=== PATIENT | female | born 1945 | race Caucasian/White ===

== ENCOUNTER 2018-05-13 01:32 | Observation (INO) ==
[2018-05-13 02:04] LABS: Appearance,Urine CLEAR (Clear); Bilirubin,Urine Negative (Negative); Blood, Urine Negative (Negative); Color,Urine YELLOW (Yellow); Glucose,Urine (UA) Negative (Negative); Ketones,Urine Negative (Negative); Leukocyte Esterase,Urine Negative (Negative); Microscopic, Urine URINE MICROSCOPIC (MICROSCOPIC); PH,Urine 5.5 (5.0-8.5); Protein,Urine Negative (Negative); Urobilinogen,Urine 0.2 EU/dl (0.2)
[2018-05-13 02:06] LABS: Basophils % 0.2 % (0.1-2.0); Eosinophils % 0.1 % (0.1-12.0); Hemoglobin 13.2 g/dL (12.2-16.2); Lymphocytes # 1.1 K/mm3 (0.7-4.5); Lymphocytes % 8.9 % (10-50); Mean Corpuscular HGB Conc 33.1 g/dL (31.8-35.4); Mean Corpuscular Volume 96.6 fl (81-99); Mean Platelet Volume 7.6 fl (7.4-10.4); Monocytes # 0.4 K/mm3 (0.1-1.0); Neutrophils # 10.7 K/mm3 (1.8-7.8); Neutrophils % 87.8 % (37.0-80.0); Platelet Count 241 K/mm3 (142-424); Red Blood Count 4.14 M/mm3 (4.20-5.40); Red Cell Distribution Width 13.9 % (11.5-17.5); White Blood Count 12.2 K/mm3 (4.8-10.8)
[2018-05-13 02:24] LABS: Alanine Aminotransferase 34 U/L (12-78); Albumin Level 3.5 gm/dL (3.4-5.0); Albumin/Globulin Ratio 0.8 (1.1-1.8); Alkaline Phosphatase 65 U/L (46-116); Amylase 69 U/L (25-115); Anion Gap 14.3 mEq/L (5-15); Aspartate Amino Transferase 16 U/L (15-37); Bilirubin,Total 0.6 mg/dL (0.2-1.0); Blood Urea Nitrogen 16 mg/dL (7-18); C-Reactive Protein 5.6 mg/L (0.0-0.9); Calcium 9.2 mg/dL (8.5-10.1); Carbon Dioxide 26 mmol/L (21.0-32.0); Chloride 99 mmol/L (98-107); Globulin 4.3 gm/dl (1.3-3.2); Glucose 178 mg/dL (74-106); Lipase 278 u/L (73-393); Potassium 3.3 mmoL/L (3.5-5.1); Sodium 136 mmol/L (136-145); Total Protein,Serum 7.8 gm/dL (6.4-8.2)
[2018-05-13 02:27] LABS: Bacteria,Urine 1+ /lpf; WBC,Urine Occasional #/hpf (0-3)
[2018-05-13 02:56] LABS: Erythrocyte Sedimentation Rate 64 mm/hr (0-30)
[2018-05-13 02:59] LABS: Anisocytosis 1+; Lymphocytes % 12 % (10-50); Monocytes % 1 % (2-9); Neutrophils % 87 % (42-76); Total Cells Counted 100
--- NOTE | 2018-05-13 04:01 | Emergency Department Note ---
ED Disposition Clinical Impression: Colitis, Vasovagal episode, Obesity (BMI 30.0-34.9) AAA (abdominal aortic aneurysm) Qualifiers: Presence of rupture: without rupture Qualified Code(s): I71.4 - Abdominal aortic aneurysm, without rupture Disposition: Admitted As Inpatient Condition on Discharge: Serious - Critical Care Critical Care Time: No Attestation: On 05/13/18, the high probability of a clinically significant, sudden or life threatening deterioration of the following system(s) required my full and direct attention, intervention and personal management. The time I documented below is in addition to time spent performing reported procedures but includes the following listed in this critical care notation. Medical Decision Making - Medical Records Medical records reviewed: Yes: I reviewed the patient's medical records. - Yaniv Inquiry Pt receiving controlled substance: No Vital Signs: 05/13/18 01:33 05/13/18 04:08 Temperature 97.5 F L Temperature Source Oral Pulse Rate [Right Radial] 79 76 Respiratory Rate 18 18 Blood Pressure [Right Arm] 156/61 H 142/93 H Blood Pressure Mean [Right Arm] 92 109 Blood Pressure Source [Right Arm] Automatic Cuff Blood Pressure Position [Right Arm] Sitting 02 Sat by Pulse Oximetry 94 L 96 Oxygen Delivery Method Room Air - Lab Data Lab results reviewed: Yes: I reviewed the patient's lab results. Lab Results 05/13/18 01:55: WBC 12.2 H, RBC 4.14 L, Hgb 13.2, Hct 40.0, MCV 96.6, MCH 32.0 H , MCHC 33.1, RDW 13.9, Plt Count 241, MPV 7.6, Neut % (Auto) 87.8 H, Lymph % (Auto) 8.9 L, [place] % (Auto) 3.0, Eos % (Auto) 0.1, Baso % (Auto) 0.2, Neut # (Auto) 10.7 H, Lymph # (Auto) 1.1, [place] # (Auto) 0.4, Eos # (Auto) 0.0, Baso # (Auto) 0.0, Total Counted 100, Neutrophils % (Manual) 87 H, Lymphocytes % (Manual) 12, Monocytes % (Manual) 1 L, Platelet Estimate Normal, RBC Morphology Not Reportable, Anisocytosis 1+, ESR 64 H 05/13/18 01:55: Sodium 136, Potassium 3.3 L, Chloride 99, Carbon Dioxide 26, Anion Gap 14.3, BUN 16, Creatinine 0.76, Estimated Creat Clear 66, Estimated GFR 75, Est GFR ( Amer) 90, Glucose 178 H, Calcium 9.2, Total Bilirubin 0.6, AST 16, ALT 34, Alkaline Phosphatase 65, Troponin I < 0.02, C-Reactive Protein 5.6 H, Total Protein 7.8, Albumin 3.5, Globulin 4.3 H, Albumin/Globulin Ratio 0.8 L, Amylase 69, Lipase 278 05/13/18 01:55: Influenza Type A Ag Negative, Influenza Type B Ag Negative 05/13/18 01:55: Lactate 1.2 05/13/18 01:59: Urine Color Yellow, Urine Appearance Clear, Urine pH 5.5, Ur Specific [place] 1.020, Urine Protein Negative, Urine Glucose (UA) Negative, Urine Ketones Negative, Urine Blood Negative, Urine Nitrate Negative, Urine Bilirubin Negative, Urine Urobilinogen 0.2, Ur Leukocyte Esterase Negative, Urine WBC Occasional, Ur Squamous Epith Cells 3-5, Urine Bacteria 1+ Result diagrams: 05/13/18 01:55 05/13/18 01:55 Orders (Tests/Meds): ED MEDICATIONS Generic Name Dose Route Start Last Admin Trade Name Freq PRN Reason Stop Dose Admin Sodium Chloride 1,000 mls @ 999 mls/hr 05/13/18 01:45 05/13/18 03:15 Sod Chlor 0.9% 1000ml Bag IV 05/13/18 02:45 999 mls/hr .Q1H1M DAVID Administration Levofloxacin/Dextrose 750 mg in 150 mls @ 100 mls/hr 05/13/18 04:15 Levofloxacin 750mg/150ml Premix IV 05/27/18 04:14 Q24H DAVID Protocol Metronidazole 500 mg in 100 mls @ 100 mls/hr 05/13/18 04:15 05/13/18 04:09 Flagyl 500mg/100ml Ivpb IV 05/27/18 04:14 100 mls/hr Q8H DAVID Administration Protocol Discontinued Medications Generic Name Dose Route Start Last Admin Trade Name Freq PRN Reason Stop Dose Admin Iopamidol 75 ml 05/13/18 03:19 05/13/18 03:21 [id number]; 75ml Vial IV 05/13/18 03:20 75 ml ONCE ONE Administration Protocol Sodium Chloride 10 ml 05/13/18 03:19 05/13/18 03:20 Rad-Saline Flush 10ml Syringe IV 05/13/18 03:20 10 ml ONCE ONE Administration ORDERS Category Date Time Status CT abdomen pelvis w con Stat Cat Scan 05/13/18 01:42 Taken XR chest AP Stat Exams 05/13/18 01:42 Taken Urinalysis and Microscopic Stat Lab 05/13/18 01:59 Ordered Blood Culture Stat Micro 05/13/18 01:55 Ordered - Radiology Data #1 Image(s): Chest Image Reviewed: Yes I reviewed the patient's radiology image Preliminary Findings: Normal/NAD - CT Data CT Scan: Abdomen, Pelvis Time Received: 04:[address] Reviewed: Yes: I have viewed the radiologist's interpretation Preliminary Findings: Abnormal (colitis and aaa) - ECG Data Tracing #1 Normal Sinus Rhythm: Yes Ischemic changes: non-specific ST-T wave changes - Physician Consults Physician Consulted: vikas Reason -: Admission Syncope HPI - General Chief Complaint: Nausea/Vomiting/Diarrhea Stated Complaint: fall Time Seen by Provider: 05/13/18 01:45 Mode of Arrival: EMS Source of Information: Patient, Spouse, Relative, EMS, Medical Record Limitations: No Limitations Description of Symptoms (Recalled from ER Triage Doc. by RN): pt states she has been sick with the chills for 4-5 days. pt states that she started vomiting today. pt states she was trying to get up to go to the bathroom and she "collapsed," became weak and her eased her down to the ground. pt denies diarrhea or abdominal pain. - History of Present Illness HPI narrative: pt reports not feeling well over the last few days and had nausea earlier today - pt denied abd pain and no diarrhea and when she got up earlier had vasovagal episode MD complaint: almost passed out Onset (ago): hour(s) Prodromal symptoms: none Witnessed: yes - by bystander Context: getting out of bed Injuries sustained associated with event: none Treatments prior to arrival: none - Related Data Home Medications Medication Instructions Recorded Confirmed Unobtainable 05/13/18 05/13/18 Allergies Allergy/AdvReac Type Severity Reaction Status Date / Time No Known Allergies Allergy Verified 05/13/18 01:40 [facility] History - Hepatitis A Screen Drug use history?: No High risk sexual behaviors?: No History of sexually transmitted infection?: No Currently employed?: No Childcare worker?: No Do you have indoor plumbing?: Yes Do you have electricity?: Yes Attestation statement:: This patient has been screened for Hepatitis A risk factors. I have reviewed the patient's past medical history: Yes Medical History: Reports:: Diabetes Mellitus Type 2 Denies:: Cancer, Diabetes Mellitus Type 1, MRSA Amputation: No Fractures: No - Social History Smoking Status: Former smoker Alcohol Intake: never Occupational Status: retired - Psychiatric History Expresses thoughts of harming self/others: None Suicide Plan Description: No Plan ROS Obtained: Yes All systems reviewed & no additional complaints - Constitutional Constitutional: Reports chills, Denies fever(s) - Eyes Eyes: Denies change in vision - ENT Ears, Nose, Mouth, and Throat: Denies sore throat - Cardiovascular Cardiovascular: Denies chest pain, Denies dyspnea - Respiratory Respiratory: No cough - Gastrointestinal Gastrointestingal: Reports: nausea, vomiting. Denies: abdominal pain, diarrhea - Genitourinary Female Genitourinary: Denies hematuria - Musculoskeletal Musculoskeletal: Denies joint swelling - Integumentary/Breasts Skin/Breast: Denies rash - Neurologic Neurologic: Denies confusion, Denies seizure-like activity, Reports syncope Physical Exam - General General appearance: alert, in no apparent distress, obese - Head Head exam: normocephalic - Eye Eye exam: Present: PERRL, EOMI. Absent: scleral icterus - ENT ENT exam: Present: mucous membranes dry - Neck Neck exam: Present: trachea midline - Respiratory Respiratory exam: Present: normal lung sounds bilaterally. Absent: respiratory distress - Cardiovascular Cardiovascular exam: Present: regular rate, systolic murmur, +S4 - Abdominal Exam Abdominal exam: Present: soft. Absent: tenderness, bruit Abdominal tenderness: Present: moderate - Extremities Exam Extremities exam: Absent: calf tenderness - Neurological Exam Neurological exam: Present: alert, oriented X3, CN II-XII intact - Psychiatric Psychiatric exam: Present: normal affect - Skin Skin exam: Absent: rash
--- NOTE | 2018-05-13 07:39 | Pharmacy Consult Notes ---
[facility] Pharmacy VTE Monitoring - Patient Demographics Admission date: 05/13/18 Report Date: 05/13/18 Time: 07:38 Allergies/Adverse Reactions: Patient Allergies No Known Allergies Allergy (Verified 05/13/18 01:40) Height: 1.57 m Weight: 83.263 kg Patient Problems: Current Active Problems Colitis (Acute) Vasovagal episode (Acute) AAA (abdominal aortic aneurysm) (Acute) Obesity (BMI 30.0-34.9) (Acute) - VTE Risk Labs: VTE Related Lab Results Hgb 13.2 g/dL (12.2-16.2) 05/13/18 01:55 Hct 40.0 % (37.0-47.0) 05/13/18 01:55 Plt Count 241 K/mm3 (142-424) 05/13/18 01:55 BUN 16 mg/dL (7-18) 05/13/18 01:55 Creatinine 0.76 mg/dL (0.55-1.02) 05/13/18 01:55 Estimated Creat Clear 66 mL/min (50-200) 05/13/18 01:55 Was VTE Risk Assessment Performed: Yes VTE Score: 5 VTE Risk Level: Low Risk - Prophylaxis VTE Prophylaxis Ordered?: Yes Types of VTE Prophylaxis: TEDS Knee High Location of Applied Device: Bilateral Lower Extremeties - VTE Diagnosis Confirmed Treatment or plan recommended: Continue Current Treatment
--- NOTE | 2018-05-13 08:44 | History & Physical Report ---
*Admission Date: 05/13/18 <Roxi Curtis Adry 05/13/18 09:05> *Chief complaint: Nausea and vomiting and weakness <EverRoxi 05/13/18 09:05> *History of present illness: Ms. Valdez is a 72-year-old female with a history of diabetes mellitus, hypothyroidism, breast cancer and hyperlipidemia who was brought to the [facility] emergency room via EMS after collapsing to the floor in her home and vomiting. Patient describes not feeling well for 4 days and has mostly stayed in the bed. She was nauseated but did not vomit until last p.m. she has had a decrease in her p.o. intake. She describes chilling and weakness but denies fever, cough, diarrhea, chest pain and abdominal pain. Bowels have been moving regularly. Until last p.m. she has been able to ambulate but has been weak. Patient was evaluated in the emergency room. CT of the abdomen and pelvis showed a colitis and edematous gallbladder. Chest x-ray showed a nodule in the right lobe. She was given anti-metic, admitted and placed on Levaquin and Flagyl. She arrived to the room about 5 AM and is feeling better. She denies vomiting. She agrees to try clear liquids. will bring her medicines in. She takes thyroid medicine, metformin twice daily, cholesterol medicine, and 40 units of insulin at night. Patient and are unsure of dosages. <EverRoxi 05/13/18 09:05> [facility] History Medical History: Reports:: Cancer (2011; right breast cancer), Diabetes Mellitus Type 2, Gastroesophageal Reflux Disease(GERD), Hyperlipidemia, MRSA (left groin in 2013) Denies:: Diabetes Mellitus Type 1 <Roxi Curtis 05/13/18 09:05> Have you ever received a pneumonia vaccine?: Yes <Roxi Curtis 05/13/18 09:05> Have you received a flu vaccine this season?: Yes <Roxi Curtis 05/13/18 09:05> Other Medical History: Reports: Chemotherapy, Thyroid Disease <Roxi Curtis 05/13/18 09:05> Laterality Cases: Right: Cataract, Lumpectomy (For breast cancer followed by radiation treatment) <Roxi Curtis 05/13/18 09:05> Other Surgeries: Yes: Colonoscopy, Hysterectomy-Total <Roxi Curtis 05/13/18 09:05> Amputation: No <EverRoxi 05/13/18 09:05> Fractures: No <EverRoxi 05/13/18 09:05> Comment: Removal of saliva gland on the right; she has also had back surgery <Roxi Curtis 05/13/18 09:05> - *Social History Educational Level: Completed GED/General Educational Development <Nicole Curtis 05/13/18 09:05> Smoking Status: Former smoker <EverRoxi Rider 05/13/18 09:05> Alcohol Intake: never <CurtisRoxi 05/13/18 09:05> Occupational Status: retired <EverRoxi 05/13/18 09:05> Household Members: spouse, family <CurtisRoxi 05/13/18 09:05> Travel in the last 8 weeks: None <CurtisRoxi 05/13/18 09:05> - Psychiatric History Expresses thoughts of harming self/others: None <EverRoxi 05/13/18 09:05> Suicide Plan Description: No Plan <Roxi Curtis 05/13/18 09:05> *Family Hx:: Asthma, Coronary Artery Disease, Hyperlipidemia <EverRoxi 05/13/18 09:05> Review of Systems - Constitutional Reports chills, Reports headache(s), Reports lack of energy, Reports weakness, Denies body ache(s), Denies fever(s) <Curtis,Roxi 05/13/18 09:05> - Eyes Reports floaters <CurtisRoxi 05/13/18 09:05> - ENT Reports dry mouth, Denies ear pain, Denies sore throat <Curtis,Roxi 05/13/18 09:05> - *Cardiovascular Denies chest pain, Denies shortness of breath, Denies leg swelling, Denies rapid , pounding, or irregular heartbeat <EverRoxi 05/13/18 09:05> - *Respiratory Denies chest congestion, Denies cough, Denies shortness of breath <EverRoxi 05/13/18 09:05> - *Gastrointestinal Reports heartburn, Reports incontinent of stools (1 time upon arrival to the emergency room), Reports nausea, Reports vomiting, Denies abdominal pain, Denies change in stools, Denies coffee ground vomit, Denies constipation, Denies cramping, Denies difficulty swallowing, Denies vomiting blood, Denies bright, red blood in stools, Denies black, tarry stools <Roxi Curtis 05/13/18 09:05> - *Genitourinary Denies blood in urine, Denies pelvic pain, Denies urinary incontinence, Denies urinary urgency <Roxi Curtis 05/13/18 09:05> Comments: Urinary frequency <Roxi Curtis 05/13/18 09:05> - *Musculoskeletal Reports muscle weakness, Denies joint pain, Denies body aches <Roxi Curtis 05/13/18 09:05> - *Neurologic Reports dizziness, Reports headache(s), Reports fainting, Denies behavioral changes, Denies confusion, Denies localized weakness, Denies frequent falls, Denies seizure-like activity <Roxi Curtis 05/13/18 09:05> Meds Home Medications Medication Instructions Recorded Confirmed Type Unobtainable 05/13/18 05/13/18 History <Fausto Donnelly - 05/13/18 09:47> Allergies Allergy/AdvReac Type Severity Reaction Status Date / Time No Known Allergies Allergy Verified 05/13/18 01:40 <Fausto Donnelly - 05/13/18 09:47> Exam Vital signs and Labs for Last 24 Hours: Temp Pulse Resp BP Pulse Ox 97.8 F 79 17 109/54 L 93 L 05/13/18 07:56 05/13/18 07:56 05/13/18 07:56 05/13/18 07:56 05/13/18 07:56 Laboratory Results - last 24 hr 05/13/18 01:55: WBC 12.2 H, RBC 4.14 L, Hgb 13.2, Hct 40.0, MCV 96.6, MCH 32.0 H , MCHC 33.1, RDW 13.9, Plt Count 241, MPV 7.6, Neut % (Auto) 87.8 H, Lymph % (Auto) 8.9 L, [place] % (Auto) 3.0, Eos % (Auto) 0.1, Baso % (Auto) 0.2, Neut # (Auto) 10.7 H, Lymph # (Auto) 1.1, [place] # (Auto) 0.4, Eos # (Auto) 0.0, Baso # (Auto) 0.0, Total Counted 100, Neutrophils % (Manual) 87 H, Lymphocytes % (Manual) 12, Monocytes % (Manual) 1 L, Platelet Estimate Normal, RBC Morphology Not Reportable, Anisocytosis 1+, ESR 64 H 05/13/18 01:55: Sodium 136, Potassium 3.3 L, Chloride 99, Carbon Dioxide 26, Anion Gap 14.3, BUN 16, Creatinine 0.76, Estimated Creat Clear 66, Estimated GFR 75, Est GFR ( Amer) 90, Glucose 178 H, Calcium 9.2, Total Bilirubin 0.6, AST 16, ALT 34, Alkaline Phosphatase 65, Troponin I < 0.02, C-Reactive Protein 5.6 H, Total Protein 7.8, Albumin 3.5, Globulin 4.3 H, Albumin/Globulin Ratio 0.8 L, Amylase 69, Lipase 278 05/13/18 01:55: Influenza Type A Ag Negative, Influenza Type B Ag Negative 05/13/18 01:55: Lactate 1.2 05/13/18 01:59: Urine Color Yellow, Urine Appearance Clear, Urine pH 5.5, Ur Specific [place] 1.020, Urine Protein Negative, Urine Glucose (UA) Negative, Urine Ketones Negative, Urine Blood Negative, Urine Nitrate Negative, Urine Bilirubin Negative, Urine Urobilinogen 0.2, Ur Leukocyte Esterase Negative, Urine WBC Occasional, Ur Squamous Epith Cells 3-5, Urine Bacteria 1+ 05/13/18 06:28: POC Glucose 183 H 05/13/18 07:50: Troponin I < 0.02 <Fausto Donnelly - 05/13/18 09:47> Temp Pulse Resp BP Pulse Ox 97.8 F 79 17 109/54 L 93 L 05/13/18 07:56 05/13/18 07:56 05/13/18 07:56 05/13/18 07:56 05/13/18 07:56 Laboratory Results - last 24 hr 05/13/18 01:55: WBC 12.2 H, RBC 4.14 L, Hgb 13.2, Hct 40.0, MCV 96.6, MCH 32.0 H , MCHC 33.1, RDW 13.9, Plt Count 241, MPV 7.6, Neut % (Auto) 87.8 H, Lymph % (Auto) 8.9 L, [place] % (Auto) 3.0, Eos % (Auto) 0.1, Baso % (Auto) 0.2, Neut # (Auto) 10.7 H, Lymph # (Auto) 1.1, [place] # (Auto) 0.4, Eos # (Auto) 0.0, Baso # (Auto) 0.0, Total Counted 100, Neutrophils % (Manual) 87 H, Lymphocytes % (Manual) 12, Monocytes % (Manual) 1 L, Platelet Estimate Normal, RBC Morphology Not Reportable, Anisocytosis 1+, ESR 64 H 05/13/18 01:55: Sodium 136, Potassium 3.3 L, Chloride 99, Carbon Dioxide 26, Anion Gap 14.3, BUN 16, Creatinine 0.76, Estimated Creat Clear 66, Estimated GFR 75, Est GFR ( Amer) 90, Glucose 178 H, Calcium 9.2, Total Bilirubin 0.6, AST 16, ALT 34, Alkaline Phosphatase 65, Troponin I < 0.02, C-Reactive Protein 5.6 H, Total Protein 7.8, Albumin 3.5, Globulin 4.3 H, Albumin/Globulin Ratio 0.8 L, Amylase 69, Lipase 278 05/13/18 01:55: Influenza Type A Ag Negative, Influenza Type B Ag Negative 05/13/18 01:55: Lactate 1.2 05/13/18 01:59: Urine Color Yellow, Urine Appearance Clear, Urine pH 5.5, Ur Specific [place] 1.020, Urine Protein Negative, Urine Glucose (UA) Negative, Urine Ketones Negative, Urine Blood Negative, Urine Nitrate Negative, Urine Bilirubin Negative, Urine Urobilinogen 0.2, Ur Leukocyte Esterase Negative, Urine WBC Occasional, Ur Squamous Epith Cells 3-5, Urine Bacteria 1+ 05/13/18 06:28: POC Glucose 183 H <Roxi Curtis - 05/13/18 09:05> I & O for Last 24 hours: Intake & Output 05/10/18 05/11/18 05/12/1819 11:59 11:59 11:59 11:59 Intake Total 0 / 0 Balance 0 / 0 Weight 183 lb 9 oz <Fausto Donnelly - 05/13/18 09:47> Intake & Output 05/10/18 05/11/18 05/12/18 05/13/18 11:59 11:59 11:59 11:59 Intake Total 0 / 0 Balance 0 / 0 Weight 183 lb 9 oz <Roxi Curtis 05/13/18 09:05> Radiology Reports for the Last 24 Hours: Chest x-ray 05/13/2018 IMPRESSION: Chronic changes/COPD with nodularity in the right upper lobe. Consider chest CT for further evaluation.. CT of abdomen and pelvis 05/13/2018 IMPRESSION: 1. Colitis of the ascending colon and cecum with terminal ileitis. 2. Distended gallbladder. 3. 4.6 cm saccular abdominal aortic aneurysm 4. Colonic diverticulosis <EverRoxi 05/13/18 09:05> - Constitutional no acute distress <CurtisRoxi 05/13/18 09:05> Comments: She is lying comfortably in the bed <CurtisRoxi 05/13/18 09:05> - *Routine HEENT Exam Head: Present: normocephalic, atraumatic <CurtisRoxi 05/13/18 09:05> Eye: Present: EOMI, PERRL. Absent: conjunctival icterus, scleral injection <CurtisRoxi 05/13/18 09:05> ENT: Present: mucous membranes moist, oropharynx clear <EverRoxi 05/13/18 09:05> - *Routine Neck Exam Present: supple, full ROM. Absent: carotid bruit, lymphadenopathy, thyromegaly <EverRoxi 05/13/18 09:05> - *Routine Respiratory Exam Present: CTA bilaterally (Anteriorly and posteriorly) <Roxi Curtis 05/13/18 09:05> - *Routine Cardiovascular Exam Present: RRR. Absent: murmur <EverRoxi 05/13/18 09:05> - *Routine Abdominal Exam Present: soft, normoactive bowel sounds. Absent: tenderness, distended, organomegaly, mass <Roxi Curtis 05/13/18 09:05> - *Routine Extremities Exam Present: full ROM. Absent: edema, calf tenderness <Roxi Curtis 05/13/18 09:05> - *Routine Neurological Exam Present: alert, oriented X3, CN II-XII intact. Absent: altered mental status <Roxi Curtis - 05/13/18 09:05> Assessment and Plan (1) Colitis Current visit: Yes Status: Acute Category: Medical Code(s): K52.9 - Noninfective gastroenteritis and colitis, unspecified (2) Vasovagal episode Current visit: Yes Status: Acute Category: Medical Code(s): R55 - Syncope and collapse (3) Hypothyroidism Current visit: Yes Status: Chronic Category: Medical Code(s): E03.9 - Hypothyroidism, unspecified (4) Hyperlipidemia Current visit: Yes Status: Chronic Category: Medical Code(s): E78.5 - Hyperlipidemia, unspecified (5) Diabetes mellitus Current visit: Yes Status: Chronic Category: Medical Code(s): E11.9 - Type 2 diabetes mellitus without complications (6) History of breast cancer Current visit: Yes Status: Chronic Category: Medical Code(s): Z85.3 - Personal history of malignant neoplasm of breast (7) AAA (abdominal aortic aneurysm) Current visit: Yes Status: Acute Qualifiers: Presence of rupture: without rupture Qualified Code(s): I71.4 - Abdominal aortic aneurysm, without rupture Category: Medical Code(s): I71.4 - Abdominal aortic aneurysm, without rupture (8) Obesity (BMI 30.0-34.9) Current visit: Yes Status: Chronic Category: Medical Code(s): E66.9 - Obesity, unspecified (9) Lung nodule Current visit: Yes Status: Acute Category: Medical Code(s): R91.1 - Solitary pulmonary nodule <Fausto Donnelly - 05/13/18 09:47> (1) Hypothyroidism Current visit: Yes Status: Chronic Category: Medical Code(s): E03.9 - Hypothyroidism, unspecified (2) Hyperlipidemia Current visit: Yes Status: Chronic Category: Medical Code(s): E78.5 - Hyperlipidemia, unspecified (3) Diabetes mellitus Current visit: Yes Status: Chronic Category: Medical Code(s): E11.9 - Type 2 diabetes mellitus without complications (4) History of breast cancer Current visit: Yes Status: Chronic Category: Medical Code(s): Z85.3 - Personal history of malignant neoplasm of breast (5) AAA (abdominal aortic aneurysm) Current visit: Yes Status: Acute Qualifiers: Presence of rupture: without rupture Qualified Code(s): I71.4 - Abdominal aortic aneurysm, without rupture Category: Medical Code(s): I71.4 - Abdominal aortic aneurysm, without rupture (6) Colitis Current visit: Yes Status: Acute Category: Medical Code(s): K52.9 - Noninfective gastroenteritis and colitis, unspecified (7) Obesity (BMI 30.0-34.9) Current visit: Yes Status: Chronic Category: Medical Code(s): E66.9 - Obesity, unspecified (8) Vasovagal episode Current visit: Yes Status: Acute Category: Medical Code(s): R55 - Syncope and collapse (9) Lung nodule Current visit: Yes Status: Acute Category: Medical Code(s): R91.1 - Solitary pulmonary nodule <Roxi Curtis - 05/13/18 08:40> - Assessment and plan all Dx Assessment and Plan for all problems:: Patient seen and examined. Concur with above. Subjectively feels better. SHe has started having diarrheal stools. Will obtain PCR diarrhea panel. Continue current antibiotic regimen. <Fausto Donnelly - 05/13/18 09:47> Patient has been started on Levaquin and Flagyl. She is also receiving IV fluids. We will try clear liquids. Continue with anti-emetics as needed. to bring medicines from home and list will be completed. She is on sliding scale insulin. <Roxi Curtis - 05/13/18 09:05>
--- NOTE | 2018-05-13 13:30 | Progress Note ---
Internal Medicine - PN: Pita *Date: 05/13/18 *Time: 13:29 Interval history: Diarrhea panel returned showing Campylobacter. Exam Vital signs and Labs for Last 24 Hours: Temp Pulse Resp BP Pulse Ox 97.8 F 79 17 109/54 L 93 L 05/13/18 07:56 05/13/18 07:56 05/13/18 07:56 05/13/18 07:56 05/13/18 07:56 Laboratory Results - last 24 hr 05/13/18 01:55: WBC 12.2 H, RBC 4.14 L, Hgb 13.2, Hct 40.0, MCV 96.6, MCH 32.0 H , MCHC 33.1, RDW 13.9, Plt Count 241, MPV 7.6, Neut % (Auto) 87.8 H, Lymph % (Auto) 8.9 L, [place] % (Auto) 3.0, Eos % (Auto) 0.1, Baso % (Auto) 0.2, Neut # (Auto) 10.7 H, Lymph # (Auto) 1.1, [place] # (Auto) 0.4, Eos # (Auto) 0.0, Baso # (Auto) 0.0, Total Counted 100, Neutrophils % (Manual) 87 H, Lymphocytes % (Manual) 12, Monocytes % (Manual) 1 L, Platelet Estimate Normal, RBC Morphology Not Reportable, Anisocytosis 1+, ESR 64 H 05/13/18 01:55: Sodium 136, Potassium 3.3 L, Chloride 99, Carbon Dioxide 26, Anion Gap 14.3, BUN 16, Creatinine 0.76, Estimated Creat Clear 66, Estimated GFR 75, Est GFR ( Amer) 90, Glucose 178 H, Calcium 9.2, Total Bilirubin 0.6, AST 16, ALT 34, Alkaline Phosphatase 65, Troponin I < 0.02, C-Reactive Protein 5.6 H, Total Protein 7.8, Albumin 3.5, Globulin 4.3 H, Albumin/Globulin Ratio 0.8 L, Amylase 69, Lipase 278 05/13/18 01:55: Influenza Type A Ag Negative, Influenza Type B Ag Negative 05/13/18 01:55: Lactate 1.2 05/13/18 01:59: Urine Color Yellow, Urine Appearance Clear, Urine pH 5.5, Ur Specific [place] 1.020, Urine Protein Negative, Urine Glucose (UA) Negative, Urine Ketones Negative, Urine Blood Negative, Urine Nitrate Negative, Urine Bilirubin Negative, Urine Urobilinogen 0.2, Ur Leukocyte Esterase Negative, Urine WBC Occasional, Ur Squamous Epith Cells 3-5, Urine Bacteria 1+ 05/13/18 06:28: POC Glucose 183 H 05/13/18 07:50: Troponin I < 0.02 05/13/18 09:30: Stl Aeromonas (PCR) Not detected, Stl C. cayetanensis PCR Not detected, Stool Rotavirus (PCR) Not detected, Stl Adenov F 40/41 PCR Not detected, Stool Astrovirus (PCR) Not detected, Stool Campylobacter PCR Detected A, Stl C.difficile Tox PCR Not detected, Stool Cryptosporidium PCR Not detected, Stl E.coli Shiga Tox PCR Not detected, Stool E coli O157 PCR Not detected, Stl Enterotoxigenic E PCR Not detected, Stool EPEC (PCR) Not detected, Stool EAEC (PCR) Not detected, Stl E. histolytica PCR Not detected, Stool Giardia Lamblia PCR Not detected, Stool Salmonella PCR Not detected, Stool Sapovirus (PCR) Not detected, Stl P. shigelloides PCR Not detected, Stl Shigella/EIEC PCR Not detected, St Y.enterocolitica PCR Not detected, Stool Vibrio (PCR) Not detected, Stl Vibrio cholerae PCR Not detected, Stl Norovirus GI/GII PCR Not detected 05/13/18 10:55: Troponin I < 0.02 05/13/18 12:12: POC Glucose 120 H I & O for Last 24 hours: Intake & Output 05/11/18 05/12/18 05/13/18 05/14/18 11:59 11:59 11:59 11:59 Intake Total 0 / 0 600 / 600 Balance 0 / 0 600 / 600 Weight 183 lb 9 oz Assessment and Plan (1) Campylobacter enteritis Current visit: Yes Status: Acute Category: Medical Code(s): A04.5 - Campylobacter enteritis (2) Vasovagal episode Current visit: Yes Status: Acute Category: Medical Code(s): R55 - Syncope and collapse (3) Hypothyroidism Current visit: Yes Status: Chronic Category: Medical Code(s): E03.9 - Hypothyroidism, unspecified (4) Hyperlipidemia Current visit: Yes Status: Chronic Category: Medical Code(s): E78.5 - Hyperlipidemia, unspecified (5) Diabetes mellitus Current visit: Yes Status: Chronic Category: Medical Code(s): E11.9 - Type 2 diabetes mellitus without complications (6) History of breast cancer Current visit: Yes Status: Chronic Category: Medical Code(s): Z85.3 - Personal history of malignant neoplasm of breast (7) AAA (abdominal aortic aneurysm) Current visit: Yes Status: Acute Qualifiers: Presence of rupture: without rupture Qualified Code(s): I71.4 - Abdominal aortic aneurysm, without rupture Category: Medical Code(s): I71.4 - Abdominal aortic aneurysm, without rupture (8) Obesity (BMI 30.0-34.9) Current visit: Yes Status: Chronic Category: Medical Code(s): E66.9 - Obesity, unspecified (9) Lung nodule Current visit: Yes Status: Acute Category: Medical Code(s): R91.1 - Solitary pulmonary nodule - Assessment and plan all Dx Assessment and Plan for all problems:: Will add Azithromycin. Stop Flagyl
[2018-05-14 06:54] LABS: Basophils % 0.2 % (0.1-2.0); Eosinophils # 0.1 K/mm3 (0.0-0.4); Eosinophils % 2.1 % (0.1-12.0); Hematocrit 34.2 % (37.0-47.0); Hemoglobin 11.1 g/dL (12.2-16.2); Lymphocytes # 1.6 K/mm3 (0.7-4.5); Lymphocytes % 24.7 % (10-50); Mean Corpuscular HGB Conc 32.3 g/dL (31.8-35.4); Mean Corpuscular Volume 99.1 fl (81-99); Mean Platelet Volume 7.9 fl (7.4-10.4); Monocytes # 0.3 K/mm3 (0.1-1.0); Monocytes % 5.2 % (1.7-9.3); Neutrophils # 4.5 K/mm3 (1.8-7.8); Neutrophils % 67.8 % (37.0-80.0); Platelet Count 194 K/mm3 (142-424); Red Blood Count 3.46 M/mm3 (4.20-5.40); Red Cell Distribution Width 13.8 % (11.5-17.5); White Blood Count 6.6 K/mm3 (4.8-10.8)
[2018-05-14 07:02] LABS: Anion Gap 12.1 mEq/L (5-15); Potassium 3.1 mmoL/L (3.5-5.1)
[2018-05-14 08:15] LABS: Calcium 8.1 mg/dL (8.5-10.1)
--- NOTE | 2018-05-14 08:28 | Progress Note ---
<Rosalia Nicholson - Last Filed: 05/14/18 08:26> Internal Medicine - PN: Subj *Date: 05/14/18 *Time: 08:26 Interval history: Patient states she feels "great" today. She states her bowels are still loose. She denies any abdominal pain. She is tolerating her clear liquid diet and would like an advance in her diet today. She is anxious to go home. Exam Vital signs and Labs for Last 24 Hours: Temp Pulse Resp BP Pulse Ox 97.5 F L 74 17 142/66 H 98 05/14/18 04:00 05/14/18 04:00 05/14/18 04:00 05/14/18 04:00 05/14/18 04:00 Laboratory Results - last 24 hr 05/13/18 07:50: Troponin I < 0.02 05/13/18 09:30: Stl Aeromonas (PCR) Not detected, Stl C. cayetanensis PCR Not detected, Stool Rotavirus (PCR) Not detected, Stl Adenov F 40/41 PCR Not detected, Stool Astrovirus (PCR) Not detected, Stool Campylobacter PCR Detected A, Stl C.difficile Tox PCR Not detected, Stool Cryptosporidium PCR Not detected, Stl E.coli Shiga Tox PCR Not detected, Stool E coli O157 PCR Not detected, Stl Enterotoxigenic E PCR Not detected, Stool EPEC (PCR) Not detected, Stool EAEC (PCR) Not detected, Stl E. histolytica PCR Not detected, Stool Giardia Lamblia PCR Not detected, Stool Salmonella PCR Not detected, Stool Sapovirus (PCR) Not detected, Stl P. shigelloides PCR Not detected, Stl Shigella/EIEC PCR Not detected, St Y.enterocolitica PCR Not detected, Stool Vibrio (PCR) Not detected, Stl Vibrio cholerae PCR Not detected, Stl Norovirus GI/GII PCR Not detected 05/13/18 10:55: Troponin I < 0.02 05/13/18 12:12: POC Glucose 120 H 05/13/18 16:42: POC Glucose 117 H 05/14/18 06:26: POC Glucose 122 H 05/14/18 06:30: WBC 6.6 D, RBC 3.46 L, Hgb 11.1 L, Hct 34.2 L, MCV 99.1 H, MCH 32.0 H, MCHC 32.3, RDW 13.8, Plt Count 194, MPV 7.9, Neut % (Auto) 67.8, Lymph % (Auto) 24.7, [place] % (Auto) 5.2, Eos % (Auto) 2.1, Baso % (Auto) 0.2, Neut # (Auto) 4.5, Lymph # (Auto) 1.6, [place] # (Auto) 0.3, Eos # (Auto) 0.1, Baso # (Auto) 0.0 05/14/18 06:30: Sodium 140, Potassium 3.1 L, Chloride 106, Carbon Dioxide 25, Anion Gap 12.1, BUN 9 D, Creatinine 0.65, Estimated Creat Clear 66, Estimated GFR 89, Est GFR ( Amer) 108, Glucose 131 H, Calcium 8.1 L D I & O for Last 24 hours: Intake & Output 05/11/18 05/12/18 05/13/18 05/14/18 11:59 11:59 11:59 11:59 Intake Total 0 / 0 2137 Balance 0 / 0 2137 Weight 183 lb 9 oz 184 lb 9 oz - Constitutional no acute distress - *Routine Respiratory Exam Present: rales (LLL). Absent: wheezes - *Routine Cardiovascular Exam Present: RRR - *Routine Abdominal Exam Present: soft, normoactive bowel sounds. Absent: tenderness - *Routine Extremities Exam Absent: cyanosis, clubbing, edema Assessment and Plan (1) Campylobacter enteritis Current visit: Yes Status: Acute Category: Medical Code(s): A04.5 - Campylobacter enteritis (2) Vasovagal episode Current visit: Yes Status: Acute Category: Medical Code(s): R55 - Syncope and collapse (3) Hypothyroidism Current visit: Yes Status: Chronic Category: Medical Code(s): E03.9 - Hypothyroidism, unspecified (4) Hyperlipidemia Current visit: Yes Status: Chronic Category: Medical Code(s): E78.5 - Hyperlipidemia, unspecified (5) Diabetes mellitus Current visit: Yes Status: Chronic Category: Medical Code(s): E11.9 - Type 2 diabetes mellitus without complications (6) History of breast cancer Current visit: Yes Status: Chronic Category: Medical Code(s): Z85.3 - Personal history of malignant neoplasm of breast (7) AAA (abdominal aortic aneurysm) Current visit: Yes Status: Acute Qualifiers: Presence of rupture: without rupture Qualified Code(s): I71.4 - Abdominal aortic aneurysm, without rupture Category: Medical Code(s): I71.4 - Abdominal aortic aneurysm, without rupture (8) Obesity (BMI 30.0-34.9) Current visit: Yes Status: Chronic Category: Medical Code(s): E66.9 - Obesity, unspecified (9) Lung nodule Current visit: Yes Status: Acute Category: Medical Code(s): R91.1 - Solitary pulmonary nodule (10) Hypokalemia Current visit: Yes Status: Acute Category: Medical Code(s): E87.6 - Hypokalemia - Assessment and plan all Dx Assessment and Plan for all problems:: Will start on potassium supplementation for hypokalemia. Will continue antibiotics for Campylobacter enteritis. Will advance diet today. <Fausto Donnelly - Last Filed: 05/14/18 17:46> Exam Vital signs and Labs for Last 24 Hours: Temp Pulse Resp BP Pulse Ox 98.0 F 77 16 155/73 H 96 05/14/18 16:00 05/14/18 16:00 05/14/18 16:00 05/14/18 16:00 05/14/18 16:00 Laboratory Results - last 24 hr 05/14/18 06:26: POC Glucose 122 H 05/14/18 06:30: WBC 6.6 D, RBC 3.46 L, Hgb 11.1 L, Hct 34.2 L, MCV 99.1 H, MCH 32.0 H, MCHC 32.3, RDW 13.8, Plt Count 194, MPV 7.9, Neut % (Auto) 67.8, Lymph % (Auto) 24.7, [place] % (Auto) 5.2, Eos % (Auto) 2.1, Baso % (Auto) 0.2, Neut # (Auto) 4.5, Lymph # (Auto) 1.6, [place] # (Auto) 0.3, Eos # (Auto) 0.1, Baso # (Auto) 0.0 05/14/18 06:30: Sodium 140, Potassium 3.1 L, Chloride 106, Carbon Dioxide 25, Anion Gap 12.1, BUN 9 D, Creatinine 0.65, Estimated Creat Clear 66, Estimated GFR 89, Est GFR ( Amer) 108, Glucose 131 H, Calcium 8.1 L D 05/14/18 11:15: POC Glucose 116 H 05/14/18 16:15: POC Glucose 189 H I & O for Last 24 hours: Intake & Output 05/12/18 05/13/18 05/14/18 05/15/18 11:59 11:59 11:59 11:59 Intake Total 0 / 0 261 261 360 / 360 Balance 0 / 0 2617 261 360 / 360 Weight 183 lb 9 oz 184 lb 9 oz Assessment and Plan (1) Campylobacter enteritis Current visit: Yes Status: Acute Category: Medical Code(s): A04.5 - Campylobacter enteritis (2) Vasovagal episode Current visit: Yes Status: Acute Category: Medical Code(s): R55 - Syncope and collapse (3) Hypothyroidism Current visit: Yes Status: Chronic Category: Medical Code(s): E03.9 - Hypothyroidism, unspecified (4) Hyperlipidemia Current visit: Yes Status: Chronic Category: Medical Code(s): E78.5 - Hyperlipidemia, unspecified (5) Diabetes mellitus Current visit: Yes Status: Chronic Category: Medical Code(s): E11.9 - Type 2 diabetes mellitus without complications (6) History of breast cancer Current visit: Yes Status: Chronic Category: Medical Code(s): Z85.3 - Personal history of malignant neoplasm of breast (7) AAA (abdominal aortic aneurysm) Current visit: Yes Status: Acute Qualifiers: Presence of rupture: without rupture Qualified Code(s): I71.4 - Abdominal aortic aneurysm, without rupture Category: Medical Code(s): I71.4 - Abdominal aortic aneurysm, without rupture (8) Obesity (BMI 30.0-34.9) Current visit: Yes Status: Chronic Category: Medical Code(s): E66.9 - Obesity, unspecified (9) Lung nodule Current visit: Yes Status: Acute Category: Medical Code(s): R91.1 - Solitary pulmonary nodule (10) Hypokalemia Current visit: Yes Status: Acute Category: Medical Code(s): E87.6 - Hypokalemia - Assessment and plan all Dx Assessment and Plan for all problems:: Patient seen and examined this AM. SHe is feeling better and feels hungry . Stool frequency has decreased. Will advance diet and encourage activity. Collin khan discharge home later today.
--- NOTE | 2018-05-14 21:34 | Discharge Summary ---
General - General Admission date:: 05/13/18 <Fausto Donnelly - 05/21/18 18:11> 05/13/18 <Rosalia Nicholson - 05/14/18 21:35> Discharge date: 05/14/18 <BharatRosalia - 05/14/18 21:35> HPI HPI: Ms. Valdez is a 72-year-old female with a history of diabetes mellitus, hypothyroidism, breast cancer and hyperlipidemia who was brought to the [facility] emergency room via EMS after collapsing to the floor in her home and vomiting. Patient describes not feeling well for 4 days and has mostly stayed in the bed. She was nauseated but did not vomit until last p.m. She has had a decrease in her p.o. intake. She describes chilling and weakness but denies fever, cough, diarrhea, chest pain and abdominal pain. Bowels have been moving regularly. Until last p.m. she has been able to ambulate but has been weak. Patient was evaluated in the emergency room. CT of the abdomen and pelvis showed a colitis and edematous gallbladder as well as a AAA. Chest x-ray showed a nodule in the right lobe. She was given antiemetics and admitted and placed on Levaquin and Flagyl. She arrived to the room about 5 AM and is feeling better. She denies vomiting. She agrees to try clear liquids. will bring her medicines in. She takes thyroid medicine, metformin twice daily, cholesterol medicine, and 40 units of insulin at night. Patient and are unsure of dosages. <Rosalia Nicholson - 05/14/18 21:35> Hospital Course Hospital Course: A diarrhea panel was ordered as she started having diarrheal stools. She was continued on Levaquin and Flagyl as well as IV fluids and was started on a clear liquid diet. Her antiemetics were continued as well and she was started on sliding scale insulin. Her diarrhea panel returned showing Campylobacter. The Flagyl was stopped and she was started on Zithromax along with the Levaquin. By the next day, she was feeling much better. Her stools we re still loose but she was having less frequent stools. She was tolerating her diet and wanted an advance in the diet. She denied any abdominal pain and was anxious to go home. She was started on some potassium supplementation due to hypokalemia and her diet was advanced. She tolerated her diet and her stools started to form. She was stable to be discharged home. Dr. Donnelly did discuss the abnormal finding on her chest x-ray and the finding of a AAA on her CT scan. He advised her to follow-up with her PCP Dr. Bocanegra for further workup and surveillance. She was provided a copy of these reports to take home with her. She will be discharged home on azithromycin. <Rosalia Nicholson - 05/14/18 21:35> Objective Vital signs: Temp Pulse Resp BP Pulse Ox 98.0 F 77 16 155/73 H 96 05/14/18 16:00 05/14/18 16:00 05/14/18 16:00 05/14/18 16:00 05/14/18 16:00 <Fausto Donnelly - 05/21/18 18:11> Temp Pulse Resp BP Pulse Ox 98.0 F 77 16 155/73 H 96 05/14/18 16:00 05/14/18 16:00 05/14/18 16:00 05/14/18 16:00 05/14/18 16:00 <Rosalia Nicholson - 05/14/18 21:35> Narrative: - Constitutional no acute distress Comments: She is lying comfortably in the bed - *Routine HEENT Exam Head: Present: normocephalic, atraumatic Eye: Present: EOMI, PERRL. Absent: conjunctival icterus, scleral injection ENT: Present: mucous membranes moist, oropharynx clear - *Routine Neck Exam Present: supple, full ROM. Absent: carotid bruit, lymphadenopathy, thyromegaly - *Routine Respiratory Exam Present: CTA bilaterally (Anteriorly and posteriorly) - *Routine Cardiovascular Exam Present: RRR. Absent: murmur - *Routine Abdominal Exam Present: soft, normoactive bowel sounds. Absent: tenderness, distended, organomegaly, mass - *Routine Extremities Exam Present: full ROM. Absent: edema, calf tenderness - *Routine Neurological Exam Present: alert, oriented X3, CN II-XII intact. Absent: altered mental status <Rosalia Nicholson - 05/14/18 21:35> Results Labs on day of discharge: Labs from last 24 hours 05/14/18 05/14/18 05/14/18 16:15 11:15 06:30 WBC RBC Hgb Hct MCV MCH MCHC RDW Plt Count MPV Neut % (Auto) Lymph % (Auto) [place] % (Auto) Eos % (Auto) Baso % (Auto) Neut # (Auto) Lymph # (Auto) [place] # (Auto) Eos # (Auto) Baso # (Auto) Sodium 140 Potassium 3.1 L Chloride 106 Carbon Dioxide 25 Anion Gap 12.1 BUN 9 D Creatinine 0.65 Estimated Creat Clear 66 Estimated GFR 89 Est GFR ( Amer) 108 Glucose 131 H POC Glucose 189 H 116 H Calcium 8.1 L D 05/14/18 05/14/18 06:30 06:26 WBC 6.6 D RBC 3.46 L Hgb 11.1 L Hct 34.2 L MCV 99.1 H MCH 32.0 H MCHC 32.3 RDW 13.8 Plt Count 194 MPV 7.9 Neut % (Auto) 67.8 Lymph % (Auto) 24.7 [place] % (Auto) 5.2 Eos % (Auto) 2.1 Baso % (Auto) 0.2 Neut # (Auto) 4.5 Lymph # (Auto) 1.6 [place] # (Auto) 0.3 Eos # (Auto) 0.1 Baso # (Auto) 0.0 Sodium Potassium Chloride Carbon Dioxide Anion Gap BUN Creatinine Estimated Creat Clear Estimated GFR Est GFR ( Amer) Glucose POC Glucose 122 H Calcium <Rosalia Nicholson 05/14/18 21:35> DS: Diagnosis - Discharge Diagnosis (1) Campylobacter enteritis Status: Acute (2) Vasovagal episode Status: Acute (3) Hypothyroidism Status: Chronic (4) Hyperlipidemia Status: Chronic (5) Diabetes mellitus Status: Chronic (6) History of breast cancer Status: Chronic (7) AAA (abdominal aortic aneurysm) Status: Acute (8) Obesity (BMI 30.0-34.9) Status: Chronic (9) Lung nodule Status: Acute (10) Hypokalemia Status: Acute <Rosalia Nicholson - 05/14/18 21:27> (1) Campylobacter enteritis Status: Acute (2) Vasovagal episode Status: Acute (3) Hypothyroidism Status: Chronic (4) Hyperlipidemia Status: Chronic (5) Diabetes mellitus Status: Chronic (6) History of breast cancer Status: Chronic (7) AAA (abdominal aortic aneurysm) Status: Acute (8) Obesity (BMI 30.0-34.9) Status: Chronic (9) Lung nodule Status: Acute (10) Hypokalemia Status: Acute <Fausto Donnelly - 05/21/18 18:11> Discharge Plan - Patient Discharge Instructions ACTIVITY: Continue current activity <Rosalia Nicholson - 05/14/18 21:35> DIET: continue same diet <Mohit Nicholsona - 05/14/18 21:35> Patient Instructions: DI for Syncope in Adults (Fainting), DI for Colitis <Fausto Donnelly - 05/21/18 18:11> Forms: <Fausto Donnelly - 05/21/18 18:11> - Follow up Plan Follow up with: Jagjit Bocanegra [Referring] - 1 week <Fausto Donnelly - 0 05/21/18 18:11> Disposition: Home, Self-Care <Fausto Donnelly - 05/21/18 18:11> Home Medications: Home Medications Medication Instructions Recorded Confirmed Type RX: Aspirin [Aspirin 81mg chewable 81 mg PO DAILY 05/13/18 05/13/18 History tab] RX: Calcium Carbonate/Vitamin D3 1 each PO BID 05/13/18 05/13/18 History [Calcium 500 + Vit D Caplet] RX: Denosumab [Denosumab 60mg/mL 60 mg SQ DIRECTED 05/13/18 05/13/18 History syringe] RX: Fenofibrate 160 mg PO DAILY 05/13/18 05/13/18 History RX: Insulin Detemir [Levemir 40 unit SQ HS 05/13/18 05/13/18 History 100units/mL 3mL flexpen] RX: Levothyroxine Sodium 150 mcg PO DAILY 05/13/18 05/13/18 History [Levothyroxine 150mcg (0.15mg) Tab] RX: Lovastatin 40 mg PO HS 05/13/18 05/13/18 History RX: Metformin HCl 1,000 mg PO BIDWM 05/13/18 05/13/18 History RX: Multivit-Min/Iron/Folic Acid/K 1 each PO DAILY 05/13/18 05/13/18 History [Adults Multivitamin Caplet] RX: Triamcinolone Acetonide 1 applicatio TP BID 05/13/18 05/13/18 History Azithromycin [Zithromax 500mg Tab] 500 mg PO DAILY #1 tab 05/14/18 Rx <Fausto Donnelly - 05/21/18 18:11> Prescriptions/Medication Reconciliation: New Azithromycin [Zithromax 500mg Tab] 500 mg PO DAILY #1 tab Continue RX: Aspirin [Aspirin 81mg chewable tab] 81 mg PO DAILY RX: Multivit-Min/Iron/Folic Acid/K [Adults Multivitamin Caplet] 1 each PO DAILY RX: Denosumab [Denosumab 60mg/mL syringe] 60 mg SQ DIRECTED RX: Triamcinolone Acetonide 1 applicatio TP BID RX: Metformin HCl 1,000 mg PO BIDWM RX: Lovastatin 40 mg PO HS RX: Fenofibrate 160 mg PO DAILY RX: Insulin Detemir [Levemir 100units/mL 3mL flexpen] 40 unit SQ HS RX: Calcium Carbonate/Vitamin D3 [Calcium 500 + Vit D Caplet] 1 each PO BID RX: Levothyroxine Sodium [Levothyroxine 150mcg (0.15mg) Tab] 150 mcg PO DAILY <Fausto Donnelly - 05/21/18 18:11> - Additional Information Additional Information: Concur with plan for discharge. <Fausto Donnelly - 05/21/18 18:11>
== END 2018-05-14 18:34 | disposition home or self-care (01) ==
LOC: ER 01:32 → 2ND 04:08 → INTOOBSV 05:07 → 2ND 05:08
PROVIDERS: ADMIT Family Medicine; ATTEND Family Medicine
CPT/HCPCS: 36415; 71010; 71045; 74177; 80048; 80053; 81001; 82150; 82962; 83605; 83690; 84484; 85007; 85025; 85651; 86140; 87040; 87275; 87276; 87507; 93005; 96365; 96367; 99285; G0378; J1956; Q9967

== ENCOUNTER 2019-12-02 21:25 | Emergency (ER) | payer MEDICARE, SELFPAY ==
[2019-12-02 21:40] VITALS: BP 142/68; PULSE 92; RESP 16; TEMP 36.5; O2SAT 97; BMI 33.8
--- NOTE | 2019-12-02 21:49 | CT_ITS ---
PROCEDURE: CT ABDOMEN PELVIS W CON CLINICAL INDICATION: LLQ pain Left lower quadrant pain COMPARISON: CT ABDPELW CT abdomen pelvis w con from 05/13/2018 TECHNIQUE: IV Contrast: 75ML OPTIRAY 350 Oral Contrast None Axial images obtained with sagittal and coronal reformats. All CT scans at the facility use one or more dose reduction, viz: automated exposure control, ma/kV adjustment per patient size (including targeted exams where dose is matched to indication, i.e. head), or iterative reconstruction technique. FINDINGS: LOWER THORAX: Atelectatic change or fibrosis in the lung bases. Coronary artery calcifications are noted. ABDOMEN & PELVIS: The liver, spleen, adrenal glands, gallbladder, and pancreas have an unremarkable appearance. There are bilateral renal cyst with a left parapelvic renal cyst at 3.4 cm and small right renal cortical cyst. No hydronephrosis. No ureteral calculi. Aortoiliac stent is noted. There is bulging of the contour the distal left lateral aspect of the [place] abdominal aortic aneurysm. The aorta here measures 3.4 cm transverse with mural thrombus lateral to the stent graft on the left. The AP dimension is 3 cm. Previously there was a saccular aneurysm at this area which was larger with the aorta measuring 4.4 cm transverse and 4.3 cm AP. There is a small focus of increased density just posterior to the left common iliac limb of the graft best seen on image 74 series 3. This could represent some residual patent lumen of the aorta outside the graft or could be seen with a endo graft leak. This however was much larger on the previous exam which was pre stent placement. There are no post stent studies for comparison. There is degenerative disc disease in the lumbar spine. No free pelvic fluid. No evidence of abscess. No intestinal obstruction or free air. There is diverticulosis of the colon but no evidence of diverticulitis. There are post hysterectomy changes. There is some minimal infiltration of the peritoneal fat anterior lateral to the left iliac vessels and there is some minimal stranding of the fat adjacent to the left lateral aspect of the aneurysm sac of the aorta. The appendix is upper limits of normal but not significantly changed compared to the previous study with no evidence of stranding of the periappendiceal fat. No intestinal obstruction or free air. There is diverticula of the descending duodenum. 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 The aortic aneurysm is smaller compared to the pre graft images. There is some mural thrombus along the left lateral aspect of the stent graft with a tiny focus of enhancement posterior to the left iliac limb and minimal stranding of the fat adjacent to the aneurysm sac and along the left iliac region. These findings suggest and endograft leak. Recommend correlation with any other post graft exams. There is no evidence of hemoperitoneum. Other nonacute findings as described above. Dictated b Jean Yee MD 12/03/2019 06:24 Jean Yee MD in [facility] 12/03/2019 06:24
[2019-12-02 21:55] LABS: Microscopic, Urine URINE MICROSCOPIC (MICROSCOPIC)
[2019-12-02 21:57] LABS: Appearance,Urine CLEAR (Clear); Bilirubin,Urine Negative (Negative); Blood, Urine Negative (Negative); Color,Urine YELLOW (Yellow); Glucose,Urine (UA) Negative (Negative); Ketones,Urine Negative (Negative); Leukocyte Esterase,Urine Negative (Negative); Nitrate,Urine Negative (Negative); Protein,Urine Negative (Negative); Urobilinogen,Urine 0.2 EU/dl (0.2)
--- NOTE | 2019-12-02 21:57 | HMH.EDNVD ---
ED Disposition Clinical Impression: Shingles Qualifiers: Herpes zoster complications: without complications Qualified Code(s): B02.9 - Zoster without complications AAA (abdominal aortic aneurysm) Qualifiers: Presence of rupture: without rupture Qualified Code(s): I71.4 - Abdominal aortic aneurysm, without rupture Endoleak post (EVAR) endovascular aneurysm repair Qualifiers: Encounter type: initial encounter Qualified Code(s): T82.330A - Leakage of aortic (bifurcation) graft (replacement), initial encounter Disposition: Home, Self-Care Condition on Discharge: Good Instructions: DI for Shingles Additional Instructions: call pcp and vascular surg this am for close follow up Prescriptions: Acyclovir [Acyclovir 800mg tab] 800 mg PO QID #28 tab Transmission Status: Pending to Primary [facility] Referrals: Knaa Valero [Primary Care Provider] - - Critical Care Critical Care Time: No Attestation: On 12/02/19, the high probability of a clinically significant, sudden or life threatening deterioration of the following system(s) required my full and direct attention, intervention and personal management. The time I documented below is in addition to time spent performing reported procedures but includes the following listed in this critical care notation. Medical Decision Making - Medical Records Medical records reviewed: Yes: I reviewed the patient's medical records. - Yaniv Inquiry Pt receiving controlled substance: No Vital Signs: 12/02/19 21:40 12/02/19 22:10 12/02/19 22:40 Temperature 97.7 F Temperature Source Oral Pulse Rate [Right] 92 H 83 78 Respiratory Rate 16 16 15 Blood Pressure [Left Arm] 142/68 H 162/46 H 178/67 H Blood Pressure Mean [Left Arm] 92 84 104 Blood Pressure Source [Left Arm] Automatic Cuff Automatic Cuff Automatic Cuff Blood Pressure Position [Left Arm] Supine Sitting Sitting 02 Sat by Pulse Oximetry 97 95 93 L Oxygen Delivery Method Room Air Room Air Room Air 12/02/19 23:10 12/03/19 00:40 Temperature Temperature Source Pulse Rate [Right] 81 83 Respiratory Rate 17 16 Blood Pressure [Left Arm] 155/76 H 166/82 H Blood Pressure Mean [Left Arm] 102 110 Blood Pressure Source [Left Arm] Automatic Cuff Automatic Cuff Blood Pressure Position [Left Arm] Sitting Sitting 02 Sat by Pulse Oximetry 96 98 Oxygen Delivery Method Room Air Room Air - Lab Data Lab results reviewed: Yes: I reviewed the patient's lab results. Lab Results 12/02/19 21:49: Urine Color Yellow, Urine Appearance Clear, Urine pH 6.0, Ur Specific [place] 1.020, Urine Protein Negative, Urine Glucose (UA) Negative, Urine Ketones Negative, Urine Blood Negative, Urine Nitrate Negative, Urine Bilirubin Negative, Urine Urobilinogen 0.2, Ur Leukocyte Esterase Negative, Urine WBC Occasional, Ur Squamous Epith Cells 3-5, Urine Bacteria Trace 12/02/19 21:49: WBC 7.1, RBC 4.14 L, Hgb 13.6, Hct 40.7, MCV 98.2, MCH 32.8 H, MCHC 33.4, RDW 14.4, Plt Count 220, MPV 7.4, Neut % (Auto) 65.2, Lymph % (Auto) 25.7, Metcalfe % (Auto) 6.5, Eos % (Auto) 2.2, Baso % (Auto) 0.5, Neut # (Auto) 4.6, Lymph # (Auto) 1.8, Metcalfe # (Auto) 0.5, Eos # (Auto) 0.2, Baso # (Auto) 0.0, ESR 85 H 12/02/19 21:49: Sodium 133 L, Potassium 4.0, Chloride 95 L, Carbon Dioxide 27, Anion Gap 15.0, BUN 13, Creatinine 0.60, Estimated Creat Clear 64, Estimated GFR 97, Est GFR ( Amer) 118, Glucose 137 H, Calcium 9.8, Total Bilirubin 0.5, AST 36, ALT 36, Alkaline Phosphatase 64, C-Reactive Protein 2.9, Total Protein 7.7, Albumin 4.4, Globulin 3.3 H, Albumin/Globulin Ratio 1.3, Amylase 81, Lipase 148 Result diagrams: 12/02/19 21:49 12/02/19 21:49 Orders (Tests/Meds): ED MEDICATIONS Generic Name Dose Route Start Last Admin Trade Name Freq PRN Reason Stop Dose Admin Sodium Chloride 1,000 mls @ 999 mls/hr 12/02/19 22:00 12/02/19 22:19 Sod Chlor 0.9% 1000ml Bag IV 12/02/19 23:00 999 mls/hr .Q1H1M DAVID Administration Discontinued Medications
[2019-12-02 22:01] LABS: Chloride 95 mmol/L (98-107); Sodium 133 mmol/L (136-145)
[2019-12-02 22:02] LABS: Basophils % 0.5 % (0.1-2.0); Eosinophils # 0.2 K/mm3 (0.0-0.4); Eosinophils % 2.2 % (0.1-12.0); Hematocrit 40.7 % (37.0-47.0); Hemoglobin 13.6 g/dL (12.2-16.2); Lymphocytes # 1.8 K/mm3 (0.7-4.5); Lymphocytes % 25.7 % (10-50); Mean Corpuscular HGB Conc 33.4 g/dL (31.8-35.4); Mean Corpuscular Hemoglobin 32.8 pg (27.0-31.2); Mean Corpuscular Volume 98.2 fl (81-99); Mean Platelet Volume 7.4 fl (7.4-10.4); Monocytes # 0.5 K/mm3 (0.1-1.0); Monocytes % 6.5 % (1.7-9.3); Neutrophils # 4.6 K/mm3 (1.8-7.8); Neutrophils % 65.2 % (37.0-80.0); Platelet Count 220 K/mm3 (142-424); Red Blood Count 4.14 M/mm3 (4.20-5.40); Red Cell Distribution Width 14.4 % (11.5-17.5); White Blood Count 7.1 K/mm3 (4.8-10.8)
[2019-12-02 22:03] LABS: Amylase 81 U/L (30-110)
[2019-12-02 22:04] LABS: Alanine Aminotransferase 36 U/L (12-78); Albumin Level 4.4 g/dl (3.5-5.0); Albumin/Globulin Ratio 1.3 (1.1-1.8); Alkaline Phosphatase 64 U/L (38-126); Aspartate Amino Transferase 36 U/L (14-36); Bilirubin,Total 0.5 mg/dl (0.2-1.3); Blood Urea Nitrogen 13 mg/dl (7-17); Calcium 9.8 mg/dl (8.4-10.2); Carbon Dioxide 27 mmol/L (22.0-30.0); Creatinine Clearance Estimated 64 mL/min (50-200); Estimated Glomerular Filt Rate 97 ml/min (>60); GFR (African American) 118 ML/MIN (>60); Globulin 3.3 g/dL (1.3-3.2); Glucose 137 mg/dl (74-100); Lipase 148 U/L (23-300); Total Protein,Serum 7.7 g/dl (6.3-8.2)
[2019-12-02 22:10] VITALS: BP 162/46; PULSE 83; RESP 16; O2SAT 95
[2019-12-02 22:10] LABS: C-Reactive Protein 2.9 mg/L (0-4)
[2019-12-02 22:40] VITALS: BP 178/67; PULSE 78; RESP 15; O2SAT 93
[2019-12-02 22:51] LABS: Erythrocyte Sedimentation Rate 85 mm/hr (0-30)
[2019-12-02 23:02] LABS: Bacteria,Urine Trace /lpf; WBC,Urine Occasional #/hpf (0-3)
[2019-12-02 23:10] VITALS: BP 155/76; PULSE 81; RESP 17; O2SAT 96
[2019-12-03 00:40] VITALS: BP 166/82; PULSE 83; RESP 16; O2SAT 98
--- NOTE | 2019-12-03 00:51 | PC.NURSE ---
spoke with Dr. Palacio at [facility]. they stated to send a disk with pt and that they will call the pt tomorrow to follow up and schedule an appointment
[2019-12-03 01:00] VITALS: BP 165/81; PULSE 81; RESP 18; O2SAT 99
[2019-12-03 01:12] VITALS: BP 165/81; PULSE 84; RESP 16; TEMP 36.5; O2SAT 98
== END 2019-12-03 01:16 | disposition home or self-care (01) ==
PROVIDERS: Emergency Provider Emergency Medicine; PCP Family Medicine
DX: B02.9 Zoster without complications (principal); I71.4 Abdominal aortic aneurysm, without rupture; T82.330A Leakage of aortic (bifurcation) graft (replacement), initial encounter; K59.00 Constipation, unspecified; E11.9 Type 2 diabetes mellitus without complications; K21.9 Gastro-esophageal reflux disease without esophagitis; E78.5 Hyperlipidemia, unspecified; Z90.710 Acquired absence of both cervix and uterus; Z87.891 Personal history of nicotine dependence; Z79.4 Long term (current) use of insulin; Z79.84 Long term (current) use of oral hypoglycemic drugs
CPT/HCPCS: 74177; 80053; 81001; 82150; 83690; 85025; 85651; 86140; 96365; 96375; 99284; J2405; Q9967

== ENCOUNTER → 2020-06-08 13:30 | Outpatient (CLI) | payer MEDICARE, SELFPAY ==
[2020-06-08 14:16] LABS: Basophils % 0.6 % (0.1-2.0); Eosinophils # 0.1 K/mm3 (0.0-0.4); Eosinophils % 2.1 % (0.1-12.0); Hematocrit 38.1 % (37.0-47.0); Hemoglobin 12.6 g/dL (12.2-16.2); Mean Corpuscular HGB Conc 33.2 g/dL (31.8-35.4); Mean Corpuscular Hemoglobin 32.7 pg (27.0-31.2); Mean Corpuscular Volume 98.4 fl (81-99); Mean Platelet Volume 8.2 fl (7.4-10.4); Monocytes # 0.4 K/mm3 (0.1-1.0); Monocytes % 6.4 % (1.7-9.3); Neutrophils # 3.7 K/mm3 (1.8-7.8); Neutrophils % 58.8 % (37.0-80.0); Platelet Count 201 K/mm3 (142-424); Red Blood Count 3.87 M/mm3 (4.20-5.40); Red Cell Distribution Width 14.1 % (11.5-17.5); White Blood Count 6.2 K/mm3 (4.8-10.8)
[2020-06-08 15:15] LABS: Hemoglobin A1C 6.1 % (4.0-6.0)
[2020-06-08 15:54] LABS: Chloride 104 mmol/L (98-107)
[2020-06-08 15:55] LABS: Potassium 4.1 mmoL/L (3.5-5.1); Sodium 141 mmol/L (136-145)
[2020-06-08 15:57] LABS: Alanine Aminotransferase 41 U/L (12-78); Albumin Level 4.3 g/dl (3.5-5.0); Albumin/Globulin Ratio 1.4 (1.1-1.8); Alkaline Phosphatase 74 U/L (38-126); Anion Gap 11.1 mEq/L (5-15); Aspartate Amino Transferase 42 U/L (14-36); Bilirubin,Total 0.4 mg/dl (0.2-1.3); Blood Urea Nitrogen 18 mg/dl (7-17); Carbon Dioxide 30 mmol/L (22.0-30.0); Cholesterol 191 mg/dl (140-200); Estimated Glomerular Filt Rate 97 ml/min (>60); GFR (African American) 118 ML/MIN (>60); Globulin 3.1 g/dL (1.3-3.2); Total Protein,Serum 7.4 g/dl (6.3-8.2); Triglycerides 165 mg/dl (30-150); VLDL Cholesterol 33 mg/dL (0-40)
[2020-06-08 15:58] LABS: Calcium 9.8 mg/dl (8.4-10.2); Glucose 114 mg/dl (74-100); HDL Cholesterol 50 mg/dl (40-60)
[2020-06-08 16:10] LABS: Direct LDL Cholesterol 110.95 mg/dL (100-129)
[2020-06-08 16:15] LABS: T4 (Thyroxine) 19.6 ug/dl (5.53-11.0)
[2020-06-08 16:28] LABS: Thyroid Stimulating Hormone 0.03 uIU/mL (0.465-4.68)
[2020-06-08 20:49] LABS: Chol/HDL Ratio 3.8 (1-3.5)
== END ==
PROVIDERS: Visit Provider Family Medicine
DX: E11.9 Type 2 diabetes mellitus without complications (principal); K52.9 Noninfective gastroenteritis and colitis, unspecified; E03.9 Hypothyroidism, unspecified; I71.4 Abdominal aortic aneurysm, without rupture; Z79.4 Long term (current) use of insulin
CPT/HCPCS: 80053; 80061; 83036; 84436; 84443; 85025

== ENCOUNTER → 2020-10-30 10:00 | Outpatient (CLI) | payer MEDICARE, SELFPAY | PROVIDERS: Visit Provider Ophthalmology | DX: Z20.822 Contact with and (suspected) exposure to COVID-19 (principal) | CPT/HCPCS: U0003 ==

== ENCOUNTER 2020-10-31 08:48 | Day surgery (SDC) | payer MEDICARE, SELFPAY ==
[2020-10-24 17:11] VITALS: BMI 33.8
[2020-10-31 09:12] VITALS: BP 152/108; PULSE 78; RESP 18; TEMP 36.4; O2SAT 95
[2020-10-31 10:22] VITALS: BP 166/76; PULSE 75; RESP 18; TEMP 36.1; O2SAT 95
[2020-10-31 10:30] VITALS: BP 166/76; PULSE 75; RESP 18; TEMP 36.1; O2SAT 95
--- NOTE | 2020-10-31 10:45 | SUR.OPER ---
REP IN ROOM IS JAYY IVORY, SERIAL # [id number]
[2020-11-01 08:50] LABS: POC Glucose,Bedside 158 (70-110)
== END 2020-10-31 10:30 | disposition home or self-care (01) ==
LOC: OUTP 08:49
PROVIDERS: PCP Family Medicine; Visit Provider Ophthalmology
PROC: (CPT 66821; principal; 2020-10-31 09:00)
DX: H26.492 Other secondary cataract, left eye (principal); E11.9 Type 2 diabetes mellitus without complications; Z79.4 Long term (current) use of insulin; Z79.899 Other long term (current) drug therapy
CPT/HCPCS: 66821; 82962

== ENCOUNTER → 2021-06-15 16:00 | Outpatient (CLI) | payer MEDICARE, SELFPAY | PROVIDERS: Visit Provider Nurse Practitioner Family | DX: R10.2 Pelvic and perineal pain (principal) | CPT/HCPCS: 87086 ==

== ENCOUNTER → 2021-06-18 10:46 | Outpatient (CLI) | payer MEDICARE, SELFPAY ==
[2021-06-18 20:50] LABS: Adenovirus F 40/41, stool Not Detected (NotDetected); Astrovirus Not Detected (NotDetected); Clostridium Difficile A/B, PCR Not Detected (NotDetected); Cryptosporidium Not Detected (NotDetected); Cyclospora Cayetanesis Not Detected (NotDetected); Entamoeba histolytica Not Detected (NotDetected); Enteroaggregative E coli Not Detected (NotDetected); Enteropathogenic E coli Not Detected (NotDetected); Enterotoxigenic E coli Not Detected (NotDetected); Giardia lamblia Not Detected (NotDetected); Norovirus Not Detected (NotDetected); Plesimonas Shigalloides, PCR Not Detected (NotDetected); Rotavirus A Not Detected (NotDetected); Salmonella, PCR Not Detected (NotDetected); Sapovirus Not Detected (NotDetected); Shiga-like toxin E coli Not Detected (NotDetected); Shigella Enterovasive E coli Not Detected (NotDetected); Vibrio Cholerae Not Detected (NotDetected); Vibrio, PCR Not Detected (NotDetected); Yersinia Entercolitica, PCR Not Detected (NotDetected)
[2021-06-18 20:52] LABS: Campylobacter Detected (NotDetected)
== END ==
PROVIDERS: Nurse Practitioner Family; Visit Provider Family Medicine
DX: R19.7 Diarrhea, unspecified (principal); A04.5 Campylobacter enteritis
CPT/HCPCS: 87506

== ENCOUNTER → 2021-06-29 13:10 | Outpatient (CLI) | payer MEDICARE, SELFPAY | PROVIDERS: PCP Family Medicine; Visit Provider Nurse Practitioner Family | DX: R55 Syncope and collapse (principal) | CPT/HCPCS: 93306 ==

== ENCOUNTER → 2021-07-10 09:40 | Outpatient (CLI) | payer MEDICARE, SELFPAY ==
[2021-07-10 10:12] LABS: Basophils # 0.1 K/mm3 (0-0.2); Basophils % 1.4 % (0.1-2.0); Eosinophils # 0.2 K/mm3 (0.0-0.4); Eosinophils % 3.2 % (0.1-12.0); Hematocrit 37.8 % (37.0-47.0); Hemoglobin 12.5 g/dL (12.2-16.2); Lymphocytes % 20.1 % (10-50); Mean Corpuscular HGB Conc 33.1 g/dL (31.8-35.4); Mean Corpuscular Hemoglobin 34.1 pg (27.0-31.2); Mean Platelet Volume 8.5 fl (7.4-10.4); Monocytes # 0.3 K/mm3 (0.1-1.0); Monocytes % 6.4 % (1.7-9.3); Neutrophils # 3.6 K/mm3 (1.8-7.8); Neutrophils % 68.9 % (37.0-80.0); Platelet Count 190 K/mm3 (142-424); Red Blood Count 3.67 M/mm3 (4.20-5.40); Red Cell Distribution Width 14.6 % (11.5-17.5); White Blood Count 5.2 K/mm3 (4.8-10.8)
[2021-07-10 10:51] LABS: Chloride 105 mmol/L (98-107)
[2021-07-10 10:52] LABS: Potassium 4.1 mmoL/L (3.5-5.1); Sodium 140 mmol/L (136-145)
[2021-07-10 10:54] LABS: Alanine Aminotransferase 30 U/L (12-78); Alkaline Phosphatase 69 U/L (38-126); Anion Gap 12.1 mEq/L (5-15); Aspartate Amino Transferase 42 U/L (14-36); Bilirubin,Direct 0.3 mg/dl (0.0-0.4); Bilirubin,Indirect 0.1 mg/dL (0.0-0.9); Bilirubin,Total 0.4 mg/dl (0.2-1.3); Bilirubin,Unconjugated 0.1 mg/dL (0.0-1.1); Blood Urea Nitrogen 19 mg/dl (7-17); Carbon Dioxide 27 mmol/L (22.0-30.0); Cholesterol 163 mg/dl (140-200); Estimated Glomerular Filt Rate 81 ml/min (>60); GFR (African American) 98 ML/MIN (>60); Triglycerides 241 mg/dl (30-150); VLDL Cholesterol 48 mg/dL (0-40)
[2021-07-10 10:55] LABS: Chol/HDL Ratio 4.4 (1-3.5); Glucose 106 mg/dl (74-100); HDL Cholesterol 37 mg/dl (40-60); Total Protein,Serum 6.5 g/dl (6.3-8.2)
[2021-07-10 11:10] LABS: Direct LDL Cholesterol 90.93 mg/dL (100-129)
[2021-07-10 11:15] LABS: Free T4 (Free Thyroxine) 1.21 ng/dl (0.78-2.19)
[2021-07-10 11:30] LABS: Thyroid Stimulating Hormone 2.84 uIU/mL (0.465-4.68)
== END ==
PROVIDERS: PCP Family Medicine; Visit Provider Nurse Practitioner Family
DX: E11.9 Type 2 diabetes mellitus without complications (principal); E66.9 Obesity, unspecified; E78.5 Hyperlipidemia, unspecified; I71.4 Abdominal aortic aneurysm, without rupture; R00.2 Palpitations; R06.00 Dyspnea, unspecified; R53.83 Other fatigue; Z95.828 Presence of other vascular implants and grafts; I11.9 Hypertensive heart disease without heart failure; I63.9 Cerebral infarction, unspecified; Z79.4 Long term (current) use of insulin; Z68.33 Body mass index [BMI] 33.0-33.9, adult
CPT/HCPCS: 36415; 80048; 80061; 80076; 84439; 84443; 85025; 93270

== ENCOUNTER → 2021-07-17 06:07 | Outpatient (CLI) | payer MEDICARE, SELFPAY ==
--- NOTE | 2021-07-17 06:09 | CT_ITS ---
FINAL REPORT TECHNIQUE: Pre-and postcontrast images of the abdomen were performed by computed tomography. Extensive 3-D reconstruction images were performed. A CTA was performed. This study was performed with techniques to keep radiation doses as low as reasonably achievable (ALARA). Individualized dose reduction techniques using automated exposure control or adjustment of mA and/or kV according to the patient''s size were employed. CLINICAL HISTORY: HX AAA REPAIR COMPARISON: December 02, 2019 FINDINGS: ABDOMEN: There is moderate fibrosis/scarring in the lung bases. Precontrast images demonstrate no evidence of nephrolithiasis. No adrenal masses are identified. The liver, spleen and pancreas are unremarkable. There is a gallstone in the gallbladder with mild wall thickening. This is nonspecific but cholecystitis is not excluded. There is a small right renal cyst. There is a left renal parapelvic cyst which is stable. There is partially imaged stranding in the left pelvis which is worse from the previous but of uncertain etiology. This could represent localized inflammation or sequela of prior inflammation. There is scattered sigmoid diverticula. The appendix appears normal. CTA: An aortic stent graft is again identified. The aneurysm sac measures up to 3.3 cm and is stable. There is no evidence of graft endoleak on this examination. IMPRESSION: Aortic stent graft again identified. Aneurysm sac measures up to 3.3 cm. No evidence of graft endoleak on this examination. Gallstone in the gallbladder with mild wall thickening, nonspecific a PICC cholecystitis not excluded. Bilateral renal cyst as described. Reviewed, Interpreted and Dictated by Minor Tidwell III, MD Transcribed by Joan Powell Authenticated by Minor Tidwell III, MD on 07/17/2021 12:16:35 PM [facility]
--- NOTE | 2021-07-17 06:09 | NM_ITS ---
APPROVED REPORT Exam: Nuclear Stress Test Indication: SOB, Palpitations, HTN, DM, High cholesterol Patient Location: Outpatient Stress Tech: Rebecca Rosenthal [place] Tech:Margarita Moran, ARRT, RT (R)(N) Ht: 5 ft 2 in Wt: 185 lbs Bra Size: 42C HR: 83 bpm BP: 175/75 mmHg BSA: 1.85 m2 BMI: 33.8 History: SOB, Palpitations, HTN, DM, High cholesterol Procedure: Patient received a 0.4 mg of intravenous Lexiscan, resting heart rate 83 bpm, resting blood pressure 175/75 mmHg, with Lexiscan maximum heart rate achived was 102 bpm which is Less than 85 % of the maximum predicted heart rate and blood pressure was 178/71 mmHg. With Lexiscan, patient denied any complaint of chest pain. Electrocardiogram Resting electrocardiogram shows sinus rhythm, with Lexiscan there is less than 1.[address] segment depression noted from the baseline EKG. The EKG portion of the Lexiscan is nondiagnostic. Cardiac Stress and Resting SPECT Images: Cardiac Stress and Resting SPECT images were obtained using technetium 99m Myoview 30.7 mCi stress and 10.40 mCi at rest. Gated SPECT for analysis of segmental wall motion and calculation of ejection fraction also done, prone images were also obtained. Cardiac stress and resting SPECT images show uniform myocardial activity without segmental perfusion abnormality, computer derived ejection fraction is 62% with no regional wall motion abnormality, right ventricle is normal size and contractility. Conclusion: 1. The EKG portion of the Lexiscan is nondiagnostic. 2. No scintigraphic evidence of reversible ischemia seen, computer derived ejection fraction 62% with no regional wall motion abnormality, right ventricle is normal size and contractility. 3. Normal Lexiscan Myoview study. Electronically signed by : Yamil Cano MD 07/17/2021 18:54:24
--- NOTE | 2021-07-17 06:09 | CA_ITS ---
APPROVED REPORT Exam: Pharmacologic Technologist: Rebecca Barry, Ht: 5 ft 2 in Wt: 184 lbs BSA: 1.85 m2 HR: 77 bpm BP: 175/75 mmHg Medical History Medications: Levothyroxine,,,,, Aspirin,,,,, Lovastatin,,,,, Metformin,,,,, Gabapentin,,,,, Losartan,,,,, INSULIN,,,,, FeNOfibrate,,,,, Potassium,,,,, Denosumab,,,,, Stress Test Details Test: LEXISCAN HR Resting HR: 83 bpm Max Heart Rate (APMHR): 144.912464 bpm Max HR Achieved: 102 bpm Target HR (85% APMHR): 122.693856 bpm % of APMHR: 70.83 Recovery HR: 86 bpm BP Resting BP: 175/75 mmHg Max BP: 178/71 mmHg Recovery BP: 163.0/63.0 mmHg ECG Resting ECG: NSR, PVC, otherwise normal Clinical Exercise duration: 04:05 min Highest Stage Achieved: Exercise capacity: 1.0 METs Stress ECG Conclusion Symptoms: Mild chest heaviness, SOA, mild stomach discomfort. Arrhythmias/Ectopy: Occ PVC. ST-T Changes: No significant changes. Conclusion: Unremarkable Lexiscan stess. Myoview images reported separately. Test Summary RECOVERY 03:00 . . 88 . 163/ 63 . . REST 05:03 . . 83 . 175/ 75 . . Stage 1 . . . . . . . Cardiolite injected Stage 1 01:00 . . 96 . . . . Stage 2 01:00 . . 97 . . . . Stage 3 01:00 . . 96 . 148/ 92 . . Stage 4 01:00 . . 94 . 168/ 70 . . Stage 4 01:05 . . 93 . 141/109 . Stop exercise at 04:05 RECOVERY 01:00 . . 93 . . . . RECOVERY 02:00 . . 88 . 178/ 71 . . RECOVERY 03:00 . . 88 . 163/ 63 . . RECOVERY 03:07 . . 90 . 163/ 63 . . Electronically signed by : Yamil Cano MD 07/17/2021 18:52:10
--- NOTE | 2021-07-17 08:12 | HMH.ITSHM ---
Current Home Medications as stated by this patient Henrietta Valdez or business representative. []POSTASSIUM MULTIVITAMIN METFORMIN LOVASTATIN LOSARTAN LEVOTHYROXINE LEVOFLOXACIN INSULIN FENOFIBRATE ASA GABAPENTIN DENOSUMAB CALCIUM
== END ==
PROVIDERS: PCP Family Medicine; Visit Provider Nurse Practitioner Family
DX: E11.9 Type 2 diabetes mellitus without complications (principal); E66.9 Obesity, unspecified; E78.5 Hyperlipidemia, unspecified; I71.4 Abdominal aortic aneurysm, without rupture; R00.2 Palpitations; R06.00 Dyspnea, unspecified; R53.83 Other fatigue; Z95.828 Presence of other vascular implants and grafts; Z68.33 Body mass index [BMI] 33.0-33.9, adult; Z79.4 Long term (current) use of insulin
CPT/HCPCS: 74175; 78452; 93017; A9502; J2785; Q9967

== ENCOUNTER → 2021-10-18 11:17 | Outpatient (CLI) | payer MEDICARE, SELFPAY ==
--- NOTE | 2021-10-18 11:21 | CT_ITS ---
FINAL REPORT CLINICAL HISTORY: low abd pain COMPARISON: July 17, 2021 FINDINGS: Axial CT images of the abdomen and pelvis were obtained without intravenous contrast. Coronal reformatted images were also obtained.This study was performed with techniques to keep radiation doses as low as reasonably achievable (ALARA). Individualized dose reduction techniques using automated exposure control or adjustment of mA and/or kV according to the patient's size were employed. Abdomen: There is scarring/fibrosis in the lung bases. There are several right renal masses that are visually stable from the prior and are likely renal cysts. There is a gallstone in the gallbladder. The liver, spleen and pancreas have an unremarkable, unenhanced appearance. No inflammatory process is identified. An aortic stent graft present. Pelvis: Images of the pelvis reveal no evidence of ureteral dilation or ureteral stone.No mass or abnormal fluid collection is identified. The appendix is normal. Patient is status post hysterectomy. There is sigmoid diverticulosis. There is mild stranding of the left pelvis that is partially improved, may represent sequela of prior inflammation. IMPRESSION: Several stable right renal masses, possibly cysts. Mild stranding of the left pelvis that is partially improved, may represent sequela of prior inflammation. Reviewed, Interpreted and Dictated by Minor Tidwell III, MD Transcribed by Sulema Osorio Authenticated and [facility]
== END ==
PROVIDERS: PCP Family Medicine; Visit Provider Family Medicine
DX: K92.1 Melena (principal); R10.32 Left lower quadrant pain; R53.83 Other fatigue; R10.84 Generalized abdominal pain; N28.1 Cyst of kidney, acquired; R82.90 Unspecified abnormal findings in urine
CPT/HCPCS: 74176; 87086

== ENCOUNTER → 2021-10-18 16:44 | Outpatient (CLI) | payer MEDICARE, SELFPAY | PROVIDERS: Visit Provider Family Medicine | DX: R10.84 Generalized abdominal pain (principal) ==

== ENCOUNTER → 2022-02-14 10:40 | Outpatient (CLI) | payer MEDICARE, SELFPAY | PROVIDERS: PCP Family Medicine; Visit Provider Family Medicine | DX: R53.83 Other fatigue (principal) | CPT/HCPCS: 87086 ==

== ENCOUNTER 2022-04-01 21:13 | Emergency (ER) | payer MEDICARE, SELFPAY ==
[2022-04-01] VITALS (9 sets, daily range): BP systolic 135–174; BP diastolic 62–97; PULSE 76–90; RESP 14–27; TEMP 36.5–37; O2SAT 90–97; BMI 30.5
--- NOTE | 2022-04-01 21:16 | ECG_ITS ---
APPROVED REPORT Exam: Resting ECG HR:80 bpm ECG Measurements Heart Rate 80 AXES NV 161 P 59 QRSd 93 QRS 61 QT 345 T -29 QTc 381 Conclusion SINUS RHYTHM NONSPECIFIC ST & T-WAVE ABNORMALITY ABNORMAL ECG UNCONFIRMED REPORT Electronically signed by : Velasquez Brown MD 04/02/2022 19:54:36
--- NOTE | 2022-04-01 21:27 | XR_ITS ---
PROCEDURE INFORMATION: Exam: XR Chest Exam date and time: 04/01/2022 9:46 PM Age: 76 years old Clinical indication: Cough; Additional info: Cough, covid exposure TECHNIQUE: Imaging protocol: Radiologic exam of the chest. Views: 1 view. COMPARISON: CR CXR2 XR chest AP 05/13/2018 2:59 AM FINDINGS: Lungs: Widespread chronic peripheral pulmonary scarring. There is new ground-glass airspace disease in the lungs. Pleural spaces: Unremarkable. No pleural effusion. No pneumothorax. Heart/Mediastinum: Unremarkable. No cardiomegaly. Vasculature: Vascular calcifications. Bones/joints: Unremarkable. Soft tissues: Right chest wall surgical clips. IMPRESSION: There is new ground-glass airspace disease in the lungs. This is compatible with atypical pneumonia, such as COVID-19. Six week follow-up PA and lateral chest radiograph series is recommended to establish complete resolution.
[2022-04-01 21:35] LABS: Microscopic, Urine URINE MICROSCOPIC (MICROSCOPIC)
[2022-04-01 21:35] LABS: Influenza A, PCR Not Detected (NotDetected); Influenza B, PCR Not Detected (NotDetected)
[2022-04-01 21:37] LABS: Basophils % 0.4 % (0.1-2.0); Eosinophils # 0.1 K/mm3 (0.0-0.4); Eosinophils % 2.1 % (0.1-12.0); Hematocrit 38.4 % (37.0-47.0); Hemoglobin 12.9 g/dL (12.2-16.2); Lymphocytes # 1.4 K/mm3 (0.7-4.5); Lymphocytes % 21.4 % (10-50); Mean Corpuscular HGB Conc 33.6 g/dL (31.8-35.4); Mean Corpuscular Volume 101.2 fl (81-99); Mean Platelet Volume 8.4 fl (7.4-10.4); Monocytes # 0.2 K/mm3 (0.1-1.0); Monocytes % 3.8 % (1.7-9.3); Neutrophils # 4.6 K/mm3 (1.8-7.8); Neutrophils % 72.3 % (37.0-80.0); Platelet Count 192 K/mm3 (142-424); Red Blood Count 3.79 M/mm3 (4.20-5.40); Red Cell Distribution Width 14.7 % (11.5-17.5); White Blood Count 6.3 K/mm3 (4.8-10.8)
[2022-04-01 21:38] LABS: Appearance,Urine CLEAR (Clear); Blood, Urine Negative (Negative); Color,Urine YELLOW (Yellow); Glucose,Urine (UA) TRACE (Negative); Ketones,Urine TRACE (Negative); Leukocyte Esterase,Urine Negative (Negative); Nitrate,Urine Negative (Negative); Protein,Urine TRACE (Negative)
[2022-04-01 21:42] LABS: Chloride 105 mmol/L (98-107); Potassium 3.2 mmoL/L (3.5-5.1); Sodium 139 mmol/L (136-145)
[2022-04-01 21:42] LABS: POC Glucose,Bedside 123 (70-110)
[2022-04-01 21:44] LABS: Alanine Aminotransferase 26 U/L (12-78); Blood Urea Nitrogen 12 mg/dl (7-17); Creatinine Clearance Estimated 56 mL/min (50-200); Estimated Glomerular Filt Rate 81 ml/min (>60); GFR (African American) 98 ML/MIN (>60)
[2022-04-01 21:45] LABS: Albumin Level 3.3 g/dl (3.5-5.0); Albumin/Globulin Ratio 1.1 (1.1-1.8); Alkaline Phosphatase 90 U/L (38-126); Anion Gap 10.2 mEq/L (5-15); Aspartate Amino Transferase 43 U/L (14-36); Bilirubin,Total 0.3 mg/dl (0.2-1.3); Calcium 8.4 mg/dl (8.4-10.2); Carbon Dioxide 27 mmol/L (22.0-30.0); Globulin 2.9 g/dL (1.3-3.2); Glucose 117 mg/dl (74-100); Total Protein,Serum 6.2 g/dl (6.3-8.2)
[2022-04-01 21:50] LABS: C-Reactive Protein 30.2 mg/L (0-4)
[2022-04-01 21:52] LABS: Bilirubin,Urine 1+ (Negative)
[2022-04-01 21:53] LABS: Hyaline Casts,Urine Occasional #/lpf (0); WBC,Urine Occasional #/hpf (0-3)
[2022-04-01 21:54] LABS: Bacteria,Urine 2+ /lpf; Mucus,Urine 1+ /lpf
[2022-04-01 21:57] LABS: NT Pro Brain Natriuretic Pep. 167 pg/mL (0-450)
[2022-04-01 22:02] LABS: Troponin I < 0.01 ng/ml (0.00-0.034)
[2022-04-01 22:04] LABS: T4 (Thyroxine) 7.7 ug/dl (5.53-11.0)
--- NOTE | 2022-04-01 22:08 | HMH.EDWEAK ---
Discharge Plan Disposition Patient Disposition: Home, Self-Care Prescriptions Prescriptions: New azithromycin [azithromycin] 250 mg tablet 250 mg PO DIRECTED Qty: 6 0RF Rx Instructions: Take two (2) tablets on day #1, then one (1) tablet day #2 thru #5 benzonatate 100 mg Capsule 100 mg PO Q8H Qty: 20 0RF prednisone [prednisone] 20 mg tablet 20 mg PO DAILY Qty: 5 0RF No Action aspirin 81 mg tablet,chewable 81 mg PO DAILY Qty: 90 2RF hmaarlctghlo-akg-polz-FA-vit K 18 mg iron-400 mcg-25 mcg tablet 1 tab PO DAILY Qty: 90 2RF insulin detemir U-100 100 unit/mL (3 mL) insulin pen 40 unit SQ HS 90 Days Qty: 36 2RF denosumab 60 MG/ML syringe 60 mg SQ DIRECTED Rx Instructions: INJECT EVERY 6 MONTHS calcium carbonate-vitamin D3 1 EACH tablet 1 each PO BID lovastatin 40 mg tablet 40 mg PO DAILY levothyroxine 88 mcg tablet 88 mcg PO DAILY metformin 1,000 mg tablet 1,000 mg PO BID potassium chloride 10 mEq tablet,ER particles/crystals 10 meq PO DAILY (DME) True Metrix Glucose Test Strip Strip See Rx Instructions .ROUTE .COMPLEX Rx Instructions: TEST BLOOD SUGAR TWICE DAILY (DME) blood-glucose meter [True Metrix Glucose Meter] Kit See Rx Instructions .ROUTE Rx Instructions: As directed (DME) pen needle, diabetic [Comfort EZ Pen [place]] 31 gauge x 5/16 needle See Rx Instructions MISCELLANEOUS Rx Instructions: As directed (DME) lancets [TRUEplus Lancets] 33 gauge misc See Rx Instructions .ROUTE .COMPLEX Rx Instructions: USE DIRECTED Referrals Follow up/Referrals: Baudilio Fields MD [Primary Care Provider] - See instructions Clinical Impressions Clinical Impression: COVID-19 Instructions Patient Instructions: DI for COVID-19 (Suspected or Confirmed ) Discharge ED Provider: Yong Wills HPI General Chief complaint: Weakness Stated complaint: Poor PO intake/weak for 2 weeks Time Seen by Provider: 04/01/22 22:08 Mode of Arrival: EMS Source of Information: Patient and EMS Limitations: No Limitations Description of Symptoms (Recalled from ER Triage Doc. by RN): Pt c/o weakness and poor oral intake for 2 wks. Denies any chest pain or abd pain. Denies any fever, chills or SOA. She does report cough and n/v/d. Her was hospitalized 2 weeks ago for covid. History of Present Illness HPI Narrative: has known covid-19 from a couple of weeks at home and has been achey and weak an dec po intake - MD Complaint: generalized weakness Onset (ago): day(s) Duration: intermittent Location: generalized Migration: none Severity: moderate Associated symptoms: denies other symptoms Related Data Home Medications Medication Instructions Recorded Confirmed calcium carbonate 500 mg-vitamin 1 each PO BID Supplement 05/13/18 04/01/22 D3 3.125 mcg (125 unit) tablet denosumab 60 mg/mL subcutaneous 60 mg SQ DIRECTED Osteoporosis 05/13/18 04/01/22 syringe blood sugar diagnostic (True 04/01/22 04/01/22 Metrix Glucose Test Strip) blood-glucose meter (True Metrix 04/01/22 04/01/22 Glucose Meter kit) lancets 33 gauge (TRUEplus Lancets) 04/01/22 04/01/22 levothyroxine 88 mcg tablet 88 mcg PO DAILY hypothyroid 04/01/22 04/01/22 lovastatin 40 mg tablet 40 mg PO DAILY Hypertension 04/01/22 04/01/22 metformin 1,000 mg tablet 1,000 mg PO BID Diabetes 04/01/22 04/01/22 pen needle, diabetic 31 gauge x 04/01/22 04/01/22 5/16 (Comfort EZ Pen [place]) potassium chloride 10 mEq 10 meq PO DAILY Supplement 04/01/22 04/01/22 tablet,extended release(part/cryst) Previous Rx's Medication Instructions Recorded aspirin 81 mg chewable tablet 81 mg PO DAILY [facility] #90 12/20/20 tabs multivit with minerals-iron 18 1 tab PO DAILY Supplement #90 tabs 12/20/20 mg-folic ac 400 mcg-vit K 25 mcg tablet insulin detemir U-100 100 unit/mL 40 unit (0.4 mL) SQ HS
[2022-04-01 22:37] LABS: Erythrocyte Sedimentation Rate 109 mm/hr (0-30)
[2022-04-01 22:43] LABS: Coronavirus 19, PCR Detected (NotDetected)
[2022-04-01 22:49] LABS: Lactic Acid 1.4 mmol/L (0.7-2.1)
--- NOTE | 2022-04-01 23:18 | CT_ITS ---
PROCEDURE INFORMATION: Exam: CTA Chest With Contrast Exam date and time: 04/01/2022 11:29 PM Age: 76 years old Clinical indication: Shortness of breath; Additional info: Covid+, SOA TECHNIQUE: Imaging protocol: Computed tomographic angiography of the chest with contrast. 3D rendering (Not supervised by radiologist): MIP and/or 3D reconstructed images were created by the technologist. Radiation optimization: All CT scans at this facility use at least one of these dose optimization techniques: automated exposure control; mA and/or kV adjustment per patient size (includes targeted exams where dose is matched to clinical indication); or iterative reconstruction. Contrast material: ISOVUE; Contrast volume: 70 ml; Contrast route: INTRAVENOUS (IV); COMPARISON: CR XR CHEST PORTABLE 04/01/2022 9:46 PM FINDINGS: Pulmonary arteries: No pulmonary emboli. Aorta: The aorta demonstrates moderate atherosclerotic disease. Lungs: Mild paraseptal emphysema. Widespread ground-glass airspace disease. Moderate peripheral fibrotic changes without honeycombing. Pleural spaces: Unremarkable. No pneumothorax. No pleural effusion. Heart: Trace pericardial effusion. Mitral valve calcifications. Coronary arteries: Coronary artery calcifications. Lymph nodes: Shotty mediastinal lymph nodes could be reactive. Gallbladder and bile ducts: Nonspecific gallbladder wall thickening. Bones/joints: Unremarkable. No acute fracture. Soft tissues: Right chest wall surgical clips. Other findings: Stigmata of old granulomatous disease. IMPRESSION: 1. No pulmonary emboli. 2. Nonspecific gallbladder wall thickening. Please exclude acute cholecystitis clinically. 3. Widespread ground-glass airspace disease. This is most likely atypical pneumonia. This is a common appearance for COVID-19.
[2022-04-02 00:01] VITALS: BP 154/67; PULSE 77; RESP 21; O2SAT 95
[2022-04-02 00:36] LABS: Troponin I < 0.01 ng/ml (0.00-0.034)
[2022-04-02 00:37] VITALS: BP 138/72; PULSE 76; RESP 20; TEMP 37; O2SAT 97
--- NOTE | 2022-04-02 00:39 | PC.NURSE ---
MD at bedside, discussing results and POC for home
== END 2022-04-02 01:50 | disposition home or self-care (01) ==
PROVIDERS: Emergency Provider Emergency Medicine; PCP Family Medicine
DX: U07.1 COVID-19 (principal); Z79.899 Other long term (current) drug therapy; Z79.84 Long term (current) use of oral hypoglycemic drugs; M81.0 Age-related osteoporosis without current pathological fracture; E03.9 Hypothyroidism, unspecified; I10 Essential (primary) hypertension; E11.9 Type 2 diabetes mellitus without complications; I48.91 Unspecified atrial fibrillation; R00.2 Palpitations; Z87.891 Personal history of nicotine dependence
CPT/HCPCS: 71045; 71275; 80053; 81001; 82962; 83605; 83880; 84436; 84443; 84484; 85025; 85651; 86140; 87040; 87086; 93005; 94640; 96365; 96375; 99285; C9803; Q9967; U0003; U0005

== ENCOUNTER 2022-07-23 10:00 | Day surgery (SDC) | payer MEDICARE, SELFPAY ==
[2022-07-23] VITALS (11 sets, daily range): BP systolic 107–179; BP diastolic 39–87; PULSE 70–90; RESP 14–19; TEMP 36.1–36.6; O2SAT 91–100; BMI 30.5
--- NOTE | 2022-07-23 10:38 | EXP.ANES.CKL ---
[facility] Disclaimer: The information contained in this section may have been updated after the patient was seen, as this information can be updated by other users. Medical History Abnormal electrocardiography Dyspnea Ex-smoker Fatigue PAF (paroxysmal atrial fibrillation) Palpitations Social History Smoking Status: Former smoker years smoked: 25 alcohol intake: never substance use type: denies use current occupational status: retired Travel in the last 8 weeks: None household members: spouse housing: house current occupational exposures/hazards: No caffeine: Yes [facility] Anesthesia Checklist Patient Identification Patient Identification: Verbal (Name & ) Structural Data Admitted From: Home Planned Operative Procedure/s: colonoscopy Consent for Planned Operative Procedure(s) Verified: Yes Airway Assessment C-Spine Mobility Assessed: Yes TMJ Mobility Assessed: Yes Dentition: Dentures-good fit Neurological Assessment Level of Consciousness: Awake, Alert and Appropriate Anesthesia Plan Anesthesia Risk discussed: Yes Anesthesia Plan: Verified ASA Class: II Anesthesia Type: MAC
--- NOTE | 2022-07-23 12:20 | HMH.SCOPE ---
Procedure: Date: 07/23/22 Patient Date of :: 1945 Procedure Performed:: Colonoscopy with polypectomy Indications:: Screening Performing Provider:: Jeffrey Brown MD Referring Provider:: . Sedation:: Monitored anesthesia care Procedure:: After informed consent was obtained the patient was taken to the endoscopy suite. Sedation ensued after the patient was transferred to the left lateral decubitus position. Pulse, blood pressure, and oxygen saturation were monitored throughout the procedure. Digital rectal exam revealed no significant abnormality. The colonoscope was placed in position. The entire colon was evaluated. The colonoscope was carefully removed and the patient was transferred to recovery in stable condition. Please see findings and specimens below for detail. Findings:: Bowel preparation [id number] Moderate spasticity Moderate tortuosity Sigmoid diverticulosis Multiple large complex polyps (see specimens) Specimens:: 3 adjacent lobulated complex right colon polyps (hot snare) 4 adjacent lobulated complex hepatic flexure polyps (hot snare) 4 adjacent lobulated complex polyps around 50 cm (hot snare) 3 adjacent lobulated complex polyps around 40 cm (hot snare) Lobulated complex polyp at 25 cm (hot snare) Very large lobulated complex polyp at 12 cm (hot snare and tattoo) Recommendations:: Timing of repeat colonoscopy is pending pathology but likely be between 3-6 months with extended bowel preparation secondary to limited bowel preparation, size/nature/number of polyps, spasticity, and tortuosity. Complications:: No immediate Estimated blood obtained (mL): 1
[2022-07-26 10:20] LABS: POC Glucose,Bedside 141 (70-110)
== END 2022-07-23 14:15 | disposition home or self-care (01) ==
PROVIDERS: PCP Family Medicine; Visit Provider Surgery
PROC: 0DJD8ZZ Inspection of Lower Intestinal Tract, Via Natural or Artificial Opening Endoscopic (ICD-10-PCS; principal; 2022-07-23 11:30)
DX: Z12.11 Encounter for screening for malignant neoplasm of colon (principal); D12.5 Benign neoplasm of sigmoid colon; D12.8 Benign neoplasm of rectum; E11.9 Type 2 diabetes mellitus without complications; Z79.899 Other long term (current) drug therapy; K57.30 Diverticulosis of large intestine without perforation or abscess without bleeding
CPT/HCPCS: 45385; 82962; 88305; J2704

== ENCOUNTER 2022-11-19 08:29 | Day surgery (SDC) | payer MEDICARE, SELFPAY ==
[2022-11-14 11:45] VITALS: BMI 34.2
[2022-11-19 08:56] VITALS: BP 178/80; PULSE 79; RESP 18; TEMP 36.1; O2SAT 96
[2022-11-19 09:11] LABS: POC Glucose,Bedside 84 (70-110)
--- NOTE | 2022-11-19 09:14 | P.PNANES_ITS ---
[facility] Disclaimer: The information contained in this section may have been updated after the patient was seen, as this information can be updated by other users. Medical History Abnormal electrocardiography Aneurysm Breast cancer Diabetes Dyspnea Edema Ex-smoker Fatigue History of cataract Hypertension Hypothyroid PAF (paroxysmal atrial fibrillation) Palpitations Surgical History H/O lumpectomy H/O thyroidectomy H/O: hysterectomy History of back surgery History of cataract surgery Hx of colonoscopy Family History Sister Vein disorder Other Cancer Social History Smoking Status: Former smoker years smoked: 25 alcohol intake: never substance use type: denies use current occupational status: retired Travel in the last 8 weeks: None household members: spouse housing: house current occupational exposures/hazards: No caffeine: Yes [facility] Anesthesia Checklist Patient Identification Patient Identification: Arm Band and Verbal (Name & ) Structural Data Admitted From: Home Planned Operative Procedure/s: Colonoscopy Consent for Planned Operative Procedure(s) Verified: Yes NPO Status Verified Time NPO: 00:00 Airway Assessment C-Spine Mobility Assessed: Yes TMJ Mobility Assessed: Yes Dentition: Edentulous Neurological Assessment Level of Consciousness: Awake Hx Seizures: No Numbness or tingling in extremities: No Anesthesia Plan Anesthesia Risk discussed: Yes Anesthesia Plan: Verified ASA Class: III Anesthesia Type: MAC
--- NOTE | 2022-11-19 09:22 | P.PCN_ITS ---
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 This area was tattooed. Sigmoid diverticulosis noted. Her bowel preparation was moderate to poor and she did have fairly significant spasticity and tortuosity. A short-term repeat evaluation warranted. Performing Provider:: Jeffrey Brown MD Referring Provider:: . Sedation:: Monitored anesthesia care Procedure:: After informed consent was obtained the patient was taken to the endoscopy suite. Sedation ensued after the patient was transferred to the left lateral decubitus position. Pulse, blood pressure, and oxygen saturation were monitored throughout the procedure. Digital rectal exam revealed no significant abnormality. The colonoscope was placed in position. The entire colon was evaluated. The colonoscope was carefully removed and the patient was transferred to recovery in stable condition. Please see findings and specimens below for detail. Findings:: Bowel preparation fair to moderate Unchanged small hemorrhoidal tags Patchy inflammatory change Unchanged sigmoid diverticulosis Fairly profound lack of relaxation Polyps (see specimens) Specimens:: Biopsy of focal periappendiceal inflammatory change Small periappendiceal polyp (cold biopsy forceps) Polyp at 35 cm (cold biopsy forceps) Small sessile polyp adjacent to tattoo site (cold snare) - Note: This polyp was not retrieved Recommendations:: Timing of repeat colonoscopy is pending pathology but will likely be around 1-2 years secondary to history of significant polyps, polyps noted on short-term repeat evaluation, and non-retrievable polyp adjacent to prior tubulovillous adenoma. Complications:: No immediate Estimated blood obtained (mL): 1 Colonoscopy Component Colonoscopy Component Was a colonoscopy performed during today's procedure?: Yes Recommended follow up colonoscopy of at least 10 years?: No If no, follow up colonoscopy recommended in ___ years?: 1-2 years Reason for not recommending >/= 10 yr follow-up interval?: History of signif icant polyps; limited bowel preparation; tortuosity/spasticity
[2022-11-19 09:23] VITALS: O2SAT 99
[2022-11-19 10:04] VITALS: BP 106/49; PULSE 95; RESP 14; TEMP 36.3; O2SAT 97
[2022-11-19 10:14] VITALS: BP 103/42; PULSE 91; RESP 18; O2SAT 97
[2022-11-19 10:24] VITALS: BP 110/71; PULSE 80; RESP 16; O2SAT 99
[2022-11-19 10:34] VITALS: BP 127/84; PULSE 85; RESP 17; TEMP 36.4; O2SAT 99
== END 2022-11-19 10:34 | disposition home or self-care (01) ==
PROVIDERS: PCP Family Medicine; Visit Provider Surgery
PROC: 0DJD8ZZ Inspection of Lower Intestinal Tract, Via Natural or Artificial Opening Endoscopic (ICD-10-PCS; principal; 2022-11-19 09:30)
DX: D12.5 Benign neoplasm of sigmoid colon (principal); D12.0 Benign neoplasm of cecum; Z86.010 Personal history of colon polyps; Z12.11 Encounter for screening for malignant neoplasm of colon; K57.30 Diverticulosis of large intestine without perforation or abscess without bleeding; E11.9 Type 2 diabetes mellitus without complications
CPT/HCPCS: 45380; 82962; 88305; J2704

== ENCOUNTER → 2023-01-09 23:33 | Outpatient (CLI) | payer MEDICARE, SELFPAY ==
[2023-01-09 19:13] LABS: Basophils % 0.5 % (0.1-2.0); Eosinophils # 0.2 K/mm3 (0.0-0.4); Eosinophils % 2.4 % (0.1-12.0); Hematocrit 39.6 % (37.0-47.0); Hemoglobin 12.6 g/dL (12.2-16.2); Lymphocytes # 1.8 K/mm3 (0.7-4.5); Mean Corpuscular HGB Conc 31.7 g/dL (31.8-35.4); Mean Corpuscular Hemoglobin 33.4 pg (27.0-31.2); Mean Corpuscular Volume 105.2 fl (81-99); Mean Platelet Volume 8.7 fl (7.4-10.4); Monocytes # 0.4 K/mm3 (0.1-1.0); Monocytes % 5.4 % (1.7-9.3); Neutrophils # 4.1 K/mm3 (1.8-7.8); Neutrophils % 63.6 % (37.0-80.0); Platelet Count 175 K/mm3 (142-424); Red Blood Count 3.77 M/mm3 (4.20-5.40); Red Cell Distribution Width 14.8 % (11.5-17.5); White Blood Count 6.4 K/mm3 (4.8-10.8)
[2023-01-09 19:22] LABS: Alanine Aminotransferase 27 U/L (12-78); Albumin Level 3.8 g/dl (3.5-5.0); Albumin/Globulin Ratio 1.3 (1.1-1.8); Alkaline Phosphatase 68 U/L (38-126); Anion Gap 12.7 mEq/L (5-15); Aspartate Amino Transferase 40 U/L (14-36); Bilirubin,Total 0.3 mg/dl (0.2-1.3); Blood Urea Nitrogen 11 mg/dl (7-17); Calcium 9.1 mg/dl (8.4-10.2); Carbon Dioxide 29 mmol/L (22.0-30.0); Chloride 103 mmol/L (98-107); Chol/HDL Ratio 3.8 (1-3.5); Cholesterol 153 mg/dl (140-200); Estimated Glomerular Filt Rate 69 ml/min (>60); GFR (African American) 84 ML/MIN (>60); Glucose 121 mg/dl (74-100); HDL Cholesterol 40 mg/dl (40-60); Magnesium 1.2 mg/dl (1.6-2.3); Potassium 3.7 mmoL/L (3.5-5.1); Sodium 141 mmol/L (136-145); Total Protein,Serum 6.8 g/dl (6.3-8.2); Triglycerides 131 mg/dl (30-150); VLDL Cholesterol 26 mg/dL (0-40)
[2023-01-09 19:32] LABS: Hemoglobin A1C 6.1 % (4.0-6.0)
== END ==
PROVIDERS: PCP Family Medicine; Visit Provider Family Medicine
DX: I10 Essential (primary) hypertension (principal); R53.83 Other fatigue; E11.9 Type 2 diabetes mellitus without complications; Z79.4 Long term (current) use of insulin
CPT/HCPCS: 80053; 80061; 83036; 83735; 84443; 85025

== ENCOUNTER 2023-05-30 21:52 | Outpatient (CLI) | payer MEDICARE, SELFPAY ==
[2023-05-30 19:52] LABS: Basophils % 0.4 % (0.1-2.0); Eosinophils # 0.1 K/mm3 (0.0-0.4); Eosinophils % 2.1 % (0.1-12.0); Hematocrit 36.9 % (37.0-47.0); Hemoglobin 12.4 g/dL (12.2-16.2); Lymphocytes # 1.2 K/mm3 (0.7-4.5); Lymphocytes % 27.5 % (10-50); Mean Corpuscular HGB Conc 33.5 g/dL (31.8-35.4); Mean Corpuscular Hemoglobin 34.8 pg (27.0-31.2); Mean Corpuscular Volume 104.1 fl (81-99); Mean Platelet Volume 9.6 fl (7.4-10.4); Monocytes # 0.4 K/mm3 (0.1-1.0); Monocytes % 8.7 % (1.7-9.3); Neutrophils # 2.7 K/mm3 (1.8-7.8); Neutrophils % 61.4 % (37.0-80.0); Platelet Count 119 K/mm3 (142-424); Red Blood Count 3.55 M/mm3 (4.20-5.40); Red Cell Distribution Width 14.8 % (11.5-17.5); White Blood Count 4.4 K/mm3 (4.8-10.8)
[2023-05-30 20:02] LABS: Alanine Aminotransferase 43 U/L (12-78); Albumin Level 3.6 g/dl (3.5-5.0); Albumin/Globulin Ratio 1.3 (1.1-1.8); Alkaline Phosphatase 106 U/L (38-126); Aspartate Amino Transferase 43 U/L (14-36); Bilirubin,Total 0.6 mg/dl (0.2-1.3); Blood Urea Nitrogen 17 mg/dl (7-17); Carbon Dioxide 27 mmol/L (22.0-30.0); Chloride 104 mmol/L (98-107); Chol/HDL Ratio 5.3 (1-3.5); Cholesterol 164 mg/dl (140-200); Estimated Glomerular Filt Rate 81 ml/min (>60); GFR (African American) 98 ML/MIN (>60); Globulin 2.7 g/dL (1.3-3.2); Glucose 176 mg/dl (74-100); HDL Cholesterol 31 mg/dl (40-60); Sodium 139 mmol/L (136-145); Total Protein,Serum 6.3 g/dl (6.3-8.2); Triglycerides 178 mg/dl (30-150); VLDL Cholesterol 36 mg/dL (0-40)
[2023-05-30 20:13] LABS: Direct LDL Cholesterol 92.54 mg/dL (100-129)
[2023-05-30 20:18] LABS: 25-OH Vitamin D, Total 20.6 ng/mL (30-100)
[2023-05-30 20:33] LABS: Thyroid Stimulating Hormone 2.53 uIU/mL (0.465-4.68)
[2023-05-30 20:52] LABS: Vitamin B12 313 pg/mL (239-931)
[2023-05-30 21:18] LABS: Hemoglobin A1C 6.2 % (4.0-6.0)
[2023-05-30 21:31] LABS: Microalbumin/Creatinine Ratio 8.7
[2023-05-30 21:38] LABS: Creatinine,Urine Random 110 mg/dL (Not Estab.)
== END 2023-05-30 23:59 ==
LOC: LAB.DROPOF 21:52
PROVIDERS: PCP Nurse Practitioner Family; Visit Provider Nurse Practitioner Family
DX: B02.9 Zoster without complications; E07.9 Disorder of thyroid, unspecified; E11.9 Type 2 diabetes mellitus without complications; E78.5 Hyperlipidemia, unspecified; R53.83 Other fatigue; E55.9 Vitamin D deficiency, unspecified; Z79.84 Long term (current) use of oral hypoglycemic drugs
CPT/HCPCS: 80053; 80061; 82043; 82306; 82570; 82607; 83036; 84443; 85025

== ENCOUNTER 2024-06-16 10:00 | Outpatient (CLI) | payer MEDICARE, SELFPAY ==
[2024-06-16 18:36] LABS: Basophils % 0.7 % (0.1-2.0); Eosinophils # 0.2 K/mm3 (0.0-0.4); Eosinophils % 3.4 % (0.1-12.0); Hematocrit 34.6 % (37.0-47.0); Mean Corpuscular HGB Conc 31.8 g/dL (31.8-35.4); Mean Corpuscular Hemoglobin 33.2 pg (27.0-31.2); Mean Corpuscular Volume 104.5 fl (81-99); Mean Platelet Volume 10.1 fl (7.4-10.4); Monocytes # 0.5 K/mm3 (0.1-1.0); Monocytes % 10.1 % (1.7-9.3); Neutrophils # 2.8 K/mm3 (1.8-7.8); Neutrophils % 62.6 % (37.0-80.0); Platelet Count 135 K/mm3 (142-424); Red Blood Count 3.31 M/mm3 (4.20-5.40); Red Cell Distribution Width 16.9 % (11.5-17.5); White Blood Count 4.4 K/mm3 (4.8-10.8)
[2024-06-16 20:07] LABS: Alanine Aminotransferase 31 U/L (12-78); Albumin Level 2.8 g/dl (3.5-5.0); Aspartate Amino Transferase 53 U/L (14-36); Bilirubin,Total 0.9 mg/dl (0.2-1.3); Blood Urea Nitrogen 18 mg/dl (7-17); Calcium 9.3 mg/dl (8.4-10.2); Carbon Dioxide 25 mmol/L (22.0-30.0); Chloride 107 mmol/L (98-107); Estimated Glomerular Filt Rate 69 ml/min (>60); GFR (African American) 84 ML/MIN (>60); Globulin 2.8 g/dL (1.3-3.2); Glucose 101 mg/dl (74-100); Sodium 136 mmol/L (136-145); Total Protein,Serum 5.6 g/dl (6.3-8.2)
[2024-06-16 20:08] LABS: Alkaline Phosphatase 105 U/L (38-126)
[2024-06-16 20:34] LABS: Thyroid Stimulating Hormone 6.81 uIU/mL (0.465-4.68)
[2024-06-16 20:56] LABS: HIV Combo NEGATIVE (Negative)
[2024-06-16 21:15] LABS: Hepatitis C Ab Qual. W/ RFX NEGATIVE (Negative)
== END 2024-06-16 23:59 | disposition home or self-care (01) ==
LOC: LAB.DROPOF 06-17 15:22
PROVIDERS: PCP Family Medicine; Visit Provider Family Medicine
DX: E11.9 Type 2 diabetes mellitus without complications (principal); Z79.4 Long term (current) use of insulin; E78.2 Mixed hyperlipidemia; R53.83 Other fatigue
CPT/HCPCS: 80053; 84443; 85025; 86803; 87389

== ENCOUNTER 2024-07-16 16:11 | Outpatient (CLI) | payer MEDICARE, SELFPAY ==
--- NOTE | 2024-07-16 16:12 | XR_ITS ---
PROCEDURE INFORMATION: Exam: XR Thoracic Spine Exam date and time: 07/16/2024 4:21 PM Age: 78 years old Clinical indication: Injury or trauma; Fall; Blunt trauma (contusions or hematomas); Additional info: Pain from fall; Compression fracture TECHNIQUE: Imaging protocol: Radiologic exam of the thoracic spine. Views: 3 views. Total images: 3 COMPARISON: CT ANGIO CHEST PE PROTOCOL 04/01/2022 11:29 PM FINDINGS: Bones/joints: The thoracic spine demonstrates mild degenerative changes at multiple levels. No evidence of acute fracture. Soft tissues: Unremarkable. Diaphragm: There is nonspecific elevation of the right hemidiaphragm. Organs: Status post cholecystectomy. Vasculature: Moderate atherosclerotic disease. IMPRESSION: 1. The thoracic spine demonstrates mild degenerative changes at multiple levels. 2. No evidence of acute fracture.
--- NOTE | 2024-07-16 16:12 | XR_ITS ---
PROCEDURE INFORMATION: Exam: XR Lumbosacral Spine Exam date and time: 07/16/2024 4:21 PM Age: 78 years old Clinical indication: Injury or trauma; Fall; Blunt trauma (contusions or hematomas); Additional info: Pain from fall; Compression fracture TECHNIQUE: Imaging protocol: Radiologic exam of the lumbosacral spine. Views: 2 or 3 views. Total images: 3 COMPARISON: CT ABDOMEN PELVIS WO CON 10/18/2021 11:26 AM FINDINGS: Bones/joints: Grade 1 spondylolisthesis of L4 on L5. Disc space narrowing noted L1-L2, L2-L3, L5-S1. No evidence of acute fracture. Soft tissues: Unremarkable. Gastrointestinal tract: Large amount of stool is present throughout the colon. Organs: Status post cholecystectomy. Vasculature: Aortal bi-iliac stent is in place. Other findings: Punctate calcifications overlie the left kidney. IMPRESSION: 1. Grade 1 spondylolisthesis of L4 on L5. 2. No evidence of acute fracture. 3. Large amount of stool is present throughout the colon.
--- NOTE | 2024-07-16 16:12 | XR_ITS ---
PROCEDURE INFORMATION: Exam: XR Cervical Spine Exam date and time: 07/16/2024 4:21 PM Age: 78 years old Clinical indication: Injury or trauma; Fall; Blunt trauma; Additional info: Pain from fall; Compression fracture TECHNIQUE: Imaging protocol: Radiologic exam of the cervical spine. Views: 4 or 5 views. Total images: 5 COMPARISON: CT ANGIO CHEST PE PROTOCOL 04/01/2022 11:29 PM FINDINGS: Bones/joints: The cervical spine demonstrates mild degenerative changes at multiple levels. Disc space narrowing noted at multiple levels. No evidence of acute fracture. Soft tissues: Prevertebral soft tissues are within normal limits. IMPRESSION: 1. The cervical spine demonstrates mild degenerative changes at multiple levels. 2. Prevertebral soft tissues are within normal limits. 3. No evidence of acute fracture.
== END 2024-07-16 23:59 | disposition home or self-care (01) ==
LOC: RAD 16:12
PROVIDERS: PCP Family Medicine; Visit Provider Family Medicine
DX: M43.17 Spondylolisthesis, lumbosacral region (principal); M54.6 Pain in thoracic spine; M54.2 Cervicalgia
CPT/HCPCS: 72050; 72072; 72100

== ENCOUNTER 2024-08-16 15:29 | Outpatient (RCR) | payer MEDICARE, SELFPAY ==
--- NOTE | 2024-08-16 17:00 | HMH.PTOPEV ---
PT Outpatient Evaluation Rehab PT Outpatient Evaluation Start: 08/16/24 15:59 Freq: Status: Active Protocol: Document 08/16/24 16:37 AMELIE (Rec: 08/16/24 17:00 AMELIE [id number]) E-signed By Shady Sanches, PT Outpatient Therapy Subjective History Subjective History Pt is an 79 yof who is referred to [facility] outpatient PT with complaints of back pain and generalized weakness. Pt's presents with her and helps to provide the majority of the subjective history. Reports that she underwent a gallbladder procedure in February of last year. Reports that she had an infection and spent weeks in the hospital and then a period of time in Rehab at a SNF. reports that she has mostly only used a wheelchair since being home. reports that she is able to do pivot transfers to bed and to a commode. Reports that she used a walker to walk prior to this. Reports one fall in the bathroom, approximately 1 month ago in which she hit her back. PMH: Aneurysm Hypothyroid Diabetes History of cataract Hypertension Edema [place] FEET Breast cancer PAF (paroxysmal atrial fibrillation) Ex-smoker Abnormal electrocardiography Dyspnea Fatigue Palpitations New diagnosis of cancer in past 12 No months? Chief Complaint Pain,Gives out/Unstable Symptom Type Ache Symptoms Relieved By Nothing Symptoms Aggravated By Sitting,Physical Activity Prior Functional Limitations Reaching Symptom Description Intermittent,Activity Dependent Level of pain today (0-10) 4 Pain scale - at its best (0-10) 0 Pain scale - at its worst (0-10) 7 Hip/Knee Eval MMT bilateral Hip Flexion Strength Grade 2 Poor Hip Abduction Strength Grade 2 Poor Hip Adduction Strength Grade 2 Poor Hip Extension Strength Grade 2 Poor Knee Extension Strength Grade 2 Poor Knee Flexion Strength Grade 2 Poor Balance Eval Hx of Falls Hx Falls Yes Number in last 6 months 1 Gait/Posture Asssessment General Gait Observation Shuffling Step,Trunk Posterior to Y[place]IRA Assistive Devices Rolling / Wheeled Walker Level of Transfer Assist Assistance x1 Hip Observation in Gait Swing Decreased Flexion Hip Observation in Gait Stance Decreased Flexion Body Alignment Posture Leaning,Forward Head Timed Up and Go Test 1. Is the Timed Up and Go test result > yes or = to 12 seconds? Tinetti Sitting Balance Sitting Balance Steady, safe Arising from Chair Ability to Arise Able, uses arms to help Attempts to Arise Able, requires >1 attempt Standing Balance Immediate Standing Balance Unsteady Standing Balance Unsteady Nudged Response Begins to fall Standing with Eyes Closed Unsteady Turning Step Pattern Turning 360 Degrees Discontinuous steps Stability Turning 360 Degrees Unsteady, grabs/staggers Sitting Down Sitting Down Uses arms or unsteady Gait and Step Initiation of Gait No hesitancy Right Foot Step Length Does not pass stance ft. Right Foot Step Height Completely clears floor Left Foot Step Length Does not pass stance foot Left Foot Step Height Completely clears floor Step Description Step Symmetry Step length appears equal Step Continuity Stopping or discontinuity Gait Description Path Description Mild/moderate deviation Trunk Description No sway but posturing Walking Stance Heels apart Scoring and Interpretation Tinetti Composite Score (points) 10 Interpretation of Scores High risk for falls(< 19) Miscellaneous Dx PT Eval Objective Objective ModAx1 for STS w FWW ModAx1 for transfer to/from chair to bed w FWW Pt ambulated 24 ft MinAx1 with FWW and chair follow. Outpatient Therapy Assessment Impairments Problems/Impairmments Impaired Strength,Impaired Transfers,Impaired Gait Pattern,Impaired Walking, Impaired Standing,Impaired Balance,Subjective C/O Pain Prognosis Rehab Potential Fair Clinical Impression Consistent with Diagnosis Yes Consistent with Generalized Weakness Additional details: Pt currently presents as a significant fall risk, as evidenced by Tinetti Score. Pt would benefit from skilled PT to improve LE strength, endurance, balance and decrease fall risk. Short Term Goals Number of Weeks 4 Increase Strength Yes: 3/5 to B LEs grossly Improve Transfers Yes: To/from chair to/from bed MinAx1 with AAD. Increase Ability to Walk Yes: 75ft with AAD and CGAx1 Improve Balance Yes: FT EO for 30s on firm surface Increase Tinnetti Score Yes: >14 Decrease Subjective C/O Pain Yes: 5/10 with above assessment Patient to be Ind w/ HEP Yes Retirement Goals Number of Weeks 8 Increase Strength Yes: 3+-4/5 to B LEs grossly Improve Transfers Yes: To/from chair to bed CGAx1. Improve Gait Pattern with Assistive Yes: Increased step length, Device increased peter and upright posture with walking. Increase Ability to Walk Yes: 150 ft with AAD and CGAx1 Improve Balance Yes: FT EO 1' Increase Tinnetti Score Yes: >19 Decrease Subjective C/O Pain Yes: 2-3/10 with above assessment Patient to be Ind w/ Advanced HEP Yes Outpatient Therapy Plan of Care Treatment Plan May Include Therapeutic Exercise Including Home Yes Exercise Program Manual Therapy Techniques Yes Neuromuscular Re-education Yes Therapeutic Activities to Return to Yes Previous Functional/Work Level Gait Training Yes ADL/Self Care Education Yes Thermal Modalities Yes Electrical Stimulation Yes Manual Lymphatic Drainage Yes Eval/Re-Eval Yes Frequency Times per week 1-2 Duration Number of Weeks 8 Addendums This patient is a candidate for social No or vocational rehab? Patient/Guardian verbally acknowledges Yes understanding of treatment program and consents to further treatment? Patient/Guardian verbally acknowledges Yes understanding of diagnosis, prognosis and goals for treatment? Eval Complexity PT Charges 25505 - High Complexity Shoulder/Elbow Eval Shoulder Objective Measurements Elbow Objective Measurements PHYSICIAN CERTIFICATION: I certify the specified therapy services for Henrietta Valdez are required, authorized, and reviewed every 30 days.
== END 2024-08-16 23:59 | disposition home or self-care (01) ==
LOC: PT 15:29
PROVIDERS: Visit Provider Family Medicine
DX: M54.9 Dorsalgia, unspecified (principal)
CPT/HCPCS: 97163

== ENCOUNTER 2024-09-06 15:50 | Outpatient (CLI) | payer MEDICARE, SELFPAY ==
[2024-09-06 18:53] LABS: Basophils % 0.6 % (0.1-2.0); Eosinophils # 0.2 Kmm3 (0.0-0.4); Eosinophils % 2.4 % (0.1-12.0); Hematocrit 37.7 % (37.0-47.0); Hemoglobin 12.6 g/dL (12.2-16.2); Immature Granulocytes # 0.02 10^3uL; Immature Granulocytes % 0.3 %; Lymphocytes # 1.5 K/mm3 (0.7-4.5); Lymphocytes % 23.6 % (10-50); Mean Corpuscular HGB Conc 33.4 g/dL (31.8-35.4); Mean Corpuscular Hemoglobin 35.3 pg (27.0-31.2); Mean Corpuscular Volume 105.6 fl (81-99); Mean Platelet Volume 10.5 fl (7.4-10.4); Monocytes # 0.6 K/mm3 (0.1-1.0); Monocytes % 9.7 % (1.7-9.3); Neutrophils % 63.4 % (37.0-80.0); Nucleated Red Blood Cells # 0 10^3/uL; Nucleated Red Blood Cells % 0 %; Platelet Count 103 K/mm3 (142-424); Red Blood Count 3.57 M/mm3 (4.20-5.40); Red Cell Distribution Width 15.6 % (11.5-17.5); Red Cell Distribution Width-SD 60.6 fL; White Blood Count 6.3 K/mm3 (4.8-10.8)
[2024-09-06 20:28] LABS: Chloride 103 mmol/L (98-107)
[2024-09-06 20:29] LABS: Albumin Level 3.4 g/dl (3.5-5.0); Potassium 4.3 mmoL/L (3.5-5.1); Sodium 136 mmol/L (136-145)
[2024-09-06 20:31] LABS: Alanine Aminotransferase 40 U/L (12-78); Anion Gap 10.3 mEq/L (5-15); Aspartate Amino Transferase 59 U/L (14-36); Blood Urea Nitrogen 51 mg/dl (7-17); Carbon Dioxide 27 mmol/L (22.0-30.0); Estimated Glomerular Filt Rate 31 ml/min (>60); GFR (African American) 38 ML/MIN (>60)
[2024-09-06 20:32] LABS: Albumin/Globulin Ratio 1.2 (1.1-1.8); Alkaline Phosphatase 87 U/L (38-126); Bilirubin,Total 0.8 mg/dl (0.2-1.3); Globulin 2.9 g/dL (1.3-3.2); Glucose 104 mg/dl (74-100); Total Protein,Serum 6.3 g/dl (6.3-8.2)
[2024-09-06 20:45] LABS: Calcium 13.7 mg/dl (8.4-10.2)
[2024-09-06 21:03] LABS: Thyroid Stimulating Hormone 0.75 uIU/mL (0.465-4.68)
== END 2024-09-06 23:59 | disposition home or self-care (01) ==
LOC: LAB.DROPOF 21:47
PROVIDERS: PCP Family Medicine; Visit Provider Family Medicine
DX: M54.9 Dorsalgia, unspecified (principal); R53.83 Other fatigue; E03.9 Hypothyroidism, unspecified
CPT/HCPCS: 80053; 84443; 85025

== ENCOUNTER 2024-09-07 11:59 | Observation (INO) | payer MEDICARE, SELFPAY ==
[2024-09-07] VITALS (7 sets, daily range): BP systolic 105–139; BP diastolic 49–71; PULSE 68–82; RESP 16–18; TEMP 36.3–36.6; O2SAT 92–96; BMI 24.0; BMI 21.5
--- NOTE | 2024-09-07 13:00 | XR_ITS ---
FINAL REPORT CLINICAL HISTORY: SOA COMPARISON: None FINDINGS: There are diffuse interstitial prominences, favor chronic. The lung campos are hypoinflated. There is no evidence of effusion or pneumothorax. Mediastinum is unremarkable. Heart size is normal. IMPRESSION: Diffuse interstitial prominence, favor chronic. Reviewed, Interpreted and Dictated by Juan Guzman MD Transcribed by Christi Caceres Authenticated and [facility]
--- NOTE | 2024-09-07 13:00 | CT_ITS ---
FINAL REPORT TECHNIQUE: Noncontrast exam This study was performed with techniques to keep radiation doses as low as reasonably achievable, (ALARA). Individualized dose reduction techniques using automated exposure control or adjustment of mA and/or kV according to the patient''s size were employed. CLINICAL HISTORY: AMS COMPARISON: None FINDINGS: Moderate atrophy and chronic ischemic white matter changes are noted. No cortical edema is present. There is no mass or hemorrhage. Ventricles are normal. Bone windows show no skull fracture or obvious obstructive lesion. IMPRESSION: 1. No acute intracranial abnormality or obvious mass. 2. Moderate atrophy and chronic ischemic white matter changes as above. Reviewed, Interpreted and Dictated by Juan Guzman MD Transcribed by Christi Caceres Authenticated and [facility]
--- NOTE | 2024-09-07 13:02 | ED_ITS ---
<Statement entered by Charlee Calero DO - 09/08/24 15:56> I was consulted by the [facility]OR[facility], and we discussed the complexity of the problems being addressed. I approved the treatment and management plan for this patient's care in the emergency department, thus performing a substantive portion of the medical decision making. Charlee Calero DO Discharge Plan Disposition Patient Disposition: Admitted Condition: Fair Clinical Impressions Clinical Impression: ILSA (acute kidney injury), Failure to thrive, Hypercalcemia Discharge ED Provider: Charlee Calero General Adult HPI <ELIZABETH Tan - Last Filed: 09/07/24 16:11> General Chief complaint: Recheck/Abnormal Lab/Rx Stated complaint: Ref. Dr. Fields- Runs test Time Seen by Provider: 09/07/24 12:40 Mode of Arrival: Wheelchair Source of Information: Patient, Spouse and Relative Limitations: Altered Mental Status Description of Symptoms (Recalled from ER Triage Doc. by RN): abnormal labs,weakness,not eating. general decline since february when she had her gallbladder removed. History of Present Illness HPI narrative: 79-year-old female presents to the emergency department at the request of her primary care provider for abnormal labs , performed yesterday, there was some confusion on which lab was abnormal, patient's family at the bedside states it was either her cholesterol or her calcium was high , also of note patient has had steady functional decline and failure to thrive, generalized weakness ever since February 2024, after her gallbladder was removed , patient is GCS of 14, some confusion about date and time, oriented to person and place, patient denies any fever chills chest pain shortness of breath nausea vomiting, admits to constipation, no diarrhea no urinary type symptomatology, patient's family member has not noticed any other symptomatology, patient does have a poor appetite, and is essentially bedbound/wheelchair-bound at baseline. She is a former smoker, former history of breast cancer, unknown breast, status post chemo and radiation several years ago, denies any alcohol or drug use, other past medical history consistent with hypertension, AAA status post endovascular aneurysmal repair, with previous endoleak, Alzheimer's disease, hyperlipidemia, hypothyroidism, type 2 diabetes. Triage vitals unremarkable. Onset (ago): unknown Related Data Home Medications ?Medication ?Instructions ?Recorded ?Confirmed blood-glucose meter (True Metrix 04/01/22 09/06/24 Glucose Meter kit) lancets 33 gauge (TRUEplus Lancets) 04/01/22 09/06/24 cholecalciferol (vitamin D3) 50 50 mcg PO DAILY Supplement 07/23/22 09/06/24 mcg (2,000 unit) capsule (Vitamin D3) Previous Rx's ?Medication ?Instructions ?Recorded multivit with minerals-iron 18 1 tab PO DAILY Supplement #90 tabs 12/20/20 mg-folic ac 400 mcg-vit K 25 mcg tablet potassium chloride 10 mEq See Rx Instructions .Route 06/16/24 tablet,extended release(part/cryst) .COMPLEX #90 tabs levothyroxine 150 mcg tablet 150 mcg PO DAILY #90 tabs 06/24/24 (Synthroid) lovastatin 40 mg tablet See Rx Instructions .Route 07/16/24 .COMPLEX #90 tabs torsemide 20 mg tablet 20 mg PO DAILY #30 tabs 07/16/24 blood sugar diagnostic (True #100 ea 09/06/24 Metrix Glucose Test Strip) hydrocodone 5 mg-acetaminophen 325 1 tab PO BID PRN pain #60 tabs 09/06/24 mg tablet mirtazapine 15 mg tablet (Remeron) 15 mg PO DAILY #90 tabs 09/06/24 polyethylene glycol 3350 17 17 g PO DAILY #510 grams 09/06/24 gram/dose oral powder (Miralax) Allergies Allergy/AdvReac Type Severity Reaction Status Date / Time KACNHAN Inhibitors Allergy Severe ANGIOEDEMA Verified 09/06/24 14:46 lisinopril Allergy Severe Anaphylaxis Verified 09/06/24 14:46 morphine Allergy Severe Swelling Verified 09/06/24 14:46 of Lip/Tongue/Throat [facility] <ELIZABETH Tan - Last Filed: 09/07/24 16:11> [facility] Disclaimer: The information contained in this section may have been updated after the patient was seen, as this information can be updated by other users. Medical History Aneurysm Hypothyroid Diabetes History of cataract Hypertension Edema AZIZA FEET Breast cancer PAF (paroxysmal atrial fibrillation) Ex-smoker Abnormal electrocardiography Dyspnea Fatigue Palpitations Surgical History H/O thyroidectomy Hx of colonoscopy History of cataract surgery H/O lumpectomy RIGHT History of back surgery H/O: hysterectomy Family History Sister Vein disorder Other Cancer Social History Smoking Status: Never smoker years smoked: 25 alcohol intake: never substance use type: denies use current occupational status: retired Travel in the last 8 weeks?: None household members: spouse housing: house current occupational exposures/hazards: No caffeine: Yes Have you lived/traveled outside US in past 30 days?: No Contact w/someone who lives/traveled outside US past 30 days?: No Exposure to someone with infectious disease in past 14 days?: No Do you have a fever (greater than 100.4 F or 38 C)?: No Have you tested positive for COVID-19?: No Exposed to someone with COVID-19 in past 14 days?: No Do you have a sore throat?: No Do you have a cough?: No Do you have any weakness?: No Do you have any diarrhea?: No Are you experiencing any unusual bleeding?: No Do you have any muscle aches/pain?: No Do you have any abdominal pain?: No Are you experiencing loss of taste or smell?: No Other Medical History Have you received the Flu Vaccine for this season: Yes Have you received the Pneumonia Vaccine: Yes <ELIZABETH Tan - Last Filed: 09/07/24 16:11> ROS Obtained: Yes All systems reviewed & no additional complaints except as documented Physical Exam <ELIZABETH Tan - Last Filed: 09/07/24 16:11> General General appearance: alert, in no apparent distress and cachectic Comment: Generally ill and cachectic appearing female Head Head exam: atraumatic and normocephalic Eye Eye exam: Present PERRL and EOMI ENT ENT exam: Present mucous membranes moist Neck Neck exam: Present normal inspection Chest Chest inspection: Present normal inspection and symmetric chest wall rise Respiratory Respiratory exam: Present normal lung sounds bilaterally; Absent respiratory distress Cardiovascular Cardiovascular exam: Present regular rate and normal rhythm Abdominal Exam Abdominal exam: Present soft; Absent tenderness Extremities Exam Extremities exam: Present normal inspection Neurological Exam Neurological exam: Present alert and other (GCS of 14, some confusion about date and time oriented to person and place, overall generalized weakness noted no gross focal weakness or sensation deficit) Psychiatric Psychiatric exam: Present normal affect Skin Skin exam: Present warm and dry Medical Decision Making <ELIZABETH Tan - Last Filed: 09/07/24 16:11> Medical Records Medical records reviewed: Yes I reviewed the patient's medical records. Screening: Per USPSTF and CDC recommendations, given the prevalence of disease in our region, it is our hospital?s policy to screen for HIV and viral Hepatitis for all patients aged 18 and over and those with ongoing risk factors. Yaniv Inquiry Pt receiving controlled substance: No Yaniv was queried for this patient: No Vital Signs: 09/07/24 12:47 09/07/24 12:55 09/07/24 13:00 Temperature 97.4 F L Temperature Source Axillary Pulse Rate 82 80 Pulse Rate [Right] 68 Respiratory Rate 16 18 16 Blood Pressure 112/71 109/64 L Blood Pressure [Right Arm] 112/71 Blood Pressure Mean 84 78 Blood Pressure Mean [Right Arm] 84 02 Sat by Pulse Oximetry 96 93 L 96 Oxygen Delivery Method Room Air Lab Data Lab Results 09/07/24 13:30: WBC 6.3, RBC 3.65 L, Hgb 13.1, Hct 38.0, MCV 104.1 H, MCH 35.9 H , MCHC 34.5, RDW 15.6, Plt Count 97 L, MPV 10.0, Neut % (Auto) 63.7, Lymph % (Auto) 24.1, [place] % (Auto) 9.5 H, Eos % (Auto) 2.1, Baso % (Auto) 0.3, Neut # (Auto) 4.0, Lymph # (Auto) 1.5, [place] # (Auto) 0.6, Eos # (Auto) 0.1, Baso # (Auto) 0.0, Sodium 135 L, Potassium 4.2, Chloride 102, Carbon Dioxide 29, Anion Gap 8.2, BUN 52 H, Creatinine 1.60 H, Estimated Creat Clear 28, Estimated GFR 31 L, Est GFR ( Amer) 38 L, Glucose 116 H, Calcium 13.5 H*, Phosphorus 3.2, Magnesium 1.2 L, Total Bilirubin 0.8, AST 64 H, ALT 39, Alkaline Phosphatase 82, Troponin I < 0.01, NT-Pro-B Natriuret Pep 909 H, Total Protein 6.5, Albumin 3.4 L, Globulin 3.1, Albumin/Globulin Ratio 1.1 09/07/24 13:30 09/07/24 13:30 Orders (Tests/Meds): ED MEDICATIONS Discontinued Medications Generic Name Dose Route Start Last Admin Trade Name Freq PRN Reason Stop Dose Admin Sodium Chloride 1,000 mls @ 999 mls/hr 09/07/24 14:01 09/07/24 14:04 Sod Chlor 0.9% 1000ml Bag IV 09/07/24 15:01 999 mls/hr .Q1H1M ONE Administration ORDERS Category Date Time Status CT head/brain wo con Stat Cat Scan 09/07/24 13:00 Completed XR chest portable Stat Exams 09/07/24 13:00 Completed Complete Blood Count Auto Diff Stat Lab 09/07/24 13:30 Completed Comprehensive Metabolic Panel Stat Lab 09/07/24 13:30 Completed Magnesium Stat Lab 09/07/24 13:30 Completed NT Pro Brain Natriuretic Pep. Stat Lab 09/07/24 13:30 Completed PHOS [Phosphorous] Stat Lab 09/07/24 13:30 Completed Troponin I Q3H Lab 09/07/24 16:15 Ordered Troponin I Q3H Lab 09/07/24 19:15 Ordered Troponin I Stat Lab 09/07/24 13:30 Completed Urinalysis and Microscopic Stat Lab 09/07/24 13:01 Ordered Medical Decision Narrative: 79-year-old female presents emergency department with failure to thrive, generalized weakness abnormal labs per PCPs office, differential diagnose include but not limited to failure to thrive, acute UTI, ILSA, pneumonia, hypovolemia, cardiac arrhythmia, electrolyte disturbance among others. I discussed patient case with impression Dr. Calero Will obtain basic laboratory studies, magnesium level, proBNP, phosphorus, troponin, urinalysis, EKG, CT head, chest x-ray for further evaluation characterization. I reviewed the patient's chest x-ray along the corresponding radiologic report, diffuse interstitial prominence favor chronic I reviewed the patient's CT head without contrast on the corresponding radiologic report, no acute intracranial abnormality or obvious mass, moderate atrophy and chronic ischemic white matter changes as above. CBC is notable for elevated MCV at 104.1 thrombocytopenia at 97 CMP is notable for acute kidney injury with a BUN of 52 and creatinine 1.6, GFR is 31, hypercalcemia at 13.5, AST is elevated at 64, minimal hypoalbuminemia at 3.4, will start some gentle 1 L IV NS. Troponin within normal limits Mild hypomagnesia 1.2. proBNP is mildly elevated at 909. I discussed this patient's case with the hospitalist at approximately 3:03 PM, he is agree with current mission plan/treatment plan. I discussed need for admission with the patient and family at the bedside patient family agree with the current treatment plan/admission plan. <Charlee Calero, DO - Last Filed: 09/07/24 14:56> Vital Signs: 09/07/24 12:47 09/07/24 12:55 09/07/24 13:00 Temperature 97.4 F L Temperature Source Axillary Pulse Rate 82 80 Pulse Rate [Right] 68 Respiratory Rate 16 18 16 Blood Pressure 112/71 109/64 L Blood Pressure [Right Arm] 112/71 Blood Pressure Mean 84 78 Blood Pressure Mean [Right Arm] 84 02 Sat by Pulse Oximetry 96 93 L 96 Oxygen Delivery Method Room Air Lab Data Lab Results 09/07/24 13:30: WBC 6.3, RBC 3.65 L, Hgb 13.1, Hct 38.0, MCV 104.1 H, MCH 35.9 H , MCHC 34.5, RDW 15.6, Plt Count 97 L, MPV 10.0, Neut % (Auto) 63.7, Lymph % (Auto) 24.1, [place] % (Auto) 9.5 H, Eos % (Auto) 2.1, Baso % (Auto) 0.3, Neut # (Auto) 4.0, Lymph # (Auto) 1.5, [place] # (Auto) 0.6, Eos # (Auto) 0.1, Baso # (Auto) 0.0, Sodium 135 L, Potassium 4.2, Chloride 102, Carbon Dioxide 29, Anion Gap 8.2, BUN 52 H, Creatinine 1.60 H, Estimated Creat Clear 28, Estimated GFR 31 L, Est GFR ( Amer) 38 L, Glucose 116 H, Calcium 13.5 H*, Phosphorus 3.2, Magnesium 1.2 L, Total Bilirubin 0.8, AST 64 H, ALT 39, Alkaline Phosphatase 82, Troponin I < 0.01, NT-Pro-B Natriuret Pep 909 H, Total Protein 6.5, Albumin 3.4 L, Globulin 3.1, Albumin/Globulin Ratio 1.1 Orders (Tests/Meds): ED MEDICATIONS Discontinued Medications Generic Name Dose Route Start Last Admin Trade Name Kira PRN Reason Stop Dose Admin Sodium Chloride 1,000 mls @ 999 mls/hr 09/07/24 14:01 09/07/24 14:04 Sod Chlor 0.9% 1000ml Bag IV 09/07/24 15:01 999 mls/hr .Q1H1M ONE Administration ORDERS Category Date Time Status CT head/brain wo con Stat Cat Scan 09/07/24 13:00 Completed XR chest portable Stat Exams 09/07/24 13:00 Completed Complete Blood Count Auto Diff Stat Lab 09/07/24 13:30 Completed Comprehensive Metabolic Panel Stat Lab 09/07/24 13:30 Completed Magnesium Stat Lab 09/07/24 13:30 Completed NT Pro Brain Natriuretic Pep. Stat Lab 09/07/24 13:30 Completed PHOS [Phosphorous] Stat Lab 09/07/24 13:30 Completed Troponin I Q3H Lab 09/07/24 16:15 Ordered Troponin I Q3H Lab 09/07/24 19:15 Ordered Troponin I Stat Lab 09/07/24 13:30 Completed Urinalysis and Microscopic Stat Lab 09/07/24 13:01 Ordered ECG Data Tracing #1: I reviewed this ECG and interpreted as documented below: Normal sinus rhythm with a ventricular rate of [address] changes concerning for ischemia ECG initial impression date: 09/07/24 ECG initial impression time: 13:28 Critical Care <ELIZABETH Tan - Last Filed: 09/07/24 16:11> Critical Care Time Critical Care Time: No
--- NOTE | 2024-09-07 13:26 | ECG_ITS ---
APPROVED REPORT Exam: Resting ECG HR:73 bpm ECG Measurements Heart Rate 73 AXES ID 174 P 53 QRSd 98 QRS 21 QT 360 T -7 QTc 386 Conclusion SINUS RHYTHM POSSIBLE ANTERIOR MYOCARDIAL INFARCTION , OF INDETERMINATE AGE [30 ms Q WAVE IN V3/V4, OR R < 0.2 mV IN V4] No STEMI Electronically signed by : MERVIN HUANG, 09/08/2024 02:58:37
[2024-09-07 13:43] LABS: Basophils % 0.3 % (0.1-2.0); Eosinophils # 0.1 Kmm3 (0.0-0.4); Eosinophils % 2.1 % (0.1-12.0); Hemoglobin 13.1 g/dL (12.2-16.2); Immature Granulocytes # 0.02 10^3uL; Immature Granulocytes % 0.3 %; Lymphocytes # 1.5 K/mm3 (0.7-4.5); Lymphocytes % 24.1 % (10-50); Mean Corpuscular HGB Conc 34.5 g/dL (31.8-35.4); Mean Corpuscular Hemoglobin 35.9 pg (27.0-31.2); Mean Corpuscular Volume 104.1 fl (81-99); Monocytes # 0.6 K/mm3 (0.1-1.0); Monocytes % 9.5 % (1.7-9.3); Neutrophils % 63.7 % (37.0-80.0); Nucleated Red Blood Cells # 0 10^3/uL; Nucleated Red Blood Cells % 0 %; Platelet Count 97 K/mm3 (142-424); Red Blood Count 3.65 M/mm3 (4.20-5.40); Red Cell Distribution Width 15.6 % (11.5-17.5); Red Cell Distribution Width-SD 60.9 fL; White Blood Count 6.3 K/mm3 (4.8-10.8)
[2024-09-07 13:52] LABS: Chloride 102 mmol/L (98-107)
[2024-09-07 13:53] LABS: Albumin Level 3.4 g/dl (3.5-5.0); Potassium 4.2 mmoL/L (3.5-5.1); Sodium 135 mmol/L (136-145)
[2024-09-07 13:55] LABS: Blood Urea Nitrogen 52 mg/dl (7-17); Creatinine Clearance Estimated 28 mL/min (50-200); Estimated Glomerular Filt Rate 31 ml/min (>60); GFR (African American) 38 ML/MIN (>60)
[2024-09-07 13:56] LABS: Alanine Aminotransferase 39 U/L (12-78); Albumin/Globulin Ratio 1.1 (1.1-1.8); Alkaline Phosphatase 82 U/L (38-126); Anion Gap 8.2 mEq/L (5-15); Aspartate Amino Transferase 64 U/L (14-36); Bilirubin,Total 0.8 mg/dl (0.2-1.3); Carbon Dioxide 29 mmol/L (22.0-30.0); Globulin 3.1 g/dL (1.3-3.2); Glucose 116 mg/dl (74-100); Total Protein,Serum 6.5 g/dl (6.3-8.2)
[2024-09-07 13:58] LABS: Calcium 13.5 mg/dl (8.4-10.2)
[2024-09-07 13:59] LABS: Phosphorous 3.2 mg/dl (2.5-4.5)
[2024-09-07] MEDS: 0.9 % SODIUM CHLORIDE 1000ML 1,000 ML 999 ML IV (14:04)
[2024-09-07 14:13] LABS: Troponin I < 0.01 ng/ml (0.00-0.034)
[2024-09-07 14:14] LABS: Magnesium 1.2 mg/dl (1.6-2.3)
[2024-09-07 14:23] LABS: NT Pro Brain Natriuretic Pep. 909 pg/mL (0-450)
--- NOTE | 2024-09-07 15:10 | PC.NURSE ---
PURCHASING ASSOCIATE NOTIFIED OF ADMISSION
--- NOTE | 2024-09-07 16:05 | PC.NURSE ---
report called to Sourav
--- NOTE | 2024-09-07 16:35 | P.HP_ITS ---
History of Present Illness *Admission Date: 09/07/24 *Reason for visit:: Weakness, confusion *History of present illness: Ms. Valdez is an 79-year-old female who presented to the ER with her due to worsening weakness, unintentional weight loss, and abnormal labs obtained in her PCPs office. Joint see her PCP yesterday and had labs obtained showing hypercalcemia of 13.7. Presented today with persistent weakness. Labs obtained showing ILSA, hypercalcemia, concern for dehydration. Patient is unintentional weight loss since her gallbladder surgery in February. States she has had nausea, increased confusion, intermittent constipation. Medicine consulted for admission due to hypercalcemia and ILSA. Arrival to the floor, is at bedside helping with history. Expressed significant concern for his 's weight loss, poor appetite, increased confusion/dementia over the past several months. States he just has not been right since her gallbladder was removed. Patient appears comfortable but is globally weak. CT head without contrast with no acute intracranial abnormality or obvious mass, moderate atrophy and chronic ischemic white matter changes as above. CBC is notable for elevated MCV at 104.1 thrombocytopenia at 97 CMP is notable for acute kidney injury with a BUN of 52 and creatinine 1.6, GFR is 31, hypercalcemia at 13.5, AST is elevated at 64, minimal hypoalbuminemia at 3.4, will start some gentle 1 L IV NS. Troponin within normal limits. Mild hyp omagnesia 1.2. proBNP is mildly elevated at 909. [facility] Disclaimer: The information contained in this section may have been updated after the patient was seen, as this information can be updated by other users. Medical History Aneurysm Hypothyroid Diabetes History of cataract Hypertension Edema Breast cancer PAF (paroxysmal atrial fibrillation) Ex-smoker Abnormal electrocardiography Dyspnea Fatigue Palpitations Surgical History H/O thyroidectomy Hx of colonoscopy History of cataract surgery H/O lumpectomy History of back surgery H/O: hysterectomy Family History Sister Vein disorder Other Cancer Social History Smoking Status: Never smoker years smoked: 25 alcohol intake: never substance use type: denies use current occupational status: retired Travel in the last 8 weeks?: None household members: spouse housing: house current occupational exposures/hazards: No caffeine: Yes Have you lived/traveled outside US in past 30 days?: No Contact w/someone who lives/traveled outside US past 30 days?: No Exposure to someone with infectious disease in past 14 days?: No Do you have a fever (greater than 100.4 F or 38 C)?: No Have you tested positive for COVID-19?: No Exposed to someone with COVID-19 in past 14 days?: No Do you have a sore throat?: No Do you have a cough?: No Do you have any weakness?: No Do you have any diarrhea?: No Are you experiencing any unusual bleeding?: No Do you have any muscle aches/pain?: No Do you have any abdominal pain?: No Are you experiencing loss of taste or smell?: No Other Medical History Have you received the Flu Vaccine for this season: Yes Have you received the Pneumonia Vaccine: Yes Review of Systems Review of Systems Review of systems (narrative): 14 point review of systems performed, pertinent positives and negatives as per HPI Meds Home Medications and Allergies Home Medications ?Medication ?Instructions ?Recorded ?Confirmed ?Type multivit with minerals-iron 18 1 tab PO DAILY Supplement #90 tabs 12/20/20 0 09/07/24 Rx mg-folic ac 400 mcg-vit K 25 mcg tablet blood-glucose meter (True Metrix 04/01/22 09/07/24 History Glucose Meter kit) lancets 33 gauge (TRUEplus Lancets) 04/01/22 09/07/24 History levothyroxine 150 mcg tablet 150 mcg PO DAILY #90 tabs 06/24/24 09/07/24 Rx (Synthroid) torsemide 20 mg tablet 20 mg PO DAILY #30 tabs 07/16/24 09/07/24 Rx blood sugar diagnostic (True #100 ea 09/06/24 09/07/24 Rx Metrix Glucose Test Strip) hydrocodone 5 mg-acetaminophen 325 1 tab PO BID PRN pain #60 tabs 09/06/24 09/07/24 Rx mg tablet lovastatin 40 mg tablet 40 mg PO HS 09/07/24 09/07/24 History potassium chloride 10 mEq 10 meq PO DAILY 09/07/24 09/07/24 History tablet,extended release(part/cryst) New Prescriptions to Start Prescriptions: Allergies Allergy/AdvReac Type Severity Reaction Status Date / Time KANCHAN Inhibitors Allergy Severe ANGIOEDEMA Verified 09/06/24 14:46 lisinopril Allergy Severe Anaphylaxis Verified 09/06/24 14:46 morphine Allergy Severe Swelling Verified 09/06/24 14:46 of Lip/Tongue/Throat Exam Data for Last 24 hours Vital signs and Labs for Last 24 Hours: Temp Pulse Resp BP Pulse Ox O2 Del Method 97.6 F 70 18 105/55 L 96 Room Air 09/07/24 16:14 09/07/24 16:14 09/07/24 16:14 09/07/24 16:14 09/07/24 13:00 09/07/24 16:14 Laboratory Results - last 24 hr 09/07/24 13:30: WBC 6.3, RBC 3.65 L, Hgb 13.1, Hct 38.0, MCV 104.1 H, MCH 35.9 H , MCHC 34.5, RDW 15.6, Plt Count 97 L, MPV 10.0, Neut % (Auto) 63.7, Lymph % (Auto) 24.1, [place] % (Auto) 9.5 H, Eos % (Auto) 2.1, Baso % (Auto) 0.3, Neut # (Auto) 4.0, Lymph # (Auto) 1.5, [place] # (Auto) 0.6, Eos # (Auto) 0.1, Baso # (Auto) 0.0, Sodium 135 L, Potassium 4.2, Chloride 102, Carbon Dioxide 29, Anion Gap 8.2, BUN 52 H, Creatinine 1.60 H, Estimated Creat Clear 28, Estimated GFR 31 L, Est GFR ( Amer) 38 L, Glucose 116 H, Calcium 13.5 H*, Phosphorus 3.2, Magnesium 1.2 L, Total Bilirubin 0.8, AST 64 H, ALT 39, Alkaline Phosphatase 82, Troponin I < 0.01, NT-Pro-B Natriuret Pep 909 H, Total Protein 6.5, Albumin 3.4 L, Globulin 3.1, Albumin/Globulin Ratio 1.1 I & O for Last 24 hours: Intake & Output 09/04/24 09/05/24 09/06/24 09/07/24 23:59 23:59 23:59 23:59 Weight 63.503 kg Constitutional Constitutional: mild distress, thin, chronically ill appearing and cooperative *Routine HEENT Exam Head: Present normocephalic Eye: Present EOMI and PERRL ENT: Present mucous membranes moist *Routine Neck Exam Neck: Present supple; Absent lymphadenopathy *Routine Respiratory Exam Respiratory: Present CTA bilaterally *Routine Cardiovascular Exam Cardiovascular: Present RRR *Routine Abdominal Exam Abdominal: Present soft and normoactive bowel sounds; Absent tenderness *Routine Rectal Exam Rectal:: deferred *Routine Genitalia Exam Genitalia:: deferred *Routine Extremities Exam Extremities: Absent cyanosis, clubbing or edema *Routine Skin Exam Skin: Present warm; Absent rash *Routine Neurological Exam Neurological: Present alert and moving all extremities Comments: Globally weak, hyperreflexive patellar reflexes. Clonus bilaterally in feet Assessment and Plan *Assessment and plan (1) Hypercalcemia: Status: Acute Category: Medical Code(s): E83.52 - Hypercalcemia (2) ILSA (acute kidney injury): Status: Acute Category: Medical Code(s): N17.9 - Acute kidney failure, unspecified (3) Failure to thrive: Status: Acute Category: Medical (4) Unintentional weight loss: Status: Acute Category: Medical Code(s): R63.4 - Abnormal weight loss (5) Severe protein-calorie malnutrition: Status: Acute Category: Medical Code(s): E43 - Unspecified severe protein-calorie malnutrition (6) Hypothyroidism: Status: Chronic Qualifiers: Hypothyroidism type: acquired Qualified Code(s): E03.9 - Hypothyroidism, unspecified Category: Medical Code(s): E03.9 - Hypothyroidism, unspecified (7) Hyperlipidemia: Status: Chronic Qualifiers: Hyperlipidemia type: mixed hyperlipidemia Qualified Code(s): E78.2 - Mixed hyperlipidemia Category: Medical Code(s): E78.5 - Hyperlipidemia, unspecified (8) History of breast cancer: Status: Chronic Category: Medical Code(s): Z85.3 - Personal history of malignant neoplasm of breast (9) Ex-smoker: Status: Acute Category: Social Hx Code(s): Z87.891 - Personal history of nicotine dependence (10) AAA (abdominal aortic aneurysm): Status: Acute Qualifiers: Presence of rupture: without rupture Qualified Code(s): I71.4 - Abdominal aortic aneurysm, without rupture Category: Medical Code(s): I71.40 - Abdominal aortic aneurysm, without rupture, unspecified Plan 79-year-old female who presents with increasing weakness and confusion along with unintentional weight loss. Found to have ILSA and hypercalcemia. Discussed case with ER physician, request admission for management of hypercalcemia. Agreed to admit for further care. Administering IV fluids. Extensive lab work ordered. Necessitating inpatient care. Problems addressed as follows: Hypercalcemia ILSA Unintentional weight loss/weakness/ confusion -Calcium 13.5, BUN 52, creatinine 1.6. Repeat CMP ordered for this evening and again in the morning. Repeat CBC and magnesium ordered for the morning. - Replace magnesium per protocol, magnesium 1.2. - Globally weak, unclear the etiology. Will obtain PTH, vitamin D - Initiate zoledronic acid IV once. Administer calcitonin 250 mg subcu twice daily. - CT chest, abdomen, pelvis obtained to evaluate for mass. Concern for cancer. No medication identified on home list that would account for hypercalcemia. - History of breast cancer, status posttreatment. reports 40 years ago. Hypothyroid: Continue home levothyroxine 150 mcg daily. Previous TSH is well- controlled History of AAA, s/p repair. Holding lovastatin in the setting of ILSA and hypercalcemia Severe protein calorie malnutrition: Nutrition consulted to assist with support. PT/OT consulted to assist with dispo recommendations Full code Holding anticoagulation due to thrombocytopenia. Regular diet
[2024-09-07 16:42] LABS: Troponin I < 0.01 ng/ml (0.00-0.034)
--- NOTE | 2024-09-07 17:02 | CT_ITS ---
PROCEDURE INFORMATION: Exam: CT Chest Without Contrast; Diagnostic Exam date and time: 09/07/2024 5:17 PM Age: 79 years old Clinical indication: Other: Weight loss; Additional info: Unexplained wt loss TECHNIQUE: Imaging protocol: Diagnostic computed tomography of the chest without contrast. Radiation optimization: All CT scans at this facility use at least one of these dose optimization techniques: automated exposure control; mA and/or kV adjustment per patient size (includes targeted exams where dose is matched to clinical indication); or iterative reconstruction. COMPARISON: CT ANGIO CHEST PE PROTOCOL 04/01/2022 11:29 PM FINDINGS: Lungs: Basilar predominant architectural distortion, ground-glass opacities, and reticular changes suggest NSIP. Pleural spaces: Unremarkable. No pneumothorax. No pleural effusion. Heart: Unremarkable. No cardiomegaly. No pericardial effusion. Coronary arteries: Severe three-vessel calcific atherosclerotic disease of the coronary arteries. Lymph nodes: Unremarkable. No enlarged lymph nodes. Vasculature: There is moderate calcific atherosclerotic disease of the thoracic aorta without aneurysmal dilatation. Gallbladder and biliary ducts: There are surgical clips within the gallbladder fossa. Bones/joints: Unremarkable. No acute fracture. Soft tissues: Unremarkable. IMPRESSION: Basilar predominant architectural distortion, ground-glass opacities, and reticular changes suggest NSIP.
--- NOTE | 2024-09-07 17:02 | CT_ITS ---
PROCEDURE INFORMATION: Exam: CT Abdomen And Pelvis Without Contrast Exam date and time: 09/07/2024 5:17 PM Age: 79 years old Clinical indication: Other: Weight loss; Additional info: Unexplained wt loss TECHNIQUE: Imaging protocol: Computed tomography of the abdomen and pelvis without contrast. Radiation optimization: All CT scans at this facility use at least one of these dose optimization techniques: automated exposure control; mA and/or kV adjustment per patient size (includes targeted exams where dose is matched to clinical indication); or iterative reconstruction. COMPARISON: CT ABDOMEN PELVIS WO CON 10/18/2021 11:26 AM FINDINGS: Liver: Normal. No mass. Gallbladder and biliary ducts: There are surgical clips within the gallbladder fossa. Pancreas: Normal. No ductal dilation. Spleen: Normal. No splenomegaly. Adrenal glands: Normal. No mass. Kidneys and ureters: Multiple Bosniak 1 renal cystic lesions defined as homogeneous and fluid density (-9 to 20 HU), no septations or calcifications, having tijerina smooth and thin. Largest cyst measures 3.5 cm. No follow-up recommended. Stomach and bowel: Diverticula are scattered throughout the colon without inflammatory changes. Appendix: No evidence of appendicitis. Intraperitoneal space: Unremarkable. No free air. No significant fluid collection. Vasculature: Moderate calcific atherosclerotic disease of the abdominal aorta with endovascular repair of an aortic aneurysm unchanged from prior exam. Lymph nodes: Unremarkable. No enlarged lymph nodes. Urinary bladder: Unremarkable as visualized. Reproductive: The uterus appears surgically absent. Bones/joints: Moderate loss of intervertebral disc space with degenerative changes involving the lumbar spine greatest at L5-S1. Soft tissues: Normal. IMPRESSION: No acute findings. COMMENTS: Consistent with the [employer]'s Incidental Findings Committee white paper (J Am Gio Radiol 2018): Any incidental renal lesion less than 1 cm or classified as too small to characterize, or any incidental cystic renal lesion characterized as simple-appearing, is likely benign. No follow-up imaging is recommended for these lesions per consensus recommendations based on imaging criteria.
[2024-09-07 17:34] LABS: HIV Combo NEGATIVE (Negative)
[2024-09-07] MEDS: POLYETHYLENE GLYCOL 3350 17 GM PACKET PO (17:40)
[2024-09-07 18:58] LABS: Intact Parathyroid Hormone 7.9 pg/mL (7.5-53.5)
[2024-09-07 20:03] LABS: Troponin I < 0.01 ng/ml (0.00-0.034)
[2024-09-07 21:26] LABS: Alanine Aminotransferase 33 U/L (12-78); Albumin Level 3.1 g/dl (3.5-5.0); Albumin/Globulin Ratio 1.1 (1.1-1.8); Alkaline Phosphatase 84 U/L (38-126); Anion Gap 6.9 mEq/L (5-15); Aspartate Amino Transferase 48 U/L (14-36); Bilirubin,Total 0.8 mg/dl (0.2-1.3); Blood Urea Nitrogen 45 mg/dl (7-17); Carbon Dioxide 29 mmol/L (22.0-30.0); Chloride 103 mmol/L (98-107); Creatinine Clearance Estimated 25 mL/min (50-200); Estimated Glomerular Filt Rate 31 ml/min (>60); GFR (African American) 38 ML/MIN (>60); Globulin 2.8 g/dL (1.3-3.2); Glucose 107 mg/dl (74-100); Potassium 3.9 mmoL/L (3.5-5.1); Sodium 135 mmol/L (136-145); Total Protein,Serum 5.9 g/dl (6.3-8.2)
[2024-09-07 21:28] LABS: Calcium 12.8 mg/dl (8.4-10.2)
--- NOTE | 2024-09-07 21:40 | PC.NURSE ---
Lab called to report a critical calcium value of 12.8 for the patient. Josefina HIGHTOWER was paged at this time to inform him about the critical lab value.
[2024-09-07 21:49] LABS: Hepatitis C Ab Qual. W/ RFX NEGATIVE (Negative)
[2024-09-08] VITALS: BP 121/51; PULSE 87; RESP 16; TEMP 36.7; O2SAT 93
[2024-09-08] MEDS: 0.9 % SODIUM CHLORIDE 1000ML 1,000 ML 100 ML IV ×3 (02:05→23:10)
--- NOTE | 2024-09-08 02:50 | PC.NURSE ---
Patient is alert and oriented; however, periods of pleasant confusion were also noted. She was observed to be awake throughout the majority of this shift. Patient has not verbalized any complaints. She requires max assistance during any transfers. Patient consecutively voiced feeling comfortable in bed but presents significant weakness, of which is particularly noted during any kind of range of motion. A purewick and brief remains in place for elimination needs. Redness is present on her buttocks. Auscultation of her heart, lungs, and bowel sounds were within normal findings. Normal saline continues to infuse at 100 mL/hr. She has not expressed a large appetite this shift. At this time, the patient is resting supine in bed, with respirations even/unlabored and no apparent distress. No acute changes noted thus far. Call light within reach.
[2024-09-08 04:00] VITALS: BP 112/51; PULSE 77; RESP 15; TEMP 36.9; O2SAT 92; BMI 22.2
[2024-09-08] MEDS: HYDROCODONE/APAP 5/325 MG TABLET 1 TAB PO (06:20)
[2024-09-08 07:14] LABS: Basophils % 0.4 % (0.1-2.0); Eosinophils # 0.2 Kmm3 (0.0-0.4); Eosinophils % 3.4 % (0.1-12.0); Hematocrit 35.5 % (37.0-47.0); Immature Granulocytes # 0.01 10^3uL; Immature Granulocytes % 0.2 %; Lymphocytes # 1.3 K/mm3 (0.7-4.5); Lymphocytes % 27.3 % (10-50); Mean Corpuscular HGB Conc 33.8 g/dL (31.8-35.4); Mean Corpuscular Hemoglobin 35.4 pg (27.0-31.2); Mean Corpuscular Volume 104.7 fl (81-99); Mean Platelet Volume 9.9 fl (7.4-10.4); Monocytes # 0.5 K/mm3 (0.1-1.0); Monocytes % 9.9 % (1.7-9.3); Neutrophils # 2.7 K/mm3 (1.8-7.8); Neutrophils % 58.8 % (37.0-80.0); Nucleated Red Blood Cells # 0 10^3/uL; Nucleated Red Blood Cells % 0 %; Platelet Count 83 K/mm3 (142-424); Red Blood Count 3.39 M/mm3 (4.20-5.40); Red Cell Distribution Width 15.8 % (11.5-17.5); Red Cell Distribution Width-SD 60.2 fL; White Blood Count 4.7 K/mm3 (4.8-10.8)
--- NOTE | 2024-09-08 07:20 | PC.NURSE ---
Josefina HIGHTOWER was consulted [id number] this morning because the patient did not urinate through the night. Purewick canister did not contain any urine, and her brief remained dry. Patient's pubic area was palpated; moderate distention of the bladder was noted. Patient reported having an urge to urinate, but she was unable to functionally void. Patient was bladder scanned; bladder was shown to contain > 415 mL of urine. Josefina HIGHTOWER requested the patient to be straight-cathed. Hand washing was performed prior to the procedure. I also performed perineal care before attempting the straight cath procedure. Patient's urethra area was noted to be quite red and swollen. Straight cath insertion was attempted using aseptic technique. I attempted to insert the straight catheter once, but was unsuccessful. The patient reported significant pain during the attempt and became quite tearful. My attempt ceased, allowing the patient to rest and prevent any further pain. Pippa Dos Santos RN was asked to make an attempt to insert the straight catheter a few minutes after. The second attempt was unsuccessful as well. Patient continued to complain of pain and was allowed to take a break from the straight catheter insertions for the time being. Need for straight catheter insertion will be passed on to the oncoming nurse due to multiple unsuccessful attempts, swollen perineal area, and report of pain.
--- NOTE | 2024-09-08 07:28 | HMH.PHAINT1 ---
Pharmacy Intervention Comments: HOME MEDICATION LIST VERIFIED USING LIST FROM OFFICE AND OUTPATIENT PHARMACY
[2024-09-08 07:36] LABS: Alanine Aminotransferase 31 U/L (12-78); Alkaline Phosphatase 78 U/L (38-126); Aspartate Amino Transferase 51 U/L (14-36); Bilirubin,Total 0.8 mg/dl (0.2-1.3); Chloride 106 mmol/L (98-107); Glucose 86 mg/dl (74-100); Magnesium 1.2 mg/dl (1.6-2.3); Potassium 3.8 mmoL/L (3.5-5.1); Sodium 138 mmol/L (136-145)
[2024-09-08 07:38] LABS: Albumin/Globulin Ratio 1.1 (1.1-1.8); Anion Gap 7.8 mEq/L (5-15); Blood Urea Nitrogen 42 mg/dl (7-17); Carbon Dioxide 28 mmol/L (22.0-30.0); Creatinine Clearance Estimated 26 mL/min (50-200); Estimated Glomerular Filt Rate 31 ml/min (>60); GFR (African American) 38 ML/MIN (>60); Globulin 2.8 g/dL (1.3-3.2); Total Protein,Serum 5.8 g/dl (6.3-8.2)
[2024-09-08 07:52] LABS: Calcium 12.3 mg/dl (8.4-10.2)
[2024-09-08 08:00] VITALS: BP 108/60; PULSE 68; RESP 14; TEMP 37; O2SAT 93
--- NOTE | 2024-09-08 09:04 | US_ITS ---
FINAL REPORT TECHNIQUE: Ultrasound images of the kidneys and bladder were obtained. CLINICAL HISTORY: ILSA FINDINGS: The right kidney measures 9.0 cm in length. It is normal in echogenicity. There is no hydronephrosis. There is a 16 mm cyst in the upper pole. The left kidney measures 9.6 cm in length. It is normal in echogenicity. There is no hydronephrosis. There is a central cyst measuring 31 mm. There is moderate global parenchymal atrophy. Mild splenomegaly is noted measuring up to 14 cm. IMPRESSION: Moderate global parenchymal atrophy. Mild splenomegaly. Reviewed, Interpreted and Dictated by Juan Guzman MD Transcribed by Roxi Harrison Authenticated and [facility]
--- NOTE | 2024-09-08 09:11 | SW/DCPLANNER ---
Addendum entered by Maryann Paramus 09/10/24 10:21: Per Annamarie w/ [facility] New patient is approved SNF level of care. Patient will discharge to [facility] today. Addendum entered by [facility] 09/09/24 11:44: [facility] will start a precert on patient today. Addendum entered by [facility] 09/09/24 10:26: Patient/family are agreeable for information to be faxed to [facility]. Per Dixie holley/ [facility] New female beds are available. I will follow up w/ Dixie once information is reviewed. Discharge date is unknown at this time. Original Note: I spoke w/ patient and her this AM regarding plans once medically stable for discharge. PT/OT evaluated patient and recommended SNF level of care. Per patient in February of 2024 she admitted to [facility] for rehab. Patient and did not feel that rehab was beneficial to patient and could complete all care at home. Patient and have requested additional time to speak w/ each other regarding placement. Patient prefers to return home. I will continue to follow up.
[2024-09-08 10:15] VITALS: BMI 22.1
[2024-09-08] MEDS: POLYETHYLENE GLYCOL 3350 17 GM PACKET PO (10:24)
[2024-09-08] MEDS: LEVOTHYROXINE 150MCG (0.15MG)TAB 150 MCG PO (10:24)
[2024-09-08] MEDS: ZOLEDRONIC ACID 4 MG in 0.9 % SODIUM CHLORIDE 100 ML 420 MG IV (10:24)
[2024-09-08] MEDS: CALCITONIN 200IU/ML INJ VIAL 250 UNIT SUBCUT (10:24)
--- NOTE | 2024-09-08 10:42 | HMH.PTEV ---
Physical Therapy Evaluation Rehab PT IP Evaluation Start: 09/07/24 16:52 Freq: .once Status: Active Protocol: Document 09/08/24 10:35 ADRI (Rec: 09/08/24 10:42 ADRI [id number]) Subjective/History History History Per H&P: Ms. Valdez is an 79-year-old female who presented to the ER with her due to worsening weakness, unintentional weight loss, and abnormal labs obtained in her PCPs office. Joint see her PCP yesterday and had labs obtained showing hypercalcemia of 13.7. Presented today with persistent weakness. Labs obtained showing ILSA, hypercalcemia, concern for dehydration. Patient is unintentional weight loss since her gallbladder surgery in February. States she has had nausea, increased confusion, intermittent constipation. Medicine consulted for admission due to hypercalcemia and ILSA. Arrival to the floor, is at bedside helping with history. Expressed significant concern for his 's weight loss, poor appetite, increased confusion/ dementia over the past several months. States he just has not been right since her gallbladder was removed. Patient appears comfortable but is globally weak. Subjective Subjective Pt lives with her who is present to assist with providing history. Pt's reports that pt has not been ambulatory in one month. Pt uses a w/c in which her helped her transfer <> bed. New diagnosis of cancer in past 12 No months? [facility] How much help from another person do you currently need... Turning from your back to your side A little while in a flat bed without using bedrails? Moving from lying on back to sitting on A little the side of a flat bed without using bedrails? Moving to and from a bed to a chair ( A little including a wheelchair)? Standing up from a chair using your arms A little ? (e.g., wheelchair, bedside chair) Walking in hospital room? A lot Climbing 3-5 steps with a railing? A lot Mobility Score 16 Mobility Level [facility] Mobility Calculator Mobility 5 Stand (1 or more minutes) Rehab PT IP Eval Objective Appearance Patient Behavior Cooperative,Anxious,Fearful Patient Orientation Person,Place,Situation Difficulty following instructions none Speech Pattern Clear Ambulation Patient Able to Ambulate No Balance Ability to Arise Able, uses arms to help Sitting Balance Steady, safe Standing Balance Unsteady Transfers Bed Transfer Ability Moderate x 1 (50% assist) Sit to Stand Bed Transfer Ability Minimal x 2 (25% assist) Rehab PT IP prob,goals,plan Problems Date of Evaluation: 09/08/24 PT IP Problems Bed Mobility,Transfers,Gait, Balance,Self care,Safety Rehab Potential Rehab Potential Good Plan PT Intervention Plan Bed Mobility,Transfers,Gait, Balance,Self care,Safety, Therapeutic Exercise Other Intervention Plan 1-2 times PT Plan Frequency Daily Duration LOS Discharge Goals Bed Transfer Ability Minimal x 1 (25% assist) Sit to Stand Chair Transfer Ability Minimal x 1 (25% assist) Discharge Plan PT Discharge Plan Initial physical therapy evaluation performed. Patient presents below baseline at this time in functional mobility, transfers, and strength. Pt demo'd moderate FOF but was able to demo transfer from EOB > recliner with Min A x 2 and multiple VCs for sequencing and safety reassurance. Pt not safe to return home at this time d/t current level of functional mobility. PT recommending short-term rehabilitation stay upon d/c from [facility] to improve safety, return to [facility], and decrease caregiver burden. Pt would benefit from skilled PT while at [facility] to prevent further functional decline and maximize safety with mobility . Eval Complexity Eval Charge Codes 73748 - Moderate Complexity PHYSICIAN CERTIFICATION: I certify the specified therapy services for Henrietta Valdez are required, authorized, and reviewed every 30 days.
--- NOTE | 2024-09-08 11:21 | HMH.OTEV ---
OT Inpatient Evaluation Rehab OT IP Evaluation Start: 09/07/24 16:52 Freq: ONCE Status: Active Protocol: Document 09/08/24 10:46 JESSICA (Rec: 09/08/24 11:21 JESSICA [id number]) Rehab OT IP Assessment Subjective History Per H&P: Ms. Valdez is an 79-year-old female who presented to the ER with her due to worsening weakness, unintentional weight loss, and abnormal labs obtained in her PCPs office. Joint see her PCP yesterday and had labs obtained showing hypercalcemia of 13.7. Presented today with persistent weakness. Labs obtained showing ILSA, hypercalcemia, concern for dehydration. Patient is unintentional weight loss since her gallbladder surgery in February. States she has had nausea, increased confusion, intermittent constipation. Medicine consulted for admission due to hypercalcemia and ILSA. Arrival to the floor, is at bedside helping with history. Expressed significant concern for his 's weight loss, poor appetite, increased confusion/ dementia over the past several months. States he just has not been right since her gallbladder was removed. Patient appears comfortable but is globally weak. Subjective Please don't let me fall. Pt was supine in bed when therapy arrived. was present to give background of PLOF for pt. Pt was orient x1. reports he lives with pt and is able to assist in her care. reports they live in a home with ramps. reports pt has not walked in a couple months and uses w/c for functional mobility. reports they have a shower chair and grab bars in bathroom. Patient presents below baseline at this time in functional mobility, transfers , and UB strength. Pt agreed to move from bed to chair. Pt able to demo transfer from EOB > recliner with Min A x 2 and multiple VCs for sequencing and safety reassurance. Pt not safe to return home at this time d/t current level of functional mobility. Pt left with call light and all other needs within reach. also in room when therapy exited. pt left in chair. therapy notified nursing of pt needing to use bathroom and how they did. Objective Patient Orientation Person Right Upper Extremity Gross ROM WFL Left Upper Extremity Gross ROM WFL Shoulder ROM Limitations Muscle Weakness Elbow ROM Limitations Muscle Weakness Wrist Limitations of Range of Motion Muscle Weakness Bed Mobility bed mobility-scooting,bed mobility - supine/sit Assist Level Minimal x 2 (25% assist) Transfer Training Sit/Stand Transfer Assist Level Minimal x 2 (25% assist) Chair Transfer Ability Minimal x 2 (25% assist) Chair Transfer Technique Stand Step Pivot Chair Transfer Assistive Devices Standard Walker Decrease in Endurance Yes Rehab OT IP prob,goals,plan Problems Date of Evaluation: 09/08/24 OT IP Problems Bed Mobility,Transfers,Balance ,Self care,Safety Rehab Potential Rehab Potential Good Equipment Needs Assistive Devices Standard Walker Plan OT intervention Plan Bed Mobility,Transfers,Balance ,Self care,Safety,Therapeutic Exercise OT Plan Frequency Daily Duration LOS Discharge Goals Bed Mobility Ability Assistance x1 Sit to Stand Chair Transfer Ability Minimal x 1 (25% assist) Chair Transfer Ability Minimal x 1 (25% assist) Chair Transfer Technique Sit to/from Ambulatory Chair Transfer Assistive Devices Standard Walker Feeding Ability Assist with Tray Set Up Decrease in Endurance No Discharge Plan OT Discharge Plan OT recommending short-term rehabilitation stay upon d/c from [facility] to improve safety, return to [facility], and decrease caregiver burden. Pt would benefit from skilled OT while at [facility] to prevent further functional decline and address functional limitations in occupational performance. Eval Complexity Eval Charge Codes 73593 - Moderate Complexity PHYSICIAN CERTIFICATION: I certify the specified therapy services for Henrietta Valdez are required, authorized, and reviewed every 30 days.
[2024-09-08 12:00] VITALS: BP 110/62; PULSE 60; RESP 14; TEMP 36.8; O2SAT 95
[2024-09-08] MEDS: MAGNESIUM SULFATE IV (14:13)
[2024-09-08] MEDS: SODIUM CHLORIDE 0.9% IV (14:13)
[2024-09-08 15:48] VITALS: BP 106/62; PULSE 94; RESP 17; O2SAT 100
[2024-09-08] MEDS: DOXYCYCLINE HYCLATE 100 MG in 0.9 % SODIUM CHLORIDE 250 ML 166.667 MG IV (16:04)
[2024-09-08 17:02] LABS: Albumin Level 2.9 g/dl (3.5-5.0); Chloride 110 mmol/L (98-107); Potassium 3.8 mmoL/L (3.5-5.1); Sodium 138 mmol/L (136-145)
[2024-09-08 17:04] LABS: Iron 120 ug/dL (37-170)
[2024-09-08 17:05] LABS: Alanine Aminotransferase 34 U/L (12-78); Alkaline Phosphatase 88 U/L (38-126); Anion Gap 6.8 mEq/L (5-15); Aspartate Amino Transferase 58 U/L (14-36); Bilirubin,Total 0.9 mg/dl (0.2-1.3); Blood Urea Nitrogen 37 mg/dl (7-17); Carbon Dioxide 25 mmol/L (22.0-30.0); Creatinine Clearance Estimated 32 mL/min (50-200); Estimated Glomerular Filt Rate 39 ml/min (>60); GFR (African American) 48 ML/MIN (>60); Globulin 2.9 g/dL (1.3-3.2); Total Protein,Serum 5.8 g/dl (6.3-8.2)
[2024-09-08 17:06] LABS: Calcium 11.9 mg/dl (8.4-10.2); Glucose 127 mg/dl (74-100)
[2024-09-08 17:13] LABS: Total Iron Binding Capacity 277 ug/dL (265-497)
[2024-09-08 17:49] LABS: Microscopic, Urine URINE MICROSCOPIC (MICROSCOPIC)
[2024-09-08 17:53] LABS: Vitamin B12 821 pg/mL (239-931)
[2024-09-08] MEDS: CEFTRIAXONE 1 GM 1 GM in 0.9 % SODIUM CHLORIDE 50 ML IV (17:59)
[2024-09-08] MEDS: 0.9 % SODIUM CHLORIDE 1000ML 500 ML IV (18:02)
[2024-09-08 18:06] LABS: Bilirubin,Urine Negative (Negative); Blood, Urine 1+ (Negative); Glucose,Urine (UA) Negative (Negative); Ketones,Urine Negative (Negative); Leukocyte Esterase,Urine 2+ (Negative); Nitrate,Urine Negative (Negative); Protein,Urine Negative (Negative); Specific Gravity, Urine 1.015 (1.005-1.030)
[2024-09-08 18:12] LABS: Appearance,Urine Cloudy (Clear); Color,Urine Dark Yellow (Yellow)
[2024-09-08 18:25] LABS: Bacteria,Urine 4+ /lpf; Calcium Oxalate Crystals,Urine 1+ /lpf
--- NOTE | 2024-09-08 18:39 | PC.NURSE ---
notified MD of mag level and creatinine clearance earlier in shift, new orders received.
[2024-09-08 18:53] LABS: Adenovirus,PCR Not Detected (NotDetected); Bordetella Pertussis Not Detected (NotDetected); Chlamydophila Pneumoniae, PCR Not Detected (NotDetected); Coronavirus 19, PCR Not Detected (NotDetected); Coronavirus 229E Not Detected (NotDetected); Coronavirus NL63 Not Detected (NotDetected); Coronavirus OC43 Not Detected (NotDetected); Coronovirus HKU1,PCR Not Detected (NotDetected); Human Metapneumovirus Not Detected (NotDetected); Influenza A, PCR Not Detected (NotDetected); Influenza AH1, 2009 Not Detected (NotDetected); Influenza AH1, PCR Not Detected (NotDetected); Influenza AH3,PCR Not Detected (NotDetected); Influenza B, PCR Not Detected (NotDetected); Mycoplasma Pneumoniae, PCR Not Detected (NotDetected); Parainfluenza 1, PCR Not Detected (NotDetected); Parainfluenza 2, PCR Not Detected (NotDetected); Parainfluenza 3, PCR Not Detected (NotDetected); Parainfluenza 4, PCR Not Detected (NotDetected); Respiratory Syncytial Virus Not Detected (NotDetected); Rhinovirus/Enterovirus Not Detected (NotDetected)
--- NOTE | 2024-09-08 18:55 | EXP.PN ---
Subjective *Date: 09/08/24 *Time: 18:55 Interval history: Patient continues to be appear very weak, emotionally labile. Likely from hypercalcemia, UTI. Concern for multiple myeloma, follow-up workup. Continue IV fluids, calcium improving. Exam Data for Last 24 hours Vital signs and Labs for Last 24 Hours: Temp Pulse Resp BP Pulse Ox O2 Del Method 98.2 F 94 H 17 106/62 L 100 Room Air 09/08/24 12:00 09/08/24 15:48 09/08/24 15:48 09/08/24 15:48 09/08/24 15:48 09/08/24 18:39 Laboratory Results - last 24 hr 09/07/24 13:32: HCV Ab ROJELIO w/Rflx PCR Qn Negative 09/07/24 17:17: Urine Color Dark yellow, Urine Appearance Cloudy, Urine pH 6.0, Ur Specific [place] 1.015, Urine Protein Negative, Urine Glucose (UA) Negative, Urine Ketones Negative, Urine Blood 1+ A, Urine Nitrate Negative, Urine Bilirubin Negative, Urine Urobilinogen 1.0, Ur Leukocyte Esterase 2+ A, Urine RBC 5-10, Urine WBC 10-20, Ur Squamous Epith Cells 5-10, Calcium Oxalate Crystal 1+, Urine Bacteria 4+ 09/07/24 17:48: 25-OH Vitamin D Total 54.0, PTH Intact 7.9 09/07/24 19:30: Troponin I < 0.01 09/07/24 21:06: Sodium 135 L, Potassium 3.9, Chloride 103, Carbon Dioxide 29, Anion Gap 6.9, BUN 45 H, Creatinine 1.60 H, Estimated Creat Clear 25, Estimated GFR 31 L, Est GFR ( Amer) 38 L, Glucose 107 H, Calcium 12.8 H*, Total Bilirubin 0.8, AST 48 H, ALT 33, Alkaline Phosphatase 84, Total Protein 5.9 L, Albumin 3.1 L, Globulin 2.8, Albumin/Globulin Ratio 1.1 09/08/24 06:39: WBC 4.7 L D, RBC 3.39 L, Hgb 12.0 L, Hct 35.5 L, MCV 104.7 H, MCH 35.4 H, MCHC 33.8, RDW 15.8, Plt Count 83 L, MPV 9.9, Neut % (Auto) 58.8, Lymph % (Auto) 27.3, Johnson % (Auto) 9.9 H, Eos % (Auto) 3.4, Baso % (Auto) 0.4, Neut # (Auto) 2.7, Lymph # (Auto) 1.3, Johnson # (Auto) 0.5, Eos # (Auto) 0.2, Baso # (Auto) 0.0, Sodium 138, Potassium 3.8, Chloride 106, Carbon Dioxide 28, Anion Gap 7.8, BUN 42 H, Creatinine 1.60 H, Estimated Creat Clear 26, Estimated GFR 31 L, Est GFR ( Amer) 38 L, Glucose 86, Calcium 12.3 H*, Magnesium 1.2 L, Total Bilirubin 0.8, AST 51 H, ALT 31, Alkaline Phosphatase 78, Total Protein 5.8 L, Albumin 3.0 L, Globulin 2.8, Albumin/Globulin Ratio 1.1 09/08/24 16:19: Sodium 138, Potassium 3.8, Chloride 110 H, Carbon Dioxide 25, Anion Gap 6.8, BUN 37 H, Creatinine 1.30 H, Estimated Creat Clear 32, Estimated GFR 39 L, Est GFR ( Amer) 48 L D, Glucose 127 H D, Calcium 11.9 H, Iron 120, TIBC 277, Iron Saturation 43.06134, Ferritin 81.0, Total Bilirubin 0.9, AST 58 H, ALT 34, Alkaline Phosphatase 88, Total Protein 5.8 L, Albumin 2.9 L, Globulin 2.9, Albumin/Globulin Ratio 1.0 L, Vitamin B12 821 I & O for Last 24 hours: Intake & Output 09/05/24 09/06/24 09/07/24 09/08/24 23:59 23:59 23:59 23:59 Intake Total 240 / 998 1298 / 1298 Output Total 500 / 500 Balance 240 / 998 798 / 798 Weight 57.289 kg 59 kg Constitutional Constitutional: no acute distress and cachectic *Routine HEENT Exam Head: Present normocephalic Eye: Present EOMI and PERRL ENT: Present mucous membranes moist *Routine Neck Exam Neck: Present supple; Absent lymphadenopathy *Routine Respiratory Exam Respiratory: Present CTA bilaterally *Routine Cardiovascular Exam Cardiovascular: Present RRR *Routine Abdominal Exam Abdominal: Present soft and normoactive bowel sounds; Absent tenderness *Routine Extremities Exam Extremities: Absent cyanosis, clubbing or edema *Routine Skin Exam Skin: Present warm; Absent rash *Routine Neurological Exam Neurological: Present alert Assessment and Plan *Assessment and plan (1) Hypercalcemia: Status: Acute Category: Medical Code(s): E83.52 - Hypercalcemia (2) ILSA (acute kidney injury): Status: Acute Category: Medical Code(s): N17.9 - Acute kidney failure, unspecified (3) Failure to thrive: Status: Acute Category: Medical (4) Unintentional weight loss: Status: Acute Category: Medical Code(s): R63.4 - Abnormal weight loss (5) Severe protein-calorie malnutrition: Status: Acute Category: Medical Code(s): E43 - Unspecified severe protein-calorie malnutrition (6) Hypothyroidism: Status: Chronic Qualifiers: Hypothyroidism type: acquired Qualified Code(s): E03.9 - Hypothyroidism, unspecified Category: Medical Code(s): E03.9 - Hypothyroidism, unspecified (7) Hyperlipidemia: Status: Chronic Qualifiers: Hyperlipidemia type: mixed hyperlipidemia Qualified Code(s): E78.2 - Mixed hyperlipidemia Category: Medical Code(s): E78.5 - Hyperlipidemia, unspecified (8) History of breast cancer: Status: Chronic Category: Medical Code(s): Z85.3 - Personal history of malignant neoplasm of breast (9) Ex-smoker: Status: Acute Category: Social Hx Code(s): Z87.891 - Personal history of nicotine dependence (10) AAA (abdominal aortic aneurysm): Status: Acute Qualifiers: Presence of rupture: without rupture Qualified Code(s): I71.4 - Abdominal aortic aneurysm, without rupture Category: Medical Code(s): I71.40 - Abdominal aortic aneurysm, without rupture, unspecified Plan Henrietta Valdez is a 79-year-old female who presents with increasing weakness and confusion along with unintentional weight loss. Found to have ILSA and hypercalcemia. Discussed case with ER physician, request admission for management of hypercalcemia. Agreed to admit for further care. Administering IV fluids. Extensive lab work ordered. Necessitating inpatient care. Problems addressed as follows: #Hypercalcemia #ILSA #Unintentional weight loss/weakness/ confusion - Initial calcium 13.5, BUN 52, creatinine 1.6. Improved to calcium 11.9, creatinine 1.3 this morning with fluid resuscitation. - Globally weak, unclear the etiology. Concern for multiple myeloma due to hypercalcemia, kidney dysfunction. However seems to be improving. - CT chest, abdomen, pelvis unremarkable for cancerous lesions. ? PTH, vitamin D normal. - Given zoledronic acid IV once. Continue calcitonin 250 mg subcu twice daily. ? Follow-up SPEP, UPEP electrophoresis for multiple myeloma workup. - History of breast cancer, status posttreatment. reports 40 years ago. #UTI ? UA grossly abnormal, patient globally weak. ? Started ceftriaxone day 04/25. ? Follow-up urine culture. Hypothyroid: Continue home levothyroxine 150 mcg daily. Previous TSH is well-controlled History of AAA, s/p repair. Holding lovastatin in the setting of ILSA and hypercalcemia Severe protein calorie malnutrition: Nutrition consulted to assist with support. PT/OT consulted to assist with dispo recommendations Full code Holding anticoagulation due to thrombocytopenia. Regular diet
[2024-09-08 20:00] VITALS: BP 145/69; PULSE 95; RESP 16; TEMP 37.4; O2SAT 92; O2SAT 97
[2024-09-09] VITALS: BP 103/43; PULSE 84; RESP 16; TEMP 36.6; O2SAT 92
[2024-09-09 03:41] VITALS: BP 129/55; PULSE 81; RESP 16; TEMP 36.5; O2SAT 94; BMI 21.2
--- NOTE | 2024-09-09 05:17 | PC.NURSE ---
Pt. is alert and orientated with periods of confusion. Pt. is pleasent and cooperative with care. Pt. on room air. IV fluids infusing. IV antbiotics also given. Pt. has been sleeping well this shift. Pt. arouses easily. Pt. has a brief in place and a bedside commode. up to BSC x 2, max assist 3 persons ideally. Pt. very weak and not able to support her own weight. Pt also very weak movement of extremities. Pt. has redness to buttocks.. No open areas noted. Pt. has had no needs or request this shift. No family at bedside. Personal items and call kinney in reach.
[2024-09-09] MEDS: DOXYCYCLINE HYCLATE 100 MG in 0.9 % SODIUM CHLORIDE 250 ML 166.667 MG IV (06:24)
[2024-09-09] MEDS: LEVOTHYROXINE 150MCG (0.15MG)TAB 150 MCG PO (06:40)
[2024-09-09 07:10] LABS: Basophils % 0.4 % (0.1-2.0); Eosinophils # 0.2 Kmm3 (0.0-0.4); Eosinophils % 3.7 % (0.1-12.0); Hemoglobin 10.9 g/dL (12.2-16.2); Immature Granulocytes # 0.01 10^3uL; Immature Granulocytes % 0.2 %; Lymphocytes # 1.1 K/mm3 (0.7-4.5); Lymphocytes % 22.1 % (10-50); Mean Corpuscular HGB Conc 34.1 g/dL (31.8-35.4); Mean Corpuscular Hemoglobin 35.4 pg (27.0-31.2); Mean Corpuscular Volume 103.9 fl (81-99); Monocytes # 0.4 K/mm3 (0.1-1.0); Monocytes % 8.9 % (1.7-9.3); Neutrophils # 3.1 K/mm3 (1.8-7.8); Neutrophils % 64.7 % (37.0-80.0); Nucleated Red Blood Cells # 0 10^3/uL; Nucleated Red Blood Cells % 0 %; Platelet Count 72 K/mm3 (142-424); Red Blood Count 3.08 M/mm3 (4.20-5.40); Red Cell Distribution Width 15.6 % (11.5-17.5); Red Cell Distribution Width-SD 59.1 fL; White Blood Count 4.9 K/mm3 (4.8-10.8)
[2024-09-09 07:31] LABS: Alanine Aminotransferase 29 U/L (12-78); Albumin Level 2.4 g/dl (3.5-5.0); Albumin/Globulin Ratio 0.9 (1.1-1.8); Alkaline Phosphatase 74 U/L (38-126); Anion Gap 4.5 mEq/L (5-15); Aspartate Amino Transferase 44 U/L (14-36); Bilirubin,Total 0.6 mg/dl (0.2-1.3); Blood Urea Nitrogen 32 mg/dl (7-17); Calcium 10.2 mg/dl (8.4-10.2); Carbon Dioxide 25 mmol/L (22.0-30.0); Chloride 113 mmol/L (98-107); Creatinine Clearance Estimated 33 mL/min (50-200); Estimated Glomerular Filt Rate 43 ml/min (>60); GFR (African American) 52 ML/MIN (>60); Globulin 2.7 g/dL (1.3-3.2); Glucose 86 mg/dl (74-100); Magnesium 1.2 mg/dl (1.6-2.3); Potassium 3.5 mmoL/L (3.5-5.1); Sodium 139 mmol/L (136-145); Total Protein,Serum 5.1 g/dl (6.3-8.2)
[2024-09-09 08:00] VITALS: BP 134/53; PULSE 78; RESP 20; TEMP 36.4; O2SAT 97
[2024-09-09 09:05] LABS: Folate > 20.00 ng/mL
[2024-09-09] MEDS: MAGNESIUM SULFATE IN WATER 2 GM/50 ML PIGGYBACK IV ×3 (10:32→13:26)
[2024-09-09] MEDS: POLYETHYLENE GLYCOL 3350 17 GM PACKET PO (10:33)
[2024-09-09] MEDS: POTASSIUM CHLORIDE 20MEQ TAB 40 MEQ PO ×2 (10:33→13:26)
[2024-09-09 12:00] VITALS: BP 120/57; PULSE 81; RESP 18; TEMP 36.6; O2SAT 91
[2024-09-09] MEDS: HYDROCODONE/APAP 5/325 MG TABLET 1 TAB PO (13:47)
[2024-09-09 15:33] LABS: Albumin 2.6 g/dL (2.9-4.4); Alpha-1-Globulin 0.2 g/dL (0.0-0.4); Alpha-2-Globulin 0.6 g/dL (0.4-1.0); Gamma Globulin 1.2 g/dL (0.4-1.8); Protein, Total 5.5 g/dL (6.0-8.5)
[2024-09-09 16:00] VITALS: BP 124/63; PULSE 86; RESP 16; TEMP 36.8; O2SAT 95
--- NOTE | 2024-09-09 16:08 | PC.NURSE ---
Patient alert to self and place only. VS stable and patient remained on room air. Patient turned q2, patch applied to coccyx due to open wound. Calcium within normal range.
[2024-09-09] MEDS: CEFTRIAXONE 1 GM 1 GM in 0.9 % SODIUM CHLORIDE 50 ML IV (16:22)
--- NOTE | 2024-09-09 18:26 | P.PN_ITS ---
Subjective *Date: 09/09/24 *Time: 18:26 Interval history: Patient feels much better today, appears more energetic and conversational. Calcium levels improving. Pending SNF placement. Exam Data for Last 24 hours Vital signs and Labs for Last 24 Hours: Temp Pulse Resp BP Pulse Ox O2 Del Method 98.3 F 86 16 124/63 95 Room Air 09/09/24 16:00 09/09/24 16:00 09/09/24 16:00 09/09/24 16:00 09/09/24 16:00 09/09/24 17:00 Laboratory Results - last 24 hr 09/07/24 17:17: Urine Color Dark yellow, Urine Appearance Cloudy, Urine pH 6.0, Ur Specific [place] 1.015, Urine Protein Negative, Urine Glucose (UA) Negative, Urine Ketones Negative, Urine Blood 1+ A, Urine Nitrate Negative, Urine Bili plummer Negative, Urine Urobilinogen 1.0, Ur Leukocyte Esterase 2+ A, Urine RBC 5- 10, Urine WBC 10-20, Ur Squamous Epith Cells 5-10, Calcium Oxalate Crystal 1+, Urine Bacteria 4+ 09/08/24 16:19: Total Protein (PEP) 5.5 L, Albumin (PEP) 2.6 L, Globulin (PEP) 2.9, Albumin/Globulin Ratio 0.9, Fukdx-2-Fzitqfzjg 0.2, Dywtn-6-Pvuxmbvlu 0.6, Beta Globulins 0.8, Gamma Globulins 1.2, M-Miguel Not observed, PEP Note Comment 09/08/24 17:09: Chlamy pneumoniae PCR Not detected, Adenovirus (PCR) Not detected, B. pertussis DNA (PCR) Not detected, Coronavirus OC43 (PCR) Not detected, Coronavirus HKU1 (PCR) Not detected, Coronavirus 229E (PCR) Not detected, SARS-CoV-2 (PCR) Not detected, Coronavirus NL63 (PCR) Not detected, Human Metapneumovir PCR Not detected, Influenza A (H1) PCR Not detected, Influ A (H1N1/09) PCR Not detected, Influenza A (H3) PCR Not detected, Influenza Type A (PCR) Not detected, Influenza Type B (PCR) Not detected, M. pneumoniae (PCR) Not detected, Parainfluenza 1 (PCR) Not detected, Parainfluenza 2 (PCR) Not detected, Parainfluenza 3 (PCR) Not detected, Parainfluenza 4 (PCR) Not detected, RSV (PCR) Not detected, Entero/Rhino (PCR) Not detected 09/09/24 06:30: WBC 4.9, RBC 3.08 L, Hgb 10.9 L, Hct 32.0 L, MCV 103.9 H, MCH 35.4 H, MCHC 34.1, RDW 15.6, Plt Count 72 L, MPV 10.0, Neut % (Auto) 64.7, Lymph % (Auto) 22.1, [place] % (Auto) 8.9, Eos % (Auto) 3.7, Baso % (Auto) 0.4, Neut # (Auto) 3.1, Lymph # (Auto) 1.1, [place] # (Auto) 0.4, Eos # (Auto) 0.2, Baso # (Auto) 0.0, Sodium 139, Potassium 3.5, Chloride 113 H, Carbon Dioxide 25, Anion Gap 4.5 L, BUN 32 H, Creatinine 1.20 H, Estimated Creat Clear 33, Estimated GFR 43 L, Est GFR ( Amer) 52 L, Glucose 86 D, Calcium 10.2, Magnesium 1.2 L, Total Bilirubin 0.6, AST 44 H, ALT 29, Alkaline Phosphatase 74, Total Protein 5.1 L, Albumin 2.4 L D, Globulin 2.7, Albumin/Globulin Ratio 0.9 L, Folate > 20.00 I & O for Last 24 hours: Intake & Output 09/06/24 09/07/24 09/08/24 09/09/24 23:59 23:59 23:59 23:59 Intake Total 240 / 998 1298 / 2138 3273 / 3273 Output Total 500 / 500 0 / 0 Balance 240 / 998 798 / 1638 3273 / 3273 Weight 57.289 kg 59 kg 56.472 kg Microbiology Reports for the Last 24 Hours: Microbiology 09/07/24 17:17 Urine,Clean Catch Urine Culture - Preliminary Gram Negative Rods Constitutional Constitutional: no acute distress *Routine HEENT Exam Head: Present normocephalic Eye: Present EOMI and PERRL ENT: Present mucous membranes moist *Routine Neck Exam Neck: Present supple; Absent lymphadenopathy *Routine Respiratory Exam Respiratory: Present CTA bilaterally *Routine Cardiovascular Exam Cardiovascular: Present RRR *Routine Abdominal Exam Abdominal: Present soft and normoactive bowel sounds; Absent tenderness *Routine Extremities Exam Extremities: Absent cyanosis, clubbing or edema *Routine Skin Exam Skin: Present warm; Absent rash *Routine Neurological Exam Neurological: Present alert and oriented X3 Assessment and Plan *Assessment and plan (1) Hypercalcemia: Status: Acute Category: Medical Code(s): E83.52 - Hypercalcemia (2) ILSA (acute kidney injury): Status: Acute Category: Medical Code(s): N17.9 - Acute kidney failure, unspecified (3) Failure to thrive: Status: Acute Category: Medical (4) Unintentional weight loss: Status: Acute Category: Medical Code(s): R63.4 - Abnormal weight loss (5) Severe protein-calorie malnutrition: Status: Acute Category: Medical Code(s): E43 - Unspecified severe protein-calorie malnutrition (6) Hypothyroidism: Status: Chronic Qualifiers: Hypothyroidism type: acquired Qualified Code(s): E03.9 - Hypothyroidism, unspecified Category: Medical Code(s): E03.9 - Hypothyroidism, unspecified (7) Hyperlipidemia: Status: Chronic Qualifiers: Hyperlipidemia type: mixed hyperlipidemia Qualified Code(s): E78.2 - Mixed hyperlipidemia Category: Medical Code(s): E78.5 - Hyperlipidemia, unspecified (8) History of breast cancer: Status: Chronic Category: Medical Code(s): Z85.3 - Personal history of malignant neoplasm of breast (9) Ex-smoker: Status: Acute Category: Social Hx Code(s): Z87.891 - Personal history of nicotine dependence (10) AAA (abdominal aortic aneurysm): Status: Acute Qualifiers: Presence of rupture: without rupture Qualified Code(s): I71.4 - Abdominal aortic aneurysm, without rupture Category: Medical Code(s): I71.40 - Abdominal aortic aneurysm, without rupture, unspecified Plan Henrietta Valdez is a 79-year-old female who presents with increasing weakness and confusion along with unintentional weight loss. Found to have ILSA and hypercalcemia. Discussed case with ER physician, request admission for management of hypercalcemia. Agreed to admit for further care. Administering IV fluids. Extensive lab work ordered. Necessitating inpatient care. Problems addressed as follows: #Hypercalcemia #ILSA #Unintentional weight loss/weakness/ confusion - Initial calcium 13.5, BUN 52, creatinine 1.6. Improved to calcium 10.2, creatinine 1.2 this morning with fluid resuscitation. - Globally weak, but improving after treatment for hypercalcemia, UTI. ? Initially concerned concern for multiple myeloma due to hypercalcemia, kidney dysfunction but SPEP showed no M spike. - CT chest, abdomen, pelvis unremarkable for cancerous lesions. ? PTH, vitamin D normal. - Given zoledronic acid IV once. Discontinue calcitonin as calcium level normalized. - History of breast cancer, status posttreatment. reports 40 years ago. ? PT/OT recommending SNF, discussed with case management assisting with placement. #UTI #Atypical pneumonia ? UA grossly abnormal, patient globally weak. ? Continue ceftriaxone, doxycycline day 2/5. ? Follow-up urine culture. Hypothyroid: Continue home levothyroxine 150 mcg daily. Previous TSH is well- controlled History of AAA, s/p repair. Holding lovastatin in the setting of ILSA and hypercalcemia Severe protein calorie malnutrition: Nutrition consulted to assist with support. PT/OT consulted to assist with dispo recommendations Full code Holding anticoagulation due to thrombocytopenia. Regular diet
[2024-09-09 20:00] VITALS: BP 115/49; PULSE 77; RESP 18; TEMP 36.7; O2SAT 94
[2024-09-09] MEDS: DOXYCYCLINE HYCL 100 MG TABLET PO (20:37)
[2024-09-10 04:00] VITALS: BP 127/58; PULSE 83; RESP 16; TEMP 36.6; O2SAT 95
--- NOTE | 2024-09-10 06:08 | PC.NURSE ---
Pt is alert to self and tolerating RA well at this time. Pt became anxious once this shift and was able to be redirected. Pt slept intermittently this shift and denies pain. Pt remains weak, but admits to feeling better.
[2024-09-10 06:32] LABS: Basophils % 0.2 % (0.1-2.0); Eosinophils # 0.1 Kmm3 (0.0-0.4); Eosinophils % 2.6 % (0.1-12.0); Hematocrit 31.1 % (37.0-47.0); Hemoglobin 10.6 g/dL (12.2-16.2); Immature Granulocytes # 0.02 10^3uL; Immature Granulocytes % 0.5 %; Mean Corpuscular HGB Conc 34.1 g/dL (31.8-35.4); Mean Corpuscular Volume 102.6 fl (81-99); Mean Platelet Volume 9.3 fl (7.4-10.4); Monocytes # 0.4 K/mm3 (0.1-1.0); Monocytes % 9.6 % (1.7-9.3); Neutrophils # 2.7 K/mm3 (1.8-7.8); Neutrophils % 64.1 % (37.0-80.0); Nucleated Red Blood Cells # 0 10^3/uL; Nucleated Red Blood Cells % 0 %; Platelet Count 64 K/mm3 (142-424); Red Blood Count 3.03 M/mm3 (4.20-5.40); Red Cell Distribution Width 15.4 % (11.5-17.5); Red Cell Distribution Width-SD 58.3 fL; White Blood Count 4.2 K/mm3 (4.8-10.8)
[2024-09-10 06:44] LABS: Alanine Aminotransferase 30 U/L (12-78); Albumin Level 2.5 g/dl (3.5-5.0); Alkaline Phosphatase 85 U/L (38-126); Aspartate Amino Transferase 49 U/L (14-36); Bilirubin,Total 0.7 mg/dl (0.2-1.3); Blood Urea Nitrogen 24 mg/dl (7-17); Calcium 9.7 mg/dl (8.4-10.2); Carbon Dioxide 22 mmol/L (22.0-30.0); Chloride 113 mmol/L (98-107); Creatinine Clearance Estimated 36 mL/min (50-200); Estimated Glomerular Filt Rate 48 ml/min (>60); GFR (African American) 58 ML/MIN (>60); Globulin 2.6 g/dL (1.3-3.2); Glucose 91 mg/dl (74-100); Magnesium 2.3 mg/dl (1.6-2.3); Sodium 136 mmol/L (136-145); Total Protein,Serum 5.1 g/dl (6.3-8.2)
[2024-09-10 07:42] VITALS: O2SAT 94
[2024-09-10] MEDS: LEVOTHYROXINE 150MCG (0.15MG)TAB 150 MCG PO (07:55)
[2024-09-10 08:00] VITALS: BP 134/56; PULSE 75; RESP 16; TEMP 36.6; O2SAT 93
[2024-09-10] MEDS: DOXYCYCLINE HYCL 100 MG TABLET PO (09:30)
[2024-09-10] MEDS: POLYETHYLENE GLYCOL 3350 17 GM PACKET PO (09:30)
--- NOTE | 2024-09-10 10:30 | EXP.DC.SUM ---
General Admission date:: 09/07/24 HPI HPI HPI: Ms. Valdez is an 79-year-old female who presented to the ER with her due to worsening weakness, unintentional weight loss, and abnormal labs obtained in her PCPs office. Joint see her PCP yesterday and had labs obtained showing hypercalcemia of 13.7. Presented today with persistent weakness. Labs obtained showing ILSA, hypercalcemia, concern for dehydration. Patient is unintentional weight loss since her gallbladder surgery in February. States she has had nausea, increased confusion, intermittent constipation. Medicine consulted for admission due to hypercalcemia and ILSA. Arrival to the floor, is at bedside helping with history. Expressed significant concern for his 's weight loss, poor appetite, increased confusion/dementia over the past several months. States he just has not been right since her gallbladder was removed. Patient appears comfortable but is globally weak. CT head without contrast with no acute intracranial abnormality or obvious mass, moderate atrophy and chronic ischemic white matter changes as above. CBC is notable for elevated MCV at 104.1 thrombocytopenia at 97 CMP is notable for acute kidney injury with a BUN of 52 and creatinine 1.6, GFR is 31, hypercalcemia at 13.5, AST is elevated at 64, minimal hypoalbuminemia at 3.4, will start some gentle 1 L IV NS. Troponin within normal limits. Mild hypomagnesia 1.2. proBNP is mildly elevated at 909. Hospital Course Hospital Course Hospital Course: Henrietta Valdez is a 79-year-old female who presents with increasing weakness and confusion along with unintentional weight loss. Found to have ILSA and hypercalcemia. Discussed case with ER physician, request admission for management of hypercalcemia. Agreed to admit for further care. Administering IV fluids. Extensive lab work ordered. Necessitating inpatient care. Problems addressed as follows: #Hypercalcemia #ILSA #Unintentional weight loss/weakness/ confusion - Initial calcium 13.5, BUN 52, creatinine 1.6. Improved to calcium 9.7, creatinine 1.1 this morning with fluid resuscitation, calcitonin. - Initially globally weak, but improved significantly after treatment for hypercalcemia, UTI. ? Initially concerned concern for multiple myeloma due to hypercalcemia, kidney dysfunction but SPEP showed no M spike. Will need follow-up on UPEP to confirm. ? 24-hour urine study for UPEP has been initiated 09/10/2024 morning. Will need to continue overnight at nursing facility and bring back sample to our facility for UPEP testing. - CT chest, abdomen, pelvis unremarkable for cancerous lesions. ? PTH, vitamin D normal. TSH, B12, folate, iron studies normal. - History of breast cancer, status posttreatment. reports 40 years ago. ? PT/OT recommending SNF, [facility] graciously accepted patient. ? Recommend repeating BMP in 3 days. If evidence of hypercalcemia, discontinue multivitamin. #UTI #Atypical pneumonia ? Initial UA grossly abnormal, patient globally weak. Improved significantly. Urine culture growing Klebsiella pneumonia. ? Discharged with cefdinir, doxycycline for 3 more days. Hypothyroid: Continue home levothyroxine 150 mcg daily. TFTs normal. History of AAA, s/p repair. Holding lovastatin in the setting of ILSA and hypercalcemia Severe protein calorie malnutrition: Recommend nutritional shakes with meals. Total time spent on discharge: 32 minutes on chart review, counseling, documentation, and direct care with patient. Exam Data for Last 24 hours Vital signs and Labs for Last 24 Hours: Temp Pulse Resp BP Pulse Ox O2 Del Method 97.9 F 75 16 134/56 L 93 L Room Air 09/10/24 08:00 09/10/24 08:00 09/10/24 08:00 09/10/24 08:00 09/10/24 08:00 09/10/24 08:00 Laboratory Results - last 24 hr 09/08/24 16:19: Total Protein (PEP) 5.5 L, Albumin (PEP) 2.6 L, Globulin (PEP) 2.9, Albumin/Globulin Ratio 0.9, Nedox-6-Wpxljzhwa 0.2, Orqde-3-Tykuwrguj 0.6, Beta Globulins 0.8, Gamma Globulins 1.2, M-Miguel Not observed, PEP Note Comment 09/10/24 06:12: WBC 4.2 L, RBC 3.03 L, Hgb 10.6 L, Hct 31.1 L, MCV 102.6 H, MCH 35.0 H, MCHC 34.1, RDW 15.4, Plt Count 64 L, MPV 9.3, Neut % (Auto) 64.1, Lymph % (Auto) 23.0, [place] % (Auto) 9.6 H, Eos % (Auto) 2.6, Baso % (Auto) 0.2, Neut # (Auto) 2.7, Lymph # (Auto) 1.0, [place] # (Auto) 0.4, Eos # (Auto) 0.1, Baso # (Auto) 0.0, Sodium 136, Potassium 4.0, Chloride 113 H, Carbon Dioxide 22, Anion Gap 5.0, BUN 24 H, Creatinine 1.10 H, Estimated Creat Clear 36, Estimated GFR 48 L, Est GFR ( Amer) 58 L, Glucose 91, Calcium 9.7, Magnesium 2.3 D, Total Bilirubin 0.7, AST 49 H, ALT 30, Alkaline Phosphatase 85, Total Protein 5.1 L, Albumin 2.5 L, Globulin 2.6, Albumin/Globulin Ratio 1.0 L I & O for Last 24 hours: Intake & Output 09/07/24 09/08/24 09/09/24 09/10/24 23:59 23:59 23:59 23:59 Intake Total 240 / 998 1298 / 2138 3323 / 3563 760 / 760 Output Total 500 / 500 0 / 0 650 / 650 Balance 240 / 998 798 / 1638 3323 / 3563 110 / 110 Weight 57.289 kg 59 kg 56.472 kg Microbiology Reports for the Last 24 Hours: Microbiology 09/07/24 17:17 Urine,Clean Catch Urine Culture - Final Klebsiella pneumoniae ozaenae Constitutional Constitutional: no acute distress *Routine HEENT Exam Head: Present normocephalic Eye: Present EOMI and PERRL ENT: Present mucous membranes moist *Routine Neck Exam Neck: Present supple; Absent lymphadenopathy *Routine Respiratory Exam Respiratory: Present CTA bilaterally *Routine Cardiovascular Exam Cardiovascular: Present RRR *Routine Abdominal Exam Abdominal: Present soft and normoactive bowel sounds; Absent tenderness *Routine Extremities Exam Extremities: Absent cyanosis, clubbing or edema *Routine Skin Exam Skin: Present warm; Absent rash *Routine Neurological Exam Neurological: Present alert and oriented X3 Results Data Completed and Pending Labs on day of discharge: Labs from last 24 hours 09/10/24 09/08/24 06:12 16:19 WBC 4.2 L RBC 3.03 L Hgb 10.6 L Hct 31.1 L MCV 102.6 H MCH 35.0 H MCHC 34.1 RDW 15.4 Plt Count 64 L MPV 9.3 Neut % (Auto) 64.1 Lymph % (Auto) 23.0 [place] % (Auto) 9.6 H Eos % (Auto) 2.6 Baso % (Auto) 0.2 Neut # (Auto) 2.7 Lymph # (Auto) 1.0 [place] # (Auto) 0.4 Eos # (Auto) 0.1 Baso # (Auto) 0.0 Sodium 136 Potassium 4.0 Chloride 113 H Carbon Dioxide 22 Anion Gap 5.0 BUN 24 H Creatinine 1.10 H Estimated Creat Clear 36 Estimated GFR 48 L Est GFR ( Amer) 58 L Glucose 91 Calcium 9.7 Magnesium 2.3 D Total Bilirubin 0.7 AST 49 H ALT 30 Alkaline Phosphatase 85 Total Protein 5.1 L Total Protein (PEP) 5.5 L Albumin 2.5 L Albumin (PEP) 2.6 L Globulin 2.6 Globulin (PEP) 2.9 Albumin/Globulin Ratio 1.0 L 0.9 Bafxq-4-Etvcmlpvo 0.2 Yniyg-2-Whkmurwxx 0.6 Beta Globulins 0.8 Gamma Globulins 1.2 M-Miguel Not observed PEP Note Comment DS: Diagnosis Discharge Diagnosis (1) Hypercalcemia: Status: Acute Code(s): E83.52 - Hypercalcemia (2) ILSA (acute kidney injury): Status: Acute Code(s): N17.9 - Acute kidney failure, unspecified (3) Failure to thrive: Status: Acute (4) Unintentional weight loss: Status: Acute Code(s): R63.4 - Abnormal weight loss (5) Severe protein-calorie malnutrition: Status: Acute Code(s): E43 - Unspecified severe protein-calorie malnutrition (6) Hypothyroidism: Status: Chronic Code(s): E03.9 - Hypothyroidism, unspecified Qualifiers: Hypothyroidism type: acquired Qualified Code(s): E03.9 - Hypothyroidism, unspecified (7) Hyperlipidemia: Status: Chronic Code(s): E78.5 - Hyperlipidemia, unspecified Qualifiers: Hyperlipidemia type: mixed hyperlipidemia Qualified Code(s): E78.2 - Mixed hyperlipidemia (8) History of breast cancer: Status: Chronic Code(s): Z85.3 - Personal history of malignant neoplasm of breast (9) Ex-smoker: Status: Acute Code(s): Z87.891 - Personal history of nicotine dependence (10) AAA (abdominal aortic aneurysm): Status: Acute Code(s): I71.40 - Abdominal aortic aneurysm, without rupture, unspecified Qualifiers: Presence of rupture: without rupture Qualified Code(s): I71.4 - Abdominal aortic aneurysm, without rupture Meds Home Medications and Allergies Home Medications ?Medication ?Instructions ?Recorded ?Confirmed ?Type multivit with minerals-iron 18 1 tab PO DAILY Supplement #90 tabs 12/20/20 09/07/24 Rx mg-folic ac 400 mcg-vit K 25 mcg tablet blood-glucose meter (True Metrix 04/01/22 09/07/24 History Glucose Meter kit) lancets 33 gauge (TRUEplus Lancets) 04/01/22 09/07/24 History levothyroxine 150 mcg tablet 150 mcg PO DAILY #90 tabs 06/24/24 09/07/24 Rx (Synthroid) blood sugar diagnostic (True #100 ea 09/06/24 09/07/24 Rx Metrix Glucose Test Strip) hydrocodone 5 mg-acetaminophen 325 1 tab PO BID PRN pain #60 tabs 09/06/24 09/08/24 Rx mg tablet lovastatin 40 mg tablet 40 mg PO HS 09/07/24 09/07/24 History potassium chloride 10 mEq 10 meq PO DAILY 09/07/24 09/07/24 History tablet,extended release(part/cryst) cefdinir 300 mg capsule 300 mg PO BID 3 days #6 caps 09/10/24 Rx doxycycline hyclate 100 mg tablet 100 mg PO BID 3 days #6 tabs 09/10/24 Rx torsemide 20 mg tablet 20 mg PO DAILY PRN Leg swelling 09/10/24 09/07/24 Rx #30 tabs New Prescriptions to Start Prescriptions: Jerome Holder doxycycline hyclate Jerome Machado Allergies Allergy/AdvReac Type Severity Reaction Status Date / Time KANCHAN Inhibitors Allergy Severe ANGIOEDEMA Verified 09/06/24 14:46 lisinopril Allergy Severe Anaphylaxis Verified 09/06/24 14:46 morphine Allergy Severe Swelling Verified 09/06/24 14:46 of Lip/Tongue/Throat Discharge Plan Disposition Patient Disposition: Home, Self-Care Condition: Fair Follow up Plan Prescriptions/Medication Reconciliation: New cefdinir 300 mg capsule 300 mg PO BID 3 Days Qty: 6 0RF doxycycline hyclate 100 mg tablet 100 mg PO BID 3 Days Qty: 6 0RF Continued hydrocodone-acetaminophen 5-325 mg tablet 1 tab PO BID PRN (Reason: pain) Qty: 60 0RF Rx Instructions: for pain for spinal injury sustained in fall (DME) True Metrix Glucose Test Strip Strip See Rx Instructions .ROUTE .COMPLEX Qty: 100 0RF Rx Instructions: TEST BLOOD SUGAR TWICE DAILY nmrktmuvdszo-ifb-dygp-FA-vit K 18 mg iron-400 mcg-25 mcg tablet 1 tab PO DAILY Qty: 90 2RF levothyroxine [Synthroid] 150 mcg tablet 150 mcg PO DAILY Qty: 90 3RF (DME) blood-glucose meter [True Metrix Glucose Meter] Kit See Rx Instructions .Route Rx Instructions: As directed (DME) lancets [TRUEplus Lancets] 33 gauge misc See Rx Instructions .ROUTE .COMPLEX Rx Instructions: USE DIRECTED lovastatin 40 mg tablet 40 mg PO HS potassium chloride 10 mEq tablet,ER particles/crystals 10 meq PO DAILY Changed torsemide 20 mg tablet 20 mg PO DAILY PRN (Reason: Leg swelling) Qty: 30 3RF Problem Reconciliation Problems Reviewed?: Yes Patient Discharge Instructions Patient Instructions: Acute Kidney Injury, DI for Urinary Tract Infection (UTI), DI for Hypercalcemia, Stop Light Infection Print Language: Khmer Providers Primary Care Provider: Baudilio Fields Admit Provider: Jerome Machado Attending Provider: Jerome Machado
[2024-09-10 12:33] LABS: Calcium, Urine 27.6 mg/dL (Not Estab.)
[2024-09-12 01:07] LABS: PTH Related Peptide < 2.0 pmol/L (.)
[2024-09-14 17:49] LABS: Immunoglobulin A, Qn 327 mg/dL (64-422); Immunoglobulin G, Qn 1172 mg/dL (586-1602); Immunoglobulin M, Qn 65 mg/dL (26-217)
[2024-09-15 17:21] LABS: Albumin, U 18.8 % (.); Alpha-1-Globulin, U 3.4 % (.); Alpha-2-Globulin, U 15.3 % (.); Beta Globulin, U 35.1 % (.); Gamma Globulin, U 27.4 % (.); M-Spike, % Comment: % (Not Observed); Prot,24hr calculated 71 mg/24 hr (30-150); Protein,Total,Urine 7.1 mg/dL (Not Estab.)
== END 2024-09-10 12:29 ==
LOC: ER 15:11 → 2ND 16:26
PROVIDERS: Internal Medicine Adolescent Medicine; Physician Assistant; Admitting Provider Student in an Organized Health Care Education/Training Program; Emergency Provider Emergency Medicine; PCP Family Medicine; Visit Provider Student in an Organized Health Care Education/Training Program
DX: E83.52 Hypercalcemia (principal); N17.9 Acute kidney failure, unspecified; R63.4 Abnormal weight loss; N39.0 Urinary tract infection, site not specified; F03.90 Unspecified dementia, unspecified severity, without behavioral disturbance, psychotic disturbance, mood disturbance, and anxiety; F05 Delirium due to known physiological condition; B96.1 Klebsiella pneumoniae [K. pneumoniae] as the cause of diseases classified elsewhere; E43 Unspecified severe protein-calorie malnutrition; R63.0 Anorexia; E03.9 Hypothyroidism, unspecified; J18.9 Pneumonia, unspecified organism; Z85.3 Personal history of malignant neoplasm of breast; Z87.891 Personal history of nicotine dependence; Z88.5 Allergy status to narcotic agent; Z88.8 Allergy status to other drugs, medicaments and biological substances; Z79.899 Other long term (current) drug therapy; Z79.890 Hormone replacement therapy; Z68.21 Body mass index [BMI] 21.0-21.9, adult; Z86.79 Personal history of other diseases of the circulatory system
CPT/HCPCS: 36415; 51798; 70450; 71045; 71250; 74176; 76770; 80053; 81001; 82306; 82340; 82397; 82607; 82728; 82746; 82784; 83540; 83550; 83735; 83880; 83970; 84100; 84155; 84156; 84165; 84166; 84484; 85025; 86334; 86335; 86803; 87086; 87088; 87186; 87389; 87633; 93005; 97162; 97166; 97530; 97535; 99285; G0378; J0630; J0696; J3475; J3489; J7030

== ENCOUNTER 2024-09-11 18:04 | Outpatient (CLI) | payer MEDICARE, SELFPAY | END 2024-09-11 23:59 | disposition home or self-care (01) | LOC: LAB.DROPOF 18:06 | PROVIDERS: PCP Student in an Organized Health Care Education/Training Program; Visit Provider Student in an Organized Health Care Education/Training Program | DX: R69 Illness, unspecified (principal) ==

== ENCOUNTER 2024-09-15 14:00 | Outpatient (RCR) | payer MEDICARE, SELFPAY | END 2024-09-15 23:59 | disposition home or self-care (01) | LOC: PT 14:00 | PROVIDERS: Visit Provider Family Medicine | DX: M54.9 Dorsalgia, unspecified (principal) | CPT/HCPCS: 97110; 97530 ==

== ENCOUNTER 2024-11-05 11:43 | Outpatient (CLI) | payer MEDICARE, SELFPAY ==
[2024-11-05 15:58] LABS: Alanine Aminotransferase 22 U/L (12-78); Albumin Level 3.3 g/dl (3.5-5.0); Albumin/Globulin Ratio 1.2 (1.1-1.8); Alkaline Phosphatase 78 U/L (38-126); Anion Gap 8.5 mEq/L (5-15); Aspartate Amino Transferase 46 U/L (14-36); Bilirubin,Total 1.0 mg/dl (0.2-1.3); Blood Urea Nitrogen 24 mg/dl (7-17); Calcium 9.0 mg/dl (8.4-10.2); Carbon Dioxide 29 mmol/L (22.0-30.0); Chloride 106 mmol/L (98-107); Creatinine,Serum 1.20 mg/dl (0.52-1.04); Estimated Glomerular Filt Rate 43 ml/min (>60); GFR (African American) 52 ML/MIN (>60); Globulin 2.8 g/dL (1.3-3.2); Glucose 115 mg/dl (74-100); Potassium 3.5 mmoL/L (3.5-5.1); Sodium 140 mmol/L (136-145); Total Protein,Serum 6.1 g/dl (6.3-8.2)
[2024-11-05 16:26] LABS: Thyroid Stimulating Hormone 0.07 uIU/mL (0.465-4.68)
--- OUTSIDE RECORDS SUMMARY | 2024-11-08 10:21 | XMS_ITS | Clinical Summary ---
Author Organization [facility] Address [address] [place] [address] Phone Care Team Providers Care Pick Out Hand Name Role Phone Unavailable Unavailable Conditions or Problems No information available. Medications No information available. Medications Administered No information available. Allergies, Adverse Reactions, Alerts No information available. Results No information available. Plan of Care No information available. Procedures No information available. Vital Signs No information available. Immunizations No information available. Advance Directives No information available.
--- OUTSIDE RECORDS SUMMARY | 2024-11-08 10:21 | XMS_ITS | Clinical Summary ---
Author Organization [facility] are Address [address] [place], [place] [id number] Phone Care Team Providers Care Legal Clerk Name Role Phone Wilbert RIGOJennifer Unavailable Unavailab le Conditions or Problems No information available. Medications No information available. Medications Administered No information available. Allergies, Adverse Reactions, Alerts No information available. Results Date Name Value Unit Range Flag Description Lab Report: Acute Hepatitis Panel HBSAG Non-Reactive Non-Reactive Hep atitis B virus surface Ag [Presence] in Serum by Radioimmunoassay (ALYSA) Lab Report: CBC WITH DIFF POLYCHROM Slight polychromas ia Lab Report: PT/INR INR 1.27 (ratio) 0.89-1.16 H INR in Platelet poor plasma by Coagulation assay PT PATIENT 14.9 SECOND(S) s 10.5-13.6 H Prothrombin time (PT) Lab Report: Vitamin B12/ Fol ic Acid FOLATE 12.40 ng/mL >=4.80 Folate [Mass/ volume] in Serum or Plasma B12 489 pg/mL 232-1245 Cobalamin (V itamin B12) [Mass/volume] in Serum or Plasma Lab Report: Urinalysis Refle x SPEC GR URIN 1.020 no units 1.001-1.035 Specific gravity of Urine by Test strip WBC DIPSTK U Negative Negative Leukoc yte esterase [Presence] in Urine by Test strip NITRITE URN Negative Negative Nitrite [Presence] in Urine by Test strip BILIRUBIN UR Negative Negative Biliru bin.total [Presence] in Urine by Test strip PROTEIN UR Negative mg/dL Negative protein, total urine random HGB URINE Negative Negative hemoglobi n, urine, by dipstick KETONES URN Negative Negative Ketones [Mass/volume] in Urine by Test strip GLUCOSE, URN Negative Negative Glucos e [Mass/volume] in Urine by Test strip APPEARANCE U Clear Clear Appearan ce of Urine UA COLOR Yellow Color of Uri ne Lab Report: ABORh ABO/RH A POS blood type wi th RH factor Lab Report: Antibody Screen IgG IGG SERUM Negative mg/dL IgG, serum Lab Report: CBC WITH DIFF EOS COUNT 0.1 X10(3)/MCL 10*3/mm3 0.0-0.5 eosinophil count , blood MONOCYTE CNT 0.6 X10(3)/MCL 10*3/mm3 0.3-0.9 monocyte count, blood LYMPH COUNT 1.0 X10(3)/MCL 10*3/mm3 1.2-3.9 L lymphocyte count , blood IMM GRANU % 0.1 X10(3)/MCL % 0.0-0.1 Immature granulocytes/100 leukocytes in Blood NEUTRO COUNT 6.2 X10(3)/MCL 10*3/mm3 1.6-6.1 H neutrophil count , blood BASOPHIL % 0.1 % Basophils/ 100 leukocytes in Blood by Manual count % EOS AUTO 0.8 % Eosinophil s/100 leukocytes in Blood by Automated count MONOCYTE % 8.0 % Monocytes/ 100 leukocytes in Blood by Automated count LYMPHS % 12.9 % Lymphocytes/ 100 leukocytes in Blood by Automated count WBC IMMAT 1.0 % immature leukocytes/total leukocytes fraction PMN % 77.2 % Neutrophils/1 00 leukocytes in Blood by Automated count Lab Report: CBC MPV 10.1 fL 8.8-12.5 Platelet luis n volume [Entitic volume] in Blood by Nilesh PLATELETS 120 X10(3)/MCL 10*3/mm3 155-369 L Platelets [#/vol ume] in Blood by Automated count RDW 16.9 % <=14.9 H Erythrocyte distribution width [Ratio] by Automated count MCHC 33.1 G/DL 30.7-35.5 MCHC [Mass/ volume] by Automated count MCH 34.0 pg 26.0-34.0 MCH [Entiti c mass] by Automated count MCV 102.7 fL 80.0-100.0 H MCV [Entit ic volume] by Automated count HCT 26.9 % 34.0-45.0 L Hematocrit [Volume Fraction] of Blood by Automated count HGB 8.9 g/dL 11.2-15.7 L Hemoglobin [Mass/volume] in Blood RBC 2.62 X10(6)/MCL 10*6/mm3 3.90-5.20 L Erythrocytes [#/volume] in Blood by Automated count WBC 6.8 X10(3)/MCL 10*3/mm3 3.7-10.3 Leukocytes [#/volume] in Blood by Automated count Lab Report: BASIC METABOLIC PANEL EGFR NOT AFA 78 mL/min/1 .73m2 >=60 Glomerular filtration rate/1.73 sq M.predicted among non-blacks [Volume Rate/Area] in Serum, Plasma or Blood by Creatinine-based formula (MDRD) CREATININE 0.77 mg/dL 0.51-1.30 Creatini ne [Mass/volume] in Serum or Plasma BUN 13 mg/dL 8-23 Urea nitrogen [Mass/volume] in Serum or Plasma ANION GAP 10 mmol/L 7-16 Anion gap 4 in Serum or Plasma CO2 TOTAL 19 mmol/L 22-29 L carbon diox garret, serum, total CHLORIDE 106 mmol/L 98-107 Chloride [Moles/volume] in Serum or Plasma POTASSIUM 3.5 mmol/L 3.5-5.0 Potassium [Moles/volume] in Serum or Plasma SODIUM 135 mmol/L 136-145 L Sodium [Moles/volume] in Serum or Plasma Lab Report: Glucose Meter PO C BG RANDOM 143 mg/dL 70-100 H Glucose [Mass/volume] in Blood Plan of Care No information available. Procedures No information available. Vital Signs No information available. Immunizations No information available. Advance Directives No information available.
--- OUTSIDE RECORDS SUMMARY | 2024-11-08 10:21 | XMS_ITS | Continuity of Care Document ---
Author Organization [facility] Address [facility] [place] [address] Phone Care Team Providers Care Senior Foreman Name Role Phone Baudilio Fields MD Primary Care Provider [phone] Encounters Date Type Department Care Team Description 04/19/2024 Telephone SEP Infectious Disease [facility] [address] [place] [address] Sarita Telles, SURGICAL ONCOLOGIST Follow-up 03/29/2024 12:25 PM EST - 03/29/2024 11:59 PM EST Hospital Encounter [facility] XRAY [address] [place] [address] Terry Lo MD Finkelstein, Jenna M, PA Intra-abdominal abscess (HCC) Discharge Disposition: Home or Self Care 03/29/2024 12:25 PM EST - 03/29/2024 11:59 PM EST Hospital Encounter [facility] [address] [place] [address] Terry Lo MD Intra-abdominal abscess (HCC) Discharge Disposition: Home or Self Care 03/25/2024 Telephone SEP Infectious Disease [facility] [address] [place] [address] Sarita Telles, SURGICAL ONCOLOGIST Follow-up 03/22/2024 Telephone [facility] [address] [place] [address] Michelle Gutiérrez, RT Follow-up 03/17/2024 Orders Only [facility] [place] [address] [place] [address] Michelle Gutiérrez, RT Intra-abdominal abscess (HCC) (Primary Dx) 03/16/2024 Telephone [facility] [place] [address] [place] [address] Michelle Gutiérrez, RT Follow-up 03/04/2024 3:37 PM EST - 03/12/2024 5:10 PM EST Hospital Encounter [facility] [address] 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 [address] Bulmaro Neal MD Paul, Gautam, MD Acute cholecystitis Discharge Disposition: Home or Self Care 02/24/2024 5:00 PM EST - 02/24/2024 6:10 PM EST Surgery [facility] PERIOP [address] [place] [address] Torres Ford MD LAPAROSCOPIC CHOLECYSTECTOMY POSSIBLE OPEN 02/24/2024 5:27 PM EST Anesthesia Event [facility]TT PERIOP [address] [place] [address] Quentin Elizalde MD Hilvano, Ayesa M, MD 02/23/2024 Orders Only SEP Gen Surg Edg [address] [facility] [address] [place] [address] Torres Ford MD Acute cholecystitis (Primary Dx) 07/20/2022 Refill SEP H&V [address] [address] Justen Grissom MD Medication Refill 11/22/2021 Refill SEP H&V [place] [address] [place] [address] Justen Grissom MD Medication Refill 10/15/2021 Orders Only SEP Vascular Surg Edg 20 [facility] [address] [place] [address] August Chavarria MD AAA (abdominal aortic aneurysm) without rupture (Primary Dx) 02/08/2021 Travel 02/08/2021 10:30 AM EDT Office Visit SEP H&V [address] [place] [address] Justen Grissom MD Hyperlipidemia, unspecified hyperlipidemia type (Primary Dx); Atypical chest pain; Palpitations 08/08/2020 Travel 08/08/2020 11:30 AM EDT Office Visit SEP Vascular Surg Edg 20 [facility] [address] [place] [address] August Chavarria MD AAA (abdominal aortic aneurysm) without rupture (Primary Dx); PVD (peripheral vascular disease); Type 2 diabetes mellitus with hyperosmolarity without coma, unspecified whether medical terminologist insulin use (HCC); Varicose veins of bilateral lower extremities with other complications 08/07/2020 Travel 08/07/2020 9:52 AM EDT - 08/07/2020 11:59 PM EDT Hospital Encounter [facility] [place] [id number] August Chavarria MD Abdominal aortic aneurysm without rupture Discharge Disposition: Home or Self Care 08/04/2020 Travel 02/11/2020 Travel 02/08/2020 Travel 02/08/2020 11:15 AM EDT Office Visit SEP Vascular Surg Edg 20 [facility] [address] [place] [address] August Chavarria MD AAA (abdominal aortic aneurysm) without rupture (Primary Dx); Abdominal aortic aneurysm without rupture; PVD (peripheral vascular disease); Bilateral lower extremity edema; Varicose veins of bilateral lower extremities with other complications 01/27/2020 Travel 01/27/2020 12:15 PM EDT Office Visit SEP H&V [address] [place] [phone] Justen Grissom MD PVD (peripheral vascular disease) (Primary Dx); Hyperlipidemia, unspecified hyperlipidemia type 01/25/2020 Travel 01/25/2020 8:24 AM EDT - 01/25/2020 11:59 PM EDT Hospital Encounter [facility] VASCULAR LAB [facility] [address] August Chavarria MD Abdominal aortic aneurysm without rupture; AAA (abdominal aortic aneurysm) without rupture Discharge Disposition: Home or Self Care 01/04/2020 Travel 12/03/2019 Telephone SEP Vascular Surg Edg 20 [facility] [address] [place] [address] August Chavarria MD Results 09/06/2019 Travel 09/06/2019 2:00 PM EDT Telemedicine SEP H&V [address] [phone] Justen Grissom MD Atypical chest pain (Primary Dx); Palpitations 08/31/2019 Travel 05/25/2019 9:15 AM EST Office Visit SEP Vascular Surg Edg 20 [facility] [address] [place] [address] August Chavarria MD Abdominal aortic aneurysm without rupture (Primary Dx); AAA (abdominal aortic aneurysm) without rupture; Bilateral lower extremity edema; PVD (peripheral vascular disease); Varicose veins of bilateral lower extremities with other complications 05/24/2019 9:30 AM EST - 05/24/2019 11:59 PM EST Hospital Encounter [facility] [place] [address] August Chavarria MD Abdominal aortic aneurysm without rupture Discharge Disposition: Home or Self Care 01/05/2019 2:45 PM EDT Office Visit SEP H&[facility] [address] [place] [phone] Justen Grissom MD Preoperative clearance (Primary Dx) 12/22/2018 Telephone SEP Vascular Surg Edg [address] [place] [address] [address] [place] [address] Chika Rose RMA Results 12/15/2018 12:08 PM EDT - 12/15/2018 11:59 PM EDT Hospital Encounter [facility] [address] [place] [address] August Chavarria MD Abdominal aortic aneurysm without rupture Discharge Disposition: Home or Self Care 11/30/2018 Telephone [facility] [place] [address] [place] [address] Dixie Brownlee MA Other 11/23/2018 3:00 PM EDT Office Visit [facility] [place] [address] [place] [address] Torres Marshall MD Neck pain (Primary Dx) 11/12/2018 Telephone [facility] [place] [address] [place] [address] Michelle Gutiérrez, RT Pre-op Exam 11/11/2018 Telephone [facility] V[facility] S[facility] [address] [place] [address] [address] [place] [address] Chika Rose RMA Other 10/28/2018 11:30 AM EDT Office Visit SEP Vascular Surg Edg 20 [facility] [address] [place] [address] Víctor Valerio PA-C AAA (abdominal aortic aneurysm) without rupture (Primary Dx) 10/20/2018 Telephone [facility] [place] [address] [place] [address] Michelle Gutiérrez, RT Pre-op Exam 10/09/2018 5:36 AM EDT - 10/10/2018 11:11 AM EDT Hospital Encounter EDG PACU OVERNIGHT [facility] [place] [address] August Chavarria MD Pre-op evaluation Discharge Disposition: Home or Self Care 10/09/2018 Travel 10/09/2018 8:15 AM EDT - 10/09/2018 11:30 AM EDT Surgery EDG PERIOP [facility] [place] [address] August Chavarria MD AORTIC ENDOVASCULAR ENDOGRAFT/ ANEURYSM REPAIR EVAR POSSIBLE OPEN (ROOM 19) (COVERS FEMORAL BYPASS) 10/09/2018 8:00 AM EDT Anesthesia Event EDG PERIOP [facility] [place] [address] Oc Tiwari MD Merkle Serey, Jennifer L, NP 10/07/2018 Telephone SEP Vascular Surg Edg 20 [facility] [address] [place] [address] Chika Rose RMA Procedure 10/03/2018 7:18 AM EDT - 10/06/2018 2:42 PM EDT Hospital Encounter EDG 5D TCU [facility] [place] [address] Nayeli De Leon MD Martin, K. Andrew, MD Elevated troponin (Primary Dx); Acute pain of both shoulders Discharge Disposition: Home or Self Care 10/05/2018 Travel 10/03/2018 Travel 10/02/2018 Orders Only SEP Vascular Surg Edg [address] [place] [address] [address] [place] [address] Chika Rose RMA Pre-op evaluation (Primary Dx) 10/01/2018 12:29 PM EDT - 10/01/2018 11:59 PM EDT Hospital Encounter EDG PRE-ADMIT TESTING [facility] [place] [address] Preop testing (Primary Dx); AAA (abdominal aortic aneurysm) without rupture Discharge Disposition: Home or Self Care 09/29/2018 3:15 PM EDT [facility] [address] [place] [address] Justen Grissom MD Establishing care with new doctor, encounter for (Primary Dx); Preoperative clearance 09/24/2018 Telephone [facility]P Vascular Surg Edg 20 [facility] [address] [place] [address] Chika Rose RMA Cardiology Clearance 09/23/2018 Orders Only SEP Vascular Surg Edg 20 [facility] [address] [place] [address] August Chavarria MD AAA (abdominal aortic aneurysm) without rupture (Primary Dx) 09/22/2018 4:30 PM EDT - 09/22/2018 11:59 PM EDT Hospital Encounter [facility] [place] [address] August Chavarria MD AAA (abdominal aortic aneurysm) without rupture Discharge Disposition: Home or Self Care 09/22/2018 1:15 PM EDT Office Visit SEP Vascular Surg Edg 20 [facility] [address] [place] [address] August Chavarria MD AAA (abdominal aortic aneurysm) without rupture (Primary Dx); Bilateral lower extremity edema; Varicose veins of bilateral lower extremities with other complications; PVD (peripheral vascular disease) 09/28/2014 Telephone SEP Gen Surg Edg 254 [address] [facility] [address] [place] [address] Betty Vyas RMA Medication Refill 11/01/2013 1:30 PM EDT - 11/01/2013 11:59 PM EDT Hospital Encounter [facility] [address] Alex Us MD Breast cancer, right (HCC) (Primary Dx) Discharge Disposition: Home or Self Care 07/15/2013 7:55 AM EDT - 07/15/2013 11:59 PM EDT Hospital Encounter [facility] [place] [address] Oc Crook MD History of breast cancer; Encounter for long-term (current) use of other medications Discharge Disposition: Home or Self Care 07/14/2013 Telephone [facility] [address] Betty Vyas RMA 07/07/2013 8:45 AM EDT Hospital Encounter [facility] [place] [address] Oc Crook MD Breast cancer (HCC) Discharge Disposition: Home or Self Care 07/07/2013 8:46 AM EDT - 07/07/2013 11:59 PM EDT Hospital Encounter [facility] [place] [address] Oc Crook MD History of breast cancer (Primary Dx); Encounter for long-term (current) use of other medications Discharge Disposition: Home or Self Care 05/03/2013 12:57 PM EST - 05/03/2013 11:59 PM EST Hospital Encounter [facility] [place] [address] Alex Us MD Breast cancer (HCC) (Primary Dx) Discharge Disposition: Home or Self Care 08/10/2012 1:00 PM EDT - 08/10/2012 11:59 PM EDT Hospital Encounter [facility] [place] [address] Oc Crook MD Breast cancer (HCC) (Primary Dx) Discharge Disposition: Home or Self Care 05/27/2012 7:11 AM EST - 05/27/2012 11:59 PM EST Hospital Encounter [facility] [place] [address] Alex Us MD Breast cancer (HCC) (Primary Dx) Discharge Disposition: Home or Self Care 05/15/2012 Abstract [facility] [place] [address] Lois Castro RN 02/25/2012 8:05 AM EST - 02/25/2012 11:59 PM EST Hospital Encounter [facility] [place] [address] Discharge Disposition: Home or Self Care 02/25/2012 8:05 AM EST - 02/25/2012 11:59 PM EST Hospital Encounter [facility] [place] [address] Discharge Disposition: Home or Self Care 02/24/2012 - 02/24/2012 7:21 AM EST Hospital Encounter [facility] [place] [address] Discharge Disposition: Home or Self Care 02/24/2012 7:22 AM EST - 02/24/2012 11:59 PM EST Hospital Encounter [facility] [place] [address] Discharge Disposition: Home or Self Care 02/21/2012 - 02/21/2012 7:13 AM EDT Hospital Encounter [facility] [place] [address] Discharge Disposition: Home or Self Care 02/21/2012 7:14 AM EDT - 02/21/2012 11:59 PM EDT Hospital Encounter [facility] [place] [address] Discharge Disposition: Home or Self Care 02/20/2012 7:20 AM EDT - 02/20/2012 11:59 PM EDT Hospital Encounter [facility] [place] [address] Discharge Disposition: Home or Self Care 02/20/2012 7:20 AM EDT - 02/20/2012 11:59 PM EDT Hospital Encounter [facility] [place] [address] Discharge Disposition: Home or Self Care 02/19/2012 2:51 PM EDT - 02/19/2012 11:59 PM EDT Hospital Encounter [facility] [place] [address] Discharge Disposition: Home or Self Care 02/19/2012 9:15 AM EDT - 02/19/2012 2:50 PM EDT Hospital Encounter [facility] [place] [address] Discharge Disposition: Home or Self Care 02/18/2012 7:56 AM EDT - 02/18/2012 11:59 PM EDT Hospital Encounter [facility] [place] [address] Discharge Disposition: Home or Self Care 02/07/2012 3:21 PM EDT - 02/07/2012 11:59 PM EDT [facility] [place] [address] Alex Us MD Malignant neoplasm of breast (female), unspecified site (HCC) Discharge Disposition: Home or Self Care 02/07/2012 7:19 AM EDT - 02/07/2012 3:20 PM EDT Hospital Encounter [facility] Cancer Care [facility] [place] [address] Discharge Disposition: Home or Self Care 01/27/2012 3:15 PM EDT - 01/27/2012 11:59 PM EDT Hospital Encounter [facility] [place] [address] Oc Crook MD Breast cancer (HCC) Discharge Disposition: Home or Self Care 01/13/2012 9:40 AM EDT - 01/13/2012 11:59 PM EDT Hospital Encounter [facility] LABORATORY [facility] [place] [address] Discharge Disposition: Home or Self Care 01/06/2012 10:33 AM EDT - 01/06/2012 11:59 PM EDT Hospital Encounter [facility] [place] [address] Oc Crook MD Breast cancer (HCC) Discharge Disposition: Home or Self Care 12/31/2011 Telephone [facility] [place] [address] Yvette Pratt RN 12/27/2011 1:15 PM EDT - 12/27/2011 2:30 PM EDT Surgery EDG PERIOP [facility] [place] [address] Oc Crook MD BREAST LUMPECTOMY/ SEGMENTECTOMY/ AXILLARY SENTINEL NODE BIOPSY (COVERS MAMMOGRAM GUIDED/NEEDLE PLACEMENT OR SHLOMO JAVA SECURITY ENGINEER) 12/27/2011 11:09 AM EDT - 12/27/2011 5:50 PM EDT Hospital Encounter [facility] SAME DAY SURGERY [facility] [place] [address] Oc Crook MD Breast mass, right Discharge Disposition: Home or Self Care 12/19/2011 8:45 PM EDT - 12/19/2011 11:59 PM EDT Hospital Encounter [place] [facility] [place] [address] Shayna Velez APRN Guenther, Joseph M, MD Discharge Disposition: Home or Self Care 12/19/2011 12:05 PM EDT - 12/19/2011 8:44 PM EDT Hospital Encounter EDG PRE-ADMIT TESTING [facility] [place] [address] Discharge Disposition: Home or Self Care 12/13/2011 Orders Only SEP Gen Surg Edg [address] [place] [address] Betty Vyas RMA Breast mass, right (Primary Dx) 12/09/2011 9:40 AM EDT - 12/09/2011 11:59 PM EDT Hospital Encounter [place] Mammography [facility] [place] [address] Oc Crook MD Breast lesion; Breast mass, right Discharge Disposition: Home or Self Care 12/09/2011 8:32 AM EDT - 12/09/2011 9:39 AM EDT Hospital Encounter [facility] [place] [address] Oc Crook MD Breast mass; Abnormal mammogram Discharge Disposition: Home or Self Care 12/06/2011 Telephone [facility] [place] [address] Ariadne Lewis, RN Other Allergies Active Allergy Reactions Criticality Noted Date Comments Wily Inhibitors Swelling High 07/07/2013 angioedema Morphine Other (See Comments) Medium 10/05/2018 Bradycardia Medications levothyroxine (SYNTHROID) 150 mcg tablet Take 137 mcg by mouth daily. Takes at bedtime Active lovastatin (MEVACOR) 40 mg tablet Take 40 mg by mouth nightly. Active metFORMIN (GLUCOPHAGE) 1,000 mg Take by mouth 2 times daily (with meals). Active alcohol antiseptic pads (BD ALCOHOL SWABS TOP) Apply topically. Ac tive insulin detemir (LEVEMIR FLEXTOUCH U-100 INSULN SUBQ) Subcutaneous (Inject under the skin). Active potassium chloride (K-DUR) 10 mEq Oral Tablet Sustained Release Take by mouth 2 times daily. Active Blood Sugar Diagnostic (TRUE METRIX GLUCOSE TEST STRIP) Misc Strip by [facility].(Non-Drug; Combo Route) route. Active lancets (TRUEPLUS LANCETS) 30 gauge Misc Misc by [facility].(Non-Drug; Combo Route) route. Active aspirin 81 mg Oral Tablet, Chewable Take 81 mg by mouth daily. Active losartan (COZAAR) 50 mg Oral Tablet TAKE 1 TABLET EVERY DAY 90 Tablet 1 2 Active oxyCODONE (ROXICODONE) 5 mg Oral Tablet Take 1 Tablet by mouth every 4 hours as needed for Major Surgery/Trauma (G89.18) (For Breakthrough Pain not controlled by Non-Opioid Pain Management intervnetions.). 15 Tablet 4 Active Active Problems Problem Noted Date Diagnosed Date Intra-abdominal abscess 03/08/2024 Enterococcal bacteremia 03/08/2024 Bacteremia due to Escherichia coli 03/08/2024 Sepsis without acute organ dysfunction 4 Bacteremia 03/07/2024 S/P cholecystectomy 03/05/[address] scan 03/05/2024 Postoperative pain 03/04/2024 Acute cholecystitis 02/20/2024 Hypothyroidism 02/20/2024 Type 2 diabetes mellitus 10/03/2018 Chest pain 10/03/2018 HLD (hyperlipidemia) 10/03/2018 AAA (abdominal aortic aneurysm) without rupture 09/22/2018 Bilateral lower extremity edema 09/22/2018 Varicose veins of bilateral lower extremities with other complications 09/22/2018 PVD (peripheral vascular disease) 09/22/2018 Abnormal mammogram 12/10/2011 Elevated troponin Resolved Problems Problem Noted Date Diagnosed Date Resolved Date Thrombocytopenia 02/20/2024 03/05/2024 Breast cancer 12/27/2011 03/05/2024 Overview (01/06/2012): IDC; nodes negative; ER/[place] negative; Her2 neg Family History Medical History Relation Name Comments Breast Cancer Maternal Grandmother Cancer Maternal Grandmother Breast Cancer Other 1 maternal first cousin Cancer Other 1 Breast Cancer Other 2 cousin maternal cousi n Relation Name Status Comments Maternal Grandmother Other 1 Other 2 cousin Social History Smoking Status as of 11/08/2024 Tobacco Use Types Packs/Day Years Used Date Smoking Tobacco: Never Assessed [facility] Utilities Answer Date Recorded In the past 12 months has th e electric, gas, oil, or water company threatened to shut off services in your home? No 03/04/2024 Overall Financial Resource Strain (CARDIA) Answe r Date Recorded How hard is it for you to pa y for the very basics like food, housing, medical care, and heating? Not very hard 03/04/2024 PHQ-2 Answer Date Recorded PHQ-2 Total Score 2 03/04/2024 [facility] Occupat ional [facility] - Occupational Stress Questionnaire Answer Date Recorded Do you feel stress - tense, restless, nervous, or anxious, or unable to sleep at night because your mind is troubled all the time - these days? Only a little 03/04/2024 Exercise Vital Sign Answer Date Recorde d On average, how many days pe r week do you engage in moderate to strenuous exercise (like a brisk walk)? 0 days 03/04/2024 On average, how many minutes do you engage in exercise at this level? 0 min 03/04/2024 Hunger Vital Sign Answer Date Recorded Within the past 12 months, y ou worried that your food would run out before you got the money to buy more. Never true 03/04/20 24 Within the past 12 months, t he food you bought just didn't last and you didn't have money to get more. Never true 03/04/2024 [facility] IP Transportation Answer D ate Recorded In the past 12 months, has l ack of reliable transportation kept you from medical appointments, meetings, work or from getting things needed for daily living? No 03/04/2024 Sex and Gender Information Value Date Recorded Sex Assigned at Not on file Legal Sex Female 4:38 AM EDT Gender Identity Not on file Sexual Orientation Not on file Last Filed Vital Signs Vital Sign Reading Time Taken Comments Blood Pressure 122/60 03/12/2024 8:05 AM EST Pulse 76 03/12/2024 8:05 AM EST Temperature 36.3 C (97.3 F) 03/12/2024 8:05 AM EST Respiratory Rate 18 03/12/2024 8:05 AM EST Oxygen Saturation 95% 03/12/2024 8:05 AM EST Inhaled Oxygen Concentration - - Weight 70.3 kg (155 lb) 03/04/2024 7:26 PM EST Height 157.5 cm (5' 2 ) 03/04/2024 7:26 PM EST Body Mass Index 28.35 03/04/2024 7:26 PM EST Plan of Treatment Not on file Medical Devices Implanted Type Area Certified Court/Medical Interpreter Device Identifier Shelf Expiration Date Model / Serial / Lot Graft Evas 82mm 22mm 18fr Z-Trk Znth Flx 2 Brch Ss Wvn Plstr - [id number] Implanted:Qty: 1 on 10/09/2018 by August Chavarria MD at [facility] N/A: Aorta COOK:VASCULAR 07/24/2020 [id number] / / [id number] Graft Evas 56mm 13mm 5.4mm 14fr Znth Sprlz Z-Trk 2 Brch Ntnl - [id number] Implanted:Qty: 1 on 10/09/2018 by August Chavarria MD at [facility] Left: Iliac Artery COOK:VASCULAR 07/31/2021 [id number] / / [id number] Graft Evas 56mm 13mm 5.4mm 14fr Znth Sprlz Z-Trk 2 Brch Ntnl - [id number] Implanted:Qty: 1 on 10/09/2018 by August Chavarria MD at [facility] Right: Iliac Artery COOK:VASCULAR 08/20/2021 [id number] / / [id number] Procedures Procedure Name Priority Date/Time Associated Diagnosis Comments FL RAD FOLLOW UP WO IMAGING Routine 03/29/2024 2:15 PM EST Intra-abdominal abscess (HCC) CT ABDOMEN PELVIS WO ORAL WITH IV CONTRAST Routine 03/29/2024 12:50 PM EST Intra-abdominal abscess (HCC) CREATININE ISTAT Routine 03/29/2024 12:49 PM EST GLUCOSE METER POC Routine 03/12/2024 12:21 PM EST GLUCOSE METER POC Routine 03/12/2024 8:43 AM EST COMPREHENSIVE METABOLIC PANEL Early AM 03/12/2024 5:29 AM EST CBC WITH DIFF Early AM 03/12/2024 5:29 AM EST GLUCOSE METER POC Routine 03/11/2024 8:41 PM EST GLUCOSE METER POC Routine 03/11/2024 5:02 PM EST IR PICC INSERTION EQUAL OR > 5 YEARS LENCHO 03/11/2024 4:12 PM EST GLUCOSE METER POC Routine 03/11/2024 12:06 PM EST GLUCOSE METER POC Routine 03/11/2024 8:57 AM EST GLUCOSE METER POC Routine 03/10/2024 10:23 PM EST GLUCOSE METER POC Routine 03/10/2024 5:28 PM EST GLUCOSE METER POC Routine 03/10/2024 12:23 PM EST GLUCOSE METER POC Routine 03/10/2024 8:19 AM EST CBC WITH DIFF Early AM 03/10/2024 5:53 AM EST BASIC METABOLIC PANEL Early AM 03/10/2024 5:53 AM EST GLUCOSE METER POC Routine 03/09/2024 9:13 PM EST GLUCOSE METER POC Routine 03/09/2024 5:35 PM EST GLUCOSE METER POC Routine 03/09/2024 1:14 PM EST EC ECHOCARDIOGRAM LIMITED Routine 03/09/2024 9:58 AM EST GLUCOSE METER POC Routine 03/09/2024 8:01 AM EST EXTRA GOLD SST Routine 03/09/2024 6:12 AM EST EXTRA TUBES PANEL Routine 03/09/2024 6:12 AM EST CBC WITH DIFF Early AM 03/09/2024 6:12 AM EST BASIC METABOLIC PANEL Early AM 03/09/2024 6:12 AM EST GLUCOSE METER POC Routine 03/08/2024 8:46 PM EST GLUCOSE METER POC Routine 03/08/2024 8:29 PM EST GLUCOSE METER POC Routine 03/08/2024 5:39 PM EST GLUCOSE METER POC Routine 03/08/2024 5:27 PM EST IP CONSULT TO NUTRITION Routine 03/08/2024 12:30 PM EST GLUCOSE METER POC Routine 03/08/2024 12:12 PM EST XR CHEST AP PORTABLE LENCHO 03/08/2024 10:29 AM EST GLUCOSE METER POC Routine 03/08/2024 7:51 AM EST HEMOGLOBIN A1C Early AM 03/08/2024 5:24 AM EST CBC WITH DIFF Early AM 03/08/2024 5:24 AM EST NT PROBNP Add-On 03/08/2024 5:23 AM EST HEPATIC FUNCTION PANEL Routine 03/08/2024 5:23 AM EST BASIC METABOLIC PANEL Early AM 03/08/2024 5:23 AM EST GLUCOSE METER POC Routine 03/07/2024 11:06 PM EST GLUCOSE METER POC Routine 03/07/2024 4:51 PM EST GLUCOSE METER POC Routine 03/07/2024 12:21 PM EST BLOOD CULTURE (NO STAIN) Routine 03/07/2024 8:45 AM EST BLOOD CULTURE (NO STAIN) Routine 03/07/2024 8:45 AM EST GLUCOSE METER POC Routine 03/07/2024 8:12 AM EST IP CONSULT TO INFECTIOUS DISEASES Routine 03/07/2024 7:53 AM EST Procedure Note - Jojo Rinaldi APRN - 03/07/2024 12:55 PM ESTThis note is in progress. [facility] Infectious Diseases Consult Note Date of Admission: 03/04/2024 Date of Consultation: 03/07/2024 Consulting Physician: Jojo Rinaldi APRN Referring Physician: Torres Johnston MD Primary Care Physician: Baudilio Fields MD Reason for Consult: + culture HPI: Henrietta Walsh is a 78 y.o. female with PMHx of AAA s/p repair, breastcancer, T2DM, HLD, osteoporosis and recent cholecystectomy who presentedto the ED on 03/04/24 due to worsening abdominal pain, nausea, weakness.She had a recent admission from 02/19-02/26/24 for acute cholecystitis. Shehad a laparoscopic cholecystectomy performed on 02/23 and a JAMIL drain wasplaced. She was doing OK until she started with worsening abdominal pain,lethargy and decreased appetite 24-48 hours prior to [facility] the[facility]. She also noticed decreased output from her JAMIL drain. Initial VS include BP 127/79, Pulse 78, Temp 98.1, Resp 22 SpO2 94%. Shespiked a fever on 03/06, Tmax 102.8 so she was started on IV Unasyn.Initial lab findings include no leukocytosis, but blood cultures showingGram negative rods, and Gram positive cocci in pairs and chains(Klebsiella oxytoca + E. faecalis per JONATAN). A CT AP showed postsurgicalchanges of cholecystectomy with a 3.9 x 3.6 cm complex collection withinthe gallbladder fossa containing debris and gas, biloma vs abscess, and atiny amount of perihepatic fluid adjacent to the right hepatic lobe. Shehad a CT guided abscess drain placed by IR on 03/05. Body fluid culturewas polymicrobial growing E. coli, Aeromonas species, Klebsiella oxytoca,Gram Positive Cocci (suspect Enterococcus species). ID was consulted forantibiotic management of bacteremia. Patient is now currently on IVZosyn. Past Medical History: Diagnosis Date AAA (abdominal aortic aneurysm) (HCC) Breast cancer (HCC) 12/27/11 IDC; nodes negative; ER/NJ negative; Her2 neg Depression past Diabetes mellitus (HCC) IDDM ROMERO (dyspnea on exertion) Headache Hyperlipidemia Neuromuscular disorder (HCC) left foot neuropathy,elise Osteoporosis Thyroid disease Unspecified sleep apnea has not used cpap in 5 yrs Allergies Allergen Reactions Wily Inhibitors Swelling angioedema Morphine Other (See Comments) Bradycardia Family History Problem Relation Age of Onset Breast Cancer Other 43 maternal first cousin Cancer Other Breast Cancer Other 47 maternal cousin Breast Cancer Maternal Grandmother Cancer Maternal Grandmother Social History Socioeconomic History Marital status: Spouse name: Not on file Number of children: Not on file Years of education: Not on file Highest education level: Not on file Occupational History Not on file Tobacco Use Smoking status: Former Current packs/day: 0.00 Types: Cigarettes Quit date: 05/10/1965 Years since quittin.8 Smokeless tobacco: Never Vaping Use Vaping status: Never Used Substance and Sexual Activity Alcohol use: No Drug use: No Sexual activity: Not on file Other Topics Concern Not on file Social History Narrative Not on file Social Drivers of Health Financial Resource Strain: Low Risk (03/04/2024) Overall Financial Resource Strain (CARDIA) Difficulty of Paying Living Expenses: Not very hard Food Insecurity: No Food Insecurity (03/04/2024) Hunger Vital Sign Worried About Running Out of Food in the Last Year: Never true Ran Out of Food in the Last Year: Never true Transportation Needs: No Transportation Needs (03/04/2024) [facility] IP Transportation In the past 12 months, has lack of reliable transportation kept you frommedical appointments, meetings, work or from getting things needed fordaily living?: No Physical Activity: Inactive (03/04/2024) Exercise Vital Sign Days of Exercise per Week: 0 days Minutes of Exercise per Session: 0 min Stress: No Stress Concern Present (03/04/2024) [facility] Occupational [facility] - Occupational StressQuestionnaire Feeling of Stress : Only a little Social Connections: Not on file Intimate Partner Violence: Not on file Housing Stability: Not on file Medications Prior to Admission Medication Sig Dispense Refill Last Dose/Taking alcohol antiseptic pads (BD ALCOHOL SWABS TOP) Apply topically. Taking aspirin 81 mg Oral Tablet, Chewable Take 81 mg by mouth daily.03/03/2024 b mydityn-N-anwyw acid (NEPHROCAP) 1 mg Oral Capsule Take 1 Cap by mouthdaily. 03/03/2024 CALCIUM CARBONATE (CALCIUM 600 ORAL) Take by mouth every 24 hours.03/03/2024 ERGOCALCIFEROL, VITAMIN D2, (VITAMIN D ORAL) Take 2,000 mg by mouthdaily. 03/03/2024 insulin detemir (LEVEMIR FLEXTOUCH U-100 INSULN SUBQ) Subcutaneous(Inject under the skin). 03/03/2024 levothyroxine (SYNTHROID) 150 mcg tablet Take 137 mcg by mouth daily.Takes at bedtime 03/03/2024 losartan (COZAAR) 50 mg Oral Tablet TAKE 1 TABLET EVERY DAY 90 Tablet lovastatin (MEVACOR) 40 mg tablet Take 40 mg by mouth nightly.03/03/2024 metFORMIN (GLUCOPHAGE) 1,000 mg Take by mouth 2 times daily (withmeals). 03/03/2024 MULTI-VITAMIN ORAL Take by mouth. 03/03/2024 oxyCODONE (ROXICODONE) 5 mg Oral Tablet Take 1 Tablet by mouth every 4hours as needed for Major Surgery/Trauma (G89.18) (For Breakthrough Painnot controlled by Non-Opioid Pain Management intervnetions.) for up to 10days. 15 Tablet 0 03/03/2024 potassium chloride (K-DUR) 10 mEq Oral Tablet Sustained Release Take bymouth 2 times daily. 03/03/2024 Blood Sugar Diagnostic (TRUE METRIX GLUCOSE TEST STRIP) Misc Strip byMisc.(Non-Drug; Combo Route) route. lancets (TRUEPLUS LANCETS) 30 gauge Misc Misc by Misc.(Non-Drug; ComboRoute) route. lidocaine (LIDODERM) 5 % Top Adhesive Patch, Medicated Place 1 Patch ontothe skin daily. (Patient not taking: Reported on 05/25/2019) 10 Patch 0 NotTaking Current Facility-Administered Medications Medication Dose Route Frequency Provider Last Rate Last Admin 0.9 % NaCl infusion Intravenous Continuous Torres Johnston MD 100mL/hr at 03/07/24 0835 New Bag at 03/07/24 0835 acetaminophen (TYLENOL) tablet 650 mg 650 mg Oral Q4H PRN Kasandra Johnston MD 650 mg at 03/06/242032 aspirin chewable tablet 81 mg 81 mg Oral Daily Torres Johnston MD 81mg at 03/07/24 0836 atorvastatin (LIPITOR) tablet 10 mg 10 mg Oral Nightly Torres Johnston MD 10 mg at 03/06/242032 b tpommrr-G-cbbhv acid (NEPHROCAP) 1 mg capsule 1 Capsule 1 Capsule OralDaily Torres Johnston MD 1 Capsule at 03/07/24 0836 dextrose 50 % solution 25 mL 25 mL Intravenous PRN Torres Johnston MD enoxaparin (LOVENOX) injection 40 mg 40 mg Subcutaneous Daily - LMWH/XaNiTorres xiao MD 40 mg at 03/07/24 0837 glucagon (GLUCAGEN) injection 1 mg 1 mg Intramuscular PRN Kasandra Johnston MD And sterile water injection 1 mL 1 mL Injection PRN Torres Johnston MD HYDROmorphone (DILAUDID) injection 0.5 mg 0.5 mg Intravenous Q4H PRNNTorres guerra MD 0.5 mg at 03/07/24 0622 insulin aspart U-100 (NovoLOG) injection 1-10 Units 1-10 UnitsSubcutaneous QID Torres Johnston MD 4 Units at 03/07/24 1200 LEVOthyroxine (SYNTHROID) tablet 137 mcg 137 mcg Oral DAILY EARLY AMNTorres guerra MD 137 mcg at 03/07/24 0613 losartan (COZAAR) tablet 50 mg 50 mg Oral Daily Torres Johnston MD50 mg at 03/06/24 1026 miconazole (MICATIN) 2 % powder Topical 2 times per day Shaheen Schwartz MD Given at 03/07/24 0837 miconazole (MICATIN) 2 % powder Topical PRN Shaheen Schwartz MD ondansetron (ZOFRAN) injection 4 mg 4 mg Intravenous Q6H PRN Maria Luisa Royal SURGICAL ONCOLOGIST 4 mg at 03/06/24 0821 pantoprazole (PROTONIX) 40 mg in sodium chloride 0.9% 10 mL injection 40mg Intravenous Daily RoyalMaria Luisa shelton, SURGICAL ONCOLOGIST 40 mg at 03/06/24 0831 Or pantoprazole (PROTONIX) tablet 40 mg 40 mg Oral Daily RoyalMaria Luisa shelton,SURGICAL ONCOLOGIST 40 mg at 03/07/24 0837 piperacillin-tazobactam in dextrose (ZOSYN) IVPB 3.375 g 3.375 gIntravenous 3 times per day Janeth Mendez, SURGICAL ONCOLOGIST 12.5 mL/hr at105/07/23 0938 3.375 g at 03/07/24 0938 potassium chloride (KLOR-CON) tablet 10 mEq 10 mEq Oral BID Torres Johnston MD 10 mEq at 03/07/24 0836 Review of Systems: Constitutional: + for fever, fatigued, generally weak, loss of appetite [employer]: Negative for focal weakness, speech problems, loss of consciousness,memory loss ENT: no rhinorrhea Eyes: No drainage Resp: negative for cough, shortness of breath CVS: negative for chest pain GI:+ for abdominal pain Urinary: no dysuria, trouble voiding MSK: No pain, redness or swelling on the joints Skin: negative for lacerations and rash Patient Vitals for the past 24 hrs: BP Temp Temp src Pulse Resp SpO2 03/07/24 0830 112/41 100.1 F (37.8 C) Axillary 90 20 92 % 03/07/24 0622 -- 100.4 F (38 C) -- -- -- -- 03/07/24 0413 -- 101 F (38.3 C) -- -- -- -- 03/06/24 2346 -- 101.6 F (38.7 C) -- -- -- -- 03/06/242022 144/55 102.8 F (39.3 C) -- 101 20 95 % 03/06/24 1707 120/45 98.9 F (37.2 C) Oral 92 20 95 % Weight: 155 lb (70.3 kg) Physical Exam: General Appearance: Awake, cooperative, no distress Head: Normocephalic, atraumatic Eyes: PERRL, conjunctiva/corneas clear Nose: Nares normal, no drainage Mouth: mucosa moist, no thrush Lungs: Good AE B/L, respirations unlabored Heart: Regular rate and rhythm, S1 and S2 normal Abdomen: Soft, +tender to palpation, +RLQ JAMIL drain and accordion drain Extremities: no cyanosis or edema Skin: no rashes or lesions, +surgical sites without drainage, minimalerythema Neurologic: Drowsy, oriented X3 PICC Line: +PIV Labs: 03/04: WBC 7.6, Plts 251 03/04: T bili 0.8, ALT 11, AST 21, Alk Phos 75 03/04: BUN/Cr: 16/0.60 03/04: lactic acid: 1.3 03/04: UA neg nitrites and leuk est 03/05: Body fluid Cx: +E. coli, Aeromonas species, Klebsiella oxytoca,Gram Positive Cocci (suspect Enterococcus species) 03/06: Blood Cx: 1 of 2 growth of Gram negative rods, and Gram positivecocci in pairs and chains (E. faecalis per JONATAN) 03/06: Blood Cx: 1 of 2 Growth of Gram negative rods (Klebsiella oxytocaper JONATAN) 03/06: Covid-19 not detected 03/06: BUN/Cr: 14/0.60 03/06: WBC 8.6, Plts 218 03/06: T bili 0.8, ALT 9, AST 22, Alk Phos 69 03/07: Blood Cx (peripheral): 2 of 2 pending Imagin/14: CT AP: Postsurgical changes of cholecystectomy. There is a 3.9 x3.6 cm complex collection within the gallbladder fossa containing debrisand gas. This could represent a biloma or abscess. There is a tiny amountof perihepatic fluid adjacent to the right hepatic lobe. Assessment: Klebsiella oxytoca + E. faecalis bacteremia 03/06: Blood Cx: 1 of 2 growth of Gram negative rods, and Gram positivecocci in pairs and chains (E. faecalis per JONATAN) 03/06: Blood Cx: 1 of 2 Growth of Gram negative rods (Klebsiella oxytocaper JONATAN) Suspect GI source (see below) Repeat blood cultures are pending Gallbladder fossa fluid collection s/p Laparoscopic cholecystectomy Recent admission from 02/19-02/26/24 for acute cholecystitis 02/23 S/p Laparoscopic cholecystectomy with JAMIL drain placement. She wasthen d/c home. Re-admitted due to lethargy and worsening abdominal pain 03/04 CT AP showed a 3.9 x 3.6 cm complex collection within thegallbladder fossa containing debris and gas. 03/05 S/p CT guided abscess drain placement by IR Polymicrobial Body fluid Cx: +E. coli, Aeromonas species, Klebsiellaoxytoca, Gram Positive Cocci (suspect Enterococcus species) Surgery following T2DM HLD Hypothyroidism Hx of breast cancer (2011) Plan: Continue with IV Zosyn for now. Final choice and duration pending resultsof infectious workup. Monitor renal function closely. Follow results of 03/06 blood cultures for final ID and SS, and repeatblood cultures from 03/07 Follow fluid culture Obtain Cardiac ECHO Do not insert permanent lines until surveillance blood cx negative [id number]. Monitor fever/BP curve, I/O's, serum electrolytes, WBC & platelet trend,Liver and renal function Thanks for consulting. Discussed with patient and RN. ID will continue rowena Case reviewed, patient seen with Dr. Ellen Rinaldi, SURGICAL ONCOLOGIST CORONAVIRUS 2019 Routine 03/06/2024 9:37 PM EST GLUCOSE METER POC Routine 03/06/2024 9:04 PM EST GLUCOSE METER POC Routine 03/06/2024 4:36 PM EST ADMIT Routine 03/06/2024 12:42 PM EST GLUCOSE METER POC Routine 03/06/2024 11:44 AM EST LACTIC ACID STAT 03/06/2024 9:33 AM EST COMPREHENSIVE METABOLIC PANEL STAT 03/06/2024 9:33 AM EST CBC WITH DIFF STAT 03/06/2024 9:33 AM EST BLOOD CULTURE JONATAN GRAM POS Routine 03/06/2024 9:33 AM EST BLOOD CULTURE JONATAN GRAM NEG Routine 03/06/2024 9:33 AM EST BLOOD CULTURE (NO STAIN) STAT 03/06/2024 9:33 AM EST BLOOD CULTURE (NO STAIN) STAT 03/06/2024 9:33 AM EST GLUCOSE METER POC Routine 03/06/2024 8:[address] GUIDED ABSCESS DRAIN LENCHO 03/05/2024 3:50 PM EST BILIRUBIN, BODY FLUID Routine 03/05/2024 3:22 PM EST BODY FLUID CULTURE (STAIN INCLUDED) Routine 03/05/2024 3:03 PM EST IP CONSULT TO NUTRITION Routine 03/04/2024 7:44 PM EST ADMIT Routine 03/04/2024 5:44 PM EST PT / INR STAT 03/04/2024 5:38 PM EST PARTIAL THROMBOPLASTIN TIME STAT 03/04/2024 5:38 PM EST URINALYSIS REFLEX STAT 03/04/2024 5:09 PM EST UA W/REFLEX TO CULTURE STAT 03/04/2024 5:09 PM EST EXTRA OGLESBY URINE CX STAT 03/04/2024 5:[address] ABD PEL ED FAST W CONTRAST STAT 03/04/2024 4:46 PM EST LACTIC ACID STAT 03/04/2024 3:57 PM EST LIPASE LEVEL STAT 03/04/2024 3:57 PM EST COMPREHENSIVE METABOLIC PANEL STAT 03/04/2024 3:57 PM EST CBC WITH DIFF STAT 03/04/2024 3:57 PM EST GLUCOSE METER POC Routine 02/26/2024 1:20 PM EST BASIC METABOLIC PANEL Routine 02/26/2024 9:01 AM EST CBC Routine 02/26/2024 9:01 AM EST GLUCOSE METER POC Routine 02/26/2024 8:53 AM EST ECG AND WAVEFORMS - TELEMETRY Routine 02/26/2024 7:01 AM EST GLUCOSE METER POC Routine 02/25/2024 8:27 PM EST ECG AND WAVEFORMS - TELEMETRY Routine 02/25/2024 7:43 PM EST GLUCOSE METER POC Routine 02/25/2024 5:33 PM EST GLUCOSE METER POC Routine 02/25/2024 11:35 AM EST GLUCOSE METER POC Routine 02/25/2024 8:26 AM EST ECG AND WAVEFORMS - TELEMETRY Routine 02/25/2024 7:04 AM EST CBC WITH DIFF Timed 02/25/2024 6:11 AM EST GLUCOSE METER POC Routine 02/24/2024 10:45 PM EST TRANSFUSE RED BLOOD CELLS Routine 02/24/2024 10:28 PM EST ECG AND WAVEFORMS - TELEMETRY Routine 02/24/2024 9:55 PM EST BB HISTORY CHECK STAT 02/24/2024 8:02 PM EST ANTIBODY SCREEN IGG STAT 02/24/2024 8:02 PM EST ABORH STAT 02/24/2024 8:02 PM EST RED BLOOD CELLS REQUEST LENCHO 02/24/2024 8:02 PM EST TYPE AND SCREEN STAT 02/24/2024 8:02 PM EST HEMOGLOBIN AND HEMATOCRIT STAT 02/24/2024 7:19 PM EST GLUCOSE METER POC Routine 02/24/2024 7:05 PM EST PATHOLOGY TISSUE REQUEST Routine 02/24/2024 5:44 PM EST Acute cholecystitis INTRAOP AIRWAY PLACEMENT Routine 02/24/2024 5:43 PM EST NJ LAPAROSCOPY SURG CHOLECYSTECTOMY 02/24/2024 5:20 PM EST Acute cholecystitis GLUCOSE METER POC Routine 02/24/2024 11:40 AM EST GLUCOSE METER POC Routine 02/24/2024 9:00 AM EST MAGNESIUM LEVEL Routine 02/24/2024 5:19 AM EST EXTRA LAVENDER Routine 02/24/2024 5:19 AM EST EXTRA TUBES PANEL Routine 02/24/2024 5:19 AM EST BASIC METABOLIC PANEL Early AM 02/24/2024 5:19 AM EST GLUCOSE METER POC Routine 02/23/2024 8:50 PM EST GLUCOSE METER POC Routine 02/23/2024 5:16 PM EST ADMIT Routine 02/23/2024 3:52 PM EST GLUCOSE METER POC Routine 02/23/2024 2:36 PM EST NM HEPATOBILIARY WO GBEF LENCHO 02/23/2024 12:12 PM EST XR CHEST AP PORTABLE STAT 02/23/2024 9:43 AM EST EXTRA GOLD SST Routine 02/23/2024 9:32 AM EST EXTRA LIGHT BLUE Routine 02/23/2024 9:32 AM EST EXTRA TUBES PANEL Routine 02/23/2024 9:32 AM EST BLOOD CULTURE (NO STAIN) Routine 02/23/2024 9:32 AM EST BLOOD CULTURE (NO STAIN) Routine 02/23/2024 9:31 AM EST GLUCOSE METER POC Routine 02/23/2024 9:06 AM EST CBC WITH DIFF Early AM 02/23/2024 5:18 AM EST BASIC METABOLIC PANEL Early AM 02/23/2024 5:17 AM EST MAGNESIUM LEVEL Early AM 02/23/2024 5:17 AM EST GLUCOSE METER POC Routine 02/22/2024 8:35 PM EST GLUCOSE METER POC Routine 02/22/2024 4:47 PM EST GLUCOSE METER POC Routine 02/22/2024 1:27 PM EST PT / INR Early AM 02/22/2024 5:15 AM EST ACUTE HEPATITIS PANEL Early AM 02/22/2024 5:08 AM EST MAGNESIUM LEVEL Early AM 02/22/2024 5:08 AM EST CBC WITH DIFF Early AM 02/22/2024 5:08 AM EST EC ECHOCARDIOGRAM COMPLETE W DOPPLER AND COLOR FLOW MAPPING Routine 02/21/2024 2:56 PM EDT US RIGHT UPPER QUADRANT LENCHO 02/21/2024 9:40 AM EDT EK EKG 12 LEAD STAT 02/21/2024 6:09 AM EDT MAGNESIUM LEVEL Early AM 02/21/2024 5:09 AM EDT BASIC METABOLIC PANEL Early AM 02/21/2024 5:09 AM EDT CBC WITH DIFF Early AM 02/21/2024 5:09 AM EDT URINALYSIS REFLEX Routine 02/20/2024 10:54 PM EDT UA W/REFLEX TO CULTURE Routine 02/20/2024 10:54 PM EDT EXTRA OGLESBY URINE CX Routine 02/20/2024 10:54 PM EDT GLUCOSE METER POC Routine 02/20/2024 9:23 PM EDT IP CONSULT TO GENERAL SURGERY Routine 02/20/2024 7:36 PM EDT Procedure Note - Neena Higgins DO - 02/21/2024 7:04 AM EDTThis note is in progress. General Surgery Consultation Assessment and Plan - 1. Possible biliary disease - cholecystitis vs unknown mass? - -imaging (CT) completed at outside hospital and we do not have access toimages, only report -check RUQ US -may require MRCP vs MRI-liver protocol if suspicion remains for mass(based on location of mass) -no LFT elevation -leukocytosis - -IV abx -UA negative -blood cultures - pending -GI consult - pending -NPO -IVF as patient is NPO -encouraged ambulation -encouraged IS -Need imaging in order to make a surgical plan. Please page withquestions or concerns cc - spesis hcc - Patient seen and examined. This is a 78-year-old female whopresents from an outside hospital complaining of a 4-day history of rightsided abdominal pain along with nausea. She denies vomiting. She statesshe is always cold but denies any fevers or chills or any recent changesin this. She denies any diarrhea or constipation. Denies anyrelationship to oral intake with her pain. States that over the past 48hours or so her pain has significantly worsened. She is accompanied byher and 2 daughters. She states that the pain is worse on theright lower side. She is unaware of any triggering movements or factors.The pain is fairly steady and nothing makes it better or when it ispresent. Denies any issues with urination. Denies any skin or eyediscoloration. Pt denies all other complaints, including, headache,vomiting, fevers,chill, diarrhea, constipation, chest pain, SOB. ROS - All systems reviewed and negative except as described above PMH - Past Medical History: Diagnosis Date AAA (abdominal aortic aneurysm) ([facility]) Breast cancer ([facility]) 12/27/11 IDC; nodes negative; ER/NJ negative; Her2 neg Depression past Diabetes mellitus ([facility]) IDDM ROMERO (dyspnea on exertion) Headache Hyperlipidemia Neuromuscular disorder ([facility]) left foot neuropathy,elise Osteoporosis Thyroid disease Unspecified sleep apnea has not used cpap in 5 yrs PSH - Past Surgical History: Procedure Laterality Date BACK SURGERY 1987 BREAST BIOPSY Left BREAST LUMPECTOMY 12/27/2011 RIGHT BREAST SEGMENTECTOMY SENTINEL LYMPH NODE DISSECTION ; Surgeon:Maggie Crook MD; Location: [facility] MAIN OR; Service: General BREAST LUMPECTOMY Right EYE SURGERY cataracts kulwant HYSTERECTOMY 1978 HYSTERECTOMY, TOTAL ABDOMINAL LUMBAR FUSION MOUTH SURGERY NECK SURGERY 1985 to remove saliva gland PAROTIDECTOMY REPAIR ANEURYSM, ABDOMINAL AORTA N/A 10/09/2018 Endovascular Repair abdominal aortic aneurysm; Surgeon: Tevin Chavarria MD; Location: [facility] MAIN OR; Service: Vascular Soc H - Social History Socioeconomic History Marital status: Spouse name: Not on file Number of children: Not on file Years of education: Not on file Highest education level: Not on file Occupational History Not on file Tobacco Use Smoking status: Former Current packs/day: 0.00 Types: Cigarettes Quit date: 05/10/1965 Years since quittin.8 Smokeless tobacco: Never Vaping Use Vaping status: Never Used Substance and Sexual Activity Alcohol use: No Drug use: No Sexual activity: Not on file Other Topics Concern Not on file Social History Narrative Not on file Social Drivers of Health Financial Resource Strain: Not on file Food Insecurity: Not on file Transportation Needs: Not on file Physical Activity: Not on file Stress: Not on file Social Connections: Not on file Intimate Partner Violence: Not on file Housing Stability: Not on file FH - Family History Problem Relation Age of Onset Breast Cancer Other 43 maternal first cousin Cancer Other Breast Cancer Other 47 maternal cousin Breast Cancer Maternal Grandmother Cancer Maternal Grandmother Meds - Current Facility-Administered Medications: 0.9 % NaCl infusion, , Intravenous, Continuous, Deepali Cortez MD,Last Rate: 100 mL/hr at 02/21/24634, Rate Verify at 02/21/24634 acetaminophen (OFIRMEV) infusion 1,000 mg, 1,000 mg, Intravenous, Q8HPRN, Deepali Cortez MD, Stopped at 02/20/242319 acetaminophen (TYLENOL) tablet 1,000 mg, 1,000 mg, Oral, Q6H PRN,Bulmaro Neal MD, 1,000 mg at 02/21/24624 atorvastatin (LIPITOR) tablet 10 mg, 10 mg, Oral, Nightly, Deepali Cortez MD, 10 mg at 02/20/242011 enoxaparin (LOVENOX) injection 40 mg, 40 mg, Subcutaneous, Daily -LMWH/Xa, Deepali Cortez MD, 40 mg at 02/20/242012 LEVOthyroxine (SYNTHROID) tablet 137 mcg, 137 mcg, Oral, DAILY EARLY AM,Deepali Cortez MD, 137 mcg at 02/21/24624 miconazole (MICATIN) 2 % powder, , Topical, 2 times per day, Bulmaro Neal MD, Given at 02/20/242045 miconazole (MICATIN) 2 % powder, , Topical, PRN, Bulmaro Neal MD piperacillin-tazobactam in dextrose (ZOSYN) IVPB 3.375 g, 3.375 g,Intravenous, 3 times per day, Deepali Cortez MD, Last Rate: 12.5 mL/hrat 02/21/24 0635, Rate Verify at 02/21/24 0635 scopolamine (TRANSDERM-SCOP) 1 mg over 3 days 1 Patch, 1 Patch,Transdermal, Q72H, Deepali Cortez MD, 1 Patch at 02/20/242012 sodium chloride 0.9% IV line flush 20-50 mL, 20-50 mL, Intravenous, PRN,Bulmaro Neal MD, Stopped at 02/21/24 0634 sodium chloride 0.9% syringe, , Intravenous, 2 times per day, Bulmaro Neal MD sodium chloride 0.9% syringe, , Intravenous, PRN, Bulmaro Neal MD Allergies - Allergies Allergen Reactions Wily Inhibitors Swelling angioedema Morphine Other (See Comments) Bradycardia Physical Exam - -vital signs - -BP 139/56 (BP Location: Left arm) Pulse 83 Temp 98.6 F (37 C) (Oral) Resp 18 Ht 5' 2 (1.575 m) Wt 155 lb 10.3 oz (70.6 kg) SpO2 95% BMI 28.47 kg/m -General - A&O x 3, NAD -Eyes - non-icteric, EOM grossly intact -HENT - NC/AT -heart - RRR, +S1&S2 -lungs - CTAB, no wheezes, ronchi, rales -abdomen - soft, non-distended, +BS, +TTP RLQ, negative Whitley's sign, notperitoneal -MSK - no edema, full ROM -neuro - no focal defects -psych - good judgement, clear insight Labs - - Lab Results Component Value Date WBC 13.9 (H) 02/21/2024 HGB 12.3 02/21/2024 PLT 115 (L) 02/21/2024 Radiology - -RUQ US - Pending -CT performed at outside hospital and images not available to us BLOOD CULTURE (NO STAIN) Routine 02/20/2024 7:13 PM EDT BLOOD CULTURE (NO STAIN) Routine 02/20/2024 7:13 PM EDT VITAMIN B12/ FOLIC ACID Routine 02/20/2024 5:46 PM EDT EXTRA GOLD SST Routine 02/20/2024 5:46 PM EDT EXTRA LIGHT BLUE Routine 02/20/2024 5:46 PM EDT EXTRA TUBES PANEL Routine 02/20/2024 5:46 PM EDT HEPATIC FUNCTION PANEL Add-On 02/20/2024 5:39 PM EDT BASIC METABOLIC PANEL STAT 02/20/2024 5:39 PM EDT CBC WITH DIFF STAT 02/20/2024 5:39 PM EDT ADMIT Routine 02/20/2024 4:[address] ANGIOGRAM ABDOMEN PELVIS W CONTRAST Routine 08/07/2020 10:33 AM EDT Abdominal aortic aneurysm without rupture CREATININE ISTAT Routine 08/07/2020 10:22 AM EDT POCT EKG Routine 01/27/2020 12:30 PM EDT PVD (peripheral vascular disease) Hyperlipidemia, unspecified hyperlipidemia type VA US AORTA ILIAC IVC COMPLETE Routine 01/25/2020 9:20 AM EDT Abdominal aortic aneurysm without rupture AAA (abdominal aortic aneurysm) without rupture CT ANGIOGRAM ABDOMEN PELVIS W CONTRAST Routine 05/24/2019 10:02 AM EST Abdominal aortic aneurysm without rupture CREATININE ISTAT Routine 05/24/2019 9:[address] ANGIOGRAM ABDOMEN PELVIS W CONTRAST STAT 12/15/2018 1:02 PM EDT Abdominal aortic aneurysm without rupture CREATININE ISTAT Routine 12/15/2018 12:40 PM EDT SCANNED RHYTHM STRIPS 10/12/2018 2:56 PM EDT GLUCOSE METER POC Routine 10/10/2018 8:00 AM EDT PT / INR Routine 10/10/2018 4:53 AM EDT BASIC METABOLIC PANEL Routine 10/10/2018 4:53 AM EDT CBC Routine 10/10/2018 4:53 AM EDT GLUCOSE METER POC Routine 10/10/2018 12:13 AM EDT XR CHEST AP PORTABLE STAT 10/09/2018 1:16 PM EDT GLUCOSE METER POC Routine 10/09/2018 10:34 AM EDT IR ENDOV REPAIR INFRARENAL AO OTHER THAN RUPTURE AO BIFUR LENCHO 10/09/2018 9:53 AM EDT ANE ARTERIAL LINE PLACEMENT Routine 10/09/2018 9:13 AM EDT INTRAOP AIRWAY PLACEMENT Routine 10/09/2018 8:21 AM EDT AORTIC ENDOVASCULAR ENDOGRAFT/ ANEURYSM REPAIR EVAR POSSIBLE OPEN (ROOM 19) (COVERS FEMORAL BYPASS) 10/09/2018 7:59 AM EDT AAA (abdominal aortic aneurysm) without rupture Special Needs Benjamin (Delroy rep), Delroy valdovinos notified (WS) CENTRAL VENOUS LINE PLACEMENT Routine 10/09/2018 7:47 AM EDT BB HISTORY CHECK STAT 10/09/2018 6:18 AM EDT ABORH STAT 10/09/2018 6:18 AM EDT GLUCOSE METER POC Routine 10/09/2018 6:14 AM EDT SCANNED EKG 10/09/2018 12:50 AM EDT SCANNED RADIOLOGY REPORT 10/06/2018 2:40 PM EDT IP CONSULT TO INTERVENTIONAL RADIOLOGY Routine 10/06/2018 10:22 AM EDT Procedure Note - Satya, Damari Benedict PA-C - 10/06/2018 12:08 PM EDTThis note is in progress. Images from the original note were not included. INTERVENTIONAL RADIOLOGY CONSULT Date: 10/06/2018 Time: 12:08 PM Name:Henrietta Walsh :1945 Age:73 y.o. M/F: female Attending Provider: Ken Wise MD Primary Care Physician: Kana Valero MD CC: left neck and bilateral shoulder pain HPI: 73 y.o. year old female with history of Type 2 DM, hypothyroidism,breast CA, AAA, who presented to the ED 3 days ago with complaints ofchest, neck, shoulder and back pain. Cardiac workup in process. Patientwas scheduled for AAA repair later this week, which according to vascularsx notes may still happen as an inpatient. MR cervical spine completedyesterday revealed DDD and DJD. Neurosurgery saw the patient andrecommended conservative management with JOSE CARLOS. IR consulted for cervicalESI. FMH: Family History Problem Relation Age of Onset Breast Cancer Other 43 maternal first cousin Cancer Other Breast Cancer Other 47 maternal cousin Breast Cancer Maternal Grandmother Cancer Maternal Grandmother Social HX: TOB: Social History Tobacco Use Smoking Status Former Smoker Years: 34.00 Last attempt to quit: 05/10/1999 Years since quittin.4 Smokeless Tobacco Never Used ETOH: Social History Substance and Sexual Activity Alcohol Use No PMH: Past Medical History: Diagnosis Date Breast cancer (HCC) 12/27/11 IDC; nodes negative; ER/[place] negative; Her2 neg Depression past Diabetes mellitus (HCC) IDDM ROMERO (dyspnea on exertion) Headache Hyperlipidemia Neuromuscular disorder (HCC) left foot neuropathy,elise Osteoporosis Thyroid disease Unspecified sleep apnea has not used cpap in 5 yrs PSxHx: Past Surgical History: Procedure Laterality Date BACK SURGERY 1987 BREAST BIOPSY Left BREAST LUMPECTOMY 12/27/2011 RIGHT BREAST SEGMENTECTOMY SENTINEL LYMPH NODE DISSECTION ; Surgeon:Maggie Crook MD; Location: [facility] MAIN OR; Service: General BREAST LUMPECTOMY Right EYE SURGERY cataracts kulwant HYSTERECTOMY 1978 HYSTERECTOMY, TOTAL ABDOMINAL LUMBAR FUSION MOUTH SURGERY NECK SURGERY 1985 to remove saliva gland PAROTIDECTOMY Allergies: Allergies as of 10/03/2018 - Verified 10/03/2018 Allergen Reaction Noted Wily inhibitors Swelling 07/07/2013 No known allergies 12/19/2011 Meds: Current Facility-Administered Medications: acetaminophen (TYLENOL) tablet 1,000 mg, 1,000 mg, Oral, Q6H PRN, 1,000mg at 10/04/18 1539 OR acetaminophen (TYLENOL) suppository 975 mg, 975mg, Rectal, Q6H PRN, Ken Wise MD albuterol (PROVENTIL HFA; VENTOLIN HFA) INHALER 2 Puff, 2 Puff,Inhalation, PRN OR albuterol (PROVENTIL) nebulizer solution 2.5 mg,2.5 mg, Nebulization, PRN, Juvenal Sanders MD aspirin chewable tablet 81 mg, 81 mg, Oral, Daily, Ken Wise MD, Stopped at 10/05/18 0900 atorvastatin (LIPITOR) tablet 10 mg, 10 mg, Oral, Nightly, Stacy Wise MD, 10 mg at 10/05/182122 cyclobenzaprine (FLEXERIL) tablet 5 mg, 5 mg, Oral, TID PRN, Kassandra Ruiz, SURGICAL ONCOLOGIST, 5 mg at 10/05/182126 dextrose 50 % solution 25 mL, 25 mL, Intravenous, PRN, Stacy Wise MD fenofibrate (LOFIBRA) tablet 160 mg, 160 mg, Oral, Daily, Stacy Wise MD, 160 mg at 10/06/18 0734 glucagon (human recombinant) (GLUCAGEN) injection 1 mg, 1 mg,Intramuscular, PRN AND sterile water injection 1 mL, 1 mL, Injection,PRN, Ken Wise MD insulin aspart U-100 (NovoLOG) injection 1-5 Units, 1-5 Units,Subcutaneous, QID WM, Ken Wise MD, 1 Units at 10/03/18 1708 insulin glargine U-100 (LANTUS) injection 40 Units, 40 Units,Subcutaneous, QPM (Insulin), Ken Wise MD, 40 Units at 842 LEVOthyroxine (SYNTHROID) tablet 150 mcg, 150 mcg, Oral, DAILY EARLYAM, Ken Wise MD, 150 mcg at 10/06/18 0554 lidocaine (LIDODERM) 5 % 1 Patch, 1 Patch, Transdermal, Daily, Ken Wise MD, 1 Patch at 10/06/18 0733 lidocaine remove patch, 1 Patch, Transdermal, Nightly, Stacy Wise MD nitroGLYCERIN (NITROGLYN) 2 % ointment 0.5 Inch, 0.5 Inch, Topical, 3times per day, Ken Wise MD nitroGLYCERIN (NITROSTAT) SL tablet 0.4 mg, 0.4 mg, Sublingual, Q5 MinPRN, Ken Wise MD ondansetron (ZOFRAN) tablet 4 mg, 4 mg, Oral, Q6H PRN ORondansetron (ZOFRAN) injection 4 mg, 4 mg, Intravenous, Q6H PRN, Ken Wise MD potassium chloride (K-DUR) tablet 10 mEq, 10 mEq, Oral, BID, Stacy Wise MD, 10 mEq at 10/06/18 0734 Vitals: 10/06/18 0729 BP: Pulse: 74 Resp: 18 Temp: 97.9 F (36.6 C) SpO2: 95% Labs: Lab Results Component Value Date CREATININE 0.66 10/04/2018 BUN 18 10/04/2018 NA 138 10/04/2018 K 4.0 10/04/2018 CL 103 10/04/2018 CO2 24 10/04/2018 Lab Results Component Value Date WBC 8.7 10/03/2018 HGB 13.2 10/03/2018 HCT 38.4 10/03/2018 MCV 95.6 10/03/2018 PLT 241 10/03/2018 Imaging: XR cervical spine 10/05/18 IMPRESSION: 1. Multilevel mid to lower cervical spine either mild to moderate ormoderate degenerative spondylosis. . MRI cervical spine 10/05/18 IMPRESSION: 1. Multilevel degenerative changes as detailed above. 2. Inflammatory facet arthropathy LEFT C2-C5 with edema andenhancement. 3. Muscle edema and enhancement in the upper cervical region, LEFTgreater than RIGHT and likely primarily attributable to the facet arthropathy. 4. Multilevel disc disease without central stenosis. 5. Severe foraminal stenosis LEFT C3-4, C4-5. Assessment/Plan: 1. Multilevel cervical disc disease with central stenosis: Reviewed caseand imaging with Dr. Pond. IR will plan for cervical JOSE CARLOS tomorrow10/07/18. Patient last received ASA 81mg on 10/02/18. Please continue tohold ASA as this must be held x 5 days prior to procedure. Nsg staffaware. Signature: Damari Hernadez PA-C ADDENDUM 10/06/18 3:30PM Patient decided she would prefer to be d/c and follow up as an outpatientfor her cervical JOSE CARLOS. Message sent to VIA office to reach out to patientafter d/c to schedule JOSE CARLOS. She will need to hold her ASA 81mg x 5 daysprior to procedure. Damari Hernadez PA-C GLUCOSE METER POC Routine 10/06/2018 9:29 AM EDT IP CONSULT TO NEUROSURGERY Routine 10/06/2018 9:12 AM EDT Procedure Note - Mehran Sparrow APRN - 10/06/2018 9:51 AM EDTThis note is in progress. Neurosurgery Consult Dictated #[id number] Seen with , spoke with nursing 4 day Hx left neck and bilat shoulder pain without arm involvement Denies weakness, numbness Planned AAA repair on Friday MRI reviewed. DDD, DJD without significant neural impingement rec conservative Tx i.e. PT, jose carlos / facet inject. Has been off ASA for 1week No NSurg intervention ECG AND WAVEFORMS - TELEMETRY Routine 10/06/2018 7:39 AM EDT GLUCOSE METER POC Routine 10/05/2018 9:23 PM EDT MRI CERVICAL SPINE W WO CONTRAST STAT 10/05/2018 9:05 PM EDT ECG AND WAVEFORMS - TELEMETRY Routine 10/05/2018 7:05 PM EDT GLUCOSE METER POC Routine 10/05/2018 5:46 PM EDT XR CERVICAL SPINE AP AND LATERAL LENCHO 10/05/2018 3:21 PM EDT GLUCOSE METER POC Routine 10/05/2018 1:09 PM EDT NM MYOCARDIAL PERFUSION SPECT STRESS AND REST LENCHO 10/05/2018 9:[address] STRESS TEST LEXISCAN Routine 10/05/2018 9:35 AM EDT ECG AND WAVEFORMS - TELEMETRY Routine 10/05/2018 7:02 AM EDT GLUCOSE METER POC Routine 10/04/2018 9:06 PM EDT ECG AND WAVEFORMS - TELEMETRY Routine 10/04/2018 6:59 PM EDT GLUCOSE METER POC Routine 10/04/2018 6:04 PM EDT EC ECHOCARDIOGRAM COMPLETE W DOPPLER AND COLOR FLOW MAPPING Routine 10/04/2018 3:26 PM EDT GLUCOSE METER POC Routine 10/04/2018 11:01 AM EDT GLUCOSE METER POC Routine 10/04/2018 8:57 AM EDT ECG AND WAVEFORMS - TELEMETRY Routine 10/04/2018 7:33 AM EDT T4, FREE (THYROXINE) Add-On 10/04/2018 6:43 AM EDT T3 FREE Add-On 10/04/2018 6:43 AM EDT BASIC METABOLIC PANEL Routine 10/04/2018 6:43 AM EDT EK EKG 12 LEAD Routine 10/04/2018 12:05 AM EDT GLUCOSE METER POC Routine 10/03/2018 9:02 PM EDT MICROALBUMIN/CREAT ININE RATIO URINE Routine 10/03/2018 7:48 PM EDT ECG AND WAVEFORMS - TELEMETRY Routine 10/03/2018 7:16 PM EDT GLUCOSE METER POC Routine 10/03/2018 4:57 PM EDT TROPONIN-T HIGH SENSITIVITY BASELINE W/ REFLEX Timed 10/03/2018 2:31 PM EDT GLUCOSE METER POC Routine 10/03/2018 1:35 PM EDT ECG AND WAVEFORMS - TELEMETRY Routine 10/03/2018 12:02 PM EDT IP CONSULT TO VASCULAR SURGERY Routine 10/03/2018 11:11 AM EDT Procedure Note - August Chavarria MD - 10/03/2018 2:02 PM EDTThis note is in progress. Images from the original note were not included. Patient Name:Henrietta Walsh : 1945 Admit Date: 10/03/2018 7:18 AM LOS: 0 days HISTORY Interval History: Patient known to service with know large AAA needingrepair. Patient admitted for chest and L UE pain. Patient recently seenDr. Grissom and was cleared for surgery. Patient denies abdominal orback pain. LE warm. Patient with elevated troponin. MEDICAL HISTORY Scheduled Medications: insulin aspart U-100 1-5 Units Subcutaneous QID WM lidocaine 1 Patch Transdermal Daily [START ON 10/04/2018] lidocaine 1 Patch Transdermal Nightly nitroGLYCERIN 0.5 Inch Topical 3 times per day Infusions: Allergy: Allergies Allergen Reactions Wily Inhibitors Swelling angioedema No Known Allergies Last Recorded Vital Signs: Temp: 97.8 F (36.6 C) Pulse: 79 BP: 139/67 Resp: 18 SpO2: 96 % No intake or output data in the 24 hours ending 10/03/18 1402 LABS AND RADIOLOGY Pertinent Labs: CBC: CBC: Recent Labs 10/03/18 0748 WBC 8.7 HGB 13.2 HCT 38.4 MCV 95.6 PLT 241 BMP: Recent Labs 10/03/18 0748 NA 138 K 3.9 CL 98 CO2 27 BUN 14 CREATININE 0.64 CALCIUM 9.3 GLU 122* ABG Labs: Recent Labs 10/03/18 0748 ANIONGAP 13 Coagulation: Recent Labs 10/03/18 0748 INR 1.00 Imaging:Reviewed PHYSICAL EXAMINATION Physical Exam: ABD soft. Rest of PE unchanged. Active Hospital Problems Diagnosis *Chest pain Type 2 diabetes mellitus (HCC) HLD (hyperlipidemia) PVD (peripheral vascular disease) (HCC) AAA (abdominal aortic aneurysm) without rupture (HCC) MEDICAL DECISION MAKING Assessment: AAA and chest pain Plan: patient with AAA and chest pain. Patient with elevated troponin.Will have cardiology to see. Once cleared will proceed with PEVAR. This note was completed using voice recognition technology. Despite thewriter's best efforts to proof read, it may still contain unintendederrors. Please call with questions. Signed: August Chavarria MD 10/03/2018 2:02 PM IP CONSULT TO CARDIOLOGY Routine 10/03/2018 11:11 AM EDT Procedure Note - Roberto Landis MD - 10/03/2018 1:25 PM EDTThis note is in progress. Heart and Vascular Cardiology Consultation ADMISSION: 10/03/2018 PATIENT: Henrietta Walsh :1945, , CSN: [id number] PCP: Kana Valero MD Date:10/03/2018 at 1:26 PM [employer] Education Director: none I would like to thank Ken Wise MD for requesting me to see Ashley Walsh in consultation for chest pain Chief Complaint: Chief Complaint Patient presents with Shoulder Pain Pt feels she is having muscle spasms across both shoulders , denieschest pain. Denies SOB. Pt is a 73 year old female with a h/o DM, HLD, thyroid disease and sleepapnea with noncompliance with CPAP. Pt has a known AAA with recentcontained dissection and scheduled for endograft procedure next week on10/09/18. Pt presents to the Er with C/O left shoulder pain radiatingacross her upper back and shoulders. Pain started a few days. Constantpain since onset. Pain is exacerbated with movement of the upperextremities. Pt is unaware of any injury. Denies SOB, nausea,diaphoresis, orthopnea or edema. denies palpitations. C/O occasionallightheadedness due to pain. No improvement with tylenol. Pt receivedmorphine for pain in the ER. Her heart rate dropped into the 30-40's. Ptbecame diaphoretic and near syncope. Pt received Atropine and her heartrate improved. No strips from bradycardia Past Medical History Past Medical History: Diagnosis Date Breast cancer ([facility]) 12/27/11 IDC; nodes negative; [place] negative; Her2 neg Depression past Diabetes mellitus (HCC) IDDM ROMERO (dyspnea on exertion) Headache Hyperlipidemia Neuromuscular disorder ([facility]) left foot neuropathy,elise Osteoporosis Thyroid disease Unspecified sleep apnea has not used cpap in 5 yrs Medication No current facility-administered medications on file prior to encounter. Current Outpatient Medications on File Prior to Encounter Medication Sig Dispense Refill alcohol antiseptic pads (BD ALCOHOL SWABS TOP) Apply topically. anastrozole (ARIMIDEX) 1 mg tablet Take 1 Tab by mouth daily. (Patientnot taking: Reported on 09/22/2018) 90 Tab 3 anastrozole (ARIMIDEX) 1 mg tablet Take 1 mg by mouth daily. Aspirin 81 mg Take 81 mg by mouth daily. Blood Sugar Diagnostic (TRUE METRIX GLUCOSE TEST STRIP) Misc Strip byMisc.(Non-Drug; Combo Route) route. CALCIUM CARBONATE (CALCIUM 600 ORAL) Take by mouth every 24 hours. Denosumab (PROLIA) 60 mg/mL SubQ Syringe Subcutaneous (Inject under theskin) 60 mg. ERGOCALCIFEROL, VITAMIN D2, (VITAMIN D ORAL) Take 2,000 mg by mouthdaily. fenofibrate (LOFIBRA) 160 mg Oral Tablet Take 160 mg by mouth daily. FLUoxetine (PROZAC) 40 mg capsule Take 40 mg by mouth daily. gemfibrozil (LOPID) 600 mg tablet Take 600 mg by mouth 2 times daily(before meals). insulin detemir (LEVEMIR FLEXTOUCH U-100 INSULN SUBQ) Subcutaneous(Inject under the skin). insulin syringe-needle U-100 (BD INSULIN SYRINGE ULTRA-FINE) 0.3 mL 31gauge x 15 Misc Syringe by [facility]Non-Drug; Combo Route) route. INSULN ASP PRT/INSULIN ASPART (NOVOLOG MIX 70-30 SUBQ) Subcutaneous(Inject under the skin). 30 units at breakfast, and 45 units at lunch, and50 units at supper lancets (TRUEPLUS LANCETS) 30 gauge Misc Misc by Misc.(Non-Drug; ComboRoute) route. levothyroxine (SYNTHROID) 150 mcg tablet Take 150 mcg by mouth daily.Takes at bedtime lovastatin (MEVACOR) 40 mg tablet Take 40 mg by mouth nightly. metFORMIN (GLUCOPHAGE) 1,000 mg Take by mouth 2 times daily (withmeals). MULTI-VITAMIN ORAL Take by mouth. potassium chloride (K-DUR) 10 mEq Oral Tablet Sustained Release Take bymouth 2 times daily. triamcinolone (KENALOG) 0.1 % Top Cream Apply topically 3 times daily. Scheduled Meds: insulin aspart U-100 1-5 Units Subcutaneous QID WM nitroGLYCERIN 0.5 Inch Topical 3 times per day Continuous Infusions: Past Surgical History Past Surgical History: Procedure Laterality Date BACK SURGERY 1987 BREAST BIOPSY Left BREAST LUMPECTOMY 12/27/2011 RIGHT BREAST SEGMENTECTOMY SENTINEL LYMPH NODE DISSECTION ; Surgeon:Maggie Crook MD; Location: [facility] MAIN OR; Service: General BREAST LUMPECTOMY Right EYE SURGERY cataracts kulwant HYSTERECTOMY 1978 HYSTERECTOMY, TOTAL ABDOMINAL LUMBAR FUSION MOUTH SURGERY NECK SURGERY 1985 to remove saliva gland PAROTIDECTOMY Allergy Allergies Allergen Reactions Wily Inhibitors Swelling angioedema No Known Allergies Family History Family History Problem Relation Age of Onset Breast Cancer Other 43 maternal first cousin Cancer Other Breast Cancer Other 47 maternal cousin Breast Cancer Maternal Grandmother Cancer Maternal Grandmother Social History Social History Tobacco Use Smoking status: Former Smoker Years: 34.00 Last attempt to quit: 05/10/1999 Years since quittin.4 Smokeless tobacco: Never Used Substance Use Topics Alcohol use: No Review of Systems Review of Systems: The listed systems were reviewed and reveal thefollowing in addition to any already discussed in the HPI: Constitutional: No fever, chills, or weight loss Eyes: No visual disturbance HENT: No headache, hearing loss, epistaxis, sore throat, or hoarseness Lungs: No SOB, cough, hemoptysis, or pleuritic chest pain Cardiovascular: No chest pain, PND or orthopnea Endocrine: No polyuria, polydipsia, or polyphagia GI: No abdominal pain, nausea, vomiting, hematemesis, diarrhea,constipation, melena, hematochezia, or bright red blood per rectum : No dysuria, frequency, hesitancy, or hematuria Musculoskeletal: No myalgias or muscle weakness Neurologic: No focal numbness or weakness Skin: No edema, jaundice, or skin discoloration Psychiatric: No depression, homicidal or suicidal ideation Hematologic/Allergic: No history of blood clots, bleeding or easybruising Objective: BP 139/67 (BP Location: Left arm, Patient Position: Sitting) Pulse 79 Temp 97.8 F (36.6 C) (Oral) Resp 18 Ht 5' 2 (1.575 m) Wt 184lb 9.6 oz (83.7 kg) SpO2 96% BMI 33.76 kg/m Body mass index is 33.76 kg/m . Wt Readings from Last 3 Encounters: 10/03/18 184 lb 9.6 oz (83.7 kg) 10/01/18 186 lb (84.4 kg) 09/29/18 187 lb 9.6 oz (85.1 kg) General: alert, appears stated age and cooperative EENT: Mouth moist, No Scleral icterus, Normocephalic. Atraumatic Neck: No carotid bruits. Negative JVD Lung: clear to auscultation bilaterally Heart: regular rate and rhythm, S1, S2 normal, no murmur, click, rub orgallop Abdomen: soft Extremities: edema trace Pulses: 1-2+ and symmetric Skin: Warm and dry. Neuro: mental status, speech normal, alert and oriented x iii Mood: Good 24HR INTAKE/OUTPUT: No intake or output data in the 24 hours [id number]/15/19 1326 Diagnostic tests and labs Lab Results Component Value Date WBC 8.7 10/03/2018 HGB 13.2 10/03/2018 HCT 38.4 10/03/2018 PLT 241 10/03/2018 Lab Results Component Value Date CREATININE 0.64 10/03/2018 BUN 14 10/03/2018 NA 138 10/03/2018 K 3.9 10/03/2018 CL 98 10/03/2018 CO2 27 10/03/2018 No results found for: CHOLESTEROL, TRIG, HDL, LDLDIRECT, LDLCALC Lab Results Component Value Date ALT 21 10/03/2018 AST 17 10/03/2018 Lab Results Component Value Date TSH 0.101 (L) 10/01/2018 Lab Results Component Value Date INR 1.00 10/03/2018 No results found for: CKTOTAL, CKMB, CKMBINDEX, TROPONINI Xr Chest Ap Portable Result Date: 10/03/2018 Scattered irregular and linear opacities in the lungs bilaterally favoratelectasis or scarring. - - Ek Ekg 12 Lead Result Date: 10/03/2018 [facility] Kimberly ValverdeTest Date:2018-10-03 Pat Name: HENRIETTA WALSH Department: DEPIDPatient ID: [id number] Room: 5416 Gender:Female Manager Customer Service: Richar : [id number] By: [facility] Order Number: [id number] MD: Monroe Moulton [facility]ITAL[facility]asure[facility] Intervals AxisRate: 80 P: 24 NJ: 154QRS: 24 QRSD: 86T: 28 QT: 358QTc: 415Interpretive Statements SINUS RHYTHM LOW QRS VOLTAGE IN PRECORDIALLEADS NONSPECIFIC T-WAVE ABNORMALITY Electronically Signed On 10-03-201812:00:29 EDT by Monroe Moulton MD Ct Angiogram Aorta Chest W/contrast Result Date: 10/03/[address] evidence of acute thoracic aortic pathology. Specifically, negativefor dissection and aneurysm. No evidence of pulmonary thromboembolicdisease. At least mild upper lobe predominant emphysema with minimalpulmonary fibrotic changes. No suspected acute pulmonary process. Noconvincing CT evidence of metastatic disease within the chest. - - ECG: NSR with no ST elevation or depression Telemetry: normal sinus Echocardiogram: not done The most recent cardiovascular imaging studies availabe in [facility] EMR werereviewed at time of consultation Assessment: Code Status Full Code Active Hospital Problems Diagnosis *Chest pain Type 2 diabetes mellitus (HCC) HLD (hyperlipidemia) PVD (peripheral vascular disease) (HCC) AAA (abdominal aortic aneurysm) without rupture (HCC) Plan: Chest pain-atypical -No established h/o ASHD -Trop 85=>74 -no ischemic changes on EKG -Check echo -Continue ASA AAA -vascular surgery consulted -procedure date moved to Friday or Friday Diabetes -per attending Hyperlipidemia -on mevacor and Lofibra SIDE BOSS Hypothyroidism -TSH=0.101 -per attending Bradycardia -after receiving morphine in the ER. Resolved with Atropine. [facility]le[facility] or on the paper chart, -monitor telemetry Check echo Conservative mangement ATTENDING PHYSICIAN NOTE/ATTESTATION: I have reviewed other provider notes as well as the patient's past andpresent medical problems, medications, allergies, family history, socialhistory, laboratory and radiology studies. I have personally taken adetailed history and performed a detailed physical examination of thispatient. A cardiology team advanced practitioner also participated inthis patient's care. I have reviewed their history, physical, assessmentand plan. My findings are below and may differ slightly from theassessment and plan of the advanced practitioner. Patient is a 73 y.o with history of DM, HLD, thyroid disease and sleepapnea with And known AAA with recent contained dissection and scheduledfor endograft procedure next week on 10/09/18. Pt presents to the Er withC/O left shoulder pain radiating across her upper back and shoulders.Pain started a few days. Constant pain since onset. Pain is exacerbatedwith movement of the upper extremities. Pt is unaware of any injury.Denies SOB, nausea, diaphoresis, orthopnea or edema. denies palpitations.C/O occasional lightheadedness due to pain. No improvement with tylenol.Pt received morphine for pain in the ER. Her heart rate dropped into mge03-05's. Pt became diaphoretic and near syncope. Pt received Atropineand her heart rate improved. No strips from bradycardia . Trop noted jo ann mildly elevated. No significant ECG changes Vitals are noted NAD, awake, alert RRR, no m/r/g, No JVD CTABL ABD NT/ND No edema STUDIES and LABS have been reviewed in detail. ASSESSMENT and PLAN: Henrietta Walsh is a 73 y.o. female and has the following medicalproblems: Chest Pain AAA with plans for endograft intervention this week Diabetes HLD Diabetes Plan Atypical chest pressure symptoms, symptoms of discomfort mostly MSK andreproducible especially around shoulders as mentioned Currently doing well. Plan will be conservative management withEchocardiogram to evaluate LV function. Baby ASA and BB Plan for intervention to AAA this week Elevated troponin likely due to demand ischemia Will follow up on results. Will recommend to proceed with plan vascularsurgery consistent significant aneurysm size. Outpatient ischemic evaluation which should not be a limitation tosurgery. For now goal will be medical optimization prior to surgery. Roberto Landis MD 10/03/2018 2:43 PM This chart was completed using voice recognition technology and maycontain unintended errors TROPONIN-T HIGH SENSITIVITY BASELINE W/ REFLEX Timed 10/03/2018 9:[address] ANGIOGRAM AORTA CHEST W/CONTRAST STAT 10/03/2018 8:45 AM EDT XR CHEST AP PORTABLE LENCHO 10/03/2018 8:10 AM EDT HEMOGLOBIN A1C Routine 10/03/2018 7:48 AM EDT TROPONIN-T HIGH SENSITIVITY BASELINE W/ REFLEX STAT 10/03/2018 7:48 AM EDT PARTIAL THROMBOPLASTIN TIME STAT 10/03/2018 7:48 AM EDT PT / INR STAT 10/03/2018 7:48 AM EDT COMPREHENSIVE METABOLIC PANEL STAT 10/03/2018 7:48 AM EDT CBC WITH DIFF STAT 10/03/2018 7:48 AM EDT EK EKG 12 LEAD STAT 10/03/2018 7:05 AM EDT BB HISTORY CHECK Routine 10/01/2018 1:37 PM EDT Preop testing AAA (abdominal aortic aneurysm) without rupture SURGERY DATE Routine 10/01/2018 1:37 PM EDT Preop testing AAA (abdominal aortic aneurysm) without rupture ANTIBODY SCREEN IGG Routine 10/01/2018 1:37 PM EDT Preop testing AAA (abdominal aortic aneurysm) without rupture ABORH Routine 10/01/2018 1:37 PM EDT Preop testing AAA (abdominal aortic aneurysm) without rupture PREADMISSION TYPE AND SCREEN Routine 10/01/2018 1:37 PM EDT Preop testing AAA (abdominal aortic aneurysm) without rupture THYROID STIMULATING HORMONE Routine 10/01/2018 1:37 PM EDT CBC WITH DIFF Routine 10/01/2018 1:37 PM EDT Preop testing AAA (abdominal aortic aneurysm) without rupture BASIC METABOLIC PANEL Routine 10/01/2018 1:37 PM EDT Preop testing AAA (abdominal aortic aneurysm) without rupture POCT EKG Routine 09/29/2018 3:21 PM EDT Establishing care with new doctor, encounter for Preoperative clearance CT ANGIO ABDOMINAL AORTA AND BILAT ILIOFEMORAL RUNOFF W CONTRAST STAT 09/22/2018 5:15 PM EDT AAA (abdominal aortic aneurysm) without rupture CREATININE ISTAT Routine 09/22/2018 5:04 PM EDT DX BONE DENSITY AXIAL SKELETON Routine 07/15/2013 8:20 AM EDT History of breast cancer Encounter for long-term (current) use of other medications MM MAMMO DIGITAL DIAGNOSTIC W CAD BILAT Routine 07/07/2013 9:12 AM EDT Breast cancer (HCC) CT CHEST W CONTRAST Routine 12/07/2012 9:13 AM EDT Other diseases of lung, not elsewhere classified CT CHEST WO CONTRAST Routine 08/20/2012 1:08 PM EDT Chest pain CT CHEST RADIATION THERAPY PLANNING WO CONTRAST Routine 02/07/2012 4:02 PM EDT Malignant neoplasm of breast (female), unspecified site (HCC) SCANNED PATHOLOGY REPORT 01/20/2012 12:00 AM EDT SCANNED PRE/POST PROCEDURES 12/31/2011 2:51 PM EDT SCANNED RHYTHM STRIPS 12/31/2011 2:50 PM EDT SCANNED ANESTHESIA FORMS 12/31/2011 2:50 PM EDT ADDENDUM REPORT Routine 12/27/2011 3:00 PM EDT ADDENDUM REPORT Routine 12/27/2011 3:00 PM EDT PATHOLOGY TISSUE REQUEST Routine 12/27/2011 3:00 PM EDT PATHOLOGY TISSUE REQUEST Routine 12/27/2011 3:00 PM EDT PATHOLOGY TISSUE REPORT Routine 12/27/2011 3:00 PM EDT BREAST/AXILLARY SENTINEL LYMPH NODE BIOPSY/DISSECTION 12/27/2011 2:19 PM EDT RIGHT BREAST MASS Special Needs [facility]NA CPT;40259/27693 BREAST LUMPECTOMY/ SEGMENTECTOMY/ AXILLARY SENTINEL NODE BIOPSY (COVERS MAMMOGRAM GUIDED/NEEDLE PLACEMENT OR SHLOMO JAVA SECURITY ENGINEER) 12/27/2011 2:19 PM EDT RIGHT BREAST MASS Special Needs [facility] CPT;37420/83453 EK EKG 12 LEAD Routine 12/19/2011 8:46 PM EDT DIFFERENTIAL Routine 12/19/2011 1:00 PM EDT BASIC METABOLIC PANEL Routine 12/19/2011 1:00 PM EDT CBC WITH DIFF Routine 12/19/2011 1:00 PM EDT HB US BREAST(S) UNILAT OR BILAT Routine 12/09/2011 10:16 AM EDT Breast lesion MM OUTSIDE FILMS FOR COMPARISON Today 12/09/2011 8:45 AM EDT MM OUTSIDE FILMS FOR COMPARISON Today 12/09/2011 8:45 AM EDT Results * FL RAD FOLLOW UP WO IMAGING (03/29/2024 2:15 PM EST) Narrative PACS - 03/29/2024 2:16 PM EST Please see the patient's progress notes for the detailed report. us Terry Lo MD IMG FLUOROSCOPY ORDERABLES Aide l Result PACS * CT ABDOMEN PELVIS WO ORAL WITH IV CONTRAST (03/29/2024 12:50 PM EST) Anatomical Region Laterality Modality Abdomen, Pelvis, Chest, Hip Comp uted Tomography 03/29/2024 12:5 0 PM EST Impressions 03/29/2024 4:08 PM EST The percutaneous drainage catheter placed on March 05, 2024 at the gallbladder fossa abscess has been withdrawn and is not at the intended position. Recommend removing the catheter. The collection at the gallbladder fossa is a smaller with the resolution of air within the collection. Increased amount of ascites. Small left anterior pelvic wall fluid collection could be a seroma. CODE LENCHO: Results will be conveyed to the patient's care team by Radiology personnel as soon as possible following completion of this dictation. Note: Radiology results need to be interpreted within a comprehensive clinical context. If you have questions about the radiology report, please contact the office of the ordering clinician. Narrative 03/29/2024 4:[address] ABDOMEN AND PELVIS WITH CONTRAST (FAST), 03/29/2024 12:50 PM CLINICAL HISTORY: K65.1-Peritoneal abscess (HCC)-ICD-10-CM. COMPARISON: March 04, 2024 PROCEDURE COMMENTS: Multi-detector CT scanning of the abdomen and pelvis with multiplanar reformatting per expedited protocol. Isovue 370 IV contrast given as recorded in EPIC. Dose 1 : CT DLP Total : 709.03 mGycm DLP Spiral Max : 706.09 mGycm Maximum CTDI Vol : 13.64 mGy SSDE : 11.3212 mGy SSDE Diameter : 40.9 cm SSDE Source : Lat FINDINGS: LOWER THORAX: Bibasilar pulmonary fibrosis. ABDOMEN AND PELVIS: The drainage catheter placed at the gallbladder fossa abscess on March 05, 2024 has been pulled back from the previous position. The pigtail is uncurled with the tip of the catheter less than a centimeter within the hepatic parenchyma and some of the sideholes at the abdominal wall and 1 within the ascites between the liver and the abdominal wall. The fluid collection at the gallbladder fossa is smaller measuring about 3.6 x 1.4 x 2 cm. Previously demonstrated air within this collection has resolved. Increased amount of ascites in the abdomen and pelvis especially at the upper abdomen. No pneumoperitoneum. Spleen, bilateral adrenal glands, are unremarkable. Similar bilateral renal cysts. No hydronephrosis. Pancreatic parenchyma is unremarkable although there is the mesenteric edema which also surrounds the pancreas. Similar paraesophageal varices. 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 No dominant retroperitoneal adenopathy. No bowel obstruction. Diverticulosis of the colon. No evidence of an appendicitis. Similar duodenal diverticulum. Absent uterus. Unremarkable bladder. Development of small fluid collection at the left paramedian anterior pelvic wall subcutaneous fat measuring about 2.5 x 1.4 x 2.9 cm. Could be a seroma. No acute osseous abnormality. Procedure Note Marcia Lagos MD - 03/29/2024 CT ABDOMEN AND PELVIS WITH CONTRAST (FAST), 03/29/2024 12:50 PM CLINICAL HISTORY: K65.1-Peritoneal abscess (HCC)-ICD-10-CM. COMPARISON: March 04, 2024 PROCEDURE COMMENTS: Multi-detector CT scanning of the abdomen and pelviswith multiplanar reformatting per expedited protocol. Isovue 370 IV contrastgiven as recorded in EPIC. Dose 1 : CT DLP Total : 709.03 mGycm DLP Spiral Max : 706.09 mGycm Maximum CTDI Vol : 13.64 mGy SSDE : 11.3212 mGy SSDE Diameter : 40.9 cm SSDE Source : Lat FINDINGS: LOWER THORAX: Bibasilar pulmonary fibrosis. ABDOMEN AND PELVIS: The drainage catheter placed at the gallbladderfossa abscess on March 05, 2024 has been pulled back from the previousposition. The pigtail is uncurled with the tip of the catheter less than acentimeter within the hepatic parenchyma and some of the sideholes at the abdominalwall and 1 within the ascites between the liver and the abdominal wall. The fluid collection at the gallbladder fossa is smaller measuring about3.6 x 1.4 x 2 cm. Previously demonstrated air within this collection hasresolved. Increased amount of ascites in the abdomen and pelvis especially at theupper abdomen. No pneumoperitoneum. Spleen, bilateral adrenal glands, are unremarkable. Similar bilateralrenal cysts. No hydronephrosis. Pancreatic parenchyma is unremarkable althoughthere is the mesenteric edema which also surrounds the pancreas. Similar paraesophageal varices. 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 No dominant retroperitoneal adenopathy. No bowel obstruction. Diverticulosis of the colon. No evidence of an appendicitis. Similar duodenal diverticulum. Absent uterus. Unremarkable bladder. Development of small fluid collection at the left paramedian anteriorpelvic wall subcutaneous fat measuring about 2.5 x 1.4 x 2.9 cm. Could be aseroma. No acute osseous abnormality. IMPRESSION: The percutaneous drainage catheter placed on March 05, 2024 at the gallbladder fossa abscess has been withdrawn and is not at theintended position. Recommend removing the catheter. The collection at the gallbladder fossa is a smaller with the resolutionof air within the collection. Increased amount of ascites. Small left anterior pelvic wall fluid collection could be a seroma. CODE LENCHO: Results will be conveyed to the patient's care team byRadiology personnel as soon as possible following completion of this dictation. Note: Radiology results need to be interpreted within a comprehensiveclinical context. If you have questions about the radiology report, please contactthe office of the ordering clinician. Terry Lo MD IMG CT ORDERABLES Final Result * (ABNORMAL) CREATININE ISTAT (03/29/2024 12:49 PM EST) Only the most recent of5 resultswithin the time period is included. [facility] Creatinine-iST AT 0.5(L) 0.6 - 1.3 mg/dL 03/29/2024 12:50 PM EST [facility] Blood BLOOD SPECIMEN / Unknown 03/29/2024 12:49 PM EST 03/29/2024 12:50 PM EST Terry Lo MD POINT OF CARE TEST ORDERABLES F inal Result [facility] [address] [place] [id number] * (ABNORMAL) GLUCOSE METER POC (03/12/2024 12:21 PM EST) Only the most recent of61 resultswithin the time period is included. [facility] Signature Glucose Meter POC 167(H) 70 - 100 mg/dL 03/12/2024 12:22 PM EST [facility] Sample Type Capillary 03/12/2024 12:22 PM EST [facility] Patient Status Non-Critical Patient 03/12/2024 12:22 PM EST [facility] Blood BLOOD SPECIMEN / Unknown 03/12/2024 12:21 PM EST 03/12/2024 12:22 PM EST Torres Johnston MD POINT OF CARE TEST ORDERABLES Final Result [facility] [address] [place] [address] * (ABNORMAL) CBC WITH DIFF (03/12/2024 5:29 AM EST) Only the most recent of14 resultswithin the time period is included. WBC 5.4 3.7 - 10.3 x10(3)/mc L 03/12/2024 5:55 AM EST [facility] RBC 2.14(L) 3.90 - 5.20 x10(6)/mc L 03/12/2024 5:55 AM EST [facility] Hgb 7.3(L) 11.2 - 15.7 g/dL 03/12/2024 5:55 AM EST [facility] Hct 22.6(L) 34.0 - 45.0 % 03/12/2024 5:55 AM EST [facility] MCV 105.6(H) 80.0 - 100.0 fL 03/12/2024 5:55 AM EST [facility] MCH 34.1(H) 26.0 - 34.0 pg 03/12/2024 5:55 AM EST [facility] MCHC 32.3 30.7 - 35.5 g/dL 03/12/2024 5:55 AM EST [facility] RDW 17.9(H) <=14.9 % 03/12/2024 5:55 AM EST [facility] Platelet 140(L) 155 - 369 x10(3)/mc L 03/12/2024 5:55 AM [facility] MPV 10.1 8.8 - 12.5 fL 03/12/2024 5:55 AM [facility] NRBC Auto % 0.6(H) <=0.0 % 03/12/2024 5:55 AM [facility] NRBC# 0.0 x10(3)/mc L 03/12/2024 5:55 AM [facility] Neut Percent 55.7 % 03/12/2024 5:55 AM [facility] Comment:Neutrophils equals s egs plus bands Imm Gran% 2.0 % 03/12/2024 5:55 AM [facility] Comment:Automated count of m etamyelocytes, myelocytes and promyelocytes. IG >1% represents a left shift and provides an early indication of an infection or inflammatory process. Lymph Percent 25.9 % 03/12/2024 5:55 AM [facility] Towner Percent 10.2 % 03/12/2024 5:55 AM [facility] Eos Percent 5.8 % 03/12/2024 5:55 AM [facility] Baso Percent 0.4 % 03/12/2024 5:55 AM [facility] Neut # 3.0 1.6 - 6.1 x10(3)/mc L 03/12/2024 5:55 AM [facility] Comment:Neutrophils equals s egs plus bands IMMGRAN# 0.1 0.0 - 0.1 x10(3)/mc L 03/12/2024 5:55 AM [facility] Comment:Automated count of m etamyelocytes, myelocytes and promyelocytes. An absolute IG <0.1 is reported as 0.0. Lymph # 1.4 1.2 - 3.9 x10(3)/mc L 03/12/2024 5:55 AM [facility] Towner # 0.6 0.3 - 0.9 x10(3)/mc L 03/12/2024 5:55 AM [facility] Eos# 0.3 0.0 - 0.5 x10(3)/mc L 03/12/2024 5:[address] [facility] Baso # 0.0 0.0 - 0.1 x10(3)/mc L 03/12/2024 5:55 AM EST [facility] Blood BLOOD SAMPLE TAKEN FROM CENTRAL LINE / Unknown Venipuncture / Unknown 03/12/2024 5:29 AM EST 03/12/2024 5:52 AM EST us Sarita Telles SURGICAL ONCOLOGIST HEMATOLOGY ORDERABLES Final Result [facility] [address] [facility] [place] [address] * (ABNORMAL) COMPREHENSIVE METABOLIC PANEL (03/12/2024 5:29 AM EST) Only the most recent of4 resultswithin the time period is included. Sodium 136 136 - 145 mmol/L 03/12/2024 6:13 AM [facility] Potassium 3.6 3.5 - 5.0 mmol/L 03/12/2024 6:13 AM [facility] Chloride 103 98 - 107 mmol/L 03/12/2024 6:13 AM [facility] Total CO2 25 22 - 29 mmol/L 03/12/2024 6:13 AM [facility] Anion Gap 8 7 - 16 mmol/L 03/12/2024 6:13 AM [facility] Calcium 7.4(L) 8.8 - 10.4 mg/dL 03/12/2024 6:13 AM [facility] Glucose Lvl 182(H) 70 - 99 mg/dL 03/12/2024 6:13 AM [facility] BUN 8 8 - 23 mg/dL 03/12/2024 6:13 AM [facility] Creatinine 0.66 0.51 - 1.30 mg/dL 03/12/2024 6:13 AM [facility] Albumin 2.2(L) 3.2 - 4.6 gm/dL 03/12/2024 6:13 AM EST [facility] Total Protein 4.6(L) 6.4 - 8.3 gm/dL 03/12/2024 6:13 AM EST [facility] Bili Total 0.4 0.2 - 1.3 mg/dL 03/12/2024 6:13 AM EST [facility] ALT 14 <=41 U/L 03/12/2024 6:13 AM EST [facility] AST 29 <=40 U/L 03/12/2024 6:13 AM EST [facility] Alk Phos 67 36 - 123 U/L 03/12/2024 6:13 AM EST [facility] eGFR (CKD-EPIcr 2020) 89 >=60 mL/min/1.7 3 m2 03/12/2024 6:13 AM EST [facility] Comment:Estimated GFR was ca lculated using the CKD-EPIcr (2020) equation refit without race. The equation is recommended by the National [employer] - [place] Neph[employer] Task Force. Blood BLOOD SAMPLE TAKEN FROM CENTRAL LINE / Unknown Venipuncture / Unknown 03/12/2024 5:29 AM EST 03/12/2024 5:52 AM EST us Sarita Telles SURGICAL ONCOLOGIST CHEMISTRY ORDERABLES Final Result [facility] [address] [place] [id number] * IR PICC INSERTION EQUAL OR > 5 YEARS (03/11/2024 4:12 PM EST) Anatomical Region Laterality Modality Interventional R adiology 03/11/2024 4:12 PM EST Impressions 03/11/2024 4:22 PM EST SUCCESSFUL AND UNCOMPLICATED ULTRASOUND AND FLUOROSCOPICALLY GUIDED PLACEMENT OF PICC. PICC READY FOR IMMEDIATE USE. - Note: Radiology results need to be interpreted within a comprehensive clinical context. If you have questions about the radiology report, please contact the office of the ordering clinician. Narrative 03/11/2024 4:22 PM EST ULTRASOUND AND FLUOROSCOPICALLY GUIDED PICC LINE INSERTION: 03/11/2024 4:12 PM CLINICAL HISTORY: ICD-10, Z45.2, encounter for adjustment and management of vascular access device. TECHNICAL FACTORS AND FINDINGS: Procedure was performed by Pippa Tanner PA-C and Terry Lo M.D.. Ultrasound interrogation performed of the basilic vein. It is shown to be patent and compressible. This was documented with a permanent image. The catheter was placed using all elements of maximal sterile barrier technique as well as all elements of sterile ultrasound technique. Following sterile skin preparation and local anesthesia under ultrasound guidance the vein was punctured. This allowed guide wire and introducer sheath insertion. Through the introducer sheath a PICC was inserted. Catheter tip was positioned at the cavo-atrial junction. This was documented with a single fluoroscopic spot film. Catheter was cut to 39 cm. Fluoroscopy time 1 minutes. Catheter aspirated and flushed freely. The catheter was secured to the skin surface. A sterile dressing was applied. Patient tolerated the procedure well and left the Radiology Department in stable condition. Procedure Note Terry Lo MD - 03/11/2024 ULTRASOUND AND FLUOROSCOPICALLY GUIDED PICC LINE INSERTION: 44:12 PM CLINICAL HISTORY: ICD-10, Z45.2, encounter for adjustment and managementof vascular access device. TECHNICAL FACTORS AND FINDINGS: Procedure was performed by Pippa Tanner PA-C and Terry Lo M.D.. Ultrasound interrogation performed of the basilic vein. It is shown jo ann patent and compressible. This was documented with a permanent image. The catheter was placed using all elements of maximal sterile barriertechnique as well as all elements of sterile ultrasound technique. Following sterileskin preparation and local anesthesia under ultrasound guidance the vein was punctured. This allowed guide wire and introducer sheath insertion.Through the introducer sheath a PICC was inserted. Catheter tip was positioned atthe cavo-atrial junction. This was documented with a single fluoroscopic spotfilm. Catheter was cut to 39 cm. Fluoroscopy time 1 minutes. Catheter aspirated and flushed freely. The catheter was secured to theskin surface. A sterile dressing was applied. Patient tolerated the procedurewell and left the Radiology Department in stable condition. IMPRESSION: SUCCESSFUL AND UNCOMPLICATED ULTRASOUND AND FLUOROSCOPICALLY GUIDED PLACEMENT OF PICC. PICC READY FOR IMMEDIATE USE. - Note: Radiology results need to be interpreted within a comprehensiveclinical context. If you have questions about the radiology report, please contactthe office of the ordering clinician. us Sarita Telles APRN IMG IR ORDERABLES Final Res ult * (ABNORMAL) BASIC METABOLIC PANEL (03/10/2024 5:53 AM EST) Only the most recent of12 resultswithin the time period is included. Sodium 138 136 - 145 mmol/L 03/10/2024 9:41 AM EST [facility] Potassium 4.0 3.5 - 5.0 mmol/L 03/10/2024 9:41 AM EST [facility] Chloride 105 98 - 107 mmol/L 03/10/2024 9:41 AM EST [facility] Total CO2 24 22 - 29 mmol/L 03/10/2024 9:41 AM EST [facility] Anion Gap 9 7 - 16 mmol/L 03/10/2024 9:41 AM EST [facility] Calcium 7.7(L) 8.8 - 10.4 mg/dL 03/10/2024 9:41 AM EST [facility] Glucose Lvl 120(H) 70 - 99 mg/dL 03/10/2024 9:41 AM EST [facility] BUN 8 8 - 23 mg/dL 03/10/2024 9:41 AM EST [facility] Creatinine 0.64 0.51 - 1.30 mg/dL 03/10/2024 9:41 AM EST [facility] eGFR (CKD-EPIcr 2020) 89 >=60 mL/min/1.7 3 m2 03/10/2024 9:41 AM EST [facility] Comment:Estimated GFR was ca lculated using the CKD-EPIcr (2020) equation refit without race. The equation is recommended by the [employer] Kid[employer] - [place] Neph[employer] Task Force. Blood VENOUS BLOOD / Unknown Venipuncture / Unknown 03/10/2024 5:53 AM EST 03/10/2024 6:58 AM EST us Torres Johnston MD CHEMISTRY ORDERABLES Final Re sult [facility] [address] [facility], [address] [place], [place] [id number] [facility] [address] [place] [address] * EC ECHOCARDIOGRAM LIMITED (03/09/2024 9:58 AM EST) MITRAL REGURGITATION trace PYRAMIS Ejection Fraction 55-60% PYRAMIS LV DIASTOLIC PLAX 4.48 cm PYRAMIS Anatomical Region Laterality Modality Electrocardiogra phy 03/09/2024 9:39 AM EST Impressions 03/09/2024 2:27 PM EST Conclusions * Left ventricular chamber dimension is normal. * Left ventricular function is normal with an estimated ejection fraction of 55-60%. * Left ventricular segmental wall motion is normal. Narrative Procedure Note Carlos Castro MD - 03/09/2024 IMPRESSION Conclusions * Left ventricular chamber dimension is normal. * Left ventricular function is normal with an estimated ejectionfraction of 55-60%. * Left ventricular segmental wall motion is normal. us Sarita Telles APRN IMG ECHO ORDERABLES Final R esult * EXTRA GOLD SST (03/09/2024 6:12 AM EST) Only the most recent of3 resultswithin the time period is included. Blood VENOUS BLOOD / Unknown Venipuncture / Unknown 03/09/2024 6:12 AM EST 03/09/2024 7:18 AM EST us Torres Johnston MD CHEMISTRY ORDERABLES Final Re sult [facility] [address] [place] [id number] * XR CHEST AP PORTABLE (03/08/2024 10:29 AM EST) Only the most recent of4 resultswithin the time period is included. Anatomical Region Laterality Modality Chest Radiographic Wilberto ging 03/08/2024 10:2 9 AM EST Impressions 03/08/2024 10:42 AM EST Patchy airspace disease in the right lung base and right lung apex, atelectasis versus pneumonia. - Note: Radiology results need to be interpreted within a comprehensive clinical context. If you have questions about the radiology report, please contact the office of the ordering clinician. Narrative 03/08/2024 10:42 AM EST XR CHEST AP PORTABLE, 03/08/2024 10:29 AM CLINICAL HISTORY: -increased SOB w exertion COMPARISON: February 23, 2024. PROCEDURE COMMENTS: AP portable technique. FINDINGS: Support devices: No visible support devices. Heart size normal. Pulmonary vasculature within normal limits. Volume loss in the right chest with patchy airspace disease in the right lung base and right lung apex. No definite pleural effusion. No pneumothorax. Pigtail drain noted overlying the upper right abdomen. Procedure Note Roberto Seth MD - 03/08/2024 XR CHEST AP PORTABLE, 03/08/2024 10:29 AM CLINICAL HISTORY: -increased SOB w exertion COMPARISON: February 23, 2024. PROCEDURE COMMENTS: AP portable technique. FINDINGS: Support devices: No visible support devices. Heart size normal. Pulmonary vasculature within normal limits. Volume lossin the right chest with patchy airspace disease in the right lung base andright lung apex. No definite pleural effusion. No pneumothorax. Pigtail drainnoted overlying the upper right abdomen. IMPRESSION: Patchy airspace disease in the right lung base and right lung apex,atelectasis versus pneumonia. - Note: Radiology results need to be interpreted within a comprehensiveclinical context. If you have questions about the radiology report, please contactthe office of the ordering clinician. Torres Johnston MD IMG DIAGNOSTIC IMAGING ORDERA BLES Final Result * HEMOGLOBIN A1C (03/08/2024 5:24 AM EST) Only the most recent of2 resultswithin the time period is included. Hgb A1C 5.5 4.2 - 5.6 % 03/08/2024 12:22 PM EST [facility] Est. Avg Glucose 111 mg/dL 03/08/2024 12:22 PM EST [facility] Blood VENOUS BLOOD / Unknown Venipuncture / Unknown 03/08/2024 5:24 AM EST 03/08/2024 7:11 AM EST Narrative [facility] - 03/08/2024 12:22 PM EST REFERENCE RANGE: Normal: 4.0-5.6% Pre-diabetes: 5.7-6.4% Provisional diagnosis of diabetes: >6.4% Hgb F>10% and anything which shortens red cell survival, such as hemolytic anemia, or unstable hemoglobin variants such as HbSS, HbSC, or HbCC, will lower the HbA1c value associated with a given level of glycemic control. Jojo Rinaldi APRN CHEMISTRY ORDERABLES Aide l Result Performing Organization Address [facility] Co de Phone Number [facility] [address] [facility], [place] [address] [facility] [address] [place] [address] * (ABNORMAL) NT PROBNP (03/08/2024 5:23 AM EST) NT Pro-BNP 2,866(H) <=624 pg/mL 03/08/2024 10:06 AM EST [facility] Blood VENOUS BLOOD / Unknown Venipuncture / Unknown 03/08/2024 5:23 AM EST 03/08/2024 7:13 AM EST Narrative [facility] - 03/08/2024 10:06 AM EST An NT pro-BNP level less than 300 pg/mL in any patient, regardless of age, effectively rules out acute CHF with a 99% negative predictive value. Ingestion of walker doses of biotin (>5 mg/day) taken within 8 hours of drawing blood sample can interfere with this immunoassay test. Torres Johnston MD CHEMISTRY ORDERABLES Final Re sult Performing Organization Address [facility] Co de Phone Number [facility] [address] [place] [phone] * (ABNORMAL) HEPATIC FUNCTION PANEL (03/08/2024 5:23 AM EST) Only the most recent of2 resultswithin the time period is included. Total Protein 4.7(L) 6.4 - 8.3 gm/dL 03/08/2024 7:42 AM EST [facility] Albumin 2.1(L) 3.2 - 4.6 gm/dL 03/08/2024 7:42 AM EST [facility] Bili Direct 0.3 0.0 - 0.3 mg/dL 03/08/2024 7:42 AM EST [facility] Bili Total 0.6 0.2 - 1.3 mg/dL 03/08/2024 7:42 AM EST [facility] AST 27 <=40 U/L 03/08/2024 7:42 AM EST [facility] ALT 12 <=41 U/L 03/08/2024 7:42 AM EST [facility] Alk Phos 64 36 - 123 U/L 03/08/2024 7:42 AM EST [facility] Blood VENOUS BLOOD / Unknown Venipuncture / Unknown 03/08/2024 5:23 AM EST 03/08/2024 7:13 AM EST us Torres Johnston MD CHEMISTRY ORDERABLES Final Re sult Performing Organization Address [facility] de Phone Number [facility] [address] [place] [id number] * BLOOD CULTURE (NO STAIN) (03/07/2024 8:45 AM EST) Only the most recent of8 resultswithin the time period is included. Culture Result No Growth at 120 hours. BLOOD CULTURE (NO STAIN) 03/12/2024 1:01 PM EST [facility] Blood VENOUS BLOOD / Unknown Venipuncture / Unknown 03/07/2024 8:45 AM EST 03/07/2024 9:04 AM EST Torres Johnston MD MICROBIOLOGY - GENERAL ORDERA BLES Final Result Performing Organization Address City/[facility] Co de Phone Number [facility] [address] [facility] , [address] [place] [phone] * CORONAVIRUS 2019 (03/06/2024 9:37 PM EST) [facility] CORONAVIRUS [id number] Not Detected Not Detected 03/06/2024 10:06 PM EST [facility] Comment: Caution should be exercised when interpreting a result of 'Not Detected'. A result of 'Not Detected' does not rule out COVID-19 and cannot be used as sole basis for treatment or patient management decisions. If COVID-19 is still suspected following a 'Not Detected' result, re-testing should be considered. This test is a real-time RT-PCR test intended for the qualitative detection of nucleic acid from the SARS-CoV-2 in upper respiratory samples collected from individuals suspected of COVID-19. Not Detected results do not preclude COVID-19 or other respiratory viruses and should not be used as the sole basis for treatment or other patient management decisions. CHANTELL Fact Sheet for Providers and Patients: CHANTELL Fact Sheet for Providers: https://www.fda.gov/media/996109/download CHANTELL Fact Sheet for Patients: https://www.fda.gov/media/909065/download Test is performed on the [employer] CHANTELL platform under the FDA's Emergency Use Authorization (EUA). Performed at [address] [address] CLIA [id number] Swab BOTH ANTERIOR NARES / Unknown 03/06/2024 9:37 PM EST 03/06/2024 9:45 PM EST Maria Luisa Royal APRN MICROBIOLOGY - GENERAL ORDERA BLES Final Result [facility] [address] [place] [id number] * (ABNORMAL) BLOOD CULTURE JONATAN GRAM POS (03/06/2024 9:33 AM EST) [facility] BACILLUS CEREUS GROUP Not Detected Not Detected 03/07/2024 4:50 AM EST [facility] BACILLUS SUBTILIS GROUP Not Detected Not Detected 03/07/2024 4:50 AM EST [facility] CORYNEBACTERIUM SPECIES Not Detected Not Detected 03/07/2024 4:50 AM EST [facility] ENTEROCOCCUS SPECIES Detected(AA) Not Detected 03/07/2024 4:50 AM EST [facility] ENTEROCOCCUS FAECALIS Detected(AA) Not Detected 03/07/2024 4:50 AM EST [facility] ENTEROCOCCUS FAECIUM Not Detected Not Detected 03/07/2024 4:50 AM EST [facility] LACTOBACILLUS SPECIES Not Detected Not Detected 03/07/2024 4:50 AM EST [facility] LISTERIA SPECIES Not Detected Not Detected 03/07/2024 4:50 AM EST [facility] LISTERIA MONOCYTOGENES Not Detected Not Detected 03/07/2024 4:50 AM EST [facility] MICROCOCCUS SPECIES Not Detected Not Detected 03/07/2024 4:50 AM EST [facility] CUTIBACTERIUM ACNES (PROPIONIBACTERIUM ACNES) Not Detected Not Detected 03/07/2024 4:50 AM EST [facility] STAPHYLOCOCCUS SPECIES Not Detected Not Detected 03/07/2024 4:50 AM EST [facility] STAPHYLOCOCCUS AUREUS Not Detected Not Detected 03/07/2024 4:50 AM EST [facility] STAPHYLOCOCCUS EPIDERMIDIS Not Detected Not Detected 03/07/2024 4:50 AM EST [facility] STAPHYLOCOCCUS LUGDUNENSIS Not Detected Not Detected 03/07/2024 4:50 AM EST [facility] STREPTOCOCCUS SPECIES Not Detected Not Detected 03/07/2024 4:50 AM EST [facility] STREPTOCOCCUS AGALACTIAE (GROUP B) Not Detected Not Detected 03/07/2024 4:50 AM EST [facility] STREPTOCOCCUS ANGINOSUS GROUP Not Detected Not Detected 03/07/2024 4:50 AM EST [facility] STREPTOCOCCUS PNEUMONIAE Not Detected Not Detected 03/07/2024 4:50 AM EST [facility] STREPTOCOCCUS PYOGENES (GROUP A) Not Detected Not Detected 03/07/2024 4:50 AM EST [facility] Talisha Not Detected. Vancomycin resistance due to other mechanisms can't be excluded. 03/07/2024 4:50 AM EST [facility] Comment:E. faecalis is often susceptible to Ampicillin/Vancomycin. vanB Not Detected. Vancomycin resistance due to other mechanisms can't be excluded. 03/07/2024 4:50 AM EST [facility] Comment:E. faecalis is often susceptible to Ampicillin/Vancomycin. Blood VENOUS BLOOD / Unknown Venipuncture / Unknown 03/06/2024 9:33 AM EST 03/06/2024 9:39 AM EST us Torres Johnston MD MICROBIOLOGY - GENERAL ORDERA BLES Final Result [facility] [address] [facility] , [place] [address] * (ABNORMAL) BLOOD CULTURE JONATAN GRAM NEG (03/06/2024 9:33 AM EST) ACINETOBACTER BAUMANNII Not Detected Not Detected 03/07/2024 3:34 AM EST [facility] BACTEROIDES FRAGILIS Not Detected Not Detected 03/07/2024 3:34 AM EST [facility] CITROBACTER SPECIES Not Detected Not Detected 03/07/2024 3:34 AM EST [facility] CRONOBACTER SAKAZAKII Not Detected Not Detected 03/07/2024 3:34 AM EST [facility] ENTEROBACTER (NON-CLOACAE COMPLEX) Not Detected Not Detected 03/07/2024 3:34 AM EST [facility] ENTEROBACTER CLOACAE COMPLEX Not Detected Not Detected 03/07/2024 3:34 AM EST [facility] ESCHERICHIA COLI Not Detected Not Detected 03/07/2024 3:34 AM EST [facility] FUSOBACTERIUM NUCLEATUM Not Detected Not Detected 03/07/2024 3:34 AM EST [facility] FUSOBACTERIUM NECROPHORUM Not Detected Not Detected 03/07/2024 3:34 AM EST [facility] HAEMOPHILUS INFLUENZAE Not Detected Not Detected 03/07/2024 3:34 AM EST [facility] KLEBSIELLA OXYTOCA Detected(AA) Not Detected 03/07/2024 3:34 AM EST [facility] KLEBSIELLA PNEUMONIAE Not Detected Not Detected 03/07/2024 3:34 AM EST [facility] MORGANELLA MORGANII Not Detected Not Detected 03/07/2024 3:34 AM EST [facility] NEISSERIA MENINGITIDIS Not Detected Not Detected 03/07/2024 3:34 AM EST [facility] PROTEUS SPECIES Not Detected Not Detected 03/07/2024 3:34 AM EST [facility] PROTEUS MIRABILIS Not Detected Not Detected 03/07/2024 3:34 AM EST [facility] PSEUDOMONAS AERUGINOSA Not Detected Not Detected 03/07/2024 3:34 AM EST [facility] SALMONELLA SPECIES Not Detected Not Detected 03/07/2024 3:34 AM EST [facility] SERRATIA SPECIES Not Detected Not Detected 03/07/2024 3:34 AM EST [facility] SERRATIA MARCESCENS Not Detected Not Detected 03/07/2024 3:34 AM EST [facility] STENOTROPHOMONAS MALTOPHILIA Not Detected Not Detected 03/07/2024 3:34 AM EST [facility] CTX-M Not Detected. Beta-lactamase resistance due to other mechanisms cannot be excluded. 03/07/2024 3:34 AM EST [facility] IMP Not Detected. Carbapenemase resistance due to other mechanisms cannot be excluded. 03/07/2024 3:34 AM EST [facility] KPC Not Detected. Carbapenemase resistance due to other mechanisms cannot be excluded. 03/07/2024 3:34 AM EST [facility] NDM Not Detected. Carbapenemase resistance due to other mechanisms cannot be excluded. 03/07/2024 3:34 AM EST [facility] OXA Not Detected. Carbapenemase resistance due to other mechanisms cannot be excluded. 03/07/2024 3:34 AM EST [facility] VIM Not Detected. Carbapenemase resistance due to other mechanisms cannot be excluded. 03/07/2024 3:34 AM EST [facility] Blood VENOUS BLOOD / Unknown Venipuncture / Unknown 03/06/2024 9:33 AM EST 03/06/2024 9:39 AM EST us Torres Johnston MD MICROBIOLOGY - GENERAL ORDERA BLES Final Result [facility] [address] [facility] , [address] [place] [phone] * LACTIC ACID (03/06/2024 9:33 AM EST) Only the most recent of2 resultswithin the time period is included. Lactic Acid 0.8 0.5 - 1.9 mmol/L 03/06/2024 9:53 AM EST [facility] Blood VENOUS BLOOD / Unknown Venipuncture / Unknown 03/06/2024 9:33 AM EST 03/06/2024 9:39 AM EST us Torres Johnston MD CHEMISTRY ORDERABLES Final Re sult [facility] [address] [place] [address] * CT GUIDED ABSCESS DRAIN (03/05/2024 3:50 PM EST) Anatomical Region Laterality Modality Computed Tomogra phy 03/05/2024 3:50 PM EST Impressions 03/05/2024 4:[address]-guided placement of a percutaneous transhepatic pigtail drainage catheter into a subhepatic fluid collection within the gallbladder resection bed. A fluid sample was sent for lab analysis Plan: Follow-up lab analysis PROCEDURE SUMMARY: - Intraperitoneal drainage catheter placement under CT guidance - Additional procedure(s): None PROCEDURE DETAILS: Pre-procedure Consent: Informed consent for the procedure including risks, benefits and alternatives was obtained and time-out was performed prior to the procedure. Preparation: The site was prepared and draped using maximal sterile barrier technique including cutaneous antisepsis. Anesthesia/sedation Level of anesthesia/sedation: Moderate sedation (conscious sedation) Anesthesia/sedation administered by: Independent trained observer under Narrative 03/05/2024 4:26 PM EST PROCEDURE: Drainage catheter placement Procedural Personnel Attending physician(s): Terry Lo MD Pre-procedure diagnosis: Post cholecystectomy fluid collection Post-procedure diagnosis: Same Indication: Other- Additional clinical history: None Complications: No immediate complications. attending supervision with continuous monitoring of the patient?s level of consciousness and physiologic status Total intra-service sedation time (minutes): 30 Drainage catheter placement The patient was positioned supine. Initial imaging was performed. Local anesthesia was administered. The fluid collection was accessed using an access needle followed by wire insertion and serial dilation and a drainage catheter was placed. Position of the drainage catheter within the fluid collection was confirmed. - Initial imaging findings: Fluid and air collection within the gallbladder resection bed. - Drainage catheter placed: Multipurpose drainage catheter - External catheter securement: Non-absorbable suture - Post-drainage imaging findings: Appropriate drain position Contrast Contrast agent: None Contrast volume (mL): [address] dose length product (mGy-cm): 1921 Additional Details Additional description of procedure: None Equipment details: None Specimens removed: Aspirated fluid was sent for analysis. Estimated blood loss (mL): Less than 10 Standardized report: [id number] Procedure Note Terry Lo MD - 03/05/2024 PROCEDURE: Drainage catheter placement Procedural Personnel Attending physician(s): Terry Lo MD Pre-procedure diagnosis: Post cholecystectomy fluid collection Post-procedure diagnosis: Same Indication: Other- Additional clinical history: None Complications: No immediate complications. attending supervision with continuous monitoring of the patient?s levelof consciousness and physiologic status Total intra-service sedation time (minutes): 30 Drainage catheter placement The patient was positioned supine. Initial imaging was performed. Local anesthesia was administered. The fluid collection was accessed using anaccess needle followed by wire insertion and serial dilation and a drainagecatheter was placed. Position of the drainage catheter within the fluid collectionwas confirmed. - Initial imaging findings: Fluid and air collection within thegallbladder resection bed. - Drainage catheter placed: Multipurpose drainage catheter - External catheter securement: Non-absorbable suture - Post-drainage imaging findings: Appropriate drain position Contrast Contrast agent: None Contrast volume (mL): [address] dose length product (mGy-cm): 1921 Additional Details Additional description of procedure: None Equipment details: None Specimens removed: Aspirated fluid was sent for analysis. Estimated blood loss (mL): Less than 10 Standardized report: SIR_DrainPlacement_v2 IMPRESSION: CT-guided placement of a percutaneous transhepatic pigtail drainagecatheter into a subhepatic fluid collection within the gallbladder resection bed. Afluid sample was sent for lab analysis Plan: Follow-up lab analysis PROCEDURE SUMMARY: - Intraperitoneal drainage catheter placement under CT guidance - Additional procedure(s): None PROCEDURE DETAILS: Pre-procedure Consent: Informed consent for the procedure including risks, benefitsand alternatives was obtained and time-out was performed prior to theprocedure. Preparation: The site was prepared and draped using maximal sterilebarrier technique including cutaneous antisepsis. Anesthesia/sedation Level of anesthesia/sedation: Moderate sedation (conscious sedation) Anesthesia/sedation administered by: Independent trained observer under us Rebecca Gonzales PA-C IMG CT ORDERABLES Final Res ult * (ABNORMAL) BILIRUBIN, BODY FLUID (03/05/2024 3:22 PM EST) Pathologist [facility] Bilirubin BF 10.7(H) 0.1 - 1.3 mg/dL 03/06/2024 3:38 AM EST [facility] Body Fluid ABDOMINAL / Unknown 03/05/2024 3:22 PM EST 03/05/2024 3:48 PM EST Narrative [facility] [employer] [facility] - 03/06/2024 3:38 AM EST A reference interval for this test has not been established for body fluid specimens. The reference range listed reflects normal concentration of this analyte in blood. us Terry Lo MD BODY FLUIDS AND STOOLS ORDERABL ES Final Result [facility] , [place] [address] * (ABNORMAL) BODY FLUID CULTURE (STAIN INCLUDED) (03/05/2024 3:03 PM EST) Culture Positive Growth(A) 2023 8:25 PM EST [facility] Culture Abundant growth of Escherichia coli SUSCEPTIBI LITY RESULT 03/09/2024 8:25 PM EST [facility] Culture Abundant growth of Aeromonas species SUSCEPTIBI LITY RESULT 03/09/2024 8:25 PM EST [facility] Culture Moderate growth of Klebsiella oxytoca/Raoultella ornithinolytica SUSCEPTIBI LITY RESULT 03/09/2024 8:25 PM EST [facility] Culture Abundant growth of Enterococcus faecalis SUSCEPTIBI LITY RESULT 03/09/2024 8:25 PM EST [facility] Stain Rare WBCs(A) 03/09/2024 8:25 PM EST [facility] Stain Few Gram negative rods(A) 03/09/2024 8:25 PM EST [facility] Stain Rare Gram positive cocci(A) 03/09/2024 8:25 PM EST [facility] Body Fluid ABDOMINAL / Unknown 03/05/2024 3:03 PM EST 03/05/2024 3:48 PM EST Narrative [facility] - 03/09/2024 8:25 PM EST Mixed aerobic growth. No predominant organism. No further workup. us Terry Lo MD MICROBIOLOGY - GENERAL ORDERABL ES Final Result [facility] [address] [facility] , [place] [address] * PARTIAL THROMBOPLASTIN TIME (03/04/2024 5:38 PM EST) Only the most recent of2 resultswithin the time period is included. PTT 34.2 27.9 - 38.7 second(s) 03/04/2024 6:01 PM EST [facility] Comment: Therapeutic range for unfractionated heparin: 50.1 - 98.7 seconds Therapeutic range for direct thrombin inhibitors: Argatroban is 1.5 to 3 times the aPTT baseline. Lepirudin is 1.5 to 2 times the aPTT baseline. The aPTT should not exceed 100 seconds. The dosage of Argatroban should be decreased in patients with hepatic impairment. The dosage of Lepirudin should be decreased in renal insufficiency. Blood VENOUS BLOOD / Unknown Venipuncture / Unknown 03/04/2024 5:38 PM EST 03/04/2024 5:46 PM EST Citlalli Lemus HEMATOLOGY ORDERABLES Final Re sult Performing Organization Address [facility] de Phone Number [facility] [address] [place] [address] * PT / INR (03/04/2024 5:38 PM EST) Only the most recent of4 resultswithin the time period is included. Pathologist [facility] PT 13.6 10.5 - 13.6 second(s) 03/04/2024 6:[address] [facility] INR 1.16 0.89 - 1.16 (ratio) 03/04/2024 6:01 PM EST [facility] Comment: Level of Therapy Indications Target INR Range Standard Dose Treatment and prophylaxis of venous 2.0 - 3.0 thrombosis, pulmonary embolism High Dose High risk patients with mechanical 2.5 - 3.5 heart valves Blood VENOUS BLOOD / Unknown Venipuncture / Unknown 03/04/2024 5:38 PM EST 03/04/2024 5:46 PM EST Citlalli Lemus HEMATOLOGY ORDERABLES Final Re sult Performing Organization Address [facility] de Phone Number [facility] [address] [place] [phone] * (ABNORMAL) URINALYSIS REFLEX (03/04/2024 5:09 PM EST) Only the most recent of2 resultswithin the time period is included. UA Color Yellow 03/04/2024 5:13 PM EST [facility] UA Appear Clear Clear 03/04/2024 5:13 PM EST [facility] UA Glucose Negative Negative mg/dL 03/04/2024 5:13 PM EST [facility] UA Ketones 1+ (15 mg/dL)(A) Negative mg/dL 03/04/2024 5:13 PM EST [facility] UA Blood Negative Negative 03/04/2024 5:13 PM EST [facility] UA pH 6.0 5.0 - 8.0 pH 03/04/2024 5:13 PM EST [facility] UA Protein Negative Negative mg/dL 03/04/2024 5:13 PM EST [facility] UA Urobilinogen 0.2 <=1 mg/dL 5:13 PM EST [facility] UA Bili 03/04/2024 5:13 PM EST [facility] Comment:Unable to report. Ca nnot rule out interfering substances that may yield false positive results. Consider correlation with serum bilirubin result. UA Nitrite Negative Negative 03/04/2024 5:13 PM EST [facility] UA Leuk Est Negative Negative 03/04/2024 5:13 PM EST [facility] UA Spec Grav 1.020 1.001 - 1.035 no units 03/04/2024 5:13 PM EST [facility] Comment:Reference range michael d for random specimens only. Urine URINE SPECIMEN OBTAINED VIA STRAIGHT CATHETER / Unknown 03/04/2024 5:09 PM EST 03/04/2024 5:11 PM EST us Citlalli Lemus DO URINE ORDERABLES Final Result Performing Organization Address [facility] Co de Phone Number [address] [address] * EXTRA OGLESBY URINE CX (03/04/2024 5:09 PM EST) Only the most recent of2 resultswithin the time period is included. Urine URINE SPECIMEN OBTAINED VIA STRAIGHT CATHETER / Unknown 03/04/2024 5:09 PM EST 03/04/2024 5:11 PM EST us Citlalli Lemus DO MICROBIOLOGY - GENERAL ORDERAB LES Final Result Performing Organization Address [facility] Co de Phone Number [facility] [address] [facility] [place] [address] * CT ABD PEL ED FAST W CONTRAST (03/04/2024 4:46 PM EST) Anatomical Region Laterality Modality Abdomen, Pelvis Computed Tomogra phy 03/04/2024 4:46 PM EST Impressions 03/04/2024 5:10 PM EST Postsurgical changes of cholecystectomy. There is a 3.9 x 3.6 cm complex collection within the gallbladder fossa containing debris and gas. This could represent a biloma or abscess. There is a tiny amount of perihepatic fluid adjacent to the right hepatic lobe. - Note: Radiology results need to be interpreted within a comprehensive clinical context. If you have questions about the radiology report, please contact the office of the ordering clinician. Narrative 03/04/2024 5:[address] ABDOMEN AND PELVIS WITH CONTRAST (FAST), 03/04/2024 4:46 PM CLINICAL HISTORY: -s/p maria victoria, nausea, RUQ pain COMPARISON: February 20, 2024. PROCEDURE COMMENTS: Multi-detector volumetric scanning of the abdomen and pelvis with multiplanar reformatting per expedited protocol. 100 mL Isovue 370 IV. FINDINGS: LOWER THORAX: Mild bibasilar scarring. ABDOMEN AND PELVIS: There are postsurgical changes of cholecystectomy. There is a complex collection within the gallbladder fossa containing debris and gas, measuring 3.9 x 3.6 cm. Separately, there is a tiny amount of perihepatic fluid adjacent to the right hepatic lobe measuring approximately 5 mm in thickness. Surgical drain within the right upper quadrant, the tip of which comes within close proximity of the gallbladder fossa collection posteriorly. No focal hepatic lesion. No biliary ductal dilation. Spleen, pancreas are normal. There is a 2.6 cm duodenal diverticulum present. This is adjacent to the great head. Adrenal glands are normal. Few small bilateral renal cysts. There is no hydroureteronephrosis. Urinary bladder is normal. There are no dilated bowel loops. No wall thickening or free air. Appendix is normal. There are postsurgical changes of aortobiiliac stent graft excluding of renal abdominal aortic aneurysm. No abdominal or pelvic mass lesion, no adenopathy within the abdomen or pelvis. No acute osseous lesion identified. Procedure Note Roberto Seth MD - 03/04/2024 CT ABDOMEN AND PELVIS WITH CONTRAST (FAST), 03/04/2024 4:46 PM CLINICAL HISTORY: -s/p maria victoria, nausea, RUQ pain COMPARISON: February 20, 2024. PROCEDURE COMMENTS: Multi-detector volumetric scanning of the abdomenand pelvis with multiplanar reformatting per expedited protocol. 100 mLIsovue 370 IV. FINDINGS: LOWER THORAX: Mild bibasilar scarring. ABDOMEN AND PELVIS: There are postsurgical changes of cholecystectomy.There is a complex collection within the gallbladder fossa containing debris andgas, measuring 3.9 x 3.6 cm. Separately, there is a tiny amount of perihepaticfluid adjacent to the right hepatic lobe measuring approximately 5 mm inthickness. Surgical drain within the right upper quadrant, the tip of which comeswithin close proximity of the gallbladder fossa collection posteriorly. No focal hepatic lesion. No biliary ductal dilation. Spleen, pancreasare normal. There is a 2.6 cm duodenal diverticulum present. This is adjacentto the great head. Adrenal glands are normal. Few small bilateral renal cysts.There is no hydroureteronephrosis. Urinary bladder is normal. There are no dilated bowel loops. No wall thickening or free air. Appendixis normal. There are postsurgical changes of aortobiiliac stent graftexcluding of renal abdominal aortic aneurysm. No abdominal or pelvic mass lesion, no adenopathy within the abdomen or pelvis. No acute osseous lesion identified. IMPRESSION: Postsurgical changes of cholecystectomy. There is a 3.9 x 3.6 cm complex collection within the gallbladder fossa containing debris and gas. Thiscould represent a biloma or abscess. There is a tiny amount of perihepaticfluid adjacent to the right hepatic lobe. - Note: Radiology results need to be interpreted within a comprehensiveclinical context. If you have questions about the radiology report, please contactthe office of the ordering clinician. Citlalli Lemus DO IMG CT ORDERABLES Final Result * LIPASE LEVEL (03/04/2024 3:57 PM EST) Lipase Lvl 39 13 - 60 U/L 03/04/2024 4:18 PM EST [facility] Blood VENOUS BLOOD / Unknown Venipuncture / Unknown 03/04/2024 3:57 PM EST 03/04/2024 4:01 PM EST us Citlalli Lemus DO CHEMISTRY ORDERABLES Final Res ult [facility] [address] [facility] [place] [address] * (ABNORMAL) CBC (02/26/2024 9:01 AM EST) Only the most recent of2 resultswithin the time period is included. WBC 6.8 3.7 - 10.3 x10(3)/mcL 02/26/2024 9:14 AM EST [facility] RBC 2.62(L) 3.90 - 5.20 x10(6)/mcL 02/26/2024 9:14 AM EST [facility] Hgb 8.9(L) 11.2 - 15.7 g/dL 02/26/2024 9:14 AM EST [facility] Hct 26.9(L) 34.0 - 45.0 % 02/26/2024 9:14 AM EST [facility] MCV 102.7(H) 80.0 - 100.0 fL 02/26/2024 9:14 AM EST [facility] MCH 34.0 26.0 - 34.0 pg 02/26/2024 9:14 AM EST [facility] MCHC 33.1 30.7 - 35.5 g/dL 02/26/2024 9:14 AM EST [facility] RDW 16.9(H) <=14.9 % 02/26/2024 9:14 AM EST [facility] Platelet 120(L) 155 - 369 x10(3)/mcL 02/26/2024 9:14 AM EST [facility] MPV 10.1 8.8 - 12.5 fL 02/26/2024 9:14 AM EST [facility] Blood VENOUS BLOOD / Unknown Venipuncture / Unknown 02/26/2024 9:01 AM EST 02/26/2024 9:10 AM EST Elver Taylor MD HEMATOLOGY ORDERABLES Fi nal Result Performing Organization Address City/[facility]/ZIP Co de Phone Number [facility] [address] [place] [address] * ECG AND WAVEFORMS - TELEMETRY (02/26/2024 7:01 AM EST) Only the most recent of11 resultswithin the time period is included. Pathologist [facility] ECG INTERPRET NSR [facility] 02/26/2024 7:01 AM EST Narrative [facility] - 02/26/2024 7:58 AM EST ROUTINE/DT [place] 0.17 QRS 0.09 RR 0.70 QT 0.38 QTc 0.45 See Clinical Report link for waveform capture us Unknown Provider POINT OF CARE CARDIOLOGY Final Result Performing Organization Address City/[facility] Co de Phone Number [facility] [address] [place] [phone] * TRANSFUSE RED BLOOD CELLS (02/25/2024 1:28 AM EST) Torres Ford MD NURSING TREATMENT ORDERABLES - BLOOD ADMIN Final Result * BB HISTORY CHECK (02/24/2024 8:02 PM EST) Only the most recent of3 resultswithin the time period is included. Pathologist [facility] BB HISTORY CHECK (1) Previous History OK 02/24/2024 8:22 PM EST [facility] Blood VENOUS BLOOD / Unknown Venipuncture / Unknown 02/24/2024 8:02 PM EST 02/24/2024 8:14 PM EST Torres Ford MD BLOOD BANK ORDERABLES Final Result Performing Organization Address City/[facility]/ZIP Co de Phone Number [facility] [address] [place] [address] * ABORH (02/24/2024 8:02 PM EST) Only the most recent of3 resultswithin the time period is included. ABORH Int A POS 02/24/2024 8:[address] Blood VENOUS BLOOD / Unknown Venipuncture / Unknown 02/24/2024 8:02 PM EST 02/24/2024 8:14 PM EST Torres Ford MD BLOOD BANK ORDERABLES Final Result Performing Organization Address [facility] de Phone Number [facility] B[facility]OD [facility] [address] [place] [address] * RED BLOOD CELLS REQUEST (02/24/2024 8:02 PM EST) [facility] Product Code [id number] [facility] BLOOD [facility] Unit Number [id number] [facility] BLOOD [facility] Crossmatch Interp [facility]atible [facility] BLOOD [facility] Dispense Status TRANSFUSED [facility] BLOOD [facility] Blood Expiration Date [facility] BLOOD [facility] ISBT 128 Type [address] [facility] BLOOD [facility] Blood Unit Volume 300 ml [facility] BA CODING SYSTEM [id number] [facility] BLOOD [facility] Blood Type (Unit) A POS [facility] BLOOD [facility] Blood 02/24/2024 8:02 PM EST 02/24/2024 8:14 PM EST Torres Ford MD BLOOD PRODUCT ORDERS Final R esult Performing Organization Address [facility] de Phone Number [facility] BLOOD [facility] [address] [place] [address] * ANTIBODY SCREEN IGG (02/24/2024 8:02 PM EST) Only the most recent of2 resultswithin the time period is included. ABSC IgG Int Negative 02/24/2024 8:49 PM EST [facility] BLOOD BANK Blood VENOUS BLOOD / Unknown Venipuncture / Unknown 02/24/2024 8:02 PM EST 02/24/2024 8:14 PM EST Torres Ford MD BLOOD BANK ORDERABLES Final Result Performing Organization Address [facility] de Phone Number [facility] BLOOD BANK [address] [place] [address] * (ABNORMAL) HEMOGLOBIN AND HEMATOCRIT (02/24/2024 7:19 PM EST) Hgb 7.5(L) 11.2 - 15.7 g/dL 02/24/2024 7:44 PM EST [facility] Hct 22.1(L) 34.0 - 45.0 % 02/24/2024 7:44 PM EST [facility] Blood VENOUS BLOOD / Unknown Venipuncture / Unknown 02/24/2024 7:19 PM EST 02/24/2024 7:34 PM EST Torres Ford MD HEMATOLOGY ORDERABLES Final Result Performing Organization Address [facility] de Phone Number [facility] [address] [place] [id number] * PATHOLOGY TISSUE REQUEST (02/24/2024 5:44 PM EST) Only the most recent of3 resultswithin the time period is included. CASE REPORT Surgical Pathology Case: [id number] Authorizing Provider: Torres Ford MD Collected: 02/24/2024 1744 Ordering Location: [facility]ERY Received: 02/24/2024 193 Pathologist: Chong Hatch MD Specimen: Gallbladder, gallbladder 02/26/2024 10:33 AM EST [facility] FINAL DIAGNOSIS Gallbladder, cholecystectom y: - Acute and chronic cholecystitis. - Cholelithiasis . 02/26/2024 10:33 AM EST [facility] at 1033 EST GROSS DESCRIPTION Recieved in formalin, in a container labeled with the patient's name, hospital number, and gallbladder , is a 7.8 x 4.2 x 3.7 cm moderately disrupted gallbladder with purple-oglesby, rubbery serosa. The wall ranges from 0.2-1.2 cm in thickness and the lumen contains thick red-brown sludgelike and hemorrhagic material with a 3.2 x 2.3 x 1.0 cm aggregate of orange stones identified. The mucosa is purple-oglesby, hemorrhagic and trabeculated. No periductal lymph node is identified. Physician Office Rep sections of the fundus, body, and neck of the gallbladder, and the cystic duct margin (en face) are submitted in A1. ZN 02/25/2024 7:45 AM 02/26/2024 10:33 AM EST [facility] MICROSCOPIC DESCRIPTION The microscopic examination may have been rendered in whole, or in part, by analyzing high-resolutio n digital images (whole slide images) on the SpectraLinear Digital Pathology platform validated at [facility]. 02/26/2024 10:33 AM EST [facility] EMBEDDED IMAGES 02/26/2024 10:33 AM [facility] Tissue ENTIRE GALLBLADDER / Unknown 02/24/2024 5:44 PM EST 02/24/2024 7:35 PM EST us Torres Ford MD PATHOLOGY [place] [address] * INTRAOP AIRWAY PLACEMENT (02/24/2024 5:43 PM EST) Narrative [facility] - 02/24/2024 5:43 PM EST Quentin Elizalde MD 02/24/2024 5:44 PM Intraop Airway Placement: Date/Time: 02/24/2024 5:43 PM Induction type: IV Mask size: Standard adult Pre-Oxygenation: Standard Mask ventilation: Not attempted Mask ventilation improved by: Oral airway Oral airway sizes: 100 Technique: Video laryngoscope Laryngoscope blade: Owens Blade size: 3 Grade view: I Airway type: ETT- cuffed Topical Anesthetic/Lubricant: Lubricant jelly Intubation assist devices: Stylet 14fr Airway location: Oral Device size: 7.5mm Secured at: 22 cm Secured by: Tape Measured from: Lips Placement verified: End tidal CO2 and Auscultation Condition: Atraumatic and Unchanged Insertion attempts: 1 Title: Anesthesiologist us Quentin Elizalde MD [place] ANESTHESIA Final Res ult Performing Organization Address [facility] de Phone Number [facility] [address] [phone] * EXTRA LAVENDER (02/24/2024 5:19 AM EST) Blood VENOUS BLOOD / Unknown Venipuncture / Unknown 02/24/2024 5:19 AM EST 02/24/2024 6:44 AM EST Jerson Blanc DO HEMATOLOGY ORDERABLE S Final Result Performing Organization Address [facility] de Phone Number [address] [address] * MAGNESIUM LEVEL (02/24/2024 5:19 AM EST) Only the most recent of4 resultswithin the time period is included. Magnesium 1.7 1.6 - 2.4 mg/dL 02/24/2024 10:13 AM EST [facility] Blood VENOUS BLOOD / Unknown Venipuncture / Unknown 02/24/2024 5:19 AM EST 02/24/2024 6:19 AM EST us Elver Taylor MD CHEMISTRY ORDERABLES Fin al Result Performing Organization Address [facility] de Phone Number [address] [address] * NM HEPATOBILIARY WO GBEF (02/23/2024 12:12 PM EST) Anatomical Region Laterality Modality Nuclear Medicine 02/23/2024 12:1 2 PM EST Impressions 02/23/2024 12:43 PM EST Nonvisualization of the gallbladder activity up to 2 hours. Consistent with the acute cholecystitis in the right clinical setting. - Note: Radiology results need to be interpreted within a comprehensive clinical context. If you have questions about the radiology report, please contact the office of the ordering clinician. Narrative 02/23/2024 12:43 PM EST NM HEPATOBILIARY WITHOUT GBEF, 02/23/2024 12:12 PM CLINICAL HISTORY: -?acute cholecystitis. COMPARISON: None. PROCEDURE COMMENTS: Planar hepatobiliary imaging following the intravenous administration of technetium 99m Choletec as recorded in EPIC. FINDINGS: Uniform hepatic uptake of radiopharmaceutical with subsequent excretion into the biliary tree. Adequate small bowel activity. Nonvisualization of the gallbladder activity up to 2 hours. Procedure Note Marcia Lagos MD - 02/23/2024 NM HEPATOBILIARY WITHOUT GBEF, 02/23/2024 12:12 PM CLINICAL HISTORY: -?acute cholecystitis. COMPARISON: None. PROCEDURE COMMENTS: Planar hepatobiliary imaging following theintravenous administration of technetium 99m Choletec as recorded in EPIC. FINDINGS: Uniform hepatic uptake of radiopharmaceutical with subsequent excretioninto the biliary tree. Adequate small bowel activity. Nonvisualization of thegallbladder activity up to 2 hours. IMPRESSION: Nonvisualization of the gallbladder activity up to 2 hours. Consistent with the acute cholecystitis in the right clinical setting. - Note: Radiology results need to be interpreted within a comprehensiveclinical context. If you have questions about the radiology report, please contactthe office of the ordering clinician. Neena Higgins DO IMG NM ORDERABLES Final Result * EXTRA LIGHT BLUE (02/23/2024 9:32 AM EST) Only the most recent of2 resultswithin the time period is included. Blood VENOUS BLOOD / Unknown Venipuncture / Unknown 02/23/2024 9:32 AM EST 02/23/2024 10:07 AM EST Jerson Blanc DO HEMATOLOGY ORDERABLE S Final Result [address] [address] * ACUTE HEPATITIS PANEL (02/22/2024 5:08 AM EST) Hep Bs Ag Non-Reacti ve Non-Reacti ve 02/22/2024 11:58 AM EST PREFERRED LAB [facility], [facility] Hep B Core IgM Non-Reacti ve Non-Reacti ve 02/22/2024 11:58 AM EST PREFERRED [facility], [facility] Hep A IgM Non-Reacti ve Non-Reacti ve 02/22/2024 11:58 AM EST PREFERRED [facility] Hep C Ab Non-Reacti ve Non-Reacti ve 02/22/2024 11:58 AM EST [facility] Blood VENOUS BLOOD / Unknown Venipuncture / Unknown 02/22/2024 5:08 AM EST 02/22/2024 6:10 AM EST Rosemary Munson SURGICAL ONCOLOGIST CHEMISTRY ORDERABLES Fi nal Result [facility]REFERRED [facility] [address] [facility] , [place] [address] * EC ECHOCARDIOGRAM COMPLETE W DOPPLER AND COLOR FLOW MAPPING (02/21/2024 2:56 PM EDT) Only the most recent of2 resultswithin the time period is included. Pathologist [facility] LV DIASTOLIC PLAX 4.08 cm PYRAMIS AORTIC STENOSIS no PYRAMIS MITRAL REGURGITATION trace PYRAMIS Ejection Fraction 60-65% PYRAMIS Anatomical Region Laterality Modality Electrocardiogra phy 02/21/2024 2:32 PM EDT Impressions 02/22/2024 8:04 AM EST Conclusions * Left ventricular chamber dimension is normal. * Left ventricular function is normal with an estimated ejection fraction of 60-65%. * The left ventricular diastolic function is indeterminate. * Right ventricular systolic function is normal. * Estimated pulmonary artery systolic pressure is 30 mmHg + RVSP. Narrative Procedure Note Jacqui [facility] DO - 02/22/2024 IMPRESSION Conclusions * Left ventricular chamber dimension is normal. * Left ventricular function is normal with an estimated ejectionfraction of 60-65%. * The left ventricular diastolic function is indeterminate. * Right ventricular systolic function is normal. * Estimated pulmonary artery systolic pressure is 30 mmHg + RVSP. us Deepali Cortez MD IMRenee ECHO ORDERABLES Final Res ult * US RIGHT UPPER QUADRANT (02/21/2024 9:40 AM EDT) Anatomical Region Laterality Modality Abdomen Ultrasound 02/21/2024 9:40 AM EDT Impressions 02/21/2024 9:49 AM EDT Multiple gallstones. Gallbladder wall mildly diffusely thickened with some small surrounding pericholecystic fluid. Cholecystitis should be excluded clinically. No biliary ductal dilatation. - - Narrative 02/21/2024 9:49 AM EDT US RIGHT UPPER QUADRANT, 02/21/2024 9:40 AM CLINICAL HISTORY: -Cholecyctitis??. COMPARISON: None. PROCEDURE COMMENTS: Ultrasound examination of the right upper quadrant performed by the technologist. Sent to PACS along with tech notes for radiologist review. FINDINGS: Gallbladder: Multiple gallstones identified. Mild diffuse gallbladder wall thickening with some pericholecystic fluid. One should exclude cholecystitis. Whitley's sign: Negative. Liver: Coarse echotexture with some nodular contour. No focal liver lesions identified. Common bile duct: Measures 1 mm. (Normal is 6mm or less. If there has been cholecystectomy, normal is 10mm or less.) Pancreas: Somewhat limited secondary to adjacent bowel gas. Other: No hydronephrosis right kidney. Right kidney measures 11.3 x 4.1 x 5.2 cm. There is a cyst in the right kidney measuring 1.6 x 1.3 x 1.8 cm. Procedure Note Shakir Anton III, MD - 02/21/2024 US RIGHT UPPER QUADRANT, 02/21/2024 9:40 AM CLINICAL HISTORY: -Cholecyctitis??. COMPARISON: None. PROCEDURE COMMENTS: Ultrasound examination of the right upper quadrantperformed by the technologist. Sent to PACS along with tech notes for radiologistreview. FINDINGS: Gallbladder: Multiple gallstones identified. Mild diffuse gallbladderwall thickening with some pericholecystic fluid. One should excludecholecystitis. Whitley's sign: Negative. Liver: Coarse echotexture with some nodular contour. No focal liverlesions identified. Common bile duct: Measures 1 mm. (Normal is 6mm or less. If there hasbeen cholecystectomy, normal is 10mm or less.) Pancreas: Somewhat limited secondary to adjacent bowel gas. Other: No hydronephrosis right kidney. Right kidney measures 11.3 x 4.1 x5.2 cm. There is a cyst in the right kidney measuring 1.6 x 1.3 x 1.8 cm. IMPRESSION: Multiple gallstones. Gallbladder wall mildly diffusely thickened with some small surrounding pericholecystic fluid. Cholecystitis shouldbe excluded clinically. No biliary ductal dilatation. - - Deepali Cortez MD IM US ORDERABLES Final Resul t * EK EKG 12 LEAD (02/21/2024 6:09 AM EDT) Only the most recent of4 resultswithin the time period is included. Anatomical Region Laterality Modality Electrocardiogra phy 02/21/2024 6:11 AM EDT Impressions 02/21/2024 8:13 AM EDT [facility] Test Date: 2024-02-21 Pat Name: HENRIETTA NICO Department: DEPID Room: E4623 Gender: Female Manager Customer Service: : 1945 Requested By: DEEPALI CORTEZ Order Number: [id number] Reading MD: Jacqui [facility] DO Measurements Intervals [place] Rate: 95 P: 19 NJ: 129 QRS: 47 QRSD: 89 T: 28 QT: 346 QTc: 435 Interpretive Statements SINUS RHYTHM Electronically Signed On 02-21-2024 08:13:51 EDT by Jacqui [facility] DO Narrative Procedure Note Jacqui [facility] DO - 02/21/2024 IMPRESSION [facility] Test Date: 2024-02-21 Pat Name: [facility] Department: DEPID Room: E4623 Gender: Female Manager Customer Service: : 1945 Requested By: DEEPALI CORTEZ Order Number: [id number] Reading MD: Jacqui [facility] DO Measurements Intervals [place] Rate: 95 P: 19 NJ: 129 QRS: 47 QRSD: 89 T: 28 QT: 346 QTc: 435 Interpretive Statements SINUS RHYTHM Electronically Signed On 02-21-2024 08:13:51 EDT by Jacqui [facility] DO Deepali Cortez MD IMG ECG ORDERABLES Final Resu lt * VITAMIN B12/ FOLIC ACID (02/20/2024 5:46 PM EDT) Vitamin B12 489 232 - 1,245 pg/mL 02/21/2024 1:49 AM EDT [facility]REFERRED [facility] ([employer]) Folate 12.40 >=4.80 ng/mL 02/21/2024 1:49 AM EDT [facility]) Blood VENOUS BLOOD / Unknown Venipuncture / Unknown 02/20/2024 5:46 PM EDT 02/20/2024 5:46 PM EDT Narrative [facility]) - 02/21/2024 1:49 AM EDT Ingestion of walker doses of biotin (>5 mg/day) taken within 8 hours of drawing blood sample can interfere with this immunoassay test. Deepali Cortez MD CHEMISTRY ORDERABLES Final Re sult [facility]) [address] [facility] , [place] [address] * CT ANGIOGRAM ABDOMEN PELVIS W CONTRAST (08/07/2020 10:33 AM EDT) Only the most recent of3 resultswithin the time period is included. Anatomical Region Laterality Modality Abdomen, Pelvis Computed Tomogra phy 08/07/2020 10:3 3 AM EDT Impressions 08/07/2020 10:58 AM EDT Patient status post EVAR. Continued decrease in size of aneurysm sac size. No evidence of an endoleak. Narrative 08/07/2020 10:[address] ANGIOGRAM ABDOMEN PELVIS W CONTRAST 08/07/2020 10:33 AM CLINICAL HISTORY: I71.4-Abdominal aortic aneurysm, without rupture (HCC)-ICD-10-CM PROCEDURE COMMENTS: Multidetector CT angiography of the region of interest. 100 ml IsoVue-370 given. Interactive 3-D postprocessing done by the reviewing physician on a [employer] workstation, with one or more of the following: Maximum intensity projections (MIPS), Shaded surface rendering, and/or Volume rendering. [employer] images archived to PACS. CT dose reduction was achieved using one or more of the following: Automated exposure control; Iterative reconstruction technique; Technologist adjustment of the mA and/or kV according to the patient's size. COMPARISON: 05/24/2019, 12/15/2018. Patient status post EVAR. Bifurcated stent graft in place unchanged in position. Residual aneurysm sac at the bifurcation continues to decrease currently 4.2 x 2.9 cm, previously 4.5 x 3.9 cm. No evidence of an endoleak. Liver is unremarkable. Gallstones noted. Spleen shows no abnormality. Kidneys adrenal glands and pancreas are unremarkable. Gastrointestinal structures are within normal limits. Appendix is normal. Procedure Note Mando Evangelista MD - 08/07/2020 CT ANGIOGRAM ABDOMEN PELVIS W CONTRAST 08/07/2020 10:33 AM CLINICAL HISTORY: I71.4-Abdominal aortic aneurysm, without rupture (HCC)-ICD-10-CM PROCEDURE COMMENTS: Multidetector CT angiography of the region ofinterest. 100 ml IsoVue-370 given. Interactive 3-D postprocessing done by thereviewing physician on a [employer] workstation, with one or more of the following:Maximum intensity projections (MIPS), Shaded surface rendering, and/or Volumerendering. [employer] images archived to PACS. CT dose reduction was achieved using one ormore of the following: Automated exposure control; Iterative reconstruction technique; Technologist adjustment of the mA and/or kV according to the patient's size. COMPARISON: 05/24/2019, 12/15/2018. Patient status post EVAR. Bifurcated stent graft in place unchanged inposition. Residual aneurysm sac at the bifurcation continues to decrease currently4.2 x 2.9 cm, previously 4.5 x 3.9 cm. No evidence of an endoleak. Liver is unremarkable. Gallstones noted. Spleen shows no abnormality. Kidneys adrenal glands and pancreas are unremarkable. Gastrointestinal structures are within normal limits. Appendix is normal. IMPRESSION: Patient status post EVAR. Continued decrease in size of aneurysm sac size. No evidence of an endoleak. August Chavarria MD IMG CT ORDERABLES Final Resul t * POCT EKG (01/27/2020 12:30 PM EDT) Only the most recent of2 resultswithin the time period is included. 01/27/2020 12:3 0 PM EDT Impressions SEP OFFICE - 01/27/2020 12:30 PM EDT Sinus Rhythm WITHIN NORMAL LIMITS Justen Grissom MD POINT OF CARE CARDIOLOGY F inal Result SEP OFFICE * [facility] AORTA ILIAC IVC COMPLETE (01/25/2020 9:20 AM EDT) Anatomical Region Laterality Modality Abdomen, Vascular Vascular Imagi ng 01/25/2020 8:43 AM EDT Impressions 01/25/2020 1:20 PM EDT CONCLUSIONS Widely patent endograft repair with no evidence of an endoleak. The AAA measures 3.06cm x 3.59cm at the largest diameter (3.9cm x 2.6cm on CT 220). No evidence of no evidence of bilateral common iliac artery aneurysm. Narrative Procedure Note Mando Evangelista MD - 01/25/2020 IMPRESSION CONCLUSIONS Widely patent endograft repair with no evidence of an endoleak. The AAA measures 3.06cm x 3.59cm at the largest diameter (3.9cm x 2.6cmon CT 2-20). No evidence of no evidence of bilateral common iliac artery aneurysm. August Chavarria MD IMG VASCULAR ORDERABLES Final Result * SCANNED RHYTHM STRIPS (10/12/2018 2:56 PM EDT) Only the most recent of2 resultswithin the time period is included. Anatomical Region Laterality Modality Other 10/12/2018 2:56 PM EDT Unknown Unknown IMG ECG ORDERABLES Final Result * IR ENDOV REPAIR INFRARENAL AO OTHER THAN RUPTURE AO BIFUR (10/09/2018 9:53 AM EDT) Anatomical Region Laterality Modality Abdomen Interventional R adiology Narrative 10/10/2018 5:48 PM EDT RADIOGRAPHIC INTERPRETATION DATE OF PROCEDURE: 10/09/2018 ACCESSION NUMBER: [id number] FLUOROSCOPY: 17.8 minutes, 1434 mGy. CONTRAST USED: 49 mL. RADIOGRAPHIC INTERPRETATION: Initial aortic angiogram revealed patent renal artery and aorta with aneurysmal changes distal. There was patent iliac artery noted bilaterally. After placement of aortic stent, completion angiogram was performed and revealed a small type II endoleak. This was treated with long re-ballooning of the stent graft and kissing balloon in the iliac artery with reduction of the type II endoleak. This was left alone and not treated as the reversal of heparin will thrombose this type 2 endoleak. TID [id number] us August Chavarria MD [facility] ORDERABLES Final Resul t * ANE ARTERIAL LINE PLACEMENT (10/09/2018 9:13 AM EDT) Narrative [facility] - 10/09/2018 9:13 AM EDT Justen Miguel CRNA 10/09/2018 9:15 AM Arterial Line Placement Procedure Date/time: 10/09/2018 7:35 AM Patient Location: OR holding area Indication: Continuous blood pressure monitoring Anesthesiologist: Oc Tiwari MD DUMP GRADER: Justen Miguel CRNA Other Staff: Ria Grijalva Placed By: Student Vineyard Supervisor Sterility prep: Provider hand hygiene prior to procedure and Provider used sterile gloves, hat, mask Skin prep: Chloraprep Local anesthetic: Lidocaine 1% 5ml intraderml Catheter Size: 20 gauge Catheter Length: 1 and 3/4 inch Catheter Type: Arrow Seldinger Technique: No Laterality: Left Site: Radial Insertion attempts: 1 Line Secured: Biopatch applied and Tegaderm Events: Patient tolerated procedure well with no complications Procedure Note Justen Miguel CRNA - 10/09/2018 9:13 AM EDT Arterial Line Placement Procedure Date/time: 10/09/2018 7:35 AM Patient Location: OR holding area Indication: Continuous blood pressure monitoring Anesthesiologist: Oc Tiwari MD DUMP GRADER: Justen Miguel CRNA Other Staff: Ria Grijalva Placed By: Student Vineyard Supervisor Sterility prep: Provider hand hygiene prior to procedure and Provider usedsterile gloves, hat, mask Skin prep: Chloraprep Local anesthetic: Lidocaine 1% 5ml intraderml Catheter Size: 20 gauge Catheter Length: 1 and 3/4 inch Catheter Type: Arrow Seldinger Technique: No Laterality: Left Site: Radial Insertion attempts: 1 Line Secured: Biopatch applied and Tegaderm Events: Patient tolerated procedure well with no complications us Oc Tiwari MD ANESTHESIA ORDERABLES Final Result [facility] [address] [place] [address] * INTRAOP AIRWAY PLACEMENT (10/09/2018 8:21 AM EDT) Narrative [facility] - 10/09/2018 8:21 AM EDT Justen Miguel CRNA 10/09/2018 8:22 AM Intraop Airway Placement: Date/Time: 10/09/2018 8:09 AM Induction type: IV Mask size: Standard adult Pre-Oxygenation: Standard Mask ventilation: Not attempted Technique: Video laryngoscope Laryngoscope blade: Owens Blade size: 3 Grade view: I Airway type: ETT- uncuffed Topical Anesthetic/Lubricant: None Intubation assist devices: Stylet 14fr Airway location: Oral Device size: 7mm Secured at: 21 cm Secured by: Tape Measured from: Gum Placement verified: Auscultation, End tidal CO2 and Symmetric chest wall motion Condition: Atraumatic and Unchanged Insertion attempts: 1 Attempt 1 by: nubia grijalva Title: RNSA Procedure Note Justen Miguel CRNA - 10/09/2018 8:21 AM EDT Intraop Airway Placement: Date/Time: 10/09/2018 8:09 AM Induction type: IV Mask size: Standard adult Pre-Oxygenation: Standard Mask ventilation: Not attempted Technique: Video laryngoscope Laryngoscope blade: Owens Blade size: 3 Grade view: I Airway type: ETT- uncuffed Topical Anesthetic/Lubricant: None Intubation assist devices: Stylet 14fr Airway location: Oral Device size: 7mm Secured at: 21 cm Secured by: Tape Measured from: Gum Placement verified: Auscultation, End tidal CO2 and Symmetric chestwall motion Condition: Atraumatic and Unchanged Insertion attempts: 1 Attempt 1 by: nubia grijalva Title: RNSA us Oc Tiwari MD [place] ANESTHESIA Final Resul t [facility] [address] [place] [id number] * ANE INTRODUCER PLACEMENT (10/09/2018 7:47 AM EDT) Narrative [facility] - 10/09/2018 7:47 AM EDT Oc Tiwari MD 10/09/2018 7:49 AM Central Line / Introducer Placement Procedure Date/Time: 10/09/2018 7:27 AM Patient Location: Pre-op Indication: Central Venous Access Ultrasound-Guided: Ultrasound guided Anesthesiologist: Oc Tiwari MD Placed By: Anesthesiologist Sterility prep: Provider hand hygiene prior to procedure, Provider used sterile gloves, gown, hat, mask, Sterile drape was used and Sterile full body drape was used Prep: Chloraprep Patient position: Trendelenburg Local Anesthetic: Injectable Laterality: Right Site: Internal jugular Catheter size: 8.5 Catheter Type: Introducer Seldinger Technique: Yes Intravenous Verification: Ultrasound Insertion attempts: 1 Post Insertion: All ports aspirated, Guidewire was removed intact, Line was sutured in place, All ports flushed easily, Biopatch was applied and Sterile dressing applied Events: Patient tolerated well with no complications IJ and carotid visualized on US, wire noted within Rt IJ Procedure Note Oc Tiwari MD - 10/09/2018 7:47 AM EDT Central Line / Introducer Placement Procedure Date/Time: 10/09/2018 7:27 AM Patient Location: Pre-op Indication: Central Venous Access Ultrasound-Guided: Ultrasound guided Anesthesiologist: Oc Tiwari MD Placed By: Anesthesiologist Sterility prep: Provider hand hygiene prior to procedure, Provider usedsterile gloves, gown, hat, mask, Sterile drape was used and Sterile fullbody drape was used Prep: Chloraprep Patient position: Trendelenburg Local Anesthetic: Injectable Laterality: Right Site: Internal jugular Catheter size: 8.5 Catheter Type: Introducer Seldinger Technique: Yes Intravenous Verification: Ultrasound Insertion attempts: 1 Post Insertion: All ports aspirated, Guidewire was removed intact, Linewas sutured in place, All ports flushed easily, Biopatch was applied andSterile dressing applied Events: Patient tolerated well with no complications IJ and carotid visualized on US, wire noted within Rt IJ us Oc Tiwari MD ANESTHESIA ORDERABLES Final Result [facility] [address] [place] [address] * SCANNED EKG (10/09/2018 12:50 AM EDT) Anatomical Region Laterality Modality Other 10/09/2018 12:5 0 AM EDT us Unknown Unknown IMG ECG ORDERABLES Final Result * SCANNED RADIOLOGY REPORT (10/06/2018 2:40 PM EDT) Anatomical Region Laterality Modality Other 10/06/2018 2:40 PM EDT us Unknown Unknown IMG DIAGNOSTIC IMAGING ORDERABLE S Final Result * MRI CERVICAL SPINE W WO CONTRAST (10/05/2018 9:05 PM EDT) Anatomical Region Laterality Modality Spine, C-spine Magnetic Resonan ce 10/05/2018 9:05 PM EDT Impressions 10/05/2018 9:23 PM EDT 1. Multilevel degenerative changes as detailed above. 2. 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 3. Muscle edema and enhancement in the upper cervical region, LEFT greater than RIGHT and likely primarily attributable to the facet arthropathy. 4. Multilevel disc disease without central stenosis. 5. Severe foraminal stenosis LEFT C3-4, C4-5. - - Narrative 10/05/2018 9:23 PM EDT MRI CERVICAL SPINE W WO CONTRAST 10/05/2018 9:05 PM CLINICAL HISTORY: Chronic neck pain. COMPARISON: October 05, 2018 PROCEDURE COMMENTS: Multiplanar multiecho MR imaging of the cervical spine. 15 mL Multihance given. FINDINGS: There is no malalignment or acute fracture. No cord signal alteration or central stenosis. Multilevel disc degeneration is present with reduced disc height and dorsal and dorsolateral discosteophyte protrusion at C2-3, C3-4, C4-5, C5-C6, and C6-C7. This results in indentation of the ventral thecal sac at each of these levels. There is no central canal stenosis. Some mild ventral cord flattening is present at C4-C5 C5-C6. Advanced LEFT-sided facet degeneration is present C3-C4 with severe LEFT-sided foraminal stenosis. Similar findings to a lesser extent are present at C4-C5, also with LEFT-sided foraminal stenosis. LEFT side facet arthropathy at C2-C3, C3-4, C4-5 is inflammatory with edema and enhancement. Posterior paraspinous muscle edema and enhancement is present bilaterally at these levels. No abnormal cord enhancement. No epidural abscess or similar process. Procedure Note Jagjit Galicia MD - 10/05/2018 MRI CERVICAL SPINE W WO CONTRAST 10/05/2018 9:05 PM CLINICAL HISTORY: Chronic neck pain. COMPARISON: October 05, 2018 PROCEDURE COMMENTS: Multiplanar multiecho MR imaging of the cervicalspine. 15 mL Multihance given. FINDINGS: There is no malalignment or acute fracture. No cord signal alteration orcentral stenosis. Multilevel disc degeneration is present with reduced disc height anddorsal and dorsolateral discosteophyte protrusion at C2-3, C3-4, C4-5, C5-C6, andC6-C7. This results in indentation of the ventral thecal sac at each of theselevels. There is no central canal stenosis. Some mild ventral cord flattening ispresent at C4-C5 C5-C6. Advanced LEFT-sided facet degeneration is present C3-C4 with severeLEFT-sided foraminal stenosis. Similar findings to a lesser extent are present atC4-C5, also with LEFT-sided foraminal stenosis. LEFT side facet arthropathy at C2-C3, C3-4, C4-5 is inflammatory withedema and enhancement. Posterior paraspinous muscle edema and enhancement ispresent bilaterally at these levels. No abnormal cord enhancement. No epidural abscess or similar process. IMPRESSION: 1. Multilevel degenerative changes as detailed above. 2. Inflammatory facet arthropathy LEFT C2-C5 with edema andenhancement. 3. Muscle edema and enhancement in the upper cervical region, LEFTgreater than RIGHT and likely primarily attributable to the facet arthropathy. 4. Multilevel disc disease without central stenosis. 5. Severe foraminal stenosis LEFT C3-4, C4-5. - - us Ken Wise MD IMG MRI ORDERABLES Final Res ult * XR CERVICAL SPINE AP AND LATERAL (10/05/2018 3:21 PM EDT) Anatomical Region Laterality Modality C-spine Radiographic Wilberto ging 10/05/2018 3:21 PM EDT Impressions 10/05/2018 4:25 PM EDT 1. Multilevel mid to lower cervical spine either mild to moderate or moderate degenerative spondylosis. - - Narrative 10/05/2018 4:25 PM EDT AP AND LATERAL C-SPINE, 10/05/2018 3:21 PM CLINICAL HISTORY: -Neck pain COMPARISON: None. PROCEDURE COMMENTS: AP and lateral views of the cervical spine. FINDINGS: Spine is straight without lordosis but with mild oblique orientation. There is no posterior malalignment. C3-C4 to C6-C7 disc spaces are either mild to moderately or moderately narrowed. Small anterior endplate spurring noted at C5-C6 and C6-C7 levels. No advanced facet hypertrophy although mild multilevel degenerative changes noted. There is no prevertebral soft tissue swelling. Bilateral carotid bifurcation atherosclerotic disease noted. Both upper lungs have chronic interstitial disease with unilateral mild right pleural thickening. Procedure Note Yaneth Skinner MD - 10/05/2018 AP AND LATERAL C-SPINE, 10/05/2018 3:21 PM CLINICAL HISTORY: -Neck pain COMPARISON: None. PROCEDURE COMMENTS: AP and lateral views of the cervical spine. FINDINGS: Spine is straight without lordosis but with mild oblique orientation.There is no posterior malalignment. C3-C4 to C6-C7 disc spaces are either mildto moderately or moderately narrowed. Small anterior endplate spurring notedat C5-C6 and C6-C7 levels. No advanced facet hypertrophy although mildmultilevel degenerative changes noted. There is no prevertebral soft tissueswelling. Bilateral carotid bifurcation atherosclerotic disease noted. Both upperlungs have chronic interstitial disease with unilateral mild right pleuralthickening. IMPRESSION: 1. Multilevel mid to lower cervical spine either mild to moderate ormoderate degenerative spondylosis. - - Ken Wise MD [facility] DIAGNOSTIC IMAGING ORDER EYAD Final Result * NM MYOCARDIAL PERFUSION SPECT STRESS AND REST (10/05/2018 9:59 AM EDT) Anatomical Region Laterality Modality Nuclear Medicine 10/05/2018 8:29 AM EDT Impressions 10/05/2018 3:13 PM EDT IMPRESSIONS There are no significant reversible defects. Narrative Procedure Note Arnel Saldana MD - 10/05/2018 IMPRESSION IMPRESSIONS There are no significant reversible defects. us Arnel Saldana MD [facility] NM CARDIAC ORDERABLES Final Result * ST STRESS TEST LEXISCAN (10/05/2018 9:35 AM EDT) Anatomical Region Laterality Modality Cardiac Stress T esting 10/05/2018 9:18 AM EDT Impressions 10/05/2018 10:[address] [facility] Test Date: 2018-10-05 Pat Name: HENRIETTA WALSH Department: DEPID Room: 5416 Gender: Female Manager Customer Service: Maggie ARAMBULA, : 1945 Requested By: ARNEL Golden Order Number: [id number] Reading MD: Arnel Saldana MD Interpretive Statements Stress Test Lexiscan Reason for Exam: Chest Pain, Neck Pain Ordering Diagnosis: Same Resting HR: 78 Peak HR: 94 Resting B/P 155/77 PeaK B/P 155/77 1. Lexiscan 0.4 mg was given IV push at 30 seconds into protocol. 2. Lexiscan injection was done without low level exercise. 3. Termination of test due to protocol completion. 4. Symptoms: No chest pain. No symptoms. 5. No aminophylline given. 6. Myoview scan report pending. 7. Resting EK. Arrhythmias: 9. Conclusion: No significant ECG changes noted with pharmacological stress Electronically Signed On 10-05-2018 10:47:13 EDT by Arnel Saldana MD Narrative Procedure Note Arnel Saldana MD - 10/05/[address] Test Date: 2018-10-05 Pat Name: HENRIETTA WALSH Department: DEPID Room: 5416 Gender: Female Manager Customer Service: Maggie ARAMBULA, : 1945 Requested By: ARNEL Golden Order Number: [id number] Reading MD: Arnel Saldana MD Interpretive Statements Stress Test Lexiscan Reason for Exam: Chest Pain, Neck Pain Ordering Diagnosis: Same Resting HR: 78 Peak HR: 94 Resting B/P 155/77 PeaK B/P 155/77 1. Lexiscan 0.4 mg was given IV push at 30 seconds into protocol. 2. Lexiscan injection was done without low level exercise. 3. Termination of test due to protocol completion. 4. Symptoms: No chest pain. No symptoms. 5. No aminophylline given. 6. Myoview scan report pending. 7. Resting EK. Arrhythmias: 9. Conclusion: No significant ECG changes noted with pharmacological stress Electronically Signed On 10-05-2018 10:47:13 EDT by Arnel Saldana MD us Arnel Saldana MD IMG STRESS ORDERABLES Aide l Result * T3 FREE (10/04/2018 6:43 AM EDT) T3 Free 2.12 2.00 - 4.40 pg/mL 10/04/2018 2:19 PM EDT [employer] Blood Venipuncture / Unknown 10/04/2018 6:43 AM EDT 10/04/2018 7:03 AM EDT Narrative [facility]REFERRED [facility] ([employer]) - 10/04/2018 2:19 PM EDT Ingestion of walker doses of biotin (>5 mg/day) taken within 8 hours of drawing blood sample can interfere with this immunoassay test. us Ken Wise MD CHEMISTRY ORDERABLES Final R esult [facility]REFERRED [facility] ([employer]) [address] [facility] [facility] , [address] [place] [id number] * T4, FREE (THYROXINE) (10/04/2018 6:43 AM EDT) Pathologist [facility] Free T4 1.75 0.80 - 2.00 ng/dL 10/04/2018 2:19 PM EDT [facility] [employer] [facility] Blood Venipuncture / Unknown 10/04/2018 6:43 AM EDT 10/04/2018 7:03 AM EDT Narrative PREFERRED [employer] [facility] - 10/04/2018 2:19 PM EDT Ingestion of walker doses of biotin (>5 mg/day) taken within 8 hours of drawing blood sample can interfere with this immunoassay test. Ken Wise MD CHEMISTRY ORDERABLES Final R esult Performing Organization Address [facility] de Phone Number [facility] [employer] [address] [place] [id number] * MICROALBUMIN/CREATININE RATIO URINE (10/03/2018 7:48 PM EDT) [facility] Urine Microalb <12.0 mg/L 10/03/2018 8:30 PM EDT [facility] [employer] [facility] Urine Creatinine 63.5 mg/dL 10/04/19 19 8:30 PM EDT [facility] [employer] [facility] Ur Microalb/Creat 0 - 30 mg/g 10/03/2018 8:30 PM EDT [facility] [employer] [facility] Comment: Because the albumin level is below the level of detection in this urine specimen, the laboratory is unable to calculate a reliable albumin/creatinine ratio. Microalbuminuria is unlikely if the urine albumin concentration is less than 20- 30 mg/L in a random specimen. Urine STRUCTURE OF URINARY TRACT PROPER / Unknown 10/03/2018 7:48 PM EDT 10/03/2018 7:59 PM EDT Ken Wise MD URINE ORDERABLES Final Resul t Performing Organization Address [facility] Co de Phone Number [facility] [employer] [address] [place] [address] [place] [address] * (ABNORMAL) TROPONIN-T HIGH SENSITIVITY (10/03/2018 2:31 PM EDT) Only the most recent of3 resultswithin the time period is included. ao-yHwaawaqe-O 70(H) <14 ng/L 10/03/2018 3:05 PM EDT [employer] Comment: See the website below for rule out ID care pathway, conditions other than AMI that can cause elevated hs cTnT, and comparison of values from the 4th and 5th generation Kalyani tests. https://askmayoexpert.[email or web address]/topic/clinical-answers/[email or web address]/[email or web address] Blood VENOUS BLOOD / Unknown Butterfly / Unknown 10/03/2018 2:31 PM EDT 10/03/2018 2:36 PM EDT Narrative [employer] - 10/03/2018 3:05 PM EDT Ingestion of walker doses of biotin (>5 mg/day) taken within 8 hours of drawing blood sample can interfere with this immunoassay test. Ken Wise MD CHEMISTRY ORDERABLES Final R esult [facility] [address] [facility] , [place] [address] * CT ANGIOGRAM AORTA CHEST W/CONTRAST (10/03/2018 8:45 AM EDT) Anatomical Region Laterality Modality Chest Computed Tomogra phy 10/03/2018 8:45 AM EDT Impressions 10/03/2018 9:[address] evidence of acute thoracic aortic pathology. Specifically, negative for dissection and aneurysm. No evidence of pulmonary thromboembolic disease. At least mild upper lobe predominant emphysema with minimal pulmonary fibrotic changes. No suspected acute pulmonary process. No convincing CT evidence of metastatic disease within the chest. - - Narrative 10/03/2018 9:[address] ANGIOGRAM CHEST WITH CONTRAST, 10/03/2018 8:45 AM CLINICAL HISTORY: -Aortic dz, non-traumatic, known or suspected COMPARISON: Portable chest radiograph performed earlier same date and I: CT angiography of the abdominal aorta with lower extremity runoff 09/22/2018; CT chest radiation therapy planning without IV contrast 02/07/2012 TECHNIQUE: CT angiogram of the chest with 75 mL Isovue 370 intravenous contrast material with 2-D multiplanar reconstructions and 3-D MIP reconstructions. Automated exposure control for dose reduction was used. CTDIvol: .6 - 14.3 mGy. DLP: 568 mGy-cm. FINDINGS: CT ANGIOGRAPHY: The thoracic aorta is normal in caliber. There is no evidence of acute thoracic aortic pathology on this exam. Specifically, no evidence of dissection flap. Mild to moderate calcific atherosclerotic changes. Aortic arch branch vessel pattern is normal and proximal branch vessels are patent. There is no evidence of pulmonary thromboembolic disease to the first subsegmental level. Main pulmonary artery is normal in caliber. Cardiac size is normal. No pericardial effusion. At least moderate coronary arterial calcifications, especially involving the LAD. SUPPORT DEVICES: None. LOWER CERVICAL REGION: The thyroid gland is either surgically absent or markedly atrophic. LYMPH NODES: There is no thoracic adenopathy. PLEURAL SPACES/DIAPHRAGM: No pleural effusion or pneumothorax. LUNGS: Trachea and proximal bronchi are patent. Mild upper lobe predominant paraseptal and centrilobular emphysema. Minimal bilateral lower lobe dependent atelectasis. Scattered peripheral subpleural reticulation may relate to very mild scattered pulmonary fibrosis. No focal parenchymal consolidation or mass. No suspicious pulmonary nodule. UPPER GI TRACT: The esophagus is grossly unremarkable. BODY WALL: There are postsurgical changes involving the right breast with a few surgical clips. No aggressive osseous lesion. Multilevel degenerative changes of the thoracolumbar spine. UPPER ABDOMEN: Images through the included portions of the upper abdomen demonstrate no acute findings. There are bilateral renal cortical cysts. Included portions of the abdominal aorta are normal in caliber and without acute findings. Moderate calcific atherosclerotic changes of the abdominal aorta. Procedure Note Oc Arteaga MD - 10/03/2018 CT ANGIOGRAM CHEST WITH CONTRAST, 10/03/2018 8:45 AM CLINICAL HISTORY: -Aortic dz, non-traumatic, known or suspected COMPARISON: Portable chest radiograph performed earlier same date and I:CT angiography of the abdominal aorta with lower extremity runoff 09/22/2018;CT chest radiation therapy planning without IV contrast 02/07/2012 TECHNIQUE: CT angiogram of the chest with 75 mL Isovue 370 intravenouscontrast material with 2-D multiplanar reconstructions and 3-D MIPreconstructions. Automated exposure control for dose reduction was used. CTDIvol: .6 - 14.3mGy. DLP: 568 mGy-cm. FINDINGS: CT ANGIOGRAPHY: The thoracic aorta is normal in caliber. There is noevidence of acute thoracic aortic pathology on this exam. Specifically, no evidenceof dissection flap. Mild to moderate calcific atherosclerotic changes. Aorticarch branch vessel pattern is normal and proximal branch vessels are patent.There is no evidence of pulmonary thromboembolic disease to the first subsegmentallevel. Main pulmonary artery is normal in caliber. Cardiac size is normal. No pericardial effusion. At least moderate coronary arterialcalcifications, especially involving the LAD. SUPPORT DEVICES: None. LOWER CERVICAL REGION: The thyroid gland is either surgically absent ormarkedly atrophic. LYMPH NODES: There is no thoracic adenopathy. PLEURAL SPACES/DIAPHRAGM: No pleural effusion or pneumothorax. LUNGS: Trachea and proximal bronchi are patent. Mild upper lobepredominant paraseptal and centrilobular emphysema. Minimal bilateral lower lobedependent atelectasis. Scattered peripheral subpleural reticulation may relate tovery mild scattered pulmonary fibrosis. No focal parenchymal consolidation ormass. No suspicious pulmonary nodule. UPPER GI TRACT: The esophagus is grossly unremarkable. BODY WALL: There are postsurgical changes involving the right breast witha few surgical clips. No aggressive osseous lesion. Multilevel degenerativechanges of the thoracolumbar spine. UPPER ABDOMEN: Images through the included portions of the upper abdomen demonstrate no acute findings. There are bilateral renal cortical cysts. Included portions of the abdominal aorta are normal in caliber and withoutacute findings. Moderate calcific atherosclerotic changes of the abdominalaorta. IMPRESSION: No CT evidence of acute thoracic aortic pathology. Specifically, negativefor dissection and aneurysm. No evidence of pulmonary thromboembolic disease. At least mild upper lobe predominant emphysema with minimal pulmonaryfibrotic changes. No suspected acute pulmonary process. No convincing CT evidence of metastatic disease within the chest. - - Nayeli De Leon MD [facility] [place] ORDERABLES Final Resu lt * SURGERY DATE (10/01/2018 1:37 PM EDT) Surgery Date (1) Complete 10/01/2018 1:55 PM EDT [facility]OD [facility] Blood VENOUS BLOOD / Unknown Venipuncture / Unknown 10/01/2018 1:37 PM EDT 10/01/2018 1:46 PM EDT us Leona Herrmann NP BLOOD BANK ORDERABLES Final Result Performing Organization Address City/[facility]/ZIP Co de Phone Number [facility] [address] [place] [address] * (ABNORMAL) THYROID STIMULATING HORMONE (10/01/2018 1:37 PM EDT) TSH 0.101(L) 0.270 - 4.200 mcIU/mL 10/03/2018 12:18 PM EDT [facility]ERRED [facility] ([employer]) Blood VENOUS BLOOD / Unknown Venipuncture / Unknown 10/01/2018 1:37 PM EDT 10/01/2018 1:46 PM EDT Narrative PREFERRED [facility] ([employer]) - 10/03/2018 12:18 PM EDT Ingestion of walker doses of biotin (>5 mg/day) taken within 8 hours of drawing blood sample can interfere with this immunoassay test. us Ken Wise MD CHEMISTRY ORDERABLES Final R esult Performing Organization Address City/[facility]/ZIP Co de Phone Number [facility] [address] [facility], [place] [address] * CT ANGIOGRAM ABDOMINAL AORTA AND BILATERAL ILIOFEMORAL RUNOFF W CONTRAST (09/22/2018 5:15 PM EDT) Anatomical Region Laterality Modality Abdomen, Pelvis Computed Tomogra phy 09/22/2018 5:15 PM EDT Impressions 09/22/2018 5:41 PM EDT 1. Leftward saccular distal abdominal aortic aneurysm measuring 50 mm diameter, and with neck involving proximal left common iliac artery. Leftward crescentic mural thrombus peripheral to mural calcification and with associated penetrating ulcers proximal to the saccular aneurysm is within the spectrum of aortic dissection. CODE LENCHO Results will be conveyed to the patient's care team by Radiology personnel as soon as possible following completion of this dictation. - Narrative 09/22/2018 5:[address] ANGIOGRAM ABDOMINAL AORTA AND BILATERAL ILIOFEMORAL RUNOFF W CONTRAST 09/22/2018 5:15 PM CLINICAL HISTORY: I71.4-Abdominal aortic aneurysm, without [id number] COMPARISON: None. PROCEDURE COMMENTS: Multidetector CT angiography of the region of interest. 100 ml IsoVue-370 given. Interactive 3-D postprocessing done by the reviewing physician on a [employer] workstation, with one or more of the following: Maximum intensity projections (MIPS), Shaded surface rendering, and/or Volume rendering. [employer] images archived to PACS. Automated exposure control for dose reduction was used. CTDIvol: 1.2 - 6.0 mGy. DLP: 840 mGy-cm. FINDINGS: Distal abdominal aortic leftward saccular aneurysm with extension to the proximal lateral left common iliac artery measures 46 x 50 mm biaxial dimension with irregular mural thrombus measuring up to 16 mm thickness. No evidence of rupture or leak. Fusiform ectasia with crescentic leftward mural thrombus proximal to the saccular aneurysm noted with multifocal penetrating ulcers measuring up to 6 mm regional to the level of WILBERTO origin. Mural calcification noted central to the crescentic mural thrombus. WILBERTO origin to the right of midline level L3-4. Transitional vertebra with partial sacralization L5 noted. Scattered calcified after cirrhotic plaque abdominal aorta, iliac arteries and femoral arteries noted without significant stenosis. Minimal calcification proximal visceral arteries without significant stenosis. Left renal hilar parapelvic cysts noted. Small bilateral renal cortical cysts noted. Diffuse low-attenuation fatty infiltration liver noted. Solid viscera otherwise unremarkable. Minimal colonic diverticulosis noted. Visualized gastrointestinal tract otherwise unremarkable. Urinary bladder unremarkable. No ascites. Subpleural chronic interstitial fibrosis visual is lung bases noted. Procedure Note Omkar Wright MD - 09/22/2018 CT ANGIOGRAM ABDOMINAL AORTA AND BILATERAL ILIOFEMORAL RUNOFF W CONTRAST 09/22/2018 5:15 PM CLINICAL HISTORY: I71.4-Abdominal aortic aneurysm, [id number] COMPARISON: None. PROCEDURE COMMENTS: Multidetector CT angiography of the region ofinterest. 100 ml IsoVue-370 given. Interactive 3-D postprocessing done by thereviewing physician on a [employer] workstation, with one or more of the following:Maximum intensity projections (MIPS), Shaded surface rendering, and/or Volumerendering. [employer] images archived to PACS. Automated exposure control for dosereduction was used. CTDIvol: 1.2 - 6.0 mGy. DLP: 840 mGy-cm. FINDINGS: Distal abdominal aortic leftward saccular aneurysm with extension to the proximal lateral left common iliac artery measures 46 x 50 mm biaxialdimension with irregular mural thrombus measuring up to 16 mm thickness. No evidenceof rupture or leak. Fusiform ectasia with crescentic leftward muralthrombus proximal to the saccular aneurysm noted with multifocal penetratingulcers measuring up to 6 mm regional to the level of WILBERTO origin. Muralcalcification noted central to the crescentic mural thrombus. WILBERTO origin to the rightof midline level L3-4. Transitional vertebra with partial sacralization [id number]. Scattered calcified after cirrhotic plaque abdominal aorta, iliac arteriesand femoral arteries noted without significant stenosis. Minimalcalcification proximal visceral arteries without significant stenosis. Left renal hilar parapelvic cysts noted. Small bilateral renal corticalcysts noted. Diffuse low-attenuation fatty infiltration liver noted. Solidviscera otherwise unremarkable. Minimal colonic diverticulosis noted. Visualized gastrointestinal tract otherwise unremarkable. Urinary bladderunremarkable. No ascites. Subpleural chronic interstitial fibrosis visual is lung basesnoted. IMPRESSION: 1. Leftward saccular distal abdominal aortic aneurysm measuring 50 mmdiameter, and with neck involving proximal left common iliac artery. Leftwardcrescentic mural thrombus peripheral to mural calcification and with associatedpenetrating ulcers proximal to the saccular aneurysm is within the spectrum ofaortic dissection. CODE LENCHO Results will be conveyed to the patient's care team by Radiology personnelas soon as possible following completion of this dictation. - us August Chavarria MD IMG CT ORDERABLES Final Resul t * DX BONE DENSITY AXIAL SKELETON (07/15/2013 8:20 AM EDT) Anatomical Region Laterality Modality Dexa Scan 07/15/2013 Narrative 07/15/2013 12:32 PM EDT Indication: The patient is a post-menopausal female over age 65 with clinical risk factors for an osteoporotic fracture that requires a bone density assessment. The patient is presently being monitored while on treatment and requires a bone density assessment. Bone Density: Region BMD T-score Z-score AP Spine (L1-L4) 1.055 0.1 2.1 Femoral Neck (Left) 0.839 -0.1 1.6 Total Hip (Left) 0.857 -0.7 0.7 Femoral Neck (Right) 0.733 -1.0 0.7 Total Hip (Right) 0.858 -0.7 0.8 World Health Organization criteria for BMD interpretation classify patients as: Normal (T-score at or above -1.0), Osteopenic (T-score between -1.0 and -2.5), or Osteoporotic (T-score at or below -2.5). T Scores are reported in Postmenopausal women and in men age 50 and older. Z-scores are reported in females prior to menopause and in males younger than age 50. 10-year Fracture Risk: FRAX not reported because: All T-scores at or above -1.0 Treated for osteoporosis Medical History: Is being treated for osteoporosis Has used the following medications: Calcium, Aromatase Inhibitors, Vitamin D, Diuretic, Thyroid medication Has the following medical conditions: Breast Cancer, Back pain Patient maximum height was 64. Has taken a bisphosphanate within the last two years Has taken a prescription medication that prevents/treats osteoporosis in the last year. postmenopausal older study at another facility patient on prolia Interpretation: Bone mineral density is in the normal range. The left, right hip and spine portion of the study is limited by body habitus. Reported by: Radha Vaughan PA-C, [place] on 07/15/2013 9:49:00 AM. Procedure Note Merle Foster MD - 07/15/2013 Indication: The patient is a post-menopausal female over age 65 withclinical risk factors for an osteoporotic fracture that requires a bone density assessment. The patient is presently being monitored while on treatmentand requires a bone density assessment. Bone Density: Region BMD T-score Z-score AP Spine (L1-L4) 1.055 0.1 2.1 Femoral Neck (Left) 0.839 -0.1 1.6 Total Hip (Left) 0.857 -0.7 0.7 Femoral Neck (Right) 0.733 -1.0 0.7 Total Hip (Right) 0.858 -0.7 0.8 World Health Organization criteria for BMD interpretation classify patients as: Normal (T-score at or above -1.0), Osteopenic (T-score between -1.0 and -2.5), or Osteoporotic (T-score at or below -2.5). T Scores are reported in Postmenopausal women and in men age 50 and older. Z-scores are reported in females prior to menopause and in males youngerthan age 50. 10-year Fracture Risk: FRAX not reported because: All T-scores at or above -1.0 Treated for osteoporosis Medical History: Is being treated for osteoporosis Has used the following medications: Calcium, Aromatase Inhibitors, VitaminD, Diuretic, Thyroid medication Has the following medical conditions: Breast Cancer, Back pain Patient maximum height was 64. Has taken a bisphosphanate within the last two years Has taken a prescription medication that prevents/treats osteoporosis inthe last year. postmenopausal older study at another facility patient on prolia Interpretation: Bone mineral density is in the normal range. The left, right hip and spine portion of the study is limited by bodyhabitus. Reported by: Radha Vaughan PA-C, CCD on 07/15/2013 9:49:00 AM. us Oc Crook MD IMG DEXA ORDERABLES Final R esult * MM MAMMO DIGITAL DIAGNOSTIC W CAD BILAT (07/07/2013 9:12 AM EDT) Anatomical Region Laterality Modality Breast Bilateral Mammography 07/07/2013 1:00 PM EDT Impressions 07/07/2013 4:14 PM EDT : Benign finding ([id number]) ~ RECOMMENDATION: Follow-up diagnostic mammogram in 1 year. ~ * The patient with a palpable abnormality, unexplained by breast imaging, should be managed on clinical basis by the attending physician. * Breast imaging has a false negative rate of 15%. * The patient was notified by mail of the results of this examination. *The patient's information was entered into a reminder system with a target due date for the next mammogram. The mammogram was reviewed by a Radiologist and CAD. Narrative 07/07/2013 4:14 PM EDT Procedure:MM MAMMO DIGITAL DIAGNOSTIC W CAD BILAT ~ Reason for exam: history of breast cancer, conservation therapy. ~ MM MAMMO DIGITAL DIAG CAD BILAT Bilateral CC and MLO view(s) were taken. There are clips at the density in the posterior right breast upper outer quadrant consistent with prior lumpectomy. No suspicious calcifications. Compared to prior studies the most recent being 12-09-11. ~ Procedure Note Jagjit Emanuel MD - 07/07/2013 Procedure:MM MAMMO DIGITAL DIAGNOSTIC W CAD BILAT ~ Reason for exam: history of breast cancer, conservation therapy. ~ MM MAMMO DIGITAL DIAG CAD BILAT Bilateral CC and MLO view(s) were taken. There are clips at the density in the posterior right breast upper outer quadrant consistent with prior lumpectomy. No suspiciouscalcifications. Compared to prior studies the most recent being 12-09-11. ~ IMPRESSION: Benign finding ([id number]) ~ RECOMMENDATION: Follow-up diagnostic mammogram in 1 year. ~ * The patient with a palpable abnormality, unexplained by breast imaging, should be managed on clinical basis by the attending physician. * Breast imaging has a false negative rate of 15%. * The patient was notified by mail of the results of this examination. *The patient's information was entered into a reminder system with atarget due date for the next mammogram. The mammogram was reviewed by a Radiologist and CAD. us Oc Crook MD IMG MAMMOGRAPHY ORDERABLES Final Result * CT CHEST W CONTRAST (12/07/2012 9:13 AM EDT) Anatomical Region Laterality Modality Chest Computed Tomogra phy Impressions 12/08/2012 12:40 PM EDT : 1. Interval decrease in size in the enlarged pretracheal lymph node. No further follow up is necessary. 2. 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 3. Borderline cardiomegaly and fatty infiltration of the interatrial septum without evidence of acute intrathoracic process. 4. Fatty infiltration of the liver. Leona Cruz MD. Narrative 12/08/2012 12:40 PM EDT EXAMINATION: CT Chest With Contrast Dated 12/07/2012. CLINICAL HISTORY: Follow up enlarged right pretracheal lymph node. Patient with history of breast carcinoma status post lumpectomy and radiation. COMPARISON: CT Chest without contrast dated 08/20/2012. TECHNIQUE: Multiple axial images through the chest were obtained following administration of intravenous contrast. This data was used to perform coronal reconstructions. FINDINGS: The heart is at the upper limits of normal in size with fatty infiltration of the interatrial septum. There is a 0.7 x 1.1 cm pretracheal lymph node which previously measured 1 x 1.4 cm. There is no new pathologic intrathoracic adenopathy. There are stable bilateral subpleural reticular and groundglass opacities, fairly evenly distributed between the upper and lower lobes. There are areas of honeycombing versus paraseptal emphysema within both upper lobes. The lungs are otherwise clear and the visualized airways are patent. Intra-abdominally, the liver is fatty infiltrated. There is a calcified hepatic granuloma just superior to the gallbladder fossa. There is a 1 cm cyst in the superior pole of the right kidney. The visualized upper abdominal structures are otherwise unremarkable. There are mild degenerative changes of the lower thoracic spine. No suspicious osseous lesions are identified. Procedure Note Leona Cruz MD - 12/08/2012 EXAMINATION: CT Chest With Contrast Dated 12/07/2012. CLINICAL HISTORY: Follow up enlarged right pretracheal lymph node.Patient with history of breast carcinoma status post lumpectomy andradiation. COMPARISON: CT Chest without contrast dated 08/20/2012. TECHNIQUE: Multiple axial images through the chest were obtained followingadministration of intravenous contrast. This data was used to performcoronal reconstructions. FINDINGS: The heart is at the upper limits of normal in size with fattyinfiltration of the interatrial septum. There is a 0.7 x 1.1 cmpretracheal lymph node which previously measured 1 x 1.4 cm. There is nonew pathologic intrathoracic adenopathy. There are stable bilateralsubpleural reticular and groundglass opacities, fairly evenly distributedbetween the upper and lower lobes. There are areas of honeycombing versusparaseptal emphysema within both upper lobes. The lungs are otherwiseclear and the visualized airways are patent. Intra-abdominally, the liveris fatty infiltrated. There is a calcified hepatic granuloma justsuperior to the gallbladder fossa. There is a 1 cm cyst in the superiorpole of the right kidney. The visualized upper abdominal structures areotherwise unremarkable. There are mild degenerative changes of the lowerthoracic spine. No suspicious osseous lesions are identified. IMPRESSION: 1. Interval decrease in size in the enlarged pretracheal lymph node. Nofurther follow up is necessary. 2. Stable findings of mild to moderate nonspecific interstitialpneumonitis. 3. Borderline cardiomegaly and fatty infiltration of the interatrialseptum without evidence of acute intrathoracic process. 4. Fatty infiltration of the liver. Leona Cruz MD. us Baudilio Fields MD IMG CT ORDERABLES Final Result * CT CHEST WO CONTRAST (08/20/2012 1:08 PM EDT) Anatomical Region Laterality Modality Chest Computed Tomogra phy Impressions 08/21/2012 10:00 AM EDT : 1. 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 2. Several findings suggest more diffuse mild pulmonary fibrosis throughout both lungs. 3. Single mildly enlarged mediastinal node. May be secondary to old granulomatous disease or a nonspecific infectious/inflammatory process. However, given the history of breast cancer, follow up CT chest in three months is recommended to show stability. 4. Mild cardiomegaly. 5. Fatty infiltration of the partially visualized liver. Edmond Jordan M.D. Narrative 08/21/2012 10:00 AM EDT EXAMINATION: CT Chest Dated 08/20/2012. CLINICAL HISTORY: 67-year-old female with history of right breast cancer status post lumpectomy and radiation, now with right-sided chest pain. Positive smoking history. TECHNIQUE: Noncontrast 5 mm thick contiguous axial CT images were obtained through the chest. Coronal images were created from the axial data. COMPARISON: No prior studies are available for comparison. FINDINGS: Mildly enlarged right pretracheal node at level of the aortic arch. Measures 1.0 cm in short axis dimension. Several smaller mediastinal nodes, none enlarged by CT size criteria. Mild atherosclerotic calcifications of the coronary arteries. Mild cardiomegaly. No significant pericardial fluid/thickening. No pleural fluid. Surgical clips in the right axilla. The visualized portions of the upper abdomen included in this examination of the chest show fatty infiltration of the partially visualized liver. Lung window images are partially obscured by patient motion. Subpleural mild to moderate ground-glass superimposed on reticulation and mild honeycombing throughout both lungs, right greater than left, most pronounced at level of the mid lung. Left lower lobe is relatively spared. No significant pulmonary nodules are identified. No significant consolidation or atelectasis. Mild traction bronchiectasis medial aspect of the right upper lobe. Bone window images reveal no aggressive lytic or sclerotic bone lesions. Procedure Note Fausto Contreras MD - 08/21/2012 EXAMINATION: CT Chest Dated 08/20/2012. CLINICAL HISTORY: 67-year-old female with history of right breastcancer status post lumpectomy and radiation, now with right-sided chestpain. Positive smoking history. TECHNIQUE: Noncontrast 5 mm [address] contiguous [address] CT images wereobtained through the chest. Coronal images were created from the axialdata. COMPARISON: No prior studies are available for comparison. FINDINGS: Mildly enlarged right pretracheal node at level of theaortic arch. Measures 1.0 cm in short axis dimension. Several smallermediastinal nodes, none enlarged by CT size criteria. Mildatherosclerotic calcifications of the coronary arteries. Mildcardiomegaly. No significant pericardial fluid/thickening. No pleuralfluid. Surgical clips in the right axilla. The visualized portions of the upper abdomen included in this examinationof the chest show fatty infiltration of the partially visualized liver. Lung window images are partially obscured by patient motion. Subpleuralmild to moderate ground-glass superimposed on reticulation and mildhoneycombing throughout both lungs, right greater than left, mostpronounced at level of the mid lung. Left lower lobe is relativelyspared. No significant pulmonary nodules are identified. No significantconsolidation or atelectasis. Mild traction bronchiectasis medial aspectof the right upper lobe. Bone window images reveal no aggressive lytic or sclerotic bone lesions. IMPRESSION: 1. Post radiation fibrosis and traction bronchiectasis of the right upperand right mid lung. 2. Several findings suggest more diffuse mild pulmonary fibrosisthroughout both lungs. 3. Single mildly enlarged mediastinal node. May be secondary to oldgranulomatous disease or a nonspecific infectious/inflammatory process.However, given the history of breast cancer, follow up CT chest in threemonths is recommended to show stability. 4. Mild cardiomegaly. 5. Fatty infiltration of the partially visualized liver. Edmond Jordan M.D. us Baudilio Fields MD IMG CT ORDERABLES Final Result * CT CHEST RADIATION THERAPY PLANNING WO CONTRAST (02/07/2012 4:02 PM EDT) Anatomical Region Laterality Modality Chest Computed Tomogra phy 02/07/2012 Impressions 02/08/2012 6:11 AM EDT Impression: Baseline noncontrast treatment planning CT. Postsurgical change, right breast. Please see above detailed discussion. Narrative 02/08/2012 6:11 AM EDT 02/07/2012 Noncontrast radiotherapy treatment planning chest CT: HISTORY: Recent diagnosis of breast malignancy. Initial treatment planning CT study. No comparison CT exams. Direct 3 mm noncontrast treatment planning CT of the pelvis performed. Postsurgical lumpectomy changes of the right breast noted. No focal axillary lymphadenopathy. Mild cardiac enlargement with increased mediastinal fat. No discrete hilar lymphadenopathy on this noncontrast exam. Dominant 1.2 cm lymph node within the AP window. Review of the lung windows demonstrates diffusely increased peripheral interstitial lung markings, which may reflect interstitial lung disease. No discrete lung mass, consolidation or pleural effusion. Included images of the upper abdomen demonstrate normal adrenals. No discrete liver lesion or ascites. No focal bony metastatic lesion. Procedure Note Velasquez Dunaway, - 02/08/2012 02/07/2012 Noncontrast radiotherapy treatment planning chest CT: HISTORY: Recent diagnosis of breast malignancy. Initial treatment planningCT study. No comparison CT exams. Direct 3 mm noncontrast treatment planning CT of the pelvis performed.Postsurgical lumpectomy changes of the right breast noted. No focal axillary lymphadenopathy. Mildcardiac enlargement with increased mediastinal fat. No discrete hilar lymphadenopathy on thisnoncontrast exam. Dominant 1.2 cm lymph node within the AP window. Review of the lungwindows demonstrates diffusely increased peripheral interstitial lung markings, which mayreflect interstitial lung disease. No discrete lung mass, consolidation or pleural effusion.Included images of the upper abdomen demonstrate normal adrenals. No discrete liver lesion or ascites.No focal bony metastatic lesion. Impression: Baseline noncontrast treatment planning CT. Postsurgical change, rightbreast. Please see above detailed discussion. us Alex Us MD IMG CT ORDERABLES Final Result * SCANNED PATHOLOGY REPORT (01/20/2012 12:00 AM EDT) Narrative Transcriptions Unknown, Unknown - 01/20/2012 12:00 AM EDT us Unknown Unknown PATHOLOGY ORDERABLES Final Resul t * SCANNED PRE/POST PROCEDURES (12/31/2011 2:51 PM EDT) Narrative Transcriptions Unknown, Unknown - 12/31/2011 2:51 PM EDT us Unknown Unknown PROCEDURE/MINOR SURGICAL ORDERAB LES Final Result * SCANNED ANESTHESIA FORMS (12/31/2011 2:50 PM EDT) Narrative Transcriptions Unknown, Unknown - 12/31/2011 2:50 PM EDT us Unknown Unknown PROCEDURE/MINOR SURGICAL ORDERAB LES Final Result * ADDENDUM REPORT (12/27/2011 3:00 PM EDT) Only the most recent of2 resultswithin the time period is included. Addendum Report PATIENT NAME:HENRIETTA WALSH Addendum Report Accession Number Collected Date/Time Received Date/Time [id number] 12/27/11 15:00 EDT 12/27/11 15:00 EDT Addendum Discussion 1) Right breast segment, segmentectomy: - Invasive ductal carcinoma, Luis A histologic grade 1, size: 2.0 cm. ONCOTYPE DX Breast Cancer Assay (Performed by [employer].) Result: Breast Cancer Recurrence Score = 9 CLINICAL EXPERIENCE: PROGNOSIS FOR NODE NEGATIVE, ER-POSITIVE PATIENTS The Clinical Validation study included female patients with Stage I or II, Node Negative, ER-Positive breast cancer treated with 5 years of Tamoxifen. Those patients who had a recurrence score of 9 had an Average Rate of Distant Recurrence of 6% (95% CI: 4% - 9%). Reference: N Engl J Med 2004;351:2817-26 (NSABP B-14 study) NOTE: Please refer to the separate report from [employer]. DONAVAN ATWOOD MD (Electronically signed by) Verified: 01/20/2012 [facility] Laboratory Accession Number Collected Date/Time Received Date/Time [id number] 12/27/11 15:00 EDT 12/27/11 15:00 EDT Addendum Discussion BREAST CANCER BIOMARKER STUDIES TEST RESULT % of nuclei Reference Range stained ER by IHC Positive 95% Positive: >= 1% (Estrogen Receptor) Negative: < 1% (clone [id number]) Maldonado score: 8 [place] by IHC Positive 97% Positive: >= 1% (Progesterone Receptor) Negative: < 1% (clone PGP [id number]; DAKO) HER2 by IHC Negative/1+ Negative: 0-1+ (DAKO HercepTest Equivocal: 2+ polyclonal) Positive: 3+ FIXATIVE: 10% neutral buffered formalin (6-48 hours) NOTE: The technical component for ER, [place], and HER-2 by IHC was performed by [facility]. Interpretation was performed by a [place] Pathologist with the assistance of image analysis (ASCO/CAP scoring guidelines were used for HER-2). All control slides stain appropriately. CHERISE SULLIVAN MD, PhD (Electronically signed by) Verified: 01/02/2012 [facility] Surgical Pathology Report Accession Number Collected Date/Time Received Date/Time [id number] 12/27/11 15:00 EDT 12/27/11 15:00 EDT Diagnosis 1) Right breast segment, segmentectomy: - Invasive ductal carcinoma, Luis A histologic grade 1, size: 2.0 cm. - All surgical margins are negative for tumor. - The tumor is 4 mm away from the closest superficial margin. - See note. 2) Right axilla blue node, sentinel node biopsy: - Two benign lymph nodes. Note: Please refer to the addendum report for ER, [place], and HER-2 results. The most recent radiologic imaging reports were reviewed. This case was reviewed by a second departmental pathologist with diagnostic agreement./DB ---- Surgical Pathology Cancer Case Summary Specimen Identification: Specimen Laterality: Right +Tumor Site: Cannot be determined Procedure: Excision without needle-guided localization Lymph Node Sampling: Performed Tumor Size, Size of Largest Invasive Carcinoma: Greatest Dimension: 2.0 cm +Tumor Focality (only required if multiple foci): Unifocal Macroscopic and Microscopic Extent of Tumor (required only if present involved): + Skin: N/A + Nipple: N/A + Skeletal Muscle: N/A Histologic Type of Invasive Carcinoma: Invasive ductal carcinoma Histologic Grade with Luis A Histologic Score: Grade 1 Score 4 Glandular (Acinar)/Tubular Differentiation: 1 Nuclear Pleomorphism: 2 Mitotic Count: 1 Ductal carcinoma in-situ (DCIS): Not present Margins: Margins uninvolved by invasive carcinoma Distance from closest margin: 4 mm Designation of margin: Superficial margin *Treatment Effect: Response to Presurgical (Neoadjuvant) Therapy *In the Breast: No prior treatment *In the Lymph Nodes: No prior treatment Lymph Nodes: Number of sentinel lymph nodes examined: 2 Total number of lymph nodes examined (sentinel and nonsentinel): 2 Number of lymph nodes with macrometastases (> 2 mm): 0 Number of lymph nodes with micrometastases (>0.2 mm to 2 mm and/or >200 cells): 0 Number of lymph nodes with isolated tumor cells (<0.2 mm and <200 cells): 0 Number of lymph nodes without tumor cells identified: 2 Pathologic Staging (pTNM) TNM Descriptors (required only if applicable, all that apply) N/A Primary Tumor (Invasive Carcinoma): pT1c: Tumor >10 mm but 20 mm in greatest dimension Regional Lymph Nodes: pN0: No regional lymph node metastasis identified histologically Distant Metastasis (M) : N/A Paraffin block for additional studies. Block: Amos SULLIVAN MD, PhD (Electronically signed by) Verified: 12/31/2011 [facility] Laboratory Clinical Information Right breast mass. Breast time to formalin: 10 minutes Gross Description Part 1) Received fresh labeled with the patient s name and right breast segment (long suture lateral, and short suture superior) is an excision of breast tissue that measures 6.5 cm superior to inferior, 4.5 cm medial to lateral and 3.0 cm superficial to deep. No pin or needle is identified. The margins are inked as follows: INKING CODE Blue: superficial margin Black: deep margin Green: lateral margin Santacruz: superior margin Millwood: medial and inferior margin Serial sections show central 2.0 x 1.8 x 1.5 cm firm santacruz-white to pink and partially blue-stained irregular tumor mass that extends close to deep, superficial and lateral margins. Situated within the tumor are focal firm santacruz-white sclerotic tissue, punctate hemorrhage and fat necrosis. The remaining breast parenchyma is yellow-santacruz and fatty without further lesion. Physician Office Rep sections are submitted, labeled as follows: 1A-1C: tumor 1D: tumor/superficial margin 1E: tumor/deep margin 1F: tumor/lateral margin 1G: tumor/medial margin 1H: superior margin 1I: inferior margin Part 2) Received in formalin, labeled with the patient's name and blue node right axilla is a 5.0 x 3.0 x 2.0 cm fibrofatty tissue. Serial sections show 2 firm santacruz-white to pink lymph nodes, 1.2 to 1.5 cm. The smaller node is partially blue stained and larger node is unstained. The lymph nodes are entirely submitted, labeled as follows: 2A: bisected smaller blue-stained lymph node 2B: trisected larger unstained lymph node /KY DJE/TE Microscopic Description Part 1) Sections of the tumor show invasive ductal carcinoma, Leadore histologic grade 1, tubule formation 1, nuclear pleomorphism 2, mitotic count 1, total score 4. No lymph-vascular space invasion is identified. All surgical margins are negative for tumor. The tumor is 4 mm away from the closest superficial margin. Part 2) Microscopic examination is performed and the findings corroborate the diagnosis. [facility] 12/27/2011 3:00 PM EDT us Oc Crook MD PATHOLOGY ORDERABLES Final Result [facility] [address] [place] [address] * SURGICAL PATHOLOGY REPORT (12/27/2011 3:00 PM EDT) Surgical Pathology Report PATIENT NAME:HENRIETTA WALSH Surgical Pathology Report Accession Number Collected Date/Time Received Date/Time [id number] 12/27/11 15:00 EDT 12/27/11 15:00 EDT Diagnosis 1) Right breast segment, segmentectomy: - Invasive ductal carcinoma, Luis A histologic grade 1, size: 2.0 cm. - All surgical margins are negative for tumor. - The tumor is 4 mm away from the closest superficial margin. - See note. 2) Right axilla blue node, sentinel node biopsy: - Two benign lymph nodes. Note: Please refer to the addendum report for ER, [place], and HER-2 results. The most recent radiologic imaging reports were reviewed. This case was reviewed by a second departmental pathologist with diagnostic agreement./DB ---- Surgical Pathology Cancer Case Summary Specimen Identification: Specimen Laterality: Right +Tumor Site: Cannot be determined Procedure: Excision without needle-guided localization Lymph Node Sampling: Performed Tumor Size, Size of Largest Invasive Carcinoma: Greatest Dimension: 2.0 cm +Tumor Focality (only required if multiple foci): Unifocal Macroscopic and Microscopic Extent of Tumor (required only if present involved): + Skin: N/A + Nipple: N/A + Skeletal Muscle: N/A Histologic Type of Invasive Carcinoma: Invasive ductal carcinoma Histologic Grade with Luis A Histologic Score: Grade 1 Score 4 Glandular (Acinar)/Tubular Differentiation: 1 Nuclear Pleomorphism: 2 Mitotic Count: 1 Ductal carcinoma in-situ (DCIS): Not present Margins: Margins uninvolved by invasive carcinoma Distance from closest margin: 4 mm Designation of margin: Superficial margin *Treatment Effect: Response to Presurgical (Neoadjuvant) Therapy *In the Breast: No prior treatment *In the Lymph Nodes: No prior treatment Lymph Nodes: Number of sentinel lymph nodes examined: 2 Total number of lymph nodes examined (sentinel and nonsentinel): 2 Number of lymph nodes with macrometastases (> 2 mm): 0 Number of lymph nodes with micrometastases (>0.2 mm to 2 mm and/or >200 cells): 0 Number of lymph nodes with isolated tumor cells (<0.2 mm and <200 cells): 0 Number of lymph nodes without tumor cells identified: 2 Pathologic Staging (pTNM) TNM Descriptors (required only if applicable, all that apply) N/A Primary Tumor (Invasive Carcinoma): pT1c: Tumor >10 mm but 20 mm in greatest dimension Regional Lymph Nodes: pN0: No regional lymph node metastasis identified histologically Distant Metastasis (M) : N/A Paraffin block for additional studies. Block: 1A CHERISE SULLIVAN MD, PhD (Electronically signed by) Verified: 12/31/2011 [facility] Laboratory Clinical Information Right breast mass. Breast time to formalin: 10 minutes Gross Description Part 1) Received fresh labeled with the patient s name and right breast segment (long suture lateral, and short suture superior) is an excision of breast tissue that measures 6.5 cm superior to inferior, 4.5 cm medial to lateral and 3.0 cm superficial to deep. No pin or needle is identified. The margins are inked as follows: INKING CODE Blue: superficial margin Black: deep margin Green: lateral margin Santacruz: superior margin Mill[place]: medial and inferior margin Serial sections show central 2.0 x 1.8 x 1.5 cm firm santacruz-white to pink and partially blue-stained irregular tumor mass that extends close to deep, superficial and lateral margins. Situated within the tumor are focal firm santacruz-white sclerotic tissue, punctate hemorrhage and fat necrosis. The remaining breast parenchyma is yellow-santacruz and fatty without further lesion. Physician Office Rep sections are submitted, labeled as follows: 1A-1C: tumor 1D: tumor/superficial margin 1E: tumor/deep margin 1F: tumor/lateral margin 1G: tumor/medial margin 1H: superior margin 1I: inferior margin Part 2) Received in formalin, labeled with the patient's name and blue node right axilla is a 5.0 x 3.0 x 2.0 cm fibrofatty tissue. Serial sections show 2 firm santacruz-white to pink lymph nodes, 1.2 to 1.5 cm. The smaller node is partially blue stained and larger node is unstained. The lymph nodes are entirely submitted, labeled as follows: 2A: bisected smaller blue-stained lymph node 2B: trisected larger unstained lymph node /[place] DJE/TE Microscopic Description Part 1) Sections of the tumor show invasive ductal carcinoma, Leadore histologic grade 1, tubule formation 1, nuclear pleomorphism 2, mitotic count 1, total score 4. No lymph-vascular space invasion is identified. All surgical margins are negative for tumor. The tumor is 4 mm away from the closest superficial margin. Part 2) Microscopic examination is performed and the findings corroborate the diagnosis. [facility] 12/27/2011 3:00 PM EDT us Oc Crook MD PATHOLOGY ORDERABLES Final Result Performing Organization Address [facility] Co de Phone Number [facility] [address] [place] [address] * DIFFERENTIAL (12/19/2011 1:00 PM EDT) Neut Percent 58.2 40.0 - 70.0 % [facility] Lymph Percent 30.7 17.0 - 46.0 % [facility] Towner Percent 7.1 4.0 - 12.0 % [facility] Eos Percent 3.9 0.0 - 6.0 % [facility] Baso Percent 0.1 0.0 - 2.0 % [facility] Neut# 4.5 1.8 - 7.7 x10(3)/mcL [facility] Lymph# 2.4 1.0 - 4.8 x10(3)/mcL [facility] Towner# 0.6 0.0 - 1.3 x10(3)/mcL [facility] Eos# 0.3 0.1 - 0.5 x10(3)/mcL [facility] Baso# 0.0 0.0 - 0.2 x10(3)/[facility] Blood specimen (specimen) 12/19/2011 1:00 PM EDT 12/19/2011 1:07 PM EDT us Shayna Velez APRN HEMATOLOGY ORDERABLES Final Result Performing Organization Address [facility] Co de Phone Number [facility] [address] [place] [address] * MM US BREAST RIGHT (12/09/2011 10:16 AM EDT) Anatomical Region Laterality Modality Breast Ultrasound 12/09/2011 10:4 8 AM EDT Impressions 12/09/2011 4:38 PM EDT : Highly suggestive of malignancy ([id number]) ~ RECOMMENDATION: Ultrasound guided core biopsy. Narrative 12/09/2011 4:38 PM EDT MM US BREAST RIGHT The exam of the palpable mass in the right breast 10:00 middle position seen on recent mammogram reveals 16 mm. irregular mass hypoechoic with posterior shadowing. These findings are consistent with solid mass. The retro-areolar nodule on mammogram is a cyst. ~ Procedure Note Merle Foster MD - 12/09/2011 MM US BREAST RIGHT The exam of the palpable mass in the right breast 10:00 middle position seen on recent mammogram reveals 16 mm. irregular mass hypoechoic with posterior shadowing. These findings are consistent with solid mass. The retro-areolar nodule on mammogram is a cyst. ~ IMPRESSION: Highly suggestive of malignancy ([id number]) ~ RECOMMENDATION: Ultrasound guided core biopsy. us Oc Crook MD IMG MAMMOGRAPHY ORDERABLES Final Result * MM OUTSIDE FILMS FOR COMPARISON (12/09/2011 8:45 AM EDT) Only the most recent of2 resultswithin the time period is included. Anatomical Region Laterality Modality Breast Mammography us Not In [facility] Provider IMG MAMMOGRAPHY ORDERABLES Final Result Visit Diagnoses Diagnosis Start Date Breast mass, right Lump or mass in breast 12/06/2011 Breast lesion Unspecified breast disorder 12/09/2011 Breast mass, right Lump or mass in breast 12/09/2011 Breast mass Lump or mass in breast 12/09/2011 Abnormal mammogram Abnormal mammogram, unspecified 12/09/2011 Breast mass, right Lump or mass in breast 12/13/2011 Breast mass, right Lump or mass in breast 12/27/2011 Breast cancer (HCC) Malignant neoplasm of breast (female), unspecified site 01/06/2012 Breast cancer (HCC) Malignant neoplasm of breast (female), unspecified site 01/27/2012 Malignant neoplasm of breast (female), unspecified site 02/07/2012 Breast cancer (HCC) Malignant neoplasm of breast (female), unspecified site 05/27/2012 Breast cancer (HCC) Malignant neoplasm of breast (female), unspecified site 08/10/2012 Breast cancer (HCC) Malignant neoplasm of breast (female), unspecified site 05/03/2013 Breast cancer (HCC) Malignant neoplasm of breast (female), unspecified site 07/07/2013 History of breast cancer Personal history of malignant neoplasm of breast 07/07/2013 Encounter for long-term (current) use of other medications 07/07/2013 Breast cancer (HCC) Malignant neoplasm of breast (female), unspecified site 07/14/2013 History of breast cancer Personal history of malignant neoplasm of breast 07/15/2013 Encounter for long-term (current) use of other medications 07/15/2013 Breast cancer, right (HCC) 11/01/2013 AAA (abdominal aortic aneurysm) without rupture Abdominal aneurysm without mention of rupture 09/22/2018 AAA (abdominal aortic aneurysm) without rupture Abdominal aneurysm without mention of rupture 09/22/2018 Bilateral lower extremity edema Edema 09/22/2018 Varicose veins of bilateral lower extremities with other complications 09/22/2018 PVD (peripheral vascular disease) Peripheral vascular disease, unspecified 09/22/2018 AAA (abdominal aortic aneurysm) without rupture Abdominal aneurysm without mention of rupture 09/23/2018 Establishing care with new doctor, encounter for 09/29/2018 Preoperative clearance Preoperative examination, unspecified 09/29/2018 Preop testing Preoperative examination, unspecified 10/01/2018 AAA (abdominal aortic aneurysm) without rupture Abdominal aneurysm without mention of rupture 10/01/2018 Pre-op evaluation Preoperative examination, unspecified 10/02/2018 Elevated troponin Other abnormal blood chemistry 10/03/2018 Acute pain of both shoulders 10/03/2018 AAA (abdominal aortic aneurysm) without rupture Abdominal aneurysm without mention of rupture 10/09/2018 Pre-op evaluation Preoperative examination, unspecified 10/09/2018 AAA (abdominal aortic aneurysm) without rupture Abdominal aneurysm without mention of rupture 10/28/2018 Neck pain Cervicalgia 11/23/2018 Abdominal aortic aneurysm without rupture Abdominal aneurysm without mention of rupture 12/15/2018 Abdominal aortic aneurysm without rupture Abdominal aneurysm without mention of rupture 12/22/2018 Preoperative clearance Preoperative examination, unspecified 01/05/2019 Abdominal aortic aneurysm without rupture Abdominal aneurysm without mention of rupture 05/24/2019 Abdominal aortic aneurysm without rupture Abdominal aneurysm without mention of rupture 05/25/2019 AAA (abdominal aortic aneurysm) without rupture Abdominal aneurysm without mention of rupture 05/25/2019 Bilateral lower extremity edema Edema 05/25/2019 PVD (peripheral vascular disease) Peripheral vascular disease, unspecified 05/25/2019 Varicose veins of bilateral lower extremities with other complications 05/25/2019 Atypical chest pain Other chest pain 09/06/2019 Palpitations 09/06/2019 Abdominal aortic aneurysm without rupture Abdominal aneurysm without mention of rupture 01/25/2020 AAA (abdominal aortic aneurysm) without rupture Abdominal aneurysm without mention of rupture 01/25/2020 PVD (peripheral vascular disease) Peripheral vascular disease, unspecified 01/27/2020 Hyperlipidemia, unspecified hyperlipidemia type 01/27/2020 Abdominal aortic aneurysm without rupture Abdominal aneurysm without mention of rupture 02/08/2020 AAA (abdominal aortic aneurysm) without rupture Abdominal aneurysm without mention of rupture 02/08/2020 PVD (peripheral vascular disease) Peripheral vascular disease, unspecified 02/08/2020 Bilateral lower extremity edema Edema 02/08/2020 Varicose veins of bilateral lower extremities with other complications 02/08/2020 Abdominal aortic aneurysm without rupture Abdominal aneurysm without mention of rupture 08/07/2020 AAA (abdominal aortic aneurysm) without rupture Abdominal aneurysm without mention of rupture 08/08/2020 PVD (peripheral vascular disease) Peripheral vascular disease, unspecified 08/08/2020 Type 2 diabetes mellitus with hyperosmolarity without coma, unspecified whether retirement insulin use (HCC) 08/08/2020 Varicose veins of bilateral lower extremities with other complications 08/08/2020 Hyperlipidemia, unspecified hyperlipidemia type 02/08/2021 Atypical chest pain Other chest pain 02/08/2021 Palpitations 02/08/2021 AAA (abdominal aortic aneurysm) without rupture Abdominal aneurysm without mention of rupture 10/15/2021 Acute cholecystitis 02/23/2024 Acute cholecystitis 02/24/2024 Acute cholecystitis 02/20/2024 Postoperative pain Other acute postoperative pain 03/04/2024 Nausea and vomiting, unspecified vomiting type 03/04/2024 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, without long-term current use of insulin (HCC) 03/04/2024 Chronic bronchitis, unspecified chronic bronchitis type (HCC) 03/04/2024 PAF (paroxysmal atrial fibrillation) (HCC) Atrial fibrillation 03/04/2024 Abdominal aortic aneurysm (AAA) without rupture, unspecified part 03/04/2024 Intra-abdominal abscess (HCC) Peritoneal abscess 03/17/2024 Intra-abdominal abscess (HCC) Peritoneal abscess 03/29/2024 Intra-abdominal abscess (HCC) Peritoneal abscess 03/29/2024 PVD (peripheral vascular disease) Peripheral vascular disease, unspecified 10/03/2018 AAA (abdominal aortic aneurysm) without rupture Abdominal aneurysm without mention of rupture 10/03/2018 Type 2 diabetes mellitus (HCC) Type II or unspecified type diabetes mellitus without mention of complication, not stated as uncontrolled 10/03/2018 Chest pain Chest pain, unspecified 10/03/2018 HLD (hyperlipidemia) Other and unspecified hyperlipidemia 10/03/2018 Elevated troponin Other abnormal blood chemistry 10/03/2018 Bilateral lower extremity edema Edema 02/20/2024 HLD (hyperlipidemia) Other and unspecified hyperlipidemia 02/20/2024 Hypothyroidism Unspecified hypothyroidism 02/20/2024 Thrombocytopenia Thrombocytopenia, unspecified 02/20/2024 Postoperative pain Other acute postoperative pain 03/04/2024 S/P cholecystectomy Other acquired absence of organ 03/04/2024 HLD (hyperlipidemia) Other and unspecified hyperlipidemia 03/04/2024 Hypothyroidism Unspecified hypothyroidism 03/04/2024 Thrombocytopenia Thrombocytopenia, unspecified 03/04/[address] scan Nonspecific (abnormal) findings on radiological and other examination of abdominal area, including retroperitoneum 03/04/2024 Sepsis without acute organ dysfunction (HCC) 03/04/2024 Bacteremia 03/04/2024 Intra-abdominal abscess (HCC) Peritoneal abscess 03/04/2024 Enterococcal bacteremia Bacteremia 03/04/2024 Bacteremia due to Escherichia coli Bacteremia 03/04/2024 Care Teams Senior Foreman Relationship Specialty Start Date End Date Baudilio Fields MD PCP - General Family Medicine 01/25/20
--- OUTSIDE RECORDS SUMMARY | 2024-11-08 10:22 | XMS_ITS | Data Portability ---
Author Organization [place] - [facility] Address [address] [place] [address] Care Team Providers Care Sql Bi Developer Name Role Phone ZHOU LONDON Primary Care Provider Assessment Encounter Date Assessment Date Assessment LastModified by Organization Details LastModified Time 01/15/2024 01/15/2024 Patient is here for edema and profound fatigue. She does have shortness of breath. Functional capacity is very limited. Because of the dizziness, lightheadedness and presyncope she has a difficult time walking. She is unstable when she does. Her EKG shows normal sinus rhythm with poor R-wave progression and low voltage with a chronic pulmonary pattern with nonspecific changes. We can not walk on a treadmill. Given the presyncope and dyspnea I do think she needs an ischemic evaluation. Will do a Lexiscan Myoview. She has a soft heart murmur and also has a left carotid bruit. Will do an echocardiogram and carotid ultrasound. I am also going to do a 5 day Zio monitor. During my examination her heart rate was around 50-60. Especially given the presyncope, fatigue and shortness of breath concern for symptomatic bradycardia. We will do the full evaluation and she will follow-up in 3-4 weeks. Meds and chart reviewed in full today Trouble with balance. Inability to walk on a treadmill. Does have dyspnea. Severe and profound fatigue. No chest pain pressure or tightness. Patient has a history of coronary artery disease. No evaluation since 2012. At that time she had moderate diffuse coronary artery disease with normal function of the heart PLAN: Continue current medications Risk factor modification Recommend LDL less than 100 Lexiscan Myoview Echocardiogram Carotid ultrasound Monitor blood pressure and heart rate Five day Zio monitor Bring all meds to next appointment Follow-up in Cardiology Clinic in 3-4 weeks EKG shows normal sinus rhythm with poor R-wave progression and low voltage and nonspecific ST and T-wave changes PAST ECHOCARDIOGRAM: 01/12/2013 - EJECTION FRACTION 65% PAST MYOVIEW STRESS TEST: 01/12/2013 - reversible ischemia in the anterior wall. Normal ejection fraction. Normal wall motion. This is a high risk study based on the anterior wall involvement. PAST CARDIAC CATHETERIZATION: 01/29/2013 - ESTELLA- moderate disease in the proximal left anterior descending. Normal ejection fraction. Normal left ventricular end-diastolic pressure. PAST CTA ABDOMEN WITH RUNOFF: 09/16/2018 ALLISON Crowell LPN, I AM SCRIBING FOR, AND IN THE OFFICE/PRESENCE OF, MISHA RIBEIRO MD. IMISHA M.D. PERFORMED THE SERVICES DESCRIBED IN THIS DOCUMENTATION, SCRIBED BY ALLISON PHOENIX LPN IN MY PRESENCE, AND IT IS BOTH ACCURATE AND COMPLETE. [email or web address] Not available 01/15/2024 09:56:01 02/09/2024 02/09/2024 symptoms a littl e bit better since thyroid medication has been adjusted. I did go over her monitor today. The monitor showed a heart rate of 60. . Some small runs of SVT nothing over eats. Blood pressure looks fine. We will hold off on any negative chronotropic at this time. Feels better with adjustment of the thyroid but definitely has a bruit carotid with a presyncope also has a heart murmur Myoview as well shortness of breath. Meds and chart reviewed in full today. Follow-up after tests are completed. Known coronary evaluation 10 years PLAN: Carotid ultrasound Echocardiogram Lexiscan Myoview Blood work as per primary care Follow-up in Cardiology Clinic in 2 weeks Continue current medications Risk factor modification Recommend LDL less than 100 Monitor blood pressure and heart rate Zio monitor was done for 7 days from 01/15/2024 to 01/21/2024 which showed normal sinus rhythm with a heart rate 61 194 and an average of 5. There were 18 small runs of SVT with a maximum 11 beats. Patient did have 2.2% PVCs EK01/15/2024 - showed normal sinus rhythm with poor R-wave progression and low voltage and nonspecific ST and T-wave changes PAST ECHOCARDIOGRAM: 01/12/2013 - EJECTION FRACTION 65% PAST MYOVIEW STRESS TEST: 01/12/2013 - reversible ischemia in the anterior wall. Normal ejection fraction. Normal wall motion. This is a high risk study based on the anterior wall involvement. PAST CARDIAC CATHETERIZATION: 01/29/2013 - ESTELLA- moderate disease in the proximal left anterior descending. Normal ejection fraction. Normal left ventricular end-diastolic pressure. PAST CTA ABDOMEN WITH RUNOFF: 09/16/2018 ALLISON Crowell LPN, I AM SCRIBING FOR, AND IN THE OFFICE/PRESENCE OF, MISHA RIBEIRO MD. IMISHA M.D. PERFORMED THE SERVICES DESCRIBED IN THIS DOCUMENTATION, SCRIBED BY ALLISON PHOENIX LPN IN MY PRESENCE, AND IT IS BOTH ACCURATE AND COMPLETE. [email or web address] Not available 02/12/2024 07:50:38 Plan of Treatment Reminders Order Date Submit Date Provider Last Modified By Organization Details Last Modified Time Details Appointments None recorded. Lab None recorded. Referral None recorded. Procedures external electrocard iographic recording more than 48 hours up to 7 days; recording (includes connection and initial recording) (PROC) 2023 024 [email or web address] Not available 4 11:50:03 Surgeries None recorded. Imaging nuclear stress test 2023 024 [email or web address] [facility] (Centralized Scheduling), [address], [place], [address], 4 07:59:50 US, echocardiog jennifer, transthorac ic, complete, w/ color flow 2023 024 [email or web address] [facility] (Centralized Scheduling), [place], [address], 4 07:29:39 US, duplex, carotid artery 2023 024 [email or web address] [facility] (Centralized Scheduling), [place], [address], 4 07:29:28 nuclear stress test 2023 024 susan [facility] (Centralized Scheduling), [address] [place], [address], 4 08:39:31 US, echocardiog jennifer, transthorac ic, complete, w/ color flow 2023 024 susan Duran (Centralized Scheduling), [place], [address], 4 08:11:36 US, duplex, carotid artery 2023 024 susan Duran (Centralized Scheduling), [facility] [address], [place], [address], 4 08:11:27 electrocard iogram 2023 024 cathy Herrera [facility], [address] [place] [address] [address], [place], [address], 4 11:40:28 Medication Orders None recorded. Patient TargetsNo targets recorded. Patient InstructionsNo instructions recorded. Reason for Referral None Reported. Results Created Date Observation Date Name Description Value Unit Range Abnormal Flag Note LastModifiedBy Organization Detail LastModifiedTime 01/15/20 elect rocar diogr am No observ ation record ed. HARITHA Herrera [address], [place], [address], 01/15/2024 09:31:32 01/15/20 elect rocar diogr am No observ ation record ed. [email or web address] Not Available 10:07:39 02/12/2002/09/2024 chelsea r monit or No observ ation record ed. [email or web address] Not Available 15:21:22 Result Notes None recorded. Problems Name Problem SNOMED Code Status Onset Date Resolution Date Notes Provider Name and Address Organization Details Recorded Time Fatigue 77167639 Active 2023 Misha Ribeiro MD [facility] [address], [place], [address], [place] [facility]ace 4 09:51:53 Near syncope 292561058 Active 2023 Misha Ribeiro MD [facility] [address], [place], [address], [place] - [facility] & [place] 4 09:51:59 Bradycardia 59725933 Active 2023 Misha Ribeiro MD [facility] [address], [place], [address], [place] [facility] & [place] 4 09:52:04 Electrocardiog jennifer abnormal 845170258 Active 2023 Misha Ribeiro MD [facility] [address], [place], [address], [place] - [facility] & [place] 4 09:52:10 Carotid bruit 361873973 Active 2023 Misha Ribeiro MD [facility] [address], [place], [address], [place] - [facility] - [facility] & [place] 4 09:52:15 Dyspnea on exertion 49940939 Active 2023 Misha Ribeiro MD [facility] [address], [place], [address], [place] [facility] - [facility] & [place] 4 09:52:20 Heart murmur 98785267 Active 2023 Misha Ribeiro MD [facility] [address], [place], [address], [place] [facility] & [place] 4 09:52:24 Coronary arterioscleros is 09796117 Active 2023 Misha Ribeiro MD [facility] [address], [place], [address] & [place] 09:55:41 Problem Notes None recorded. Procedures Surgical History Date Name Laterality Status Provider Name and Address Organization Details Recorded Time Hysterectomy completed Lupe PIRES [facility] & [place] 01/15/2024 09:24:46 procedure on salivary gland completed Lupe PIRES [facility] & [place] 01/15/2024 09:24:57 Back Surgery completed Lupe PIRES [facility] & [place] 01/15/2024 09:25:05 repair of aneurysm of abdominal aorta completed Lupe PIRES [facility] & [place] 01/15/2024 09:26:43 Imaging Results None recorded. Procedure Notes None recorded. Medical Equipment None Reported. Allergies Allergen ID Allergen Name Allergen Category Reaction Reaction Severity Criticality Documentation Date Start Date Code Code System Note Provider Name and Address Organization Details Recorded Time 944916 Product containin g angiotens in-conver ting enzyme inhibitor (product) medicatio n Not available Not available Not available 01/15/2024 19497 009 SNOMED Lupe powell, [facility] & [place] 09:24:31 Medications Name Sig Start Date Stop Date Status Note LastModified by Organization Details LastModified Time losartan 50 mg tablet active Not Available Not Available No t Available levothyroxi ne 137 mcg tablet TAKE ONE (1) TABLET EVERY DAY BY ORAL ROUTE. active Not Available Not Available No t Available lovastatin 40 mg tablet Take 1 tablet daily active Not Available Not Available No t Available potassium chloride ER 10 mEq tablet,exte nded release active Not Available Not Available Not Available piperacilli n-tazobacta m 3.375 gram intravenous solution active Not Available Not Available Not Available metformin 1,000 mg tablet Take 1 tablet twice a day active Not Available Not Available No t Available levothyroxi ne 125 mcg tablet TAKE 1 TABLET BY MOUTH EVERY DAY 02/08 completed Not Available Not Available Not Available oxycodone 5 mg tablet TAKE ONE (1) TABLET BY MOUTH EVERY FOUR (4) HOURS NEEDED FOR MAJOR SURGERY/T RAUMA (G89.18) (FOR BREAKTHRO UGH PAIN NOT CONTROLLE D BY NON-OPIOI D PAIN MANAGEMEN T INTERVNET IONS.) FOR UP TO 10 DAYS. active Not Available Not Available No t Available potassium chloride ER 10 mEq tablet,exte nded release(par t/cryst) Take 1 tablet daily active Not Available Not Available No t Available Mariela-Pepper 0.8 mg tablet active Not Available Not Available Not Available Levemir U-100 Insulin 100 unit/mL subcutaneou s solution active Not Available Not Available N ot Available heparin, porcine (PF) 10 unit/mL intravenous syringe active Not Available Not Available Not Available BD PosiFlush Normal Saline 0.9 % injection syringe active Not Available Not Available Not Available Vitals Date Recorded Body height Body mass index (BMI) Body weight Oxygen saturation Oxygen saturation in Arterial blood by Pulse oximetry Heart rate Systolic And Diastolic Provider Name and Address Organization Details Last Updated DateTime 4 157.48 cm 30.4 kg/m2 65120.3 3 g 95 % 95 % 79 /min 130/80 mm[Hg] Lupe moyer [facility] & [place] 4 09:30:52 Date Recorded Body height Body mass index (BMI) Body weight Oxygen saturation Oxygen saturation in Arterial blood by Pulse oximetry Heart rate Respiratory rate Systolic And Diastolic Provider Name and Address Organization Details Last Updated DateTime 4 157.48 cm 30.3 kg/m2 30998.1 8 g 98 % 98 % 88 /min 18 /min 130/80 mm[Hg] Pili Joshua [facility] & [place] 4 09:35:07 Social History Question Answer Notes LastModified by [employer] Details LastModified Time Tobacco Smoking Status Former Smoker 0 Lupe powell, [facility] & [place] 01/15/2024 09:28:22 What Is Your Level Of Caffeine Consumption? Occasional [email or web address] Information not available 02/09/2024 What Type Of Diet Are You Following? REGULAR [email or web address] Information not available 02/09/2024 When Did You Quit Smoking? 16+yearscharity morales [email or web address] Information not available 02/09/2024 Sex: Unknown Functional Status Question Answer Note LastModified by [employer] Details LastModified Time Do you use any illicit or recreational drugs? No [email or web address] Information not available 01/15/2024 Do you or have you ever used any other forms of tobacco or nicotine? No [email or web address] Information not available 02/09/2024 What is your level of alcohol consumption? None [email or web address] Information not available 01/15/2024 What is your exercise level? None [email or web address] Information not available 02/09/2024 Mental Status None recorded. Family History Nothing Reported. Medical History Condition Response Diabetes Y Hyperlipidemia Y Thyroid Disease Y Gynecological HistoryNo gynecological history recorded. Obstetrics History GPAL:G 0 P 0 0 0 0 Past Encounters Encounter ID Performer Location Encounter Start Date Encounter Closed Date Diagnosis/Indication Diagnosis SNOMED-CT Code Diagnosis ICD10 Code Diagnosis Note [id number] Misha Ribeiro MD [address] FLEM[address] [place] [address] 6 01/15/2024 09:09:49 01/15/2024 09:55:52 Edema 202743548 R60.9 Fatigue 57305514 R53.83 Near syncope 100793555 R 55 Bradycardia 74472573 R00 .1 Electrocar diogram abnormal 847000351 R94.31 Carotid bruit 525681852 R09.89 Dyspnea on exertion 6084 5006 R06.09 Heart murmur 78397620 R0 1.1 Coronary arteriosclerosis 45186697 I25.10 [id number] Misha Ribeiro MD [address]LEM[address] [place] [address] 6 02/09/2024 09:16:54 02/09/2024 09:58:36 Edema 741245653 R60.9 Fatigue 08635430 R53.83 Near syncope 695236679 R 55 Bradycardia 92271960 R00 .1 Electrocar diogram abnormal 354982437 R94.31 Carotid bruit 745241916 R09.89 Dyspnea on exertion 6084 5006 R06.09 Heart murmur 52818257 R0 1.1 Coronary arteriosclerosis 14516838 I25.10 Health Concerns Section Related Observation LastModified by Organization Detai ls LastModified Time None Recorded Concern Status LastModified by Organization Details LastModified Time None Recorded Advance Directives Directive None Recorded Payers Insurance Date Sequence Insurance Name Policy Number Policy Boyd Covered Member ID Boyd Member ID Guarantor Name 05/01/2024 1 [employer] (MEDICARE REPLACEMENT/ ADVANTAGE - PPO) Henrietta Valdez [id number] Henrietta J José Miguel Notes Date Note Type Note Provider Name and Address Organization Details Recorded Time 01/15/2024 text/html Patient is here for evaluation of profound fatigue and shortness of breath. Fatigue with any activity. Shortness of breath. Very low functional capacity. Also has presyncope. Dizziness and lightheadedness. No chest pain pressure or tightness. History of coronary artery disease 10 years ago but no evaluation since that time Misha Ribeiro MD [address] [place] [address] Drive,[address], [place], [address], [facility] - [facility] & [place] 01/16/2024 11:40:33 02/09/2024 text/html thyroid med kinney ge feels better but she still has the shortness of breath and still has dizziness lightheadedness and fatigue. No chest pain pressure or tightness. She did not get her test done. She did wear the Zio monitor here today to go over those results Misha Ribeiro MD [address], [place], [address], [place] - [facility] & [place] 02/12/2024 07:51:29 OBGyn Episode No OBEpisode recorded.
--- OUTSIDE RECORDS SUMMARY | 2024-11-08 10:22 | XMS_ITS | Clinical Summary ---
Author Organization Healthcare Address 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 Role Phone Unavailable Primary Care Provider Unavailabl e Social History Tobacco Use Types Packs/Day Years Used Date Smoking Tobacco: Never Assessed Comments Unknown Sex and Gender Information Value Date Recorded Sex Assigned at Not on file Legal Sex Female 2:52 PM EST Gender Identity Not on file Sexual Orientation Not on file Plan of Treatment Health Maintenance Due Date Last Done Comments [facility]-Bone Density Scan 1944 [facility]-Depression Screening 1944 [facility]-Infant/Child/Adol SDOH Screenings 1944 [facility]- SDOH Screenings 1962 [facility]-Adult SDOH Screenings 1962 [facility]-Zoster Vaccines (1 of 2) 1994 [facility]-Pneumococcal Vaccine: 50 + Years (2 of 2 - PPSV23) 09/08/2018 09/08/2017 [facility]-RSV Vaccine: 60+ Years o r (1 - 1-dose 75+ series) 08/16/2019 [facility]-DTaP,Tdap,and Td Vaccine s (2 - Td or Tdap) 05/19/2023 05/19/2013 [id number] Vaccine (1 - 20 24-25 season) 2023 [facility]-Influenza Vaccine (#1) 2024 HPV Vaccines Aged Out No longer eligi ble based on patient's age to complete this topic [facility]-HIB Vaccines Aged Out No longer e ligible based on patient's age to complete this topic [facility]-Hepatitis A Vaccines Aged Out No longer eligible based on patient's age to complete this topic [facility]-IPV Vaccines Aged Out No longer e ligible based on patient's age to complete this topic [facility]-Rotavirus Vaccines Aged Out No lo nger eligible based on patient's age to complete this topic
== END 2024-11-05 23:59 | disposition home or self-care (01) ==
LOC: LAB.DROPOF 11-08 10:16
PROVIDERS: PCP Family Medicine; Visit Provider Family Medicine
DX: I10 Essential (primary) hypertension (principal); E03.9 Hypothyroidism, unspecified; E78.2 Mixed hyperlipidemia; E66.811 Obesity, class 1
CPT/HCPCS: 80053; 84443

== ENCOUNTER 2025-04-11 10:38 | Outpatient (CLI) | payer MEDICARE, SELFPAY ==
[2025-04-11 16:46] LABS: Hematocrit 31.1 % (37.0-47.0); Hemoglobin 10.3 g/dL (12.2-16.2); Immature Granulocytes % 0.6 %; Mean Corpuscular HGB Conc 33.1 g/dL (31.8-35.4); Mean Corpuscular Hemoglobin 36.4 pg (27.0-31.2); Mean Corpuscular Volume 109.9 fl (81-99); Nucleated Red Blood Cells % 0 %; Platelet Count 70 K/mm3 (142-424); Red Blood Count 2.83 M/mm3 (4.20-5.40); Red Cell Distribution Width-SD 65.7 fL; White Blood Count 3.1 K/mm3 (4.8-10.8)
[2025-04-11 17:32] LABS: Albumin Level 3.9 g/dl (3.5-5.0); Chloride 101 mmol/L (98-107); Potassium 3.9 mmoL/L (3.5-5.1); Sodium 136 mmol/L (136-145)
[2025-04-11 17:35] LABS: Alanine Aminotransferase 23 U/L (12-78); Albumin/Globulin Ratio 1.3 (1.1-1.8); Alkaline Phosphatase 77 U/L (38-126); Anion Gap 10.9 mEq/L (5-15); Aspartate Amino Transferase 44 U/L (14-36); Bilirubin,Total 0.9 mg/dl (0.2-1.3); Blood Urea Nitrogen 33 mg/dl (7-17); Carbon Dioxide 28 mmol/L (22.0-30.0); Creatinine,Serum 1.60 mg/dl (0.52-1.04); Estimated Glomerular Filt Rate 31 ml/min (>60); GFR (African American) 38 ML/MIN (>60); Globulin 3.0 g/dL (1.3-3.2); Total Protein,Serum 6.9 g/dl (6.3-8.2)
[2025-04-11 17:36] LABS: Calcium 10.3 mg/dl (8.4-10.2); Glucose 105 mg/dl (74-100)
[2025-04-11 23:08] LABS: Thyroid Stimulating Hormone 127.00 uIU/mL (0.465-4.68)
--- OUTSIDE RECORDS SUMMARY | 2025-04-12 11:54 | XMS_ITS | Clinical Summary ---
Author Organization [facility] are Address [address] [place], [place] [address] Phone Care Team Providers Care Head Charrer Name Role Phone Wilbert RIGOJennifer Unavailable Unavailab [...]
--- OUTSIDE RECORDS SUMMARY | 2025-04-12 11:55 | XMS_ITS | Continuity of Care Document ---
Author Organization [facility] Address [facility] [address] Phone Care Team Providers Care State Historical Society Director Name Role Phone Baudilio Fields MD Primary Care Provider [phone] Encounters Date Type Department Care Team Description 04/19/2024 Telephone SEP Infectious Disease FTT [address] [place] [address] Sarita Telles, LAST WAXER Follow-up 03/29/2024 12:25 PM EST - 03/29/2024 11:59 PM EST Hospital Encounter [facility]TT XRAY [address] [place] [address] Terry Lo MD Finkelstein, Jenna M, PA Intra-abdominal abscess (HCC) Discharge Disposition: Home or Self Care 03/29/2024 12:25 PM EST - 03/29/2024 11:59 PM EST Hospital Encounter [facility] [address] [place] [address] Terry Lo MD Intra-abdominal abscess (HCC) Discharge Disposition: Home or Self Care 03/25/2024 Telephone SEP Infectious Disease FTT [address] [place] [address] Sarita Telles, LAST WAXER Follow-up 03/22/2024 Telephone [facility] [address] [place] [address] Michelle Gutiérrez, RT Follow-up 03/17/2024 Orders Only [facility] [place] [address] [place] [address] Michelle Gutiérrez, RT Intra-abdominal abscess (HCC) (Primary Dx) 03/16/2024 Telephone [facility] [place] [address] [place] [address] Michelle Gutiérrez, RT Follow-up 03/04/2024 3:37 PM EST - 03/12/2024 5:10 PM EST Hospital Encounter [facility] [address] 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 [address] Bulmaro Neal MD Paul, Gautam, MD Acute cholecystitis Discharge Disposition: Home or Self Care 02/24/2024 5:00 PM EST - 02/24/2024 6:10 PM EST Surgery FTT PERIOP [address] [place] [address] Torres Ford MD LAPAROSCOPIC CHOLECYSTECTOMY POSSIBLE OPEN 02/24/2024 5:27 PM EST Anesthesia Event [facility]TT PERIOP [address] [place] [address] Quentin Elizalde MD Hilvano, Ayesa M, MD 02/23/2024 Orders Only SEP Gen Surg Edg [address] [facility] [address] [place] [address] Torres Ford MD Acute cholecystitis (Primary Dx) 07/20/2022 Refill [facility]P H&V [address] [address] Justen Grissom MD Medication Refill 11/22/2021 Refill [facility] [place] [address] [place] [address] Justen Grissom MD Medication Refill 10/15/2021 Orders Only SEP Vascular Surg Edg 20 [facility] [address] [place] [address] August Chavarria MD AAA (abdominal aortic aneurysm) without rupture (Primary Dx) 02/08/2021 Travel 02/08/2021 10:30 AM EDT Office Visit [facility] H&V [address] [place] [address] Justen Grissom MD Hyperlipidemia, unspecified hyperlipidemia type (Primary Dx); Atypical chest pain; Palpitations 08/08/2020 Travel 08/08/2020 11:30 AM EDT Office Visit [facility]P Vascular Surg Edg 20 [facility] [address] [place] [address] August Chavarria MD AAA (abdominal aortic aneurysm) without rupture (Primary Dx); PVD (peripheral vascular disease); Type 2 diabetes mellitus with hyperosmolarity without coma, unspecified whether mcfp insulin use (HCC); Varicose veins of bilateral lower extremities with other complications 08/07/2020 Travel 08/07/2020 9:52 AM EDT - 08/07/2020 11:59 PM EDT Hospital Encounter [facility] [place] [address] August Chavarria MD Abdominal aortic aneurysm without rupture Discharge Disposition: Home or Self Care 08/04/2020 Travel 02/11/2020 Travel 02/08/2020 Travel 02/08/2020 11:15 AM EDT Office Visit SEP Vascular Surg Edg 20 [facility] [address] [place] [address] August Chavarria MD AAA (abdominal aortic aneurysm) without rupture (Primary Dx); Abdominal aortic aneurysm without rupture; PVD (peripheral vascular disease); Bilateral lower extremity edema; Varicose veins of bilateral lower extremities with other complications 01/27/2020 Travel 01/27/2020 12:15 PM EDT Office Visit SEP H&V [address] [place] [address] Justen Grissom MD PVD (peripheral vascular disease) (Primary Dx); Hyperlipidemia, unspecified hyperlipidemia type 01/25/2020 Travel 01/25/2020 8:24 AM EDT - 01/25/2020 11:59 PM EDT Hospital Encounter [facility]G VASCULAR LAB [facility] [place] [address] August Chavarria MD Abdominal aortic aneurysm without rupture; AAA (abdominal aortic aneurysm) without rupture Discharge Disposition: Home or Self Care 01/04/2020 Travel 12/03/2019 Telephone SEP Vascular Surg Edg 20 [facility] [address] [place] [address] August Chavarria MD Results 09/06/2019 Travel 09/06/2019 2:00 PM EDT Telemedicine SEP H&V [address] [phone] Justen Grissom MD Atypical chest pain (Primary Dx); Palpitations 08/31/2019 Travel 05/25/2019 9:15 AM EST Office Visit SEP Vascular Surg Edg 20 [facility] [address] [place] [address] August Chavarria MD Abdominal aortic aneurysm without rupture (Primary Dx); AAA (abdominal aortic aneurysm) without rupture; Bilateral lower extremity edema; PVD (peripheral vascular disease); Varicose veins of bilateral lower extremities with other complications 05/24/2019 9:30 AM EST - 05/24/2019 11:59 PM EST Hospital Encounter [facility] [place] [address] August Chavarria MD Abdominal aortic aneurysm without rupture Discharge Disposition: Home or Self Care 01/05/2019 2:45 PM EDT Office Visit SEP H[facility] [address] [place] [phone] Justen Grissom MD Preoperative clearance (Primary Dx) 12/22/2018 Telephone SEP Vascular Surg Edg [address] [place] [address] [address] [place] [address] Chika Rose RMA Results 12/15/2018 12:08 PM EDT - 12/15/2018 11:59 PM EDT Hospital Encounter [facility] [place] [address] August Chavarria MD Abdominal aortic aneurysm without rupture Discharge Disposition: Home or Self Care 11/30/2018 Telephone [facility] [place] [address] [place] [address] Dixie Brownlee MA Other 11/23/2018 3:00 PM EDT Office Visit [facility] [place] [address] [place] [address] Torres Marshall MD Neck pain (Primary Dx) 11/12/2018 Telephone [facility] [place] [address] [place] [address] Michelle Gutiérrez, RT Pre-op Exam 11/11/2018 Telephone [facility] V[facility] Surg [facility] [address] [place] [address] [address] [place] [address] Chika Rose RMA Other 10/28/2018 11:30 AM EDT Office Visit SEP Vascular Surg Edg [address] [place] [address] [address] [place] [address] Víctor Valerio PA-C AAA (abdominal aortic aneurysm) without rupture (Primary Dx) 10/20/2018 Telephone [facility] [place] [address] [place] [address] Michelle Gutiérrez, RT Pre-op Exam 10/09/2018 5:36 AM EDT - 10/10/2018 11:11 AM EDT Hospital Encounter EDG PACU OVERNIGHT [facility] [address] [place] [address] August Chavarria MD Pre-op evaluation Discharge Disposition: Home or Self Care 10/09/2018 Travel 10/09/2018 8:15 AM EDT - 10/09/2018 11:30 AM EDT Surgery EDG PERIOP [facility] [address] [place] [address] August Chavarria MD AORTIC ENDOVASCULAR ENDOGRAFT/ ANEURYSM REPAIR EVAR POSSIBLE OPEN (ROOM 19) (COVERS FEMORAL BYPASS) 10/09/2018 8:00 AM EDT Anesthesia Event EDG PERIOP [facility] [address] [place] [address] Oc Tiwari MD Merkle Serey, Jennifer L, NP 10/07/2018 Telephone SEP Vascular Surg Edg 20 [facility] [address] [place] [address] Chika Rose RMA Procedure 10/03/2018 7:18 AM EDT - 10/06/2018 2:42 PM EDT Hospital Encounter EDG 5D TCU [facility] [place] [address] Nayeli De Leon MD Martin, K. Andrew, MD Elevated troponin (Primary Dx); Acute pain of both shoulders Discharge Disposition: Home or Self Care 10/05/2018 Travel 10/03/2018 Travel 10/02/2018 Orders Only SEP Vascular Surg Edg [address] [place] [address] [address] [place] [address] Chika Rose RMA Pre-op evaluation (Primary Dx) 10/01/2018 12:29 PM EDT - 10/01/2018 11:59 PM EDT Hospital Encounter EDG PRE-ADMIT TESTING [facility] [place] [address] Preop testing (Primary Dx); AAA (abdominal aortic aneurysm) without rupture Discharge Disposition: Home or Self Care 09/29/2018 3:15 PM EDT Office Visit SEP H&V [facility] [address] [place] [address] Justen Grissom MD Establishing care with new doctor, encounter for (Primary Dx); Preoperative clearance 09/24/2018 Telephone [facility] Vascular Surg Edg 20 [facility] [address] [place] [address] Chika Rose RMA Cardiology Clearance 09/23/2018 Orders Only SEP Vascular Surg Edg 20 [facility] [address] [place] [address] August Chavarria MD AAA (abdominal aortic aneurysm) without rupture (Primary Dx) 09/22/2018 4:30 PM EDT - 09/22/2018 11:59 PM EDT Hospital Encounter [facility] [place] [address] August Chavarria MD AAA (abdominal aortic aneurysm) without rupture Discharge Disposition: Home or Self Care 09/22/2018 1:15 PM EDT Office Visit SEP Vascular Surg Edg 20 [facility] [address] [place] [address] August Chavarria MD AAA (abdominal aortic aneurysm) without rupture (Primary Dx); Bilateral lower extremity edema; Varicose veins of bilateral lower extremities with other complications; PVD (peripheral vascular disease) 09/28/2014 Telephone SEP Gen Surg Edg 254 [address] [facility] [address] [place] [address] Betty Vyas RMA Medication Refill 11/01/2013 1:30 PM EDT - 11/01/2013 11:59 PM EDT Hospital Encounter [facility] Cancer [facility] [address] Alxe Us MD Breast cancer, right (HCC) (Primary Dx) Discharge Disposition: Home or Self Care 07/15/2013 7:55 AM EDT - 07/15/2013 11:59 PM EDT Hospital Encounter [facility] [place] [address] Oc Crook MD History of breast cancer; Encounter for long-term (current) use of other medications Discharge Disposition: Home or Self Care 07/14/2013 Telephone [facility] Women's Wellness [facility] [address] Betty Vyas RMA 07/07/2013 8:45 AM EDT Hospital [facility]counter [facility] [place] [address] Oc Crook MD Breast cancer (HCC) Discharge Disposition: Home or Self Care 07/07/2013 8:46 AM EDT - 07/07/2013 11:59 PM EDT Hospital Encounter [facility] [place] [address] Oc Crook MD History of breast cancer (Primary Dx); Encounter for long-term (current) use of other medications Discharge Disposition: Home or Self Care 05/03/2013 12:57 PM EST - 05/03/2013 11:59 PM EST Hospital Encounter [facility] [place] [address] Alex Us MD Breast cancer (HCC) (Primary Dx) Discharge Disposition: Home or Self Care 08/10/2012 1:00 PM EDT - 08/10/2012 11:59 PM EDT Hospital Encounter [facility] [place] [address] Oc Crook MD Breast cancer (HCC) (Primary Dx) Discharge Disposition: Home or Self Care 05/27/2012 7:11 AM EST - 05/27/2012 11:59 PM EST Hospital Encounter [facility] [place] [address] Alex Us MD Breast cancer (HCC) (Primary Dx) Discharge Disposition: Home or Self Care 05/15/2012 Abstract [facility] [place] [address] Lois Castro RN 02/25/2012 8:05 AM EST - 02/25/2012 11:59 PM EST Hospital Encounter [facility] [place] [address] Discharge Disposition: Home or Self Care 02/25/2012 8:05 AM EST - 02/25/2012 11:59 PM EST Hospital Encounter [facility] [place] [address] Discharge Disposition: Home or Self Care 02/24/2012 - 02/24/2012 7:21 AM EST Hospital Encounter [facility] Cancer [facility] [place] [address] Discharge Disposition: Home or Self Care 02/24/2012 7:22 AM EST - 02/24/2012 11:59 PM EST Hospital Encounter [facility] [place] [address] Discharge Disposition: Home or Self Care 02/21/2012 - 02/21/2012 7:13 AM EDT Hospital Encounter [facility] [place] [address] Discharge Disposition: Home or Self Care 02/21/2012 7:14 AM EDT - 02/21/2012 11:59 PM EDT Hospital Encounter [facility] [place] [address] Discharge Disposition: Home or Self Care 02/20/2012 7:20 AM EDT - 02/20/2012 11:59 PM EDT Hospital Encounter [facility] [place] [address] Discharge Disposition: Home or Self Care 02/20/2012 7:20 AM EDT - 02/20/2012 11:59 PM EDT Hospital Encounter [facility] [place] [address] Discharge Disposition: Home or Self Care 02/19/2012 2:51 PM EDT - 02/19/2012 11:59 PM EDT Hospital Encounter [facility] [place] [address] Discharge Disposition: Home or Self Care 02/19/2012 9:15 AM EDT - 02/19/2012 2:50 PM EDT Hospital Encounter [facility] [place] [address] Discharge Disposition: Home or Self Care 02/18/2012 7:56 AM EDT - 02/18/2012 11:59 PM EDT Hospital Encounter [facility] [place] [address] Discharge Disposition: Home or Self Care 02/07/2012 3:21 PM EDT - 02/07/2012 11:59 PM EDT [facility] [place] [address] Alex Us MD Malignant neoplasm of breast (female), unspecified site (HCC) Discharge Disposition: Home or Self Care 02/07/2012 7:19 AM EDT - 02/07/2012 3:20 PM EDT Hospital Encounter [facility] Cancer Care [facility] [place] [address] Discharge Disposition: Home or Self Care 01/27/2012 3:15 PM EDT - 01/27/2012 11:59 PM EDT Hospital Encounter [facility] [place] [address] Oc Crook MD Breast cancer (HCC) Discharge Disposition: Home or Self Care 01/13/2012 9:40 AM EDT - 01/13/2012 11:59 PM EDT Hospital Encounter [facility] LABORATORY [facility] [place] [address] Discharge Disposition: Home or Self Care 01/06/2012 10:33 AM EDT - 01/06/2012 11:59 PM EDT Hospital Encounter [facility] [place] [address] Oc Crook MD Breast cancer (HCC) Discharge Disposition: Home or Self Care 12/31/2011 Telephone [facility] [place] [address] Yvette Pratt RN 12/27/2011 1:15 PM EDT - 12/27/2011 2:30 PM EDT Surgery EDG PERIOP [facility] [place] [address] Oc Crook MD BREAST LUMPECTOMY/ SEGMENTECTOMY/ AXILLARY SENTINEL NODE BIOPSY (COVERS MAMMOGRAM GUIDED/NEEDLE PLACEMENT OR SHLOMO ELEMENT BURNER) 12/27/2011 11:09 AM EDT - 12/27/2011 5:50 PM EDT Hospital Encounter [facility] SAME DAY SURGERY [facility] [place] [address] Oc Crook MD Breast mass, right Discharge Disposition: Home or Self Care 12/19/2011 8:45 PM EDT - 12/19/2011 11:59 PM EDT Hospital Encounter [place] EKG [facility] [address] [place] [address] Shayna Velez APRN Guenther, Joseph M, MD Discharge Disposition: Home or Self Care 12/19/2011 12:05 PM EDT - 12/19/2011 8:44 PM EDT Hospital Encounter EDG PRE-ADMIT TESTING [facility] [place] [address] Discharge Disposition: Home or Self Care 12/13/2011 Orders Only SEP Gen Surg Edg [address] [facility] [address] [place] [address] Betty Vyas RMA Breast mass, right (Primary Dx) 12/09/2011 9:40 AM EDT - 12/09/2011 11:59 PM EDT Hospital Encounter [place] Mammography [facility] [place] [address] Oc Crook MD Breast lesion; Breast mass, right Discharge Disposition: Home or Self Care 12/09/2011 8:32 AM EDT - 12/09/2011 9:39 AM EDT Hospital Encounter [facility] [place] [address] Oc Crook MD Breast mass; Abnormal mammogram Discharge Disposition: Home or Self Care 12/06/2011 Telephone [facility] [place] [address] Ariadne Lewis, RN Other Allergies Active Allergy [...] METRIX GLUCOSE TEST STRIP) Misc Strip by [facility].(Non-Drug; Combo Route) route. Active lancets (TRUEPLUS LANCETS) 30 gauge Misc Misc by [facility].(Non-Drug; Combo Route) route. Active aspirin 81 mg [...] 12/27/2011 03/05/2024 Overview (01/06/2012): IDC; nodes negative; ER/NE negative; Her2 neg Family History Medical History Relation Name Comments Breast Cancer Maternal Grandmother Cancer Maternal Grandmother Breast Cancer Other 1 maternal first cousin Cancer Other 1 Breast Cancer Other 2 cousin maternal cousi n Relation Name Status Comments Maternal Grandmother Other 1 Other 2 cousin Social History Smoking Status as of 04/12/2025 Tobacco Use Types Packs/Day Years Used Date Smoking Tobacco: Never Assessed [facility] Utilities Answer Date Recorded In the [...] Date Recorded PHQ-2 Total Score 2 03/04/2024 [facility] Occupat ional Health - Occupational Stress [...] money to get more. Never true 03/04/2024 [facility] IP Transportation Answer D ate Recorded In [...] on file Medical Devices Implanted Type Area Handle Machine Operator Device Identifier Shelf Expiration Date Model / Serial / Lot Graft Evas 82mm 22mm 18fr Z-Trk Znth Flx 2 Brch Ss Wvn Plstr - [id number] Implanted:Qty: 1 on 10/09/2018 by August Chavarria MD at [facility] N/A: Aorta COOK:VASCULAR 07/24/2020 [id number] / / [id number] Graft Evas 56mm 13mm 5.4mm 14fr Znth Sprlz Z-Trk 2 Brch Ntnl - [id number] Implanted:Qty: 1 on 10/09/2018 by August Chavarria MD at [facility] Left: Iliac Artery COOK:VASCULAR 07/31/2021 [id number] / / [id number] Graft Evas 56mm 13mm 5.4mm 14fr Znth Sprlz Z-Trk 2 Brch Ntnl - [id number] Implanted:Qty: 1 on 10/09/2018 by August Chavarria MD at [facility] Right: Iliac Artery COOK:VASCULAR 08/20/2021 [id number] / / [id number] Procedures Procedure Name Priority Date/Time Associated Diagnosis [...] Breast cancer (HCC) 12/27/11 IDC; nodes negative; ER/NE negative; Her2 neg Depression past Diabetes mellitus [...] true Transportation Needs: No Transportation Needs (03/04/2024) [facility] IP Transportation In the past 12 months, has lack of reliable transportation kept you frommedical appointments, meetings, work or from getting things needed fordaily living?: No Physical Activity: Inactive (03/04/2024) Exercise Vital Sign Days of Exercise per Week: 0 days Minutes of Exercise per Session: 0 min Stress: No Stress Concern Present (03/04/2024) [facility] Occupational Health - Occupational StressQuestionnaire Feeling of Stress : Only a little Social Connections: Not on file Intimate Partner Violence: Not on file Housing Stability: Not on file Medications Prior to Admission Medication Sig Dispense Refill Last Dose/Taking alcohol antiseptic pads (BD ALCOHOL SWABS TOP) Apply topically. Taking aspirin 81 mg Oral Tablet, Chewable Take 81 mg by mouth daily.03/03/2024 b luviqkd-T-eyjzn acid (NEPHROCAP) 1 mg Oral Capsule Take [...] Johnston MD 10 mg at 03/06/242032 b onigyim-D-qmcmk acid (NEPHROCAP) 1 mg capsule 1 Capsule [...] mg Intravenous Q6H PRN Maria Luisa Royal LAST WAXER 4 mg at 03/06/24 0821 pantoprazole (PROTONIX) 40 mg in sodium chloride 0.9% 10 mL injection 40mg Intravenous Daily Maria Luisa Royal, LAST WAXER 40 mg at 03/06/24 0831 Or pantoprazole (PROTONIX) tablet 40 mg 40 mg Oral Daily RoyalMaria Luisa sheltonLAST WAXER 40 mg at 03/07/24 0837 piperacillin-tazobactam in dextrose (ZOSYN) IVPB 3.375 g 3.375 gIntravenous 3 times per day Janeth Mendez, LAST WAXER 12.5 mL/hr at105/07/23 0938 3.375 g at 03/07/24 0938 potassium chloride (KLOR-CON) tablet 10 mEq 10 mEq Oral BID Torres Johnston MD 10 mEq at 03/07/24 0836 Review of Systems: Constitutional: + for fever, fatigued, generally weak, loss of appetite 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 Monitor fever/BP curve, I/O's, serum electrolytes, WBC & platelet trend,Liver and renal function Thanks for consulting. Discussed with patient and RN. ID will continue rowena Case reviewed, patient seen with Dr. Ellen Rinaldi, LAST WAXER CORONAVIRUS 2019 Routine 03/06/2024 9:37 PM EST [...] AIRWAY PLACEMENT Routine 02/24/2024 5:43 PM EST NE LAPAROSCOPY SURG CHOLECYSTECTOMY 02/24/2024 5:20 PM EST [...] History: Diagnosis Date AAA (abdominal aortic aneurysm) ([facility]) Breast cancer ([facility]) 12/27/11 IDC; nodes negative; ER/NE negative; Her2 neg Depression past Diabetes mellitus ([facility]) IDDM ROMERO (dyspnea on exertion) Headache Hyperlipidemia Neuromuscular disorder ([facility]) left foot neuropathy,elise Osteoporosis Thyroid disease Unspecified sleep apnea has not used cpap in 5 yrs PSH - Past Surgical History: Procedure Laterality Date BACK SURGERY 1987 BREAST BIOPSY Left BREAST LUMPECTOMY 12/27/2011 RIGHT BREAST SEGMENTECTOMY SENTINEL LYMPH NODE DISSECTION ; Surgeon:Maggie Crook MD; Location: ED MAIN OR; Service: General BREAST LUMPECTOMY Right [...] aortic aneurysm) without rupture Special Needs Benjamin (Cook rep), Delroy valdovinos notified (WS) CENTRAL VENOUS LINE PLACEMENT Routine 10/09/2018 7:47 AM EDT BB HISTORY CHECK STAT 10/09/2018 6:18 AM EDT ABORH STAT 10/09/2018 6:18 AM EDT GLUCOSE METER POC Routine 10/09/2018 6:14 AM EDT SCANNED EKG 10/09/2018 12:50 AM EDT SCANNED RADIOLOGY REPORT 10/06/2018 2:40 PM EDT IP CONSULT TO INTERVENTIONAL RADIOLOGY Routine 10/06/2018 10:22 AM EDT Procedure Note - Hernadez, Damari Benedict PA-C - 10/06/2018 12:08 PM [...] Breast cancer (HCC) 12/27/11 IDC; nodes negative; ER/NE negative; Her2 neg Depression past Diabetes mellitus (HCC) IDDM ROMERO (dyspnea on exertion) Headache Hyperlipidemia Neuromuscular disorder (HCC) left foot neuropathy,elise Osteoporosis Thyroid disease Unspecified sleep apnea has not used cpap in 5 yrs PSxHx: Past Surgical History: Procedure Laterality Date BACK SURGERY 1987 BREAST BIOPSY Left BREAST LUMPECTOMY 12/27/2011 RIGHT BREAST SEGMENTECTOMY SENTINEL LYMPH NODE DISSECTION ; Surgeon:Maggie Crook MD; Location: [facility] MAIN OR; Service: General BREAST LUMPECTOMY Right [...] 5 mg, Oral, TID PRN, Kassandra Ruiz, LAST WAXER, 5 mg at 10/05/182126 dextrose 50 % [...] note is in progress. Neurosurgery Consult Dictated #[id number] Seen with , spoke with nursing 4 [...] METER POC Routine 10/03/2018 9:02 PM EDT ALBUMIN/CREATININE RATIO, RANDOM URINE Routine 10/03/2018 7:48 PM EDT ECG [...] 10/03/2018 PATIENT: Henrietta Walsh :1945, , CSN: [id number] PCP: Kana Valero MD Date:10/03/2018 at 1:26 PM Primary Wallpaper Scraper: none I would like to thank Ken [...] Breast cancer (HCC) 12/27/11 IDC; nodes negative; ER/NE negative; Her2 neg Depression past Diabetes mellitus [...] (TRUE METRIX GLUCOSE TEST STRIP) Misc Strip [facility].(Non-Drug; Combo Route) route. CALCIUM CARBONATE (CALCIUM 600 [...] mL 31gauge x [address] [facility].(Non-Drug; Combo Route) route. INSULN ASP PRT/INSULIN ASPART [...] NODE DISSECTION ; Surgeon:Maggie Crook MD; Location: [facility] MAIN OR; Service: General BREAST LUMPECTOMY Right [...] or output data in the 24 hours [id number] 1326 Diagnostic tests and labs Lab Results [...] Pat Name: HENRIETTA WALSH Department: DEPIDPatient ID: [id number] Room: 5416 Gender:Female Lobbyist: Richar : [id number] By: [facility] Order Number: [id number] MD: Monroe Moulton [facility]ENTER[facility] Intervals AxisRate: 80 P: 24 NE: 154QRS: 24 QRSD: 86T: 28 QT: 358QTc: [...] most recent cardiovascular imaging studies availabe in [facility] EMR werereviewed at time of consultation [...] -per attending Hyperlipidemia -on mevacor and Lofibra 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 Resolved with Atropine. Notelemetry strips in [facility] or on the paper chart, -monitor telemetry [...] the ER. Her heart rate dropped into [id number]'s. Pt became diaphoretic and near syncope. Pt [...] EDT RIGHT BREAST MASS Special Needs MCKENNA CPT;76173/62170 BREAST LUMPECTOMY/ SEGMENTECTOMY/ AXILLARY SENTINEL NODE BIOPSY (COVERS MAMMOGRAM GUIDED/NEEDLE PLACEMENT OR SHLOMO ELEMENT BURNER) 12/27/2011 2:19 PM EDT RIGHT BREAST MASS Special Needs MCKENNA CPT;38645/01767 EK EKG 12 LEAD Routine 12/19/2011 8:46 [...] Terry Lo MD IMG FLUOROSCOPY ORDERABLES Aide rahul Result PACS * CT ABDOMEN PELVIS WO [...] the aortobiiliac stent graft with the similar [place] aortic aneurysm of about 3.2 cm. No [...] of the aortobiiliac stentgraft with the similar [place] aortic aneurysm of about 3.2 cm. No [...] of5 resultswithin the time period is included. [facility] Creatinine-iST AT 0.5(L) 0.6 - 1.3 mg/dL 03/29/2024 12:50 PM EST [facility] Blood BLOOD SPECIMEN / Unknown 03/29/2024 12:49 PM EST 03/29/2024 12:50 PM EST Terry Lo MD POINT OF CARE TEST ORDERABLES F inal Result [facility] [address] [place] [address] * (ABNORMAL) GLUCOSE METER POC (03/12/2024 12:21 PM EST) Only the most recent of61 resultswithin the time period is included. [facility] Signature Glucose Meter POC 167(H) 70 - 100 mg/dL 03/12/2024 12:22 PM EST [facility] Sample Type Capillary 03/12/2024 12:22 PM EST [facility] Patient Status Non-Critical Patient 03/12/2024 12:22 PM EST [facility] Blood BLOOD SPECIMEN / Unknown 03/12/2024 12:21 PM EST 03/12/2024 12:22 PM EST us Torres Johnston MD POINT OF CARE TEST ORDERABLES Final Result [facility] [address] [place] [address] * (ABNORMAL) CBC WITH DIFF (03/12/2024 5:29 AM EST) Only the most recent of14 resultswithin the time period is included. WBC 5.4 3.7 - 10.3 x10(3)/mc L 03/12/2024 5:55 AM EST [facility] RBC 2.14(L) 3.90 - 5.20 x10(6)/mc L 03/12/2024 5:55 AM EST [facility] Hgb 7.3(L) 11.2 - 15.7 g/dL 03/12/2024 5:55 AM EST [facility] Hct 22.6(L) 34.0 - 45.0 % 03/12/2024 5:55 AM EST [facility] MCV 105.6(H) 80.0 - 100.0 fL 03/12/2024 5:55 AM EST [facility] MCH 34.1(H) 26.0 - 34.0 pg 03/12/2024 5:55 AM EST [facility] MCHC 32.3 30.7 - 35.5 g/dL 03/12/2024 5:55 AM EST [facility] RDW 17.9(H) <=14.9 % 03/12/2024 5:55 AM EST [facility] Platelet 140(L) 155 - 369 x10(3)/mc L 03/12/2024 5:55 AM [facility] MPV 10.1 8.8 - 12.5 fL 03/12/2024 5:55 AM [facility] NRBC Auto % 0.6(H) <=0.0 % 03/12/2024 5:55 AM [facility] NRBC# 0.0 x10(3)/mc L 03/12/2024 5:55 AM [facility] Neut Percent 55.7 % 03/12/2024 5:55 AM [facility] Comment:Neutrophils equals s egs plus bands Imm Gran% 2.0 % 03/12/2024 5:55 AM [facility] Comment:Automated count of m etamyelocytes, myelocytes and promyelocytes. IG >1% represents a left shift and provides an early indication of an infection or inflammatory process. Lymph Percent 25.9 % 03/12/2024 5:55 AM [facility] Winston Percent 10.2 % 03/12/2024 5:55 AM [facility] Eos Percent 5.8 % 03/12/2024 5:55 AM [facility] Baso Percent 0.4 % 03/12/2024 5:55 AM [facility] Neut # 3.0 1.6 - 6.1 x10(3)/mc L 03/12/2024 5:55 AM [facility] Comment:Neutrophils equals s egs plus bands IMMGRAN# 0.1 0.0 - 0.1 x10(3)/mc L 03/12/2024 5:55 AM [facility] Comment:Automated count of m etamyelocytes, myelocytes and promyelocytes. An absolute IG <0.1 is reported as 0.0. Lymph # 1.4 1.2 - 3.9 x10(3)/mc L 03/12/2024 5:55 AM [facility] Winston # 0.6 0.3 - 0.9 x10(3)/mc L 03/12/2024 5:55 AM [facility] Eos# 0.3 0.0 - 0.5 x10(3)/mc L 03/12/2024 5:55 AM EST [facility] Baso # 0.0 0.0 - 0.1 x10(3)/mc L 03/12/2024 5:55 AM EST [facility] Blood BLOOD SAMPLE TAKEN FROM CENTRAL LINE / Unknown Venipuncture / Unknown 03/12/2024 5:29 AM EST 03/12/2024 5:52 AM EST us Sarita Telles LAST WAXER HEMATOLOGY ORDERABLES Final Result [facility] [address] [place] [address] * (ABNORMAL) COMPREHENSIVE METABOLIC PANEL (03/12/2024 5:29 AM EST) Only the most recent of4 resultswithin the time period is included. Sodium 136 136 - 145 mmol/L 03/12/2024 6:13 AM [facility] Potassium 3.6 3.5 - 5.0 mmol/L 03/12/2024 6:13 AM [facility] Chloride 103 98 - 107 mmol/L 03/12/2024 6:13 AM [facility] Total CO2 25 22 - 29 mmol/L 03/12/2024 6:13 AM [facility] Anion Gap 8 7 - 16 mmol/L 03/12/2024 6:13 AM [facility] Calcium 7.4(L) 8.8 - 10.4 mg/dL 03/12/2024 6:13 AM [facility] Glucose Lvl 182(H) 70 - 99 mg/dL 03/12/2024 6:13 AM [facility] BUN 8 8 - 23 mg/dL 03/12/2024 6:13 AM [facility] Creatinine 0.66 0.51 - 1.30 mg/dL 03/12/2024 6:13 AM [facility] Albumin 2.2(L) 3.2 - 4.6 gm/dL 03/12/2024 6:13 AM [facility] Total Protein 4.6(L) 6.4 - 8.3 gm/dL 03/12/2024 6:13 AM EST [facility] Bili Total 0.4 0.2 - 1.3 mg/dL 03/12/2024 6:13 AM EST [facility] ALT 14 <=41 U/L 03/12/2024 6:13 AM EST [facility] AST 29 <=40 U/L 03/12/2024 6:13 AM EST [facility] Alk Phos 67 36 - 123 U/L 03/12/2024 6:13 AM EST [facility] eGFR (CKD-EPIcr 2020) 89 >=60 mL/min/1.7 3 m2 03/12/2024 6:13 AM EST [facility] Comment:Estimated GFR was ca lculated using the CKD-EPIcr (2020) equation refit without race. The equation is recommended by the National Kidney Foundation - [place] [employer] Nephrology Task Force. Blood BLOOD SAMPLE TAKEN FROM CENTRAL LINE / Unknown Venipuncture / Unknown 03/12/2024 5:29 AM EST 03/12/2024 5:52 AM EST us Sarita Telles LAST WAXER CHEMISTRY ORDERABLES Final Result Performing Organization Address City/State/[facility] Co de Phone Number [facility] [address] [place] [address] * IR PICC INSERTION EQUAL OR [...] mL/min/1.7 3 m2 03/10/2024 9:41 AM EST [facility] Comment:Estimated GFR was ca lculated using the CKD-EPIcr (2020) equation refit without race. The equation is recommended by the National Kidney Foundation - [place] [employer] Nephrology Task Force. Blood VENOUS BLOOD / Unknown Venipuncture / Unknown 03/10/2024 5:53 AM EST 03/10/2024 6:58 AM EST us Torres Johnston MD CHEMISTRY ORDERABLES Final Re sult [facility] [address] [facility], [address] [place], [place] [phone] [facility] [address] [place] [address] * EC ECHOCARDIOGRAM LIMITED (03/09/2024 [...] Left ventricular segmental wall motion is normal. Sarita Telles APRN IMG ECHO ORDERABLES Final R esult * EXTRA GOLD SST (03/09/2024 6:12 AM EST) Only the most recent of3 resultswithin the time period is included. Blood VENOUS BLOOD / Unknown Venipuncture / Unknown 03/09/2024 6:12 AM EST 03/09/2024 7:18 AM EST us Torres Johnston MD CHEMISTRY ORDERABLES Final Re sult [facility] [address] [place] [address] * XR CHEST AP PORTABLE (03/08/2024 [...] - 5.6 % 03/08/2024 12:22 PM EST [facility] Est. Avg Glucose 111 mg/dL 03/08/2024 12:22 PM EST [facility] Blood VENOUS BLOOD / Unknown Venipuncture / Unknown 03/08/2024 5:24 AM EST 03/08/2024 7:11 AM EST Narrative [facility] - 03/08/2024 12:22 PM EST REFERENCE RANGE: Normal: 4.0-5.6% Pre-diabetes: 5.7-6.4% Provisional diagnosis of diabetes: >6.4% Hgb F>10% and anything which shortens red cell survival, such as hemolytic anemia, or unstable hemoglobin variants such as HbSS, HbSC, or HbCC, will lower the HbA1c value associated with a given level of glycemic control. Jojo Rinaldi APRN CHEMISTRY ORDERABLES Aide kay Result Performing Organization Address [facility] Co de Phone Number [facility] [address] [facility], [place] [address] [facility] [address] [place] [address] * (ABNORMAL) NT PROBNP (03/08/2024 5:23 AM EST) NT Pro-BNP 2,866(H) <=624 pg/mL 03/08/2024 10:06 AM EST [facility] Blood VENOUS BLOOD / Unknown Venipuncture / Unknown 03/08/2024 5:23 AM EST 03/08/2024 7:13 AM EST Narrative [facility] - 03/08/2024 10:06 AM EST An [...] ORDERABLES Final Re sult Performing Organization Address [facility] Co de Phone Number [facility] [address] [place] [address] * (ABNORMAL) HEPATIC FUNCTION PANEL (03/08/2024 5:23 AM EST) Only the most recent of2 resultswithin the time period is included. Total Protein 4.7(L) 6.4 - 8.3 gm/dL 03/08/2024 7:42 AM EST [facility] Albumin 2.1(L) 3.2 - 4.6 gm/dL 03/08/2024 7:42 AM EST [facility] Bili Direct 0.3 0.0 - 0.3 mg/dL 03/08/2024 7:42 AM EST [facility] Bili Total 0.6 0.2 - 1.3 mg/dL 03/08/2024 7:42 AM EST [facility] AST 27 <=40 U/L 03/08/2024 7:42 AM EST [facility] ALT 12 <=41 U/L 03/08/2024 7:42 AM EST [facility] Alk Phos 64 36 - 123 U/L 03/08/2024 7:42 AM EST [facility] Blood VENOUS BLOOD / Unknown Venipuncture / Unknown 03/08/2024 5:23 AM EST 03/08/2024 7:13 AM EST us Torres Johnston MD CHEMISTRY ORDERABLES Final Re sult Performing Organization Address [facility] de Phone Number [facility] [address] [place], [place] [phone] * BLOOD CULTURE (NO STAIN) (03/07/2024 8:45 AM EST) Only the most recent of8 resultswithin the time period is included. Pathologist [facility] Culture Result No Growth at 120 hours. BLOOD CULTURE (NO STAIN) 03/12/2024 1:01 PM EST [facility] Blood VENOUS BLOOD / Unknown Venipuncture / Unknown 03/07/2024 8:45 AM EST 03/07/2024 9:04 AM EST Torres Johnston MD MICROBIOLOGY - GENERAL ORDERA BLES Final Result Performing Organization Address City/[facility]/ZIP Co de Phone Number [facility] [address] [facility] [address] , [address] [place] [phone] * CORONAVIRUS 2019 (03/06/2024 9:37 PM EST) [facility] CORONAVIRUS [id number] Not Detected Not Detected 03/06/2024 10:06 PM EST [facility] Comment: Caution should be exercised when [...] and Patients: CHANTELL Fact Sheet for Providers: https://www.fda.gov/media/597288/download CHANTELL Fact Sheet for Patients: https://www.fda.gov/media/146284/download Test is performed on the [employer] CHANTELL platform under the FDA's Emergency Use Authorization (EUA). Performed at [address] [address] CLIA [id number] Swab BOTH ANTERIOR NARES / Unknown 03/06/2024 9:37 PM EST 03/06/2024 9:45 PM EST us Maria Luisa Royal APRN MICROBIOLOGY - GENERAL ORDERA BLES Final Result [facility] [address] [place] [address] * (ABNORMAL) BLOOD CULTURE JONATAN GRAM POS (03/06/2024 9:33 AM EST) [facility] [employer]AC[employer] Not Detected Not [...] 9:33 AM EST 03/06/2024 9:39 AM EST Torres Johnston MD MICROBIOLOGY - GENERAL ORDERA BLES Final Result [facility] [address] [facility] [address] , [place] [address] * (ABNORMAL) BLOOD CULTURE JONATAN GRAM NEG [...] Final Result [facility] [address] [facility] [address] , [place] [address] * LACTIC ACID (03/06/2024 9:33 AM EST) Only the most recent of2 resultswithin the time period is included. Lactic Acid 0.8 0.5 - 1.9 mmol/L 03/06/2024 9:53 AM EST [facility] Blood VENOUS BLOOD / Unknown Venipuncture / Unknown 03/06/2024 9:33 AM EST 03/06/2024 9:39 AM EST us Torres Johnston MD CHEMISTRY ORDERABLES Final Re sult [facility] [address] [facility] [place] [address] * CT GUIDED ABSCESS DRAIN [...] BILIRUBIN, BODY FLUID (03/05/2024 3:22 PM EST) Bilirubin BF 10.7(H) 0.1 - 1.3 mg/dL 03/06/2024 3:38 AM EST [facility] Body Fluid ABDOMINAL / Unknown 03/05/2024 3:22 PM EST 03/05/2024 3:48 PM EST Narrative [facility] - 03/06/2024 3:38 AM EST A reference interval for this test has not been established for body fluid specimens. The reference range listed reflects normal concentration of this analyte in blood. Terry Lo MD BODY FLUIDS AND STOOLS ORDERABL ES Final Result [facility] [address] , [place] [address] * (ABNORMAL) BODY FLUID CULTURE (STAIN INCLUDED) (03/05/2024 3:03 PM EST) Pathologist [facility] Culture Positive Growth(A) 2023 8:25 PM EST [...] ES Final Result [facility] [address] [place] [address] , [place] [address] * PARTIAL THROMBOPLASTIN TIME (03/04/2024 5:38 PM EST) Only the most recent of2 resultswithin the time period is included. Pathologist [facility] PTT 34.2 27.9 - 38.7 second(s) 03/04/2024 6:01 PM EST [facility] Comment: Therapeutic range for unfractionated heparin: [...] ORDERABLES Final Re sult Performing Organization Address [facility] de Phone Number [facility] [address] [place] [address] * PT / INR (03/04/2024 5:38 PM EST) Only the most recent of4 resultswithin the time period is included. PT 13.6 10.5 - 13.6 second(s) 03/04/2024 6:01 PM EST [facility] INR 1.16 0.89 - 1.16 (ratio) 03/04/2024 6:01 PM EST [facility] Comment: Level of Therapy Indications Target INR Range Standard Dose Treatment and prophylaxis of venous 2.0 - 3.0 thrombosis, pulmonary embolism High Dose High risk patients with mechanical 2.5 - 3.5 heart valves Blood VENOUS BLOOD / Unknown Venipuncture / Unknown 03/04/2024 5:38 PM EST 03/04/2024 5:46 PM EST Citlalli Lemus DO HEMATOLOGY ORDERABLES Final [facility] Performing Organization Address [facility] de Phone Number [facility] [address] [place] [address] * (ABNORMAL) URINALYSIS REFLEX (03/04/2024 5:09 PM EST) Only the most recent of2 resultswithin the time period is included. UA Color Yellow 03/04/2024 5:13 PM EST [facility] UA Appear Clear Clear 03/04/2024 5:13 PM EST [facility] UA Glucose Negative Negative mg/dL 03/04/2024 5:13 PM EST [facility] UA Ketones 1+ (15 mg/dL)(A) Negative mg/dL 03/04/2024 5:13 PM EST [facility] UA Blood Negative Negative 03/04/2024 5:13 PM EST [facility] UA pH 6.0 5.0 - 8.0 pH 03/04/2024 5:13 PM EST [facility] UA Protein Negative Negative mg/dL 03/04/2024 5:13 PM EST [facility] UA Urobilinogen 0.2 <=1 mg/dL 5:13 PM EST [facility] UA Bili 03/04/2024 5:13 PM EST [facility] Comment:Unable to report. Ca nnot rule out interfering substances that may yield false positive results. Consider correlation with serum bilirubin result. UA Nitrite Negative Negative 03/04/2024 5:13 PM EST [facility] UA Leuk Est Negative Negative 03/04/2024 5:13 PM EST [facility] UA Spec Grav 1.020 1.001 - 1.035 no units 03/04/2024 5:13 PM EST [facility] Comment:Reference range michael d for random specimens only. Urine URINE SPECIMEN OBTAINED VIA STRAIGHT CATHETER / Unknown 03/04/2024 5:09 PM EST 03/04/2024 5:11 PM EST Citlalli Lemus DO URINE ORDERABLES Final Result Performing Organization Address [facility] de Phone Number [address] [address] * EXTRA OGLESBY URINE CX (03/04/2024 5:09 PM EST) Only the most recent of2 resultswithin the time period is included. Urine URINE SPECIMEN OBTAINED VIA STRAIGHT CATHETER / Unknown 03/04/2024 5:09 PM EST 03/04/2024 5:11 PM EST Citlalli Lemus DO MICROBIOLOGY - GENERAL ORDERAB LES Final Result Performing Organization Address [facility] Co de Phone Number [address] [place] [address] * CT ABD PEL ED FAST W [...] contactthe office of the ordering clinician. us Citlalli Lemus DO IM CT ORDERABLES Final Result * LIPASE LEVEL (03/04/2024 3:57 PM EST) Lipase Lvl 39 13 - 60 U/L 03/04/2024 4:18 PM EST [facility] Blood VENOUS BLOOD / Unknown Venipuncture / Unknown 03/04/2024 3:57 PM EST 03/04/2024 4:01 PM EST us Citlalli Lemus DO CHEMISTRY ORDERABLES Final Res ult [facility] [address] [facility] [place], [place] [address] * (ABNORMAL) CBC (02/26/2024 9:01 AM EST) Only the most recent of2 resultswithin the time period is included. WBC 6.8 3.7 - 10.3 x10(3)/mcL 02/26/2024 9:14 AM EST [facility] RBC 2.62(L) 3.90 - 5.20 x10(6)/mcL 02/26/2024 9:14 AM EST [facility] Hgb 8.9(L) 11.2 - 15.7 g/dL 02/26/2024 9:14 AM EST [facility] Hct 26.9(L) 34.0 - 45.0 % 02/26/2024 9:14 AM EST [facility] MCV 102.7(H) 80.0 - 100.0 fL 02/26/2024 9:14 AM EST [facility] MCH 34.0 26.0 - 34.0 pg 02/26/2024 9:14 AM EST [facility] MCHC 33.1 30.7 - 35.5 g/dL 02/26/2024 9:14 AM EST [facility] RDW 16.9(H) <=14.9 % 02/26/2024 9:14 AM EST [facility] Platelet 120(L) 155 - 369 x10(3)/mcL 02/26/2024 9:14 AM EST [facility] MPV 10.1 8.8 - 12.5 fL 02/26/2024 9:14 AM EST [facility] Blood VENOUS BLOOD / Unknown Venipuncture / Unknown 02/26/2024 9:01 AM EST 02/26/2024 9:10 AM EST Elver Taylor MD HEMATOLOGY ORDERABLES Fi nal Result Performing Organization Address City/[facility]/ZIP Co de Phone Number [facility] [address] [place] [address] * ECG AND WAVEFORMS - TELEMETRY (02/26/2024 7:01 AM EST) Only the most recent of11 resultswithin the time period is included. ECG INTERPRET NSR [facility] 02/26/2024 7:01 AM EST Narrative [facility] - 02/26/2024 7:58 AM EST ROUTINE/DT NE 0.17 QRS 0.09 RR 0.70 QT 0.38 QTc 0.45 See Clinical Report link for waveform capture us Unknown Provider POINT OF CARE CARDIOLOGY Final Result Performing Organization Address [facility] Co de Phone Number [facility] [address] [place], [place] [phone] * TRANSFUSE RED BLOOD CELLS (02/25/2024 1:28 AM EST) Torres Ford MD NURSING TREATMENT ORDERABLES - BLOOD ADMIN Final Result * BB HISTORY CHECK (02/24/2024 8:02 PM EST) Only the most recent of3 resultswithin the time period is included. Pathologist [facility] BB HISTORY CHECK (1) Previous History OK 02/24/2024 8:22 PM EST [facility] Blood VENOUS BLOOD / Unknown Venipuncture / Unknown 02/24/2024 8:02 PM EST 02/24/2024 8:14 PM EST Torres Ford MD BLOOD BANK ORDERABLES Final Result Performing Organization Address City/[facility] Co de Phone Number [facility] [address] [place] [address] * ABORH (02/24/2024 8:02 PM EST) Only the most recent of3 resultswithin the time period is included. ABORH Int A POS 02/24/2024 8:4 9 PM EST [facility] Blood VENOUS BLOOD / Unknown Venipuncture / Unknown 02/24/2024 8:02 PM EST 02/24/2024 8:14 PM EST Torres Ford MD BLOOD BANK ORDERABLES Final Result Performing Organization Address [facility] de Phone Number [facility] [address] [place] [address] * RED BLOOD CELLS REQUEST (02/24/2024 8:02 PM EST) [facility] Product Code [id number] [facility] Unit Number [id number] [facility] Crossmatch Interp Compatible [facility] Dispense Status TRANSFUSED [facility] Blood Expiration Date [facility] ISBT 128 Type [address] [facility] BLOOD [facility] Blood Unit Volume 300 ml [facility] BLO[facility] BA CODING SYSTEM [id number] [facility] BLOOD [facility] Blood Type (Unit) A POS [facility] BLOOD [facility] Blood 02/24/2024 8:02 PM EST 02/24/2024 8:14 PM EST Torres Ford MD BLOOD PRODUCT ORDERS Final R esult Performing Organization Address [facility] de Phone Number [facility] [address] [place] [address] * ANTIBODY SCREEN IGG (02/24/2024 8:02 PM EST) Only the most recent of2 resultswithin the time period is included. ABSC IgG Int Negative 02/24/2024 8:49 PM EST [facility] BLOOD BANK Blood VENOUS BLOOD / Unknown Venipuncture / Unknown 02/24/2024 8:02 PM EST 02/24/2024 8:14 PM EST Torres Ford MD BLOOD BANK ORDERABLES Final Result Performing Organization Address [facility] de Phone Number [facility] [address] [place] [address] * (ABNORMAL) HEMOGLOBIN AND HEMATOCRIT (02/24/2024 7:19 PM EST) Hgb 7.5(L) 11.2 - 15.7 g/dL 02/24/2024 7:44 PM EST [facility] Hct 22.1(L) 34.0 - 45.0 % 02/24/2024 7:44 PM EST [facility] Blood VENOUS BLOOD / Unknown Venipuncture / Unknown 02/24/2024 7:19 PM EST 02/24/2024 7:34 PM EST Torres Ford MD HEMATOLOGY ORDERABLES Final Result Performing Organization Address [facility] de Phone Number [facility] [address] [place] [address] * PATHOLOGY TISSUE REQUEST (02/24/2024 5:44 PM EST) Only the most recent of3 resultswithin the time period is included. CASE REPORT Surgical Pathology Case: [id number] Authorizing Provider: Torres Ford MD Collected: 02/24/2024 1744 Ordering Location: [facility] SURGERY Received: 02/24/2024 1935 Pathologist: Chong Hatch MD Specimen: Gallbladder, gallbladder 02/26/2024 10:33 AM EST [facility] FINAL DIAGNOSIS Gallbladder, cholecystectom y: - Acute and chronic cholecystitis. - Cholelithiasis . 02/26/2024 10:33 AM EST [facility] at 1033 EST GROSS DESCRIPTION Recieved [...] trabeculated. No periductal lymph node is identified. Science Professor sections of the fundus, body, and neck of the gallbladder, and the cystic duct margin (en face) are submitted in A1. ZN 02/25/2024 7:45 AM 02/26/2024 10:33 AM EST [facility] MICROSCOPIC DESCRIPTION The microscopic examination may have been rendered in whole, or in part, by analyzing high-resolutio n digital images (whole slide images) on the [employer] Digital Pathology platform validated at [facility]. 02/26/2024 10:33 AM EST [facility] EMBEDDED IMAGES 02/26/2024 10:33 AM [facility] Tissue ENTIRE GALLBLADDER / Unknown 02/24/2024 5:44 PM EST 02/24/2024 7:35 PM EST us Torres Ford MD PATHOLOGY ORDERABLES Final R esult [facility] [address] [place] [address] * INTRAOP AIRWAY PLACEMENT (02/24/2024 5:43 PM EST) Narrative [facility] - 02/24/2024 5:43 PM EST Quentin [...] and Unchanged Insertion attempts: 1 Title: Anesthesiologist Quentin Elizalde MD NE ANESTHESIA Final Res ult Performing Organization Address [facility] Co de Phone Number [facility] [address] [place], [place] [id number] * EXTRA LAVENDER (02/24/2024 5:19 AM EST) Blood VENOUS BLOOD / Unknown Venipuncture / Unknown 02/24/2024 5:19 AM EST 02/24/2024 6:44 AM EST Jerson Blanc DO HEMATOLOGY ORDERABLE S Final Result Performing Organization Address [facility] de Phone Number [address] [address] * MAGNESIUM LEVEL (02/24/2024 5:19 AM EST) Only the most recent of4 resultswithin the time period is included. Magnesium 1.7 1.6 - 2.4 mg/dL 02/24/2024 10:13 AM EST [facility] Blood VENOUS BLOOD / Unknown Venipuncture / Unknown 02/24/2024 5:19 AM EST 02/24/2024 6:19 AM EST Elver Taylor MD CHEMISTRY ORDERABLES Fin al Result Performing Organization Address [facility] de Phone Number [address] [address] * NM HEPATOBILIARY WO GBEF [...] Blanc DO HEMATOLOGY ORDERABLE S Final Result [address] [address] * ACUTE HEPATITIS PANEL (02/22/2024 5:08 AM EST) Hep Bs Ag Non-Reacti ve Non-Reacti ve 02/22/2024 11:58 AM EST [facility] Hep B Core IgM Non-Reacti ve Non-Reacti ve 02/22/2024 11:58 AM EST [facility], [facility] Hep A IgM Non-Reacti ve Non-Reacti ve 02/22/2024 11:58 AM EST [facility], [facility] Hep C Ab Non-Reacti ve Non-Reacti ve 02/22/2024 11:58 AM EST [facility], [facility] Blood VENOUS BLOOD / Unknown Venipuncture / Unknown 02/22/2024 5:08 AM EST 02/22/2024 6:10 AM EST Rosemary Munson LAST WAXER CHEMISTRY ORDERABLES Fi nal Result [facility] [address] , [place] [address] * EC ECHOCARDIOGRAM COMPLETE W DOPPLER AND COLOR FLOW MAPPING (02/21/2024 2:56 PM EDT) Only the most recent of2 resultswithin the time period is included. LV DIASTOLIC PLAX 4.08 cm PYRAMIS AORTIC [...] systolic pressure is 30 mmHg + RVSP. Deepali Cortez MD IMG ECHO ORDERABLES Final Res ult * US [...] AM EDT Impressions 02/21/2024 8:13 AM EDT [facility] Test Date: 2024-02-21 Pat Name: HENRIETTA WALSH Department: DEPID Room: E4623 Gender: Female Lobbyist: : 1945 Requested By: DEEPALI CORTEZ Order Number: [id number] Reading MD: Jacqui Beebe DO Measurements Intervals [place] Rate: 95 P: 19 NE: 129 QRS: 47 QRSD: 89 T: 28 QT: 346 QTc: 435 Interpretive Statements SINUS RHYTHM Electronically Signed On 02-21-2024 08:13:51 EDT by Jacqui Beebe DO Narrative Procedure Note Jacqui Beebe DO - 02/21/2024 IMPRESSION [facility] Test Date: 2024-02-21 Pat Name: HENRIETTA NICO Department: DEPID Room: E4623 Gender: Female Lobbyist: : 1945 Requested By: DEEPALI CORTEZ Order Number: [id number] Reading MD: Jacqui Beebe DO Measurements Intervals [place] Rate: 95 P: 19 NE: 129 QRS: 47 QRSD: 89 T: 28 QT: 346 QTc: 435 Interpretive Statements SINUS RHYTHM Electronically Signed On 02-21-2024 08:13:51 EDT by Jacqui Beebe DO Deepali Cortez MD IMG ECG ORDERABLES Final Resu lt * VITAMIN B12/ FOLIC ACID (02/20/2024 5:46 PM EDT) Vitamin B12 489 232 - 1,245 pg/mL 02/21/2024 1:49 AM EDT [facility] Folate 12.40 >=4.80 ng/mL 02/21/2024 1:49 AM EDT [facility] Blood VENOUS BLOOD / Unknown Venipuncture / Unknown 02/20/2024 5:46 PM EDT 02/20/2024 5:46 PM EDT Narrative [facility] - 02/21/2024 1:49 AM EDT Ingestion of walker doses of biotin (>5 mg/day) taken within 8 hours of drawing blood sample can interfere with this immunoassay test. Deepali Cortez MD CHEMISTRY ORDERABLES Final Re sult [facility] [address] , [place] [address] * CT ANGIOGRAM ABDOMEN PELVIS W CONTRAST [...] done by the reviewing physician on a [employer] workstation, with one or more of the [...] postprocessing done by thereviewing physician on a [employer] workstation, with one or more of the [...] sac size. No evidence of an endoleak. us August Chavarria MD IMG CT ORDERABLES Final Resul t * POCT EKG (01/27/2020 12:30 PM EDT) Only the most recent of2 resultswithin the time period is included. 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 No evidence of no evidence [...] INTERPRETATION DATE OF PROCEDURE: 10/09/2018 ACCESSION NUMBER: [id number] FLUOROSCOPY: 17.8 minutes, 1434 mGy. 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 TID [id number] us August Chavarria MD [facility] IR ORDERABLES Final Resul t * ANE ARTERIAL LINE PLACEMENT (10/09/2018 9:13 AM EDT) Narrative [facility] - 10/09/2018 9:13 AM EDT Justen Miguel CRNA 10/09/2018 9:15 AM Arterial Line Placement Procedure Date/time: 10/09/2018 7:35 AM Patient Location: OR holding area Indication: Continuous blood pressure monitoring Anesthesiologist: Oc Tiwari MD GUNSMITH APPRENTICE: Justen Miguel CRNA Other Staff: Ria Grijalva Placed By: Student Manager Life Sterility prep: Provider hand hygiene prior to [...] blood pressure monitoring Anesthesiologist: Oc Tiwari MD GUNSMITH APPRENTICE: Justen Miguel CRNA Other Staff: Ria Grijalva Placed By: Student Manager Life Sterility prep: Provider hand hygiene prior to [...] Oc Tiwari MD ANESTHESIA ORDERABLES Final Result [facility] [address] [place] [address] * INTRAOP AIRWAY PLACEMENT (10/09/2018 8:21 AM EDT) Narrative [facility] - 10/09/2018 8:21 AM EDT Justen [...] Unchanged Insertion attempts: 1 Attempt 1 by: stephen grijalva Title: RNSA Procedure Note Justen Miguel [...] Unchanged Insertion attempts: 1 Attempt 1 by: stephen grijalva Title: RNSA us Oc Tiwari MD NE ANESTHESIA Final Resul t [facility] [address] [place] [address] * ANE INTRODUCER PLACEMENT (10/09/2018 7:47 AM EDT) Narrative [facility] - 10/09/2018 7:47 AM EDT Oc [...] Oc Tiwari MD ANESTHESIA ORDERABLES Final Result [facility] [address] [place] [address] * SCANNED EKG (10/09/2018 12:50 AM EDT) [...] foraminal stenosis LEFT C3-4, C4-5. - - StephenKatya Davi Wise MD IMG MRI ORDERABLES Final Res [...] to moderate ormoderate degenerative spondylosis. - - us Ken Wise MD [facility] DIAGNOSTIC IMAGING ORDER EYAD Final Result * NM MYOCARDIAL PERFUSION SPECT STRESS AND REST (10/05/2018 9:59 AM EDT) Anatomical Region Laterality Modality Nuclear Medicine 10/05/2018 8:29 AM EDT Impressions 10/05/2018 3:13 PM EDT IMPRESSIONS There are no significant reversible defects. Narrative Procedure Note Arnel Saldana MD - 10/05/2018 IMPRESSION IMPRESSIONS There are no significant reversible defects. us Arnel Saldana MD [facility] NM CARDIAC ORDERABLES Final Result * ST STRESS TEST LEXISCAN (10/05/2018 9:35 AM EDT) Anatomical Region Laterality Modality Cardiac Stress T esting 10/05/2018 9:18 AM EDT Impressions 10/05/2018 10:[address] [facility] Test Date: 2018-10-05 Pat Name: HENRIETTA VALERIOMORE Department: DEPID Room: 5416 Gender: Female Lobbyist: Maggie ARAMBULA, : 1945 Requested By: ARNEL Golden Order Number: [id number] Reading MD: Arnel Saldana MD Interpretive Statements [...] WALSH Department: DEPID Room: 5416 Gender: Female Lobbyist: Maggie ARAMBULA, : 1945 Requested By: ARNEL Golden Order Number: [id number] Reading MD: Arnel Saldana MD Interpretive Statements [...] - 4.40 pg/mL 10/04/2018 2:19 PM EDT [facility] Blood Venipuncture / Unknown 10/04/2018 6:43 AM EDT 10/04/2018 7:03 AM EDT Narrative [facility] - 10/04/2018 2:19 PM EDT Ingestion of walker doses of biotin (>5 mg/day) taken within 8 hours of drawing blood sample can interfere with this immunoassay test. us Ken Wise MD CHEMISTRY ORDERABLES Final R esult [facility] [address] , [place] [address] * T4, FREE (THYROXINE) (10/04/2018 6:43 AM EDT) Pathologist [facility] Free T4 1.75 0.80 - 2.00 ng/dL 10/04/2018 2:19 PM EDT [facility] Blood Venipuncture / Unknown 10/04/2018 6:43 AM EDT 10/04/2018 7:03 AM EDT Narrative [facility] - 10/04/2018 2:19 PM EDT Ingestion of walker doses of biotin (>5 mg/day) taken within 8 hours of drawing blood sample can interfere with this immunoassay test. Ken Wise MD CHEMISTRY ORDERABLES Final R esult Performing Organization Address [facility] Co de Phone Number [facility] [address] , [place] [address] * MICROALBUMIN/CREATININE RATIO URINE (10/03/2018 7:48 PM EDT) [facility] Urine Albumin <12.0 mg/L 10/03/2018 8:30 PM EDT [facility] [employer] [facility] Urine Creatinine 63.5 mg/dL 10/04/19 19 8:30 PM EDT [facility] Ur Albumin/Creat Ratio 0 - 30 mg/g 10/03/2018 8:30 PM EDT [facility] [facility] Comment: Because the albumin level is below [...] ORDERABLES Final Resul t Performing Organization Address [facility] Co de Phone Number [facility] [employer] [address] , [place] [address] * (ABNORMAL) TROPONIN-T HIGH SENSITIVITY (10/03/2018 2:31 PM EDT) Only the most recent of3 resultswithin the time period is included. an-bDzrrpbzd-Z 70(H) <14 ng/L 10/03/2018 3:05 PM EDT [facility] Comment: See the website below for rule out [facility] care pathway, conditions other than AMI that can cause elevated hs cTnT, and comparison of values from the 4th and 5th generation Kalyani tests. [email or web address] Blood VENOUS BLOOD / Unknown Butterfly / Unknown 10/03/2018 2:31 PM EDT 10/03/2018 2:36 PM EDT Narrative [facility] - 10/03/2018 3:05 PM EDT Ingestion of walker doses of biotin (>5 mg/day) taken within 8 hours of drawing blood sample can interfere with this immunoassay test. Ken Wise MD CHEMISTRY ORDERABLES Final R esult [facility] [address] , [place] [address] * CT ANGIOGRAM AORTA CHEST W/CONTRAST (10/03/2018 [...] chest. - - Nayeli De Leon MD Renee CT ORDERABLES Final Resu lt * SURGERY DATE (10/01/2018 1:37 PM EDT) Surgery Date (1) Complete 10/01/2018 1:55 PM EDT [facility] Blood VENOUS BLOOD / Unknown Venipuncture / Unknown 10/01/2018 1:37 PM EDT 10/01/2018 1:46 PM EDT us Leona Herrmann NP BLOOD BANK ORDERABLES Final Result Performing Organization Address [facility]/ZIP Co de Phone Number [facility] [address] [place] [address] * (ABNORMAL) THYROID STIMULATING HORMONE (10/01/2018 1:37 PM EDT) TSH 0.101(L) 0.270 - 4.200 mcIU/mL 10/03/2018 12:18 PM EDT [facility] Blood VENOUS BLOOD / Unknown Venipuncture / Unknown 10/01/2018 1:37 PM EDT 10/01/2018 1:46 PM EDT Narrative [facility] - 10/03/2018 12:18 PM EDT Ingestion of walker doses of biotin (>5 mg/day) taken within 8 hours of drawing blood sample can interfere with this immunoassay test. Ken Wise MD CHEMISTRY ORDERABLES Final R esult Performing Organization Address [facility] Co de Phone Number [facility] [address] [facility], [place] [address] * CT ANGIOGRAM ABDOMINAL AORTA [...] PM CLINICAL HISTORY: I71.4-Abdominal aortic aneurysm, without rspanpy-JYG-74-CM COMPARISON: None. PROCEDURE COMMENTS: Multidetector CT angiography of the region of interest. 100 ml IsoVue-370 given. Interactive 3-D postprocessing done by the reviewing physician on a [employer] [id number].comO workstation, with one or more of the [...] 5:15 PM CLINICAL HISTORY: I71.4-Abdominal aortic aneurysm, urqcbxvpamkzsx-SJU-22-CM COMPARISON: None. PROCEDURE COMMENTS: Multidetector CT angiography of the region ofinterest. 100 ml IsoVue-370 given. Interactive 3-D postprocessing done by thereviewing physician on a Enventum workstation, with one or more of the [...] level L3-4. Transitional vertebra with partial sacralization [id number]. 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 ~ IMPRESSION: Benign finding (XDR-Oqdamytt-5) ~ RECOMMENDATION: Follow-up diagnostic mammogram in 1 [...] of the liver. Leona Cruz MD. us Baudliio Fields MD IM CT ORDERABLES Final Result * CT CHEST [...] period is included. 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 ONCOTYPE DX Breast Cancer Assay (Performed by [facility].) Result: Breast Cancer Recurrence Score = 9 [...] Please refer to the separate report from [facility]. DONAVAN ATWOOD MD (Electronically signed by) Verified: 01/20/2012 [facility] Laboratory Accession Number Collected Date/Time Received Date/Time [id number] 12/27/11 15:00 EDT 12/27/11 15:00 EDT Addendum Discussion BREAST CANCER BIOMARKER STUDIES TEST RESULT % of nuclei Reference Range stained ER by IHC Positive 95% Positive: >= 1% (Estrogen Receptor) Negative: < 1% (clone [id number]) Maldonado score: 8 NE by IHC Positive 97% Positive: >= 1% (Progesterone Receptor) Negative: < 1% (clone [id number]; DAKO) HER2 by IHC Negative/1+ Negative: 0-1+ (DAKO HercepTest Equivocal: 2+ polyclonal) Positive: 3+ FIXATIVE: 10% neutral buffered formalin (6-48 hours) NOTE: The technical component for ER, NE, and HER-2 by IHC was performed by [facility]. Interpretation was performed by a C-Road Pathologist with the assistance of image analysis (ASCO/CAP scoring guidelines were used for HER-2). All control slides stain appropriately. 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 - All surgical margins are negative for tumor. - The tumor is 4 mm away from the closest superficial margin. - See note. 2) Right axilla blue node, sentinel node biopsy: - Two benign lymph nodes. Note: Please refer to the addendum report for ER, NE, and HER-2 results. The most recent radiologic [...] MD, PhD (Electronically signed by) Verified: 12/31/2011 [facility] Laboratory Clinical Information Right breast [...] margin Green: lateral margin [place]: superior margin [place]: medial and inferior margin Serial sections show central 2.0 x 1.8 x 1.5 cm firm santacruz-white to pink and partially blue-stained irregular tumor mass that extends close to deep, superficial and lateral margins. Situated within the tumor are focal firm santacruz-white sclerotic tissue, punctate hemorrhage and fat necrosis. The remaining breast parenchyma is yellow-santacruz and fatty without further lesion. Science Professor sections are submitted, labeled as follows: 1A-1C: [...] of the tumor show invasive ductal carcinoma, [place] histologic grade 1, tubule formation 1, nuclear pleomorphism 2, mitotic count 1, total score 4. No lymph-vascular space invasion is identified. All surgical margins are negative for tumor. The tumor is 4 mm away from the closest superficial margin. Part 2) Microscopic examination is performed and the findings corroborate the diagnosis. 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 - All surgical margins are negative for tumor. - The tumor is 4 mm away from the closest superficial margin. - See note. 2) Right axilla blue node, sentinel node biopsy: - Two benign lymph nodes. Note: Please refer to the addendum report for ER, NE, and HER-2 results. The most recent radiologic [...] MD, PhD (Electronically signed by) Verified: 12/31/2011 [facility] Laboratory Clinical Information Right breast [...] margin Green: lateral margin [place]: superior margin [place]: medial and inferior margin Serial sections show central 2.0 x 1.8 x 1.5 cm firm santacruz-white to pink and partially blue-stained irregular tumor mass that extends close to deep, superficial and lateral margins. Situated within the tumor are focal firm santacruz-white sclerotic tissue, punctate hemorrhage and fat necrosis. The remaining breast parenchyma is yellow-santacruz and fatty without further lesion. Science Professor sections are submitted, labeled as follows: 1A-1C: [...] of the tumor show invasive ductal carcinoma, Luis A histologic grade 1, tubule formation 1, nuclear pleomorphism 2, mitotic count 1, total score 4. No lymph-vascular space invasion is identified. All surgical margins are negative for tumor. The tumor is 4 mm away from the closest superficial margin. Part 2) Microscopic examination is performed and the findings corroborate the diagnosis. [facility] 12/27/2011 3:00 PM EDT us Oc Crook MD PATHOLOGY ORDERABLES Final Result Performing Organization Address City/[facility]/ZIP Co de Phone Number [facility] [address] [place] [address] * DIFFERENTIAL (12/19/2011 1:00 PM EDT) Neut Percent 58.2 40.0 - 70.0 % [facility] LAB Lymph Percent 30.7 17.0 - 46.0 % [facility] Winston Percent 7.1 4.0 - 12.0 % [facility] Eos Percent 3.9 0.0 - 6.0 % [facility] Baso Percent 0.1 0.0 - 2.0 % [facility] Neut# 4.5 1.8 - 7.7 x10(3)/mcL [facility] Lymph# 2.4 1.0 - 4.8 x10(3)/mcL [facility] Winston# 0.6 0.0 - 1.3 x10(3)/mcL [facility] Eos# 0.3 0.1 - 0.5 x10(3)/mcL [facility] Baso# 0.0 0.0 - 0.2 x10(3)/[facility] Blood specimen (specimen) 12/19/2011 1:00 PM EDT 12/19/2011 1:07 PM EDT us Shayna Velez APRN HEMATOLOGY ORDERABLES Final Result Performing Organization Address [facility] Co de Phone Number [facility] [address] [place] [address] * MM US BREAST RIGHT (12/09/2011 10:16 AM EDT) Anatomical Region Laterality Modality Breast Ultrasound 12/09/2011 10:4 8 AM EDT Impressions 12/09/2011 4:38 PM EDT : Highly suggestive of malignancy (HFS-Eubkxdgm-0) ~ RECOMMENDATION: Ultrasound guided core biopsy. Narrative [...] cyst. ~ IMPRESSION: Highly suggestive of malignancy (FGD-Xuseqtrf-0) ~ RECOMMENDATION: Ultrasound guided core biopsy. us Oc Crook MD IMG MAMMOGRAPHY ORDERABLES Final Result * MM OUTSIDE FILMS FOR COMPARISON (12/09/2011 8:45 AM EDT) Only the most recent of2 resultswithin the time period is included. Anatomical Region Laterality Modality Breast Mammography us Not In [facility] Provider IMG MAMMOGRAPHY ORDERABLES Final Result [...] mellitus with hyperosmolarity without coma, unspecified whether mcfp insulin use (HCC) 08/08/2020 Varicose veins of [...] to Escherichia coli Bacteremia 03/04/2024 Care Teams State Historical Society Director Relationship Specialty Start Date End Date Baudilio Fields MD PCP - General Family Medicine 01/25/20
--- OUTSIDE RECORDS SUMMARY | 2025-04-12 11:55 | XMS_ITS ---
Laboratory report Created on: March 22, 2025 NGUYEN WALSH : 1945 Sex: Female Author Organization Unknown PROBLEMS Problems List Code Description RESULTS Laboratory Orders Date Order Code Test 2024-09-08 227694 IMMUNOFIXATION, SERUM Laboratory Results Date LOINC Test Value Unit Reference Range Interpre tation 2024-09-08 23969-6 IMMUNOFIXATION R ESULT, SERUM C 2024-09-08 2465-3 IMMUNOGLOBULIN G , QN, SERUM 1172 MG/DL [id number] 2024-09-08 2458-8 IMMUNOGLOBULIN A , QN, SERUM 327 MG/DL [id number] 2024-09-08 2472-9 IMMUNOGLOBULIN M , QN, SERUM 65 MG/DL [id number]
--- OUTSIDE RECORDS SUMMARY | 2025-04-12 11:55 | XMS_ITS | Clinical Summary ---
Author Organization Healthcare Address [address] [place] [id number] Care Team Providers Care Waterproofer Helper Name Role Phone Unavailable Primary Care Provider [...] 50 + Years (2 of 2 - PCV20 or PCV21) 09/08/2018 09/08/2017 [facility]-RSV Vaccine: 60+ Years o r (1 - 1-dose 75+ series) 08/16/2019 [facility]-DTaP,Tdap,and Td Vaccine s (2 - Td or Tdap) 05/19/2023 05/19/2013 SDG-FRSQG-72 Vaccine (1 - 20 25-26 season) 2024 [facility]-Influenza Vaccine (#1) 2024 HPV Vaccines (No Doses Required) Completed [facility]-HIB Vaccines Aged Out No longer e [...]
--- OUTSIDE RECORDS SUMMARY | 2025-04-12 11:55 | XMS_ITS ---
Laboratory report Created on: March 22, 2025 NGUYEN WALSH : 1945 Sex: Female Author Organization Unknown PROBLEMS Problems List Code Description RESULTS Laboratory Orders Date Order Code Test 2024-08-12 [id number] URINE CULTURE, R OUTINE Laboratory Results Date LOINC Test Value Unit Reference Range Interpre tation 2024-08-12 630-4 URINE CULTURE, ROUTINE FINAL A 2024-08-12 630-4 RESULT 1 [facility] A 2024-08-12 99042-9 ANTIMICROBIAL SUSCEPTIBILITY [facility]
--- OUTSIDE RECORDS SUMMARY | 2025-04-12 11:55 | XMS_ITS ---
Laboratory report Created on: March 22, 2025 NGUYEN WALSH : 1945 Sex: Female Author Organization Unknown PROBLEMS Problems List Code Description RESULTS Laboratory Orders Date Order Code Test 2024-09-08 [id number] PROTEIN ELECTRO, 24-HOUR URINE Laboratory Results Date LOINC Test Value Unit Reference Range Interpre tation 2024-09-08 2888-6 PROTEIN,TOTAL,URINE 7.1 MG/DL 2024-09-08 2889-4 PROT,24HR CALCULATED 71 MG/24 HR 30-150 2024-09-08 11709-1 ALBUMIN, U 18.8 % 2024-09-08 23867-1 [id number]-1-GPFUMPLK, U 3.4 % 2024-09-08 26250-1 [id number]-6-[id number], U 15.3 % 2024-09-08 80167-3 BETA GLOBULIN, U 35.1 % 2024-09-08 45988-4 GAMMA GLOBULIN, U 27.4 % 2024-09-08 09415-0 M-SPIKE, % C % NOT OBSERVED 2024-09-08 39105-3 PDF IMAGE
--- OUTSIDE RECORDS SUMMARY | 2025-04-12 11:56 | XMS_ITS ---
Laboratory report Created on: March 22, 2025 NGUYEN WALSH : 1945 Sex: Female Author Organization Unknown PROBLEMS Problems List Code Description RESULTS Laboratory Orders Date Order Code Test 2024-09-08 [id number] CALCIUM, RANDOM URINE Laboratory Results Date LOINC Test Value Unit Reference Range Interpre tation 2024-09-08 15288-7 CALCIUM, URINE 27.6 MG/DL
--- OUTSIDE RECORDS SUMMARY | 2025-04-12 11:56 | XMS_ITS ---
Laboratory report Created on: March 22, 2025 NGUYEN WALSH : 1945 Sex: Female Author Organization Unknown PROBLEMS Problems List Code Description RESULTS Laboratory Orders Date Order Code Test 2024-09-07 [id number] PTHRP (PTH-RELAT ED PEPTIDE) Laboratory Results Date LOINC Test Value Unit Reference Range Interpre tation 2024-09-07 20914-2 PTHRP (PTH-RELAT ED PEPTIDE) <2.0 PMOL/L
--- OUTSIDE RECORDS SUMMARY | 2025-04-12 11:56 | XMS_ITS ---
Author Organization Unknown TREATMENT PLAN Planned Care Start Date Provider Encounter for Check-up [id number] [facility]
--- OUTSIDE RECORDS SUMMARY | 2025-04-12 11:56 | XMS_ITS | Data Portability ---
Author Organization [facility] Address [address] [place] [address] Assessment No assessment recorded. Plan of Treatment Reminders Order Date Submit Date Provider Last Modified By Organization Details Last Modified Time Details Appointments None recorded. Lab TSH + free T4, serum 2023 [facility], [address], [address], [place], [address], 4 07:38:28 HbA1c (hemoglobin A1c), blood 2023 024 [facility], [address], [place] [address], [place], [address], 4 07:38:28 thyroid panel, serum 2023 024 [facility], [address], [place] [address], [place], [address], 4 07:38:32 CBC w/ auto diff 2023 024 [facility], [address], [place] [address], [place], [address], 4 07:38:31 vitamin B12 + folate, serum or blood 2023 024 K[facility]STY [facility], [address], [place] [address], [place], [address], 4 07:38:34 iron + total iron-bindin g capacity (TIBC), serum 07/2023 [place] F[place] [facility], [address], [address], [place], [address], 4 07:38:33 Referral None recorded. Procedures None recorded. Surgeries None recorded. Imaging None recorded. Medication Orders levothyroxi ne 137 mcg tablet 2023 [facility] - [address], [address], 4 14:45:37 levothyroxi ne 137 mcg tablet 2023 024 [facility] - [address], [address], 4 16:09:39 acyclovir 800 mg tablet [address], [address], 4 11:28:12 gabapentin 100 mg capsule [address], [address], 4 11:28:43 acetaminoph en 300 mg-codeine 30 mg tablet [address], [address], 4 11:28:06 capsaicin 0.1 % topical cream [address], [address], 4 11:28:24 Patient TargetsNo targets recorded. Patient Instructions Encounter Date Encounter Id Patient Instructions Last Modified By Organization Details Last Modified Time 12/20/2019 [id number] shingles: care instructions Not available 12/20/2019 11:09:57 Take medications as directed Report if no improvment Explained that this pain may last for weeks. [email or web address] Not available 12/20/2019 11:13:45 11/14/2023 [id number] learning about healthy weight [email or web address] Not available 11/14/2023 16:09:37 body mass index: care instructions [email or web address] Not available 11/14/2023 16:09:37 12/12/2023 [id number] learning about healthy weight [email or web address] Not available 12/12/2023 14:45:35 body mass index: care instructions [email or web address] Not available 12/12/2023 14:45:35 Reason for Referral None Reported. Results Created Date Observation Date Name Description Value Unit Range Abnormal Flag Note LastModifiedBy Organization Detail LastModifiedTime 12/02/19 20 12/02/2019 urina lysis , dipst ick Leukocytes Negati ve Not Available [address] [place], [address], 12/02/2019 11:43:49 12/02/19 20 12/02/2019 urina lysis , dipst ick Nitrite negati ve Not Available [address] [place], [address], 12/02/2019 11:43:49 12/02/19 20 12/02/2019 urina lysis , dipst ick Urobilinogen .2 Not Available [address] [place], [address], 12/02/2019 11:43:49 12/02/19 20 12/02/2019 urina lysis , dipst ick Protein Negati ve Not Available [address] [place], [address], 12/02/2019 11:43:49 12/02/19 20 12/02/2019 urina lysis , dipst ick pH 6.0 Not Available [address] [place], [address], 12/02/2019 11:43:49 12/02/19 20 12/02/2019 urina lysis , dipst ick Blood Negati ve Not Available [address] [place], [address], 12/02/2019 11:43:49 12/02/19 20 12/02/2019 urina lysis , dipst ick Specific [place] 1.025 Not Available [address] [place], [address], 12/02/2019 11:43:49 12/02/19 20 12/02/2019 urina lysis , dipst ick Ketone Negati ve Not Available [address] [place], [address], 12/02/2019 11:43:49 12/02/19 20 12/02/2019 urina lysis , dipst ick Bilirubin Negati ve Not Available [address] [place], [address], 12/02/2019 11:43:49 12/02/19 20 12/02/2019 urina lysis , dipst ick Glucose Negati ve Not Available [address] [place], [address], 12/02/2019 11:43:49 12/02/19 20 12/02/2019 urina lysis , dipst ick Appearance Slight ly Cloudy Not Available [address] [place], [address], 12/02/2019 11:43:49 12/02/19 20 12/02/2019 urina lysis , dipst ick Color Yellow Not Available [facility] [address] [place], [address], 12/02/2019 11:43:49 12/02/1912/02/2019 HbA1c (hemo globi n A1c), blood HbA1c 6.2 Not Available [facility] [address] [place], [address], 12/02/2019 11:43:22 12/02/19 20 12/03/2019 CBC w/ auto diff WBC 6.2 x10e3 /uL 3.4-10 .8 Not Available [facility] ([facility]) [address], [place], [address], 12/03/2019 12:37:11 12/02/1912/03/2019 CBC w/ auto diff RBC 4.04 x10e6 /uL 3.77-5 .28 Not Available [facility] ([facility]) [address], [place], [address], 12/03/2019 12:37:11 12/02/1912/03/2019 CBC w/ auto diff hemoglobin 12.9 g/dL 11.1-1 5.9 Not Available [facility] ([facility]) [address], [place], [address], 12/03/2019 12:37:11 12/02/1912/03/2019 CBC w/ auto diff hematocrit 38.8 % 34.0-4 6.6 Not Available [facility] ([facility]) [address], [place], [address], 12/03/2019 12:37:11 12/02/1912/03/2019 CBC w/ auto diff MCV 96 fL 79-97 Not Available [facility] ([facility]) [address] [place], [address], 12/03/2019 12:37:11 12/02/1912/03/2019 CBC w/ auto diff MCH 31.9 pg 26.6-3 3.0 Not Available [facility] ([facility]) [address], [place], [address], 12/03/2019 12:37:11 12/02/19 20 12/03/2019 CBC w/ auto diff MCHC 33.2 g/dL 31.5-3 5.7 Not Available [facility] ([facility]) [address], [place], [address], 12/03/2019 12:37:11 12/02/1912/03/2019 CBC w/ auto diff RDW 13.4 % 11.7-1 5.4 Not Available [facility] ([facility]) [address], [place], [address], 12/03/2019 12:37:11 12/02/1912/03/2019 CBC w/ auto diff platelets 225 x10e3 /uL 150-45 0 Not Available [facility] ([facility]) [address], [place], [address], 12/03/2019 12:37:11 12/02/19 20 12/03/2019 CBC w/ auto diff neutrophils 66 % not estab. Not Available [facility] ([facility]) [address], [place], [address], 12/03/2019 12:37:11 12/02/1912/03/2019 CBC w/ auto diff lymphs 23 % not estab. Not Available [facility] ([facility]) [address], [place], [address], 12/03/2019 12:37:11 12/02/1912/03/2019 CBC w/ auto diff monocytes 9 % not estab. Not Available [facility] ([facility]) [address], [place], [address], 12/03/2019 12:37:11 12/02/19 20 12/03/2019 CBC w/ auto diff eos 2 % not estab. Not Available [facility] ([facility]) [address] [place], [address], 12/03/2019 12:37:11 12/02/1912/03/2019 CBC w/ auto diff basos 0 % not estab. Not Available [facility] ([facility]) [address], [place], [address], 12/03/2019 12:37:11 12/02/1912/03/2019 CBC w/ auto diff immature cells COMPLIANCE AUDITOR Not Available [facility] ([facility]) [address] [place], [address], 12/03/2019 12:37:11 12/02/19 20 12/03/2019 CBC w/ auto diff neutrophils (absolute) 4.0 x10e3 /uL 1.4-7. 0 Not Available [facility] ([facility]) [address] [place], [address], 12/03/2019 12:37:11 12/02/1912/03/2019 CBC w/ auto diff lymphs (absolute) 1.4 x10e3 /uL 0.7-3. 1 Not Available [facility] ([facility]) [address] [place], [address], 12/03/2019 12:37:11 12/02/1912/03/2019 CBC w/ auto diff monocytes(ab solute) 0.6 x10e3 /uL 0.1-0. 9 Not Available [facility] ([facility]) [address] [place], [address], 12/03/2019 12:37:11 12/02/19 20 12/03/2019 CBC w/ auto diff eos (absolute) 0.1 x10e3 /uL 0.0-0. 4 Not Available [facility] ([facility]) [address] [place], [address], 12/03/2019 12:37:11 12/02/19 20 12/03/2019 CBC w/ auto diff baso (absolute) 0.0 x10e3 /uL 0.0-0. 2 Not Available [facility] ([facility]) [address] [place], [address], 12/03/2019 12:37:11 12/02/19 20 12/03/2019 CBC w/ auto diff immature granulocytes 0 % not estab. Not Available [facility] ([facility]) [address] [place], [address], 12/03/2019 12:37:11 12/02/1912/03/2019 CBC w/ auto diff immature grans (abs) 0.0 x10e3 /uL 0.0-0. 1 Not Available [facility] ([facility]) [address] [place], [address], 12/03/2019 12:37:11 12/02/1912/03/2019 CBC w/ auto diff NRBC COMPLIANCE AUDITOR Not Available [facility] ([facility]) [address] [place], [address], 12/03/2019 12:37:11 12/02/1912/03/2019 CBC w/ auto diff hematology comments: COMPLIANCE AUDITOR Not Available [facility] ([facility]) [address] [place], [address], 12/03/2019 12:37:11 12/02/1912/03/2019 CMP, serum or plasm a glucose 108 mg/dL 65-99 above high normal Not Available [facility] ([facility]) [address] [place], [address], 12/03/2019 12:37:12 12/02/1912/03/2019 CMP, serum or plasm a BUN 14 mg/dL 8-27 Not Available [facility] ([facility]) [address] [place], [address], 12/03/2019 12:37:12 12/02/19 20 12/03/2019 CMP, serum or plasm a creatinine 0.57 mg/dL 0.57-1 .00 Not Available [facility] ([facility]) [address] [place], [address], 12/03/2019 12:37:12 12/02/19 20 12/03/2019 CMP, serum or plasm a eGFR if nonafricn AM 91 mL/mi n/1.7 3 >59 Not Available [facility] ([facility]) [address] [place], [address], 12/03/2019 12:37:12 12/02/19 20 12/03/2019 CMP, serum or plasm a eGFR if africn AM 105 mL/mi n/1.7 3 >59 Not Available [facility] ([facility]) [address] [place], [address], 12/03/2019 12:37:12 12/02/1912/03/2019 CMP, serum or plasm a BUN/creatini ne ratio 25 12-28 Not Available [facility] ([facility]) [address] [place], [address], 12/03/2019 12:37:12 12/02/1912/03/2019 CMP, serum or plasm a sodium 138 mmol/ L 134-14 4 Not Available [facility] ([facility]) [address] [place], [address], 12/03/2019 12:37:12 12/02/1912/03/2019 CMP, serum or plasm a potassium 4.6 mmol/ L 3.5-5. 2 Not Available [facility] ([facility]) [address] [place], [address], 12/03/2019 12:37:12 12/02/1912/03/2019 CMP, serum or plasm a chloride 98 mmol/ L 96-106 Not Available [facility] ([facility]) [address] [place], [address], 12/03/2019 12:37:12 12/02/1912/03/2019 CMP, serum or plasm a carbon dioxide, total 21 mmol/ L 20-29 Not Available [facility] ([facility]) [address] [place], [address], 12/03/2019 12:37:12 12/02/1912/03/2019 CMP, serum or plasm a calcium 9.7 mg/dL 8.7-10 .3 Not Available [facility] ([facility]) [address] [place], [address], 12/03/2019 12:37:12 12/02/1912/03/2019 CMP, serum or plasm a protein, total 6.8 g/dL 6.0-8. 5 Not Available [facility] ([facility]) [address], [place], [address], 12/03/2019 12:37:12 12/02/1912/03/2019 CMP, serum or plasm a albumin 4.3 g/dL 3.7-4. 7 Not Available [facility] ([facility]) [address] [place], [address], 12/03/2019 12:37:12 12/02/1912/03/2019 CMP, serum or plasm a globulin, total 2.5 g/dL 1.5-4. 5 Not Available [facility] ([facility]) [address] [place], [address], 12/03/2019 12:37:12 12/02/1912/03/2019 CMP, serum or plasm a A/G ratio 1.7 1.2-2. 2 Not Available [facility] ([facility]) [address] [place], [address], 12/03/2019 12:37:12 12/02/1912/03/2019 CMP, serum or plasm a bilirubin, total 0.3 mg/dL 0.0-1. 2 Not Available [facility] ([facility]) [address] [place], [address], 12/03/2019 12:37:12 12/02/1912/03/2019 CMP, serum or plasm a alkaline phosphatase 60 IU/L 39-117 Not Available [facility] ([facility]) [address] [place], [address], 12/03/2019 12:37:12 12/02/1912/03/2019 CMP, serum or plasm a AST (SGOT) 26 IU/L 0-40 Not Available [facility] ([facility]) [address] [place], [address], 12/03/2019 12:37:12 12/02/1912/03/2019 CMP, serum or plasm a ALT (SGPT) 28 IU/L 0-32 Not Available [facility] ([facility]) [address] [place], [address], 12/03/2019 12:37:12 12/02/1912/03/2019 TSH, ultra -sens itive , serum TSH 0.033 uIU/m L 0.450- 4.500 below low normal Not Available [facility] ([facility]) [address] [place], [address], 12/03/2019 12:37:13 12/02/1912/03/2019 amyla se, serum or plasm a amylase 73 U/L 31-110 Not Available [facility] ([facility]) [address] [place], [address], 12/03/2019 12:37:14 12/02/1912/03/2019 lipas e, serum or plasm a lipase 46 U/L 14-85 Not Available [facility] ([facility]) [address] [place], [address], 12/03/2019 12:37:14 12/02/19 20 12/02/2019 gluco se, finge rstic k, blood Blood Glucose: mg/dl 122 Not Available [address] [place], [address], 12/02/2019 11:43:21 12/08/19 20 12/08/2019 urina lysis , dipst ick Leukocytes Trace Not Available [address] [place], [address], 12/07/2019 11:28:47 12/08/19 20 12/08/2019 urina lysis , dipst ick Nitrite negati ve Not Available [address] [place], [address], 12/07/2019 11:28:47 12/08/19 20 12/08/2019 urina lysis , dipst ick Urobilinogen .2 Not Available [address] [place], [address], 12/07/2019 11:28:47 12/08/19 20 12/08/2019 urina lysis , dipst ick Protein Negati ve Not Available [address] [place], [address], 12/07/2019 11:28:47 12/08/19 20 12/08/2019 urina lysis , dipst ick pH 5.0 Not Available [address] [place], [address], 12/07/2019 11:28:47 12/08/19 20 12/08/2019 urina lysis , dipst ick Blood Negati ve Not Available [address] [place], [address], 12/07/2019 11:28:47 12/08/19 20 12/08/2019 urina lysis , dipst ick Specific [place] 1.020 Not Available [address] [place], [address], 12/07/2019 11:28:47 12/08/19 20 12/08/2019 urina lysis , dipst ick Ketone Negati ve Not Available [address] [place], [address], 12/07/2019 11:28:47 12/08/19 20 12/08/2019 urina lysis , dipst ick Bilirubin Negati ve Not Available [address] [place], [address], 12/07/2019 11:28:47 12/08/19 20 12/08/2019 urina lysis , dipst ick Glucose Negati ve Not Available [address] [place], [address], 12/07/2019 11:28:47 12/08/19 20 12/08/2019 urina lysis , dipst ick Appearance Clear Not Available [address] [place], [address], 12/07/2019 11:28:47 12/08/19 20 12/08/2019 urina lysis , dipst ick Color Yellow Not Available [address] [place], [address], 12/07/2019 11:28:47 11/10/19 24 11/11/2023 CBC WITH DIFFE RENTI AL/PL ATELE T WBC 3.8 x10e3 /uL 3.4-10 .8 normal Not Available [facility] ([facility]) [address] [place], [address], 11/11/2023 07:38:31 11/10/19 24 11/11/2023 CBC WITH DIFFE RENTI AL/PL ATELE T RBC 3.56 x10e6 /uL 3.77-5 .28 below low normal Not Available [facility] ([facility]) [address] [place], [address], 11/11/2023 07:38:31 11/10/19 24 11/11/2023 CBC WITH DIFFE RENTI AL/PL ATELE T hemoglobin 11.9 g/dL 11.1-1 5.9 normal Not Available [facility] ([facility]) [address] [place], [address], 11/11/2023 07:38:31 11/10/19 24 11/11/2023 CBC WITH DIFFE RENTI AL/PL ATELE T hematocrit 36.7 % 34.0-4 6.6 normal Not Available [facility] ([facility]) [address] [place], [address], 11/11/2023 07:38:31 11/10/19 24 11/11/2023 CBC WITH DIFFE RENTI AL/PL ATELE T MCV 103 fL 79-97 above high normal Not Available [facility] ([facility]) [address] [place], [address], 11/11/2023 07:38:31 11/10/19 24 11/11/2023 CBC WITH DIFFE RENTI AL/PL ATELE T MCH 33.4 pg 26.6-3 3.0 above high normal Not Available [facility] ([facility]) [address] [place], [address], 11/11/2023 07:38:31 11/10/19 24 11/11/2023 CBC WITH DIFFE RENTI AL/PL ATELE T MCHC 32.4 g/dL 31.5-3 5.7 normal Not Available [facility] ([facility]) [address] [place], [address], 11/11/2023 07:38:31 11/10/19 24 11/11/2023 CBC WITH DIFFE RENTI AL/PL ATELE T RDW 14.5 % 11.7-1 5.4 Not Available [facility] ([facility]) [address], [place], [address], 11/11/2023 07:38:31 11/10/19 24 11/11/2023 CBC WITH DIFFE RENTI AL/PL ATELE T platelets 105 x10e3 /uL 150-45 0 below low normal Not Available [facility] ([facility]) [address] [place], [address], 11/11/2023 07:38:31 11/10/19 24 11/11/2023 CBC WITH DIFFE RENTI AL/PL ATELE T neutrophils 68 % not estab. normal Not Available [facility] ([facility]) [address], [place], [address], 11/11/2023 07:38:31 11/10/19 24 11/11/2023 CBC WITH DIFFE RENTI AL/PL ATELE T lymphs 22 % not estab. normal Not Available [facility] ([facility]) [address] [place], [address], 11/11/2023 07:38:31 11/10/19 24 11/11/2023 CBC WITH DIFFE RENTI AL/PL ATELE T monocytes 8 % not estab. normal Not Available [facility] ([facility]) [address] [place], [address], 11/11/2023 07:38:31 11/10/19 24 11/11/2023 CBC WITH DIFFE RENTI AL/PL ATELE T eos 2 % not estab. normal Not Available [facility] ([facility]) [address] [place], [address], 11/11/2023 07:38:31 11/10/19 24 11/11/2023 CBC WITH DIFFE RENTI AL/PL ATELE T basos 0 % not estab. normal Not Available [facility] ([facility]) [address], [place], [address], 11/11/2023 07:38:31 11/10/19 24 11/11/2023 CBC WITH DIFFE RENTI AL/PL ATELE T immature cells COMPLIANCE AUDITOR Not Available [facility] ([facility]) [address] [place], [address], 11/11/2023 07:38:31 11/10/19 24 11/11/2023 CBC WITH DIFFE RENTI AL/PL ATELE T neutrophils (absolute) 2.6 x10e3 /uL 1.4-7. 0 normal Not Available [facility] ([facility]) [address] [place], [address], 11/11/2023 07:38:31 11/10/19 24 11/11/2023 CBC WITH DIFFE RENTI AL/PL ATELE T lymphs (absolute) 0.8 x10e3 /uL 0.7-3. 1 normal Not Available [facility] ([facility]) [address] [place], [address], 11/11/2023 07:38:31 11/10/19 24 11/11/2023 CBC WITH DIFFE RENTI AL/PL ATELE T monocytes(ab solute) 0.3 x10e3 /uL 0.1-0. 9 normal Not Available [facility] ([facility]) [address] [place], [address], 11/11/2023 07:38:31 11/10/19 24 11/11/2023 CBC WITH DIFFE RENTI AL/PL ATELE T eos (absolute) 0.1 x10e3 /uL 0.0-0. 4 normal Not Available [facility] ([facility]) [address], [place], [address], 11/11/2023 07:38:31 11/10/19 24 11/11/2023 CBC WITH DIFFE RENTI AL/PL ATELE T baso (absolute) 0.0 x10e3 /uL 0.0-0. 2 normal Not Available [facility] ([facility]) [address], [place], [address], 11/11/2023 07:38:31 11/10/19 24 11/11/2023 CBC WITH DIFFE RENTI AL/PL ATELE T immature granulocytes 0 % not estab. Not Available [facility] ([facility]) [address], [place], [address], 11/11/2023 07:38:31 11/10/19 24 11/11/2023 CBC WITH DIFFE RENTI AL/PL ATELE T immature grans (abs) 0.0 x10e3 /uL 0.0-0. 1 Not Available [facility] ([facility]) [address] [place], [address], 11/11/2023 07:38:31 11/10/19 24 11/11/2023 CBC WITH DIFFE RENTI AL/PL ATELE T NRBC COMPLIANCE AUDITOR Not Available [facility] ([facility]) [address] [place], [address], 11/11/2023 07:38:31 11/10/19 24 11/11/2023 CBC WITH DIFFE RENTI AL/PL ATELE T hematology comments: COMPLIANCE AUDITOR Not Available [facility] ([facility]) [address] [place], [address], 11/11/2023 07:38:31 11/10/19 24 11/11/2023 THYRO ID PANEL WITH TSH TSH 9.830 uIU/m L 0.450- 4.500 above high normal Not Available [facility] ([facility]) [address] [place], [address], 11/11/2023 07:38:32 11/10/19 24 11/11/2023 THYRO ID PANEL WITH TSH thyroxine (T4) 8.8 ug/dL 4.5-12 .0 normal Not Available [facility] ([facility]) [address] [place], [address], 11/11/2023 07:38:32 11/10/19 24 11/11/2023 THYRO ID PANEL WITH TSH T3 uptake 21 % 24-39 below low normal Not Available [facility] ([facility]) [address] [place], [address], 11/11/2023 07:38:32 11/10/19 24 11/11/2023 THYRO ID PANEL WITH TSH free thyroxine index 1.8 1.2-4. 9 normal Not Available [facility] ([facility]) [address] [place], [address], 11/11/2023 07:38:32 11/10/19 24 11/11/2023 IRON AND TIBC iron bind.cap.(TI BC) 395 ug/dL 250-45 0 normal Not Available [facility] ([facility]) [address] [place], [address], 11/11/2023 07:38:33 11/10/19 24 11/11/2023 IRON AND TIBC UIBC 282 ug/dL 118-36 9 normal Not Available [facility] ([facility]) [address] [place], [address], 11/11/2023 07:38:33 11/10/19 24 11/11/2023 IRON AND TIBC iron 113 ug/dL 27-139 normal Not Available [facility] ([facility]) [address] [place], [address], 11/11/2023 07:38:33 11/10/19 24 11/11/2023 IRON AND TIBC iron saturation 29 % 15-55 normal Not Available [facility] ([facility]) [address] [place], [address], 11/11/2023 07:38:33 11/10/19 24 11/11/2023 VITAM IN B12 AND FOLAT E vitamin B12 389 pg/mL 232-12 45 normal Not Available [facility] ([facility]) [address], [place], [address], 11/11/2023 07:38:33 11/10/19 24 11/11/2023 VITAM IN B12 AND FOLAT E folate (folic acid), serum 8.3 NG/mL >3.0 normal A serum folat e mel ntrat ion of less than 3.1 ng/mL is consi dered to repre sent clini tomy defic iency . Not Available [facility] ([facility]) [address], [place], [address], 11/11/2023 07:38:33 01/22/20 24 01/23/2024 TSH+F REE T4 TSH 0.582 uIU/m L 0.450- 4.500 normal Not Available [facility] ([facility]) [address] [place], [address], 01/23/2024 07:38:28 01/22/2001/23/2024 TSH+F REE T4 T4,free(dire ct) 1.71 NG/dL 0.82-1 .77 normal Not Available [facility] [facility]) [address] [place], [address], 01/23/2024 07:38:28 01/22/20 24 01/23/2024 HEMOG LOBIN A1C hemoglobin A1C 6.2 % 4.8-5. 6 above high normal Predi abete s: 5.7 - 6.4 Diabe teodora: >6.4 Glyce alejandra contr ol for adult s with diabe teodora: <7.0 Not Available [facility] ([facility]) [address], [place], [address], 01/23/2024 07:38:28 12/02/19 20 12/02/2019 XR, kidne y + urete r + bladd er No observ ation record ed. [email or web address] [facility] [address] [place], [address], 12/02/2019 15:58:40 12/03/19 20 12/02/2019 CT, abdom en + pelvi s, w/wo contr ast No observ ation record ed. [email or web address] [facility] [address] [place] [address] Breanna Nieto, [place], [address], 12/09/2019 11:09:10 08/08/19 21 08/07/2020 CT, abdom en + pelvi s, w/wo contr ast No observ ation record ed. [email or web address] [facility] [address] [place] [address] [place], [address], 08/08/2020 08:57:31 Result Notes None recorded. Problems Name Problem SNOMED Code Status Onset Date Resolution Date Notes Provider Name and Address Organization Details Recorded Time Diabetes mellitus 98664450 Active 2015 Roxi Bishop [facility]ell [facility] 6 18:21:25 Hypertensiv e disorder 87895980 Active 2015 Roxi Bishop powell [facility] 6 18:21:36 Acquired hypothyroid ism 731782086 Active 2015 Roxi powell [facility] 6 18:21:52 Osteoarthri tis 604097077 Active 2015 Roxi powell [facility] 6 18:22:52 Pain of joint 84456790 Active 2015 Roxi powell [facility] 6 18:23:10 Vitamin D deficiency 75674665 Active 2015 Roxi Oviedo [place], [place] - [facility] 6 18:23:20 Mixed hyperlipide natasha 333732321 Active 2015 Roxi Oviedo null, [facility] - [facility] 6 18:23:31 Depressive disorder 41869419 Active 2015 Roxi Oviedo null, [place] - [facility] 6 18:23:47 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 816681752 Active 2016 Roxi Oviedo [place], [place] - [facility] 7 19:50:16 Renewal of prescriptio n Completed 201606/23/2017 Nell Christine in null, [place] - [facility] 8 16:17:40 Osteoporosi s 67516995 Active 2018 Radha Parra [place], [place] - [facility] 9 09:28:28 Abdominal aortic aneurysm 783188004 Active 2018 Kana Valero [place], [place] - [facility] 9 11:51:59 Cervical radiculopat hy 70238500 Active 2018 Kana Valero [place], [place] - [facility] 9 09:34:15 Acute bronchitis 05300627 Active 2019 Jagjit Bocanegra MD [facility] [address] [place], [address] [facility] [place] - [facility] 0 16:47:55 Abdominal pain 27727431 Active 2019 Hawa Jacob null, [place] - [facility] 0 11:22:46 Problem Notes None recorded. Procedures Surgical History Date Name Laterality Status Provider Name and Address Organization Details Recorded Time 12/20/19 20 Diastolic B/P less than 80 mm Hg completed Radha Fidel [place] - [facility] 12/20/2019 10:39:25 12/20/19 20 Systolic B/P greater than or equal to 140 mm Hg completed Radha Fidel [place] - [facility] 12/20/2019 10:39:21 12/02/19 20 Systolic B/P less than 130 mm Hg completed Hawa Jacob [place] - [facility] 12/02/2019 11:36:40 12/02/19 20 Diastolic B/P less than 80 mm Hg completed Hawa Valerios [place] - [facility] 12/02/2019 11:36:46 12/02/19 20 A1C level 6.9 and below completed Ana Lilia Vogel RN [address], [place], [address] [place] - [facility] 12/03/2019 13:40:20 06/17/19 20 Diastolic B/P less than 80 mm Hg completed Ana Lilia Vines [place] - [facility] 06/17/2019 14:41:28 06/17/19 20 Systolic B/P greater than or equal to 140 mm Hg completed Crystal Jasmyn [place] - [facility] 06/17/2019 14:41:16 12/29/19 19 Advance Care Planning completed Radha Fidel [place] - [facility] 12/28/2018 09:02:45 12/29/19 19 Diastolic B/P less than 80 mm Hg completed Radha Fidel [place] [facility] 12/28/2018 09:14:49 12/29/19 19 Systolic B/P greater than or equal to 140 mm Hg completed Radha Fidel [place] [facility] 12/28/2018 09:14:46 12/29/19 19 A1C level 6.9 and below completed Kana Valero [place] - [facility] 12/28/2018 09:51:13 12/29/19 19 Functional Status Assessed completed Radha Fidel [place] - [facility] 12/28/2018 09:02:45 11/28/19 19 Date of Last Mammogram completed Radha Fidel [place] - [facility] 12/28/2018 09:58:09 11/27/19 19 epidural anesthesia completed Kana Valero [place] - [facility] 12/28/2018 09:35:47 08/26/19 19 Diastolic B/P greater than or equal to 90 mm Hg completed Radha Fidel [place] [facility] 08/25/2018 11:37:51 08/26/19 19 Systolic B/P greater than or equal to 140 mm Hg completed Radha Fidel [place] [facility] 08/25/2018 11:37:27 08/26/19 19 A1C level 6.9 and below completed Kana Valero [place] [facility] 08/25/2018 12:29:31 05/19/19 19 Diastolic B/P 80-89 mm Hg completed Radha Fidel [place] - [facility] 05/19/2018 15:19:30 05/19/19 19 Systolic B/P greater than or equal to 140 mm Hg completed Radha Parra [place] - [facility] 05/19/2018 15:19:25 05/19/19 19 Medication Reconcilliation completed [facility]ra [place] [facility] 05/19/2018 15:10:46 03/19/20 18 A1C level 7.0 to 7.9 completed Farzaneh Zimmerman [place] [facility] 03/19/2018 15:21:59 09/09/19 18 Advance Care Planning completed Roxi [place] [facility] 09/08/2017 15:36:52 Breast Biopsy [place] [facility] 04/09/2016 18:20:17 Hysterectomy, Total Abdominal completed Roxi [place] [facility] 04/09/2016 18:20:31 Arthrd ant ntrbd min dsc lum completed Roxi Oviedo [facility] 04/09/2016 18:20:46 Breast Lumpectomy completed Roxi Oviedo [facility] 04/09/2016 18:21:02 Oral surgery procedure completed Roxi Oviedo [facility] 04/09/2016 18:21:13 Imaging Results None recorded. Procedure Notes None recorded. Medical Equipment None Reported. Allergies Allergen ID Allergen Name Allergen Category Reaction Reaction Severity Criticality Documentation Date Start Date Code Code System Note Provider Name and Address Organization Details Recorded Time 168653 Product containin g angiotens in-conver ting enzyme inhibitor (product) medicatio n swelling Not available [facility] 03/14/20252013 35910 009 SNOMED angio edema Not Available kristy - [employer] - prod 5 16:43:07 112497 morphine medicatio n Not available Not available [facility] 03/14/20252018 7052 RxNorm Mariano cardi a unrec ogniz ed react ion (text : Other (See Comme nts), code: 66118 003) (from [facility]) Not Available kristy - External Data Service - prod 5 16:43:07 16252 lisinopri l medicatio n angioedem a Not available Not available 01/26/20162013 60812 RxNorm React ion: angio edema ; Not Available [facility] 6 09:39:44 Medications Name Sig Start Date Stop Date Status Note LastModified by Organization Details LastModified Time Prescript ion - Renewal 12/26 completed [facility] Not Available Not Available Not Available Prescript ion - Clarifica tion 12/01 completed [facility] Not Available Not Available Not Available Prescript ion - New 12/26 completed [facility] Not Available Not Available Not Available Prescript ion - Prior Authoriza tion Request 08/25 completed [facility]- MEDICAL PRECERTI FICATION REQUEST FORM Not Available Not Available Not Available Miralax 17 gram oral powder packet Take 17 g every day by oral route. 01/06 completed Not Available Not Available Not Available losartan 50 mg tablet take 0.5 tablet by oral route daily active Not Available Not Available No t Available fluoxetin e 40 mg capsule TAKE 1 CAPSULE EVERY DAY 03/19 completed Not Available Not Available Not Available Miralax 17 gram/dose oral powder Take 17 g every day by oral route as needed for 90 days. 11/09 completed Not Available Not Available Not Available anastrozo le 1 mg tablet take 1 tablet (1 mg) by oral route once daily 09/08 completed anastroz ole 1 mg oral tablet;R ecorded Status: Recorded on: 09/22/19 15 5:07PM;U ser: neuss;Es t. Completi on: 03/20/20 15;Indic ation: Hormone Receptor Positive Breast Cancer - ();Prin tereza: 09/22/19 15 Not Available Not Available Not Available Novolin 70/30 U-100 Insulin 100 unit/mL subcutane ous suspensio n 30 units bf--45 units lunch--5 0 units supper 01/02 completed Novolin 70/30 100 unit/mL (70-30) subcutan eous suspensi on;Recor ded Status: Recorded on: 06/20/19 11 12:19PM; Disconti nued Status: Disconti nued on: 01/03/20 11 12:09PM; User: hue EstKatya Completi on: 12/17/19 11;Indic ation: Type 2 Diabetes Mellitus - () Not Available Not Available Not Available levothyro xine 137 mcg tablet TAKE ONE (1) TABLET EVERY DAY BY ORAL ROUTE FOR 90 DAYS. active Not Available Not Available No t Available BD Alcohol Swabs USE TO TEST THREE TIMES DAILY 10/03 completed Not Available Not Available Not Available doxycycli ne hyclate 100 mg capsule 12/01 completed Not Available Not Available Not Available Neurontin 300 mg capsule take 1 capsule by oral route once a day (at bedtime) as needed for 30 days 08/17 completed Neuronti n 300 mg oral capsule; Recorded Status: Recorded on: 08/23/19 11 9:02AM;D iscontin ued Status: Disconti nued on: 08/18/19 13 11:04AM; User: karoline;Margarita t. Completi on: 07/19/19 11;Indic ation: Neurogen ic Pain - (13.7292 01) Not Available Not Available Not Available torsemide 20 mg tablet TAKE ONE (1) TABLET (20 MG) ORALLY DAILY active Not Available Not Available No t Available Vitamin C 500 mg tablet po qd 09/08 completed Vitamin C 500 mg oral tablet;R ecorded Status: Recorded on: 01/23/20 08 10:05PM; User: bishopk Not Available Not Available Not Available hydrocodo ne 5 mg-acetam inophen 325 mg tablet 12/28 completed Not Available Not Available Not Available Celestone Soluspan 6 mg/mL suspensio n for injection Take 6 mg by injectio n route. 08/09 completed Not Available Not Available Not Available ondansetr on HCl 4 mg tablet 08/25 completed Not Available Not Available Not Available Medrol (Gage) 4 mg tablets in a dose pack take as directed for 6 days 11/09 completed Medrol (Gage) 4 mg oral tablets, dose pack;Rec orded Status: Recorded on: 09/29/19 14 5:22PM;D iscontin ued Status: Disconti nued on: 11/10/19 15 12:59PM; User: karoline;Margarita t. Completi on: 10/05/19 14 Not Available Not Available Not Available Levoxyl 100 mcg tablet take 1 tablet by oral route daily 06/09 completed Levoxyl 100 mcg oral tablet;R ecorded Status: Recorded on: 06/05/19 13 4:03PM;D iscontin ued Status: Disconti nued on: 06/09/19 13 10:48AM; User: karoline;Es t. Completi on: 12/03/19 13;Print ed: 06/05/19 13 Not Available Not Available Not Available lovastati n 40 mg tablet TAKE 1 TABLET EVERY DAY active Not Available Not Available No t Available Levoxyl 175 mcg tablet take 1 tablet (175 mcg) by oral route once daily 08/19 completed Levoxyl 175 mcg oral tablet;R ecorded Status: Recorded on: 06/20/19 11 12:19PM; Disconti nued Status: Disconti nued on: 08/20/19 12 4:44PM;U ser: bishopk; Est. Completi on: 12/17/19 11;Indic ation: Hypothyr oidism - (2449 ) Not Available Not Available Not Available promethaz ine 6.25 mg-codein e 10 mg/5 mL syrup take 5 millilit ers by oral route every 6 hours as needed, not to exceed 30 mL in 24 hours for 10 days 12/01 completed Not Available Not Available Not Available Biaxin 500 mg tablet take 1 tablet (500 mg) by oral route 2 times per day for 10 days 08/17 completed Biaxin 500 mg oral tablet;R ecorded Status: Recorded on: 04/29/19 13 6:48PM;D iscontin ued Status: Disconti nued on: 08/18/19 13 11:04AM; User: karoline;Es t. Completi on: 05/09/19 13;Indic ation: Symptoms Involvin g Respirat ory System And Chest - (786.9) Not Available Not Available Not Available potassium chloride ER 10 mEq tablet,ex tended release Take 1 tablet every day by oral route for 30 days. active Not Available Not Available No t Available acetamino phen 300 mg-codein e 30 mg tablet Take 1 tablet 3 times a day by oral route as needed for 10 days. 11/09 completed Not Available Not Available Not Available tramadol 50 mg tablet take 1 tablet by oral route 3 times a day for 30 days 12/26 completed tramadol 50 mg oral tablet;R ecorded Status: Recorded on: 08/29/19 13 10:37AM; User: Breanna Caban on: 12/27/19 13;Indic ation: Chronic Pain - (16.7809 12) Not Available Not Available Not Available amitripty line 50 mg tablet take 0.5 tablet by oral route daily 08/19 completed amitript yline 50 mg oral tablet;R ecorded Status: Recorded on: 07/25/19 10 4:00PM;D iscontin ued Status: Disconti nued on: 08/20/19 10 9:53PM;U ser: hue Caban on: 08/24/19 10 Not Available Not Available Not Available triamcino lone acetonide 0.1 % topical cream APPLY A THIN LAYER TO THE AFFECTED AREA(S) BY TOPICAL ROUTE 2 TIMES PER DAY 08/09 completed Not Available Not Available Not Available acyclovir 800 mg tablet Take 1 tablet 5 times a day by oral route for 10 days. 11/09 completed Not Available Not Available Not Available Celebrex 200 mg capsule Take 1 capsule twice a day by oral route. active Not Available Not Available No t Available piperacil luke-tazob actam 3.375 gram intraveno us solution active Not Available Not Available Not Available Flagyl 500 mg tablet take 1 tablet (500 mg) by oral route 2 times per day for 7 days 08/17 completed Flagyl 500 mg oral tablet;R ecorded Status: Recorded on: 07/28/19 13 11:30AM; Disconti nued Status: Disconti nued on: 08/18/19 13 11:04AM; User: lizzette EstKatya Completi on: 08/04/19 13;Print ed: 07/28/19 13 Not Available Not Available Not Available gemfibroz il 600 mg tablet po bid 10/28 completed interact ion with statin Not Available Not Available Not Available Vitamin B-12 250 mcg tablet take 1 tablet by oral route daily 01/04 completed Vitamin B-12 250 mcg oral tablet;R ecorded Status: Recorded on: 05/07/19 11 2:42PM;D iscontin ued Status: Disconti nued on: 01/05/20 13 10:05AM; User: hue Nicolaslakhwinder on: Vitamin B12 Deficien cy - (2662 ) Not Available Not Available Not Available metformin 1,000 mg tablet TAKE 1 TABLET TWICE DAILY active Not Available Not Available No t Available levothyro xine 125 mcg tablet TAKE 1 TABLET BY MOUTH EVERY DAY 06/02 completed Not Available Not Available Not Available Antivert 25 mg tablet take 1 tablet by oral route every 6 hours as needed 08/17 completed Antivert 25 mg oral tablet;R ecorded Status: Recorded on: 08/20/19 12 4:44PM;D iscontin ued Status: Disconti nued on: 08/18/19 13 11:04AM; User: karoline;Es t. Completi on: 02/16/20 12;Indic ation: Vertigo - (.0792 ) Not Available Not Available Not Available levothyro xine 150 mcg tablet Take 1 tablet every day by oral route for 90 days. 12/06 completed Not Available Not Available Not Available aspirin 81 mg chewable tablet po qd 11/09 completed Not Available Not Available Not Available gabapenti n 100 mg capsule Take one capsule at bedtime for 3 days then increase to 2 capsules at bedtime for 3 nights, then increae to 3 capsules at bedtime and stay on 3 capsules at bedtime. 11/09 completed Not Available Not Available Not Available Insulin 70/30 70 unit-30 unit/mL subcutane ous suspensio n 30 am--40-- noon and 50 lunch 11/03 completed Insulin 70/30 Subcutan eous Suspensi Subcutan eous;Rec orded Status: Recorded on: 08/20/19 12 4:44PM;D iscontin ued Status: Disconti nued on: 11/04/19 12 4:04PM;U ser: neuss;Es t. Completi on: 11/18/19 12;Indic ation: diabetes - (-5) Not Available Not Available Not Available albuterol sulfate HFA 90 mcg/actua tion aerosol inhaler inhale 2 puffs by inhalati on route Q4H PRN with spacer 10/28 completed albutero l sulfate 90 mcg/actu ation inhalati on HFA aerosol inhaler; Recorded Status: Recorded on: 09/29/19 14 5:22PM;U ser: neuss;Es t. Completi on: 10/29/19 14;Indic ation: Cough - (786.2) Not Available Not Available Not Available fluoxetin e 20 mg capsule 1 po qd 09/04 completed Not Available Not Available Not Available lisinopri l 2.5 mg tablet take 1 tablet (2.5 mg) by oral route once daily for 30 days 10/11 completed Not Available Not Available Not Available doxycycli ne hyclate 100 mg tablet Take 1 tablet twice a day by oral route. 08/09 completed Not Available Not Available Not Available dicyclomi ne 10 mg capsule Take 1 capsule 3 times a day by oral route. 11/09 completed Not Available Not Available Not Available Calcium + D 600 mg-5 mcg (200 unit) tablet po qd 09/08 completed Calcium + D 600 mg(1,500 mg) -200 unit oral tablet;R ecorded Status: Recorded on: 01/23/20 08 10:04PM; User: dexter Not Available Not Available Not Available oxycodone 5 mg tablet TAKE ONE (1) TABLET BY MOUTH EVERY FOUR (4) HOURS NEEDED FOR MAJOR SURGERY/ TRAUMA (G89.18) (FOR BREAKTHR OUGH PAIN NOT CONTROLL ED BY NON-OPIO ID PAIN MANAGEME NT INTERVNE TIONS.) FOR UP TO 10 DAYS. active Not Available Not Available No t Available Benadryl Allergy 25 mg tablet take 1 tablet by oral route Q4H until conditio n resolves 08/05 completed Benadryl Allergy 25 mg oral tablet;R ecorded Status: Recorded on: 07/07/19 16 7:44PM;U ser: neuss;Es t. Completi on: 08/06/19 16;Indic ation: Angioede ma of lips, initial encounte r - (995.1) Not Available Not Available Not Available Vitamin B-100 Complex tablet take 1 tablet by oral route daily 09/08 completed Vitamin B-100 Complex Oral tablet;R ecorded Status: Recorded on: 01/05/20 13 10:05AM; User: neufrankie Not Available Not Available Not Available Daily Multi-Vit foley tablet take 1 tablet by oral route once daily with food 01/04 completed Daily Multi-Vi tamin Oral Tablet;R ecorded Status: Recorded on: 05/07/19 11 2:42PM;D iscontin ued Status: Disconti nued on: 01/05/20 13 10:05AM; User: dexter; Indicati on: Vitamin Deficien cy - (2692 ) Not Available Not Available Not Available Vitamin oral liquid po qd 05/07 completed Vitamin Oral Liquid;R ecorded Status: Recorded on: 01/23/20 08 10:03PM; Disconti nued Status: Disconti nued on: 05/07/19 11 2:42PM;U ser: bishopk Not Available Not Available Not Available Benicar 40 mg tablet 1/2 tab po qd 08/22 completed Benicar 40 mg oral tablet;R ecorded Status: Recorded on: 01/23/20 08 10:03PM; Disconti nued Status: Disconti nued on: 08/23/19 11 9:02AM;U ser: bishopk Not Available Not Available Not Available lovastati n ER 40 mg tablet,ex tended release 24 hr po qd 11/24 completed lovastat in 40 mg oral tablet extended release 24 hr;Recor ded Status: Recorded on: 01/23/20 08 10:04PM; Disconti nued Status: Disconti nued on: 11/25/19 10 1:55PM;U ser: bishopk Not Available Not Available Not Available azithromy jerald 500 mg tablet 05/19 completed Not Available Not Available Not Available Novolog Mix 70-30 U-100 Insulin 100 unit/mL subcutane ous solution INJECT 30 UNITS SUB-Q IN THE MORNING, 45 UNITS SUB-Q AT LUNCH & 50 UNITS SUB-Q WITH SUPPER 10/11 completed Not Available Not Available Not Available potassium chloride ER 10 mEq tablet,ex tended release(p art/cryst ) TAKE 1 TABLET BY MOUTH EVERY DAY active Not Available Not Available No t Available Mariela-Pepper 0.8 mg tablet active Not Available Not Available Not Available capsaicin 0.1 % topical cream Apply 1 applicat ion 3 times a day by topical route. 11/09 completed Not Available Not Available Not Available OneTouch UltraSoft Lancets use as directed for 30 days 07/10 completed OneTouch UltraSof t Lancets miscella neous misc;Rec orded Status: Recorded on: 07/11/19 12 1:09PM;U ser: vesth;Margarita fuller. Completi on: 07/06/19 13 Not Available Not Available Not Available fenofibra te 160 mg tablet TAKE 1 TABLET EVERY DAY 11/09 completed Not Available Not Available Not Available Elavil at bedtime 07/24 completed Elavil 20-50;Re corded Status: Recorded on: 01/31/20 09 7:51PM;D iscontin ued Status: Disconti nued on: 07/25/19 10 12:22PM; User: Breanna felix Completi on: 03/01/20 09;Indic ation: - (-5) Not Available Not Available Not Available losartan 1/2 qd 07/20 completed losartan 50;Recor ded Status: Recorded on: 07/21/19 16 12:03PM; Disconti nued Status: Disconti nued on: 07/21/19 16 1:14PM;U ser: neuss;In dication : - (-5) Not Available Not Available Not Available Insulin Syringe tid with insulin 10/22 completed Insulin Syringe 1/2cc--2 9 gauge--1 /2;Recor ded Status: Recorded on: 07/25/19 12 2:29PM;U ser: bakerc;E st. Completi on: 10/23/19 12;Print ed: 07/25/19 12 Not Available Not Available Not Available Pen Needle Use with insulin daily 10/03 completed Not Available Not Available Not Available Levemir U-100 Insulin 100 unit/mL subcutane ous solution active Not Available Not Available Not Available heparin, porcine (PF) 10 unit/mL intraveno us syringe active Not Available Not Available Not Available ferrous gluconate 324 mg (38 mg iron) tablet Take 1 tablet twice a day by oral route. 11/09 completed Not Available Not Available Not Available Reclast 5 mg/100 mL intraveno us piggyback per rheumato idology 01/04 completed Reclast 5 mg/100 mL intraven ous solution ;Recorde d Status: Recorded on: 04/25/19 09 10:19AM; Disconti nued Status: Disconti nued on: 01/05/20 13 10:06AM; User: k Not Available Not Available Not Available BD PosiFlush Normal Saline 0.9 % injection syringe active Not Available Not Available Not Available Vitamin D3 50 mcg (2,000 unit) tablet take 1 tablet by oral route daily 09/08 completed Vitamin D3 2,000 unit oral tablet;R ecorded Status: Recorded on: 05/07/19 11 2:42PM;U ser: bishopk Not Available Not Available Not Available Onglyza 5 mg tablet take 1 tablet (5 mg) by oral route once daily for 30 days 09/12 completed Onglyza 5 mg oral tablet;R ecorded Status: Recorded on: 03/16/20 14 12:43PM; User: Breanna Caban on: 09/13/19 15;Print ed: 03/16/20 14 Not Available Not Available Not Available Prolia 60 mg/mL subcutane ous syringe inject 1 millilit er by subcutan eous route every 6 months diagnosi s M81.0 11/09 completed Not Available Not Available Not Available Vitamin D3 50 mcg (2,000 unit) capsule Take 1 capsule every day by oral route. 11/09 completed Not Available Not Available Not Available BD Insulin Syringe Ultra-Fin e 1/2 mL 31 gauge x 15/64 10/03 completed Not Available Not Available Not Available ferrous gluconate 246 mg (28 mg iron) tablet Take 1 tablet twice a day by oral route. 08/09 completed Not Available Not Available Not Available Advocate Pen Needle 31 gauge x 5/16 USE DAILY WITH INSULIN active Not Available Not Available No t Available TRUEplus Lancets 30 gauge USE TO TEST BLOOD SUGAR THREE TIMES DAILY 10/03 completed Not Available Not Available Not Available Levemir FlexTouch U-100 Insulin 100 unit/mL (3 mL) subcutane ous pen INJECT 40 UNIT(S) EVERY DAY BY SUBCUTAN EOUS ROUTE FOR 90 DAYS. 2020 active Not Available Not Available Not Avai lable Jardiance 25 mg tablet take 1 tablet (25 mg) by oral route once daily in the morning 03/16 completed Jardianc e 25 mg oral tablet;R ecorded Status: Recorded on: 02/23/20 14 5:33PM;D iscontin ued Status: Disconti nued on: 03/16/20 14 12:43PM; User: Breanna Caban on: 08/22/19 15;Indic ation: Type 2 Diabetes Mellitus - ( 00) Not Available Not Available Not Available True Metrix Glucose Test Strip Take 1 strip 3 times a day by miscell. route for 100 days. 11/09 completed Not Available Not Available Not Available True Metrix Level 1 solution 09/08 completed Not Available Not Available Not Available Tresiba FlexTouch U-200 insulin 200 unit/mL (3 mL) subcutane ous pen Inject 40 units by subcutan eous route in the evening. 09/08 completed Not Available Not Available Not Available multivit- minerals no.53-FA 200 mcg-vit K 1,000 mcg-coQ10 10 mg capsule Take 1 capsule every day by oral route. 08/25 completed Not Available Not Available Not Available True Metrix Air Glucose Meter kit 09/08 completed Not Available Not Available Not Available Vitals Date Recorded Body weight Body mass index (BMI) Body height Heart rate Oxygen saturation Respiratory rate Systolic And Diastolic Provider Name and Address Organization Details Last Updated DateTime 4 39071.9 3 g 30.5 kg/m2 157.48 cm 80 /min 97 % 16 /min 124/74 mm[Hg] Bessie PIRES - [facility] 4 11:38:18 Date Recorded Body height Heart rate Oxygen saturation Respiratory rate Pain severity - 0-10 verbal numeric rating [Score] - Reported Body mass index (BMI) Body weight Systolic And Diastolic Provider Name and Address Organization Details Last Updated DateTime 4 157.48 cm 84 /min 96 % 18 /min 0 30.5 kg/m2 42512.9 3 g 120/68 mm[Hg] Samuel Mondragonchito [place] - [facility] 4 15:56:37 Date Recorded Body height Body mass index (BMI) Body weight Body temperature Heart rate Oxygen saturation Systolic And Diastolic Systolic And Diastolic Provider Name and Address Organization Details Last Updated DateTime 4 157.48 cm 30.4 kg/m2 02092.3 3 g 98.1 [degF] 83 /min 97 % 178/80 mm[Hg] 142/84 mm[Hg] Radha Parra [place] - [facility] 4 14:23:28 Date Recorded Body height Body mass index (BMI) Body weight Body temperature Heart rate Oxygen saturation Systolic And Diastolic Provider Name and Address Organization Details Last Updated DateTime 0 158.75 cm 32.4 kg/m2 86110.6 3 g 98 [degF] 85 /min 97 % 153/271 mm[Hg] Radha Parra [place] - [facility] 0 10:37:45 Date Recorded Body height Body mass index (BMI) Body weight Body temperature Heart rate Oxygen saturation Respiratory rate Systolic And Diastolic Provider Name and Address Organization Details Last Updated DateTime 4 157.48 cm 30.5 kg/m2 49971.9 3 g 97.7 [degF] 78 /min 97 % 18 /min 179/80 mm[Hg] Shayna ozuna [place] - [facility] 4 11:04:40 Social History Question Answer Notes LastModified by Organizat ion Details LastModified Time Tobacco Smoking Status Former Smoker quit 1999 Radha Parra null, [place] - [facility] 12/28/2018 09:09:53 Do You Have An Advance Directive? No [email or web address] Information not available 09/08/2017 Are You Blind Or Do You Have Difficulty Seeing? Yes Information not available 11/10/2023 What Is Your Level Of Caffeine Consumption? Moderate [email or web address] Information not available 09/08/2017 Are You Deaf Or Do You Have Serious Difficulty Hearing? No Information not available 11/10/2023 What Type Of Diet Are You Following? DIABETIC [email or web address] Information not available 09/08/2017 Which Illicit Or Recreational Drugs Have You Used? Never [email or web address] Information not available 07/22/2016 Hard Of Hearing Or Deaf In One Or Both Ears? No [email or web address] Information not available 07/22/2016 Legally Blind In One Or Both Eyes? No Information not available 07/22/2016 Marital Status [email or web address] Informatio n not available 09/08/2017 What Was The Date Of Your Most Recent Tobacco Screening? 01/22/2024 [email or web address] Information not available 01/22/2024 What Is Your Relationship Status? [email or web address] Information not available 07/22/2016 Seat Belts Used Routinely Yes [email or web address] Information not available 07/22/2016 Are You Sexually Active? No Information not available 11/10/2023 Smoke Alarm In Home Yes Information not available 07/22/2016 How Much Tobacco Do You Smoke? 1 PPD Information not available 07/22/2016 Has Tobacco Cessation Counseling Been Provided? No Information not available 11/10/2023 How Many Years Have You Smoked Tobacco? 32 [email or web address] Information not available 07/22/2016 Do You Have Difficulty Walking Or Climbing Stairs? Yes Information not available 11/10/2023 Sex: Female Functional Status Question Answer Note LastModified by Organizat ion Details LastModified Time Do you or have you ever used smokeless tobacco? Never used smokeless tobacco [email or web address] Information not available 12/02/2019 Are you currently employed? No [email or web address] Information not available 07/22/2016 Do you have transportation difficulties? No Information not available 11/10/2023 Urinary incontinence assessment performed? Yes [email or web address] Information not available 09/08/2017 Are you able to care for yourself independently? Yes [email or web address] Information not available 07/22/2016 Do you have difficulty dressing, bathing, grooming, or toileting? No Information not available 11/10/2023 Do you or have you ever used e-cigarettes or vape? Never used electronic cigarettes [email or web address] Information not available 12/02/2019 What is your exercise level? Occasional [email or web address] Information not available 07/22/2016 Do you use any illicit or recreational drugs? No Information not available 11/10/2023 Do you or have you ever used any other forms of tobacco or nicotine? No Information not available 11/10/2023 What is your level of alcohol consumption? None [email or web address] Information not available 09/08/2017 Are you able to walk independently without assistance or assistive devices? YESWOREST [email or web address] Information not available 09/08/2017 Do you have difficulty doing errands alone? No Information not available 11/10/2023 What is your occupation? retired [email or web address] Information not available 07/22/2016 Mental Status Question Answer Note LastModified by Organization D etails LastModified Time Do you have difficulty concentrating, remembering or making decisions? No Information no t available 11/10/2023 Family History Relationship Description Onset Age of this Age Resolved Age Notes LastModified by Organization Details LastModified Time Brother Coronary arterioscler osis [email or web address] Not available 2015 18:19:21 Mother Pulmonary emphysema [email or web address] Not available 2015 18:19:34 Sister Mixed hyperlipidem ia [email or web address] Not available 2015 18:19:55 Medical History No medical history recorded. Gynecological History Statement/Question Response Menses Monthly N Date of Last Pap Smear Date of Last Colonoscopy Date of Last Mammogram 11/27/2018 Most Recent Bone Density Obstetrics History GPAL:G 6 P 6 0 0 6 Type Value Full Term 6 Living 6 Total 6 Immunizations Vaccine Type Date Status Note Provider Nam e and Address Organization Details Recorded Time influenza, unspecified formulation 9 completed Not Available [facility] 05/22/2019 02:21:44 influenza, unspecified formulation 3 completed Not Available [facility] 05/22/2019 02:21:44 Tdap 4 completed Not Available [facility] 05/22/2019 02:21:44 pneumococcal polysaccharide PPV23 3 completed Not Available [facility] 05/22/2019 02:21:58 Pneumococcal conjugate PCV 13 8 completed Not Available [facility] 05/08/2019 03:55:06 Influenza, high-dose, trivalent, PF 8 completed Not Available [facility] 05/08/2019 03:55:27 Past Encounters Encounter ID Performer Location Encounter Start Date Encounter Closed Date Diagnosis/Indication Diagnosis SNOMED-CT Code Diagnosis ICD10 Code Diagnosis IMO Codes Diagnosis Note [id number] [facility] [address] [place] [address] 01/01/2011 00:00:00 [id number] [facility] [address] [place] [address] 08/09/2011 00:00:00 [id number] [facility] [address] [address] [address] 12/14/2007 00:00:00 [id number] [facility] [address] [place] [address] [address] 02/15/2008 00:00:00 [id number] [facility] [address] [place] [place] [address] [address] 04/25/2008 00:00:00 [id number] [facility] [address] [address] 11/02/2008 00:00:00 [id number] [facility] [address] [place] [address] [address] 01/30/2009 00:00:00 [id number] [facility] [address] [address] 07/24/2009 00:00:00 [id number] [facility] [address] [address] 05/07/2010 00:00:00 [id number] [facility] [address] [place] [address] 08/22/2010 00:00:00 [id number] [facility] [address] [place] [address] 01/01/2011 00:00:00 [id number] [facility] [address] [place] [address] 06/02/2013 00:00:00 [id number] [facility] [address] [place] [address] 09/28/2013 00:00:00 [id number] [facility] [address] [place] [address] 02/22/2014 00:00:00 [id number] [facility] [address] [place] [address] 11/23/2014 00:00:00 [id number] [facility] [address] [place] [address] 06/23/2015 00:00:00 [id number] [facility] [address] [place] [address] 07/21/2015 00:00:00 [id number] [facility] [address] [place] [address] 10/24/2015 00:00:00 [id number] [facility] [address] [place] [address] 07/23/2012 00:00:00 [id number] [facility] [address] [place] [address] 08/03/2012 00:00:00 [id number] [facility] [address] [place] [address] 08/17/2012 00:00:00 [id number] [facility] [address] [place] [address] 01/04/2013 00:00:00 [id number] [facility] [address] [place] [address] 01/27/2013 00:00:00 [id number] [facility] [address] [place] [address] 02/10/2013 00:00:00 [id number] [facility] [address] [place] [address] 05/19/2013 00:00:00 [id number] [facility] [address] [place] [address] 06/02/2013 00:00:00 [id number] [facility] [address] [place] [address] 08/20/2011 00:00:00 [id number] [facility] [address] [place] [address] 11/29/2011 00:00:00 [id number] [facility] [address] [place] [address] 04/29/2012 00:00:00 [id number] Baudilio Fields MD [address] [place] [address] 04/09/2016 17:12:27 04/10/2016 08:53:59 Renewal of prescription 063743319 Z76.0 Type 2 richard betes mellitus 18342075 E11.9 Pain of joint 95361412 M 25.50 [id number] Baudilio Fields MD [address] [place] [address] 10/11/2016 16:31:38 10/11/2016 18:33:09 Diabetes mellitus 58624574 E11.9 Acquired hypothyroidism 545902159 E03.9 Renewal of prescription 090436813 Z76.0 [facility] 85689344 R53.83 [id number] Baudilio Fields MD [address] [place] [address] 06/23/2017 13:06:25 06/23/2017 15:21:46 Diabetes mellitus 63603681 E11.9 Acquired hypothyroidism 033072249 E03.9 Depressive disorder 3548 9007 F33.0 Screening mammography 24 482762 Z12.31 [id number] Baudilio Fields MD [address] [place] [address] 09/08/2017 14:16:43 09/08/2017 16:19:14 Adult health examination 224079269 Z00.00 Depression screening 171 753577 Z13.89 Examinatio n of blood pressure 650788693 Z01.30 Diet education 96420351 Z71.3 Counseling 894276784 Z71 .82 Exercise counselluke g. Patient encouraged to exercise 30 minutes 5 days a week. Administra tion of pneumococcal vaccine 27382463 Z23 Diabetes mellitus 255584 09 E11.9 Acquired hypothyroidism 351645850 E03.9 Mixed hyperlipidemia 267 703496 E78.2 Body mass index 30+ - obesity 900093057 Z68.39 Viral screening 06463262 4 Z11.59 [id number] Jagjit Bocanegra MD [address] [place] [address] 03/19/2018 13:07:33 03/19/2018 15:34:45 Vitamin D deficiency 09917416 E55.9 Mixed hyperlipidemia 267 010212 E78.2 Acquired hypothyroidism 370847789 E03.9 Depressive disorder 3548 9007 F32.9 Diabetes mellitus 421869 09 E11.9 Administra tion of influenza vaccine 66732870 Z23 Hypertensive disorder 38 692321 I10 Osteoarthritis 134808114 M19.90 Contact dermatitis 62873 004 L25.9 [id number] Kana Valero MD [address] [place] [address] 05/19/2018 14:58:30 05/19/2018 16:15:23 Body mass index 30+ - obesity 252053358 Z68.33 Solitary n odule of lung 241038141 R91.1 Gallbladder enlarged 300 889017 K82.8 Abdominal aortic aneurysm 751941075 I71.4 Anemia 650054228 D64.9 Colitis 23105971 K52.9 Hypokalemia 31129110 E87 .6 Hypothyroidism 50210853 E03.9 Osteoporosis 38447196 M8 1.0 [id number] Kana Valero MD [address] [place] [address] 08/25/2018 11:13:58 08/25/2018 12:51:14 Diabetes mellitus 95072251 E11.9 Acquired hypothyroidism 112773723 E03.9 Mixed hyperlipidemia 267 750934 E78.2 Body mass index 30+ - obesity 006087784 Z68.33 Abdominal aortic aneurysm 830509217 I71.4 Osteoporosis 21950731 M8 1.0 Screening for malignant neoplasm of colon 300787732 Z12.11 Solitary n odule of lung 370987352 R91.1 Iron defic iency anemia 73460355 D50.9 [id number] Kana Valero MD [address] [place] [address] 12/28/2018 08:35:25 12/28/2018 10:15:57 Adult health examination 844099726 Z00.00 Depression screening 171 906638 Z13.89 Examinatio n of blood pressure 425943819 Z01.30 Diet education 71124101 Z71.3 Counseling 807045482 Z71 .82 Exercise counseling . Patient encouraged to exercise 30 minutes 5 days a week. At [facility] ed risk for falls 433925863 Z91.81 STEADI FAST screening score of . Advance care planning 71 1035023 Z71.89 Body mass index 30+ - obesity 117912431 Z68.33 Diabetes mellitus 506273 09 E11.9 Osteoporosis 23457972 M8 1.0 Depressive disorder 3548 9007 F33.0 Constipation 96792750 K5 9.00 [id number] Jagjit Bocanegra MD [address] [place] [address] 06/17/2019 14:29:48 06/17/2019 16:26:47 Diabetes mellitus 23020684 E11.9 Cough 13569510 R05 Acquired hypothyroidism 089989024 E03.9 Hypertensive disorder 38 897081 I10 Mixed hyperlipidemia 267 145393 E78.2 Acute bronchitis 0720283 2 J20.9 [id number] Jagjit Bocanegra MD [address] [place] [address] 12/02/2019 11:22:09 12/02/2019 12:46:30 Diabetes mellitus 98033076 E11.9 Increased frequency of urination 350978980 R35.0 Abdominal pain 39105231 R10.9 Acquired hypothyroidism 004984162 E03.9 Depressive disorder 3548 9007 F33.0 Abdominal aortic aneurysm 699497176 I71.4 Mixed hyperlipidemia 267 953807 E78.2 [id number] Kana Valero MD [address] 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 [place] [address] 4 11/10/2023 11:15:08 11/10/2023 13:17:35 Fatigue 66583359 R53.83 [id number] Bakari Michele MD [address] [place] [address] 11/14/2023 15:35:32 11/14/2023 16:15:25 Acquired hypothyroidism 388325675 E03.9 Body mass index 30+ - obesity 462570750 Z68.30 Obesity 154583204 E66.9 [id number] Bakari Michele MD [address] [place] [address] 12/12/2023 14:00:56 12/12/2023 14:47:22 Acquired hypothyroidism 003104104 E03.9 Body mass index 30+ - obesity 988489633 Z68.30 Obesity 131349794 E66.9 [id number] Bakari Michele MD [address] [place] [address] 01/22/2024 10:44:46 01/22/2024 11:35:25 Acquired hypothyroidism 805031353 E03.9 Diabetes mellitus 241419 09 E11.9 Health Concerns Section Related Observation LastModified by Organization Detai ls LastModified Time None Recorded Concern Status LastModified by Organization Details LastModified Time None Recorded Advance Directives Directive N: Payers Insurance Date Sequence Insurance Name Policy Number Policy Boyd Covered Member ID Boyd Member ID Guarantor Name 11/10/2023 1 [place] Henrietta Serrano José Miguel [id number] Henrietta Valdez 11/10/2023 2 [employer] (MEDICARE SUPPLEMENT) Henrietta Valdez [id number] Henrietta Españamore 11/10/2023 [employer] - [place] - [facility] (MEDICARE) Henrietta José Miguel [id number] Henrietta José Miguel 04/21/2024 1 [employer] (MEDICARE REPLACEMENT/ ADVANTAGE - PPO) Henrietta J José Miguel [id number] Henrietta José Miguel 11/10/2023 1 [employer] (PPO) Henrietta J José Miguel [id number] Henrietta José Miguel 04/21/2024 [employer] (MEDICARE REPLACEMENT/ ADVANTAGE - PPO) Henrietta J José Miguel [id number] Henrietta José Miguel Notes Date Note Type Note Provider Name and Address Organization Details Recorded Time 12/20/2019 text/html ROS as noted in the HPI States she broke out in a painful rash about 2 weeks ago. Went to ER one week ago and states she was given a few days of medication that she was suppossed to take 4 times/day but took then twice a day for 7 days.States she is still having a lot of pain. Kana powell, [place] - [facility] 12/20/2019 11:14:01 11/10/2023 text/html Patient presents today with complaints of feeling generally unwell. Patient reports that she is exhausted all the times. Patient also reports low abdominal pain. Patient also reports that she just does not care. Reports that she could care less if she would wake up in the mornings, could care less about going out or doing any house work. Denies SI ideations. Bakari Michele MD [address], [place], [address], [place] - [facility] 11/10/2023 18:22:26 11/14/2023 text/html ROS as noted in the HPI Pt presents for f/u hypothyroidism, now with TSH elevation shown on labs drawn [id number] and was 9.8 with low T3 uptake. Pt's current levothyroxine is 125mcg which we will increase to 137mcg today. Pt denies any s/sx consistent with worsening hypothyroid sx myah. temp sensitivity, constipation, skin or hair texture changes and weight gain. Bakari Michele MD [address], [place], [address], [place] - [facility] 11/14/2023 18:06:57 12/12/2023 text/html Pt presents for f/u after levothyroxine dose change from 112 to 137mcg. Pt started new dose 4 weeks prior and reports good effect on mood and energy level. She denies any N/V, HAs, excessive sweating, jitteriness or dizziness. Bakari Michele MD [address], [place], [address], [place] - [facility] 12/12/2023 17:20:07 01/22/2024 text/html Pt presents for DM2 and hypothyroidism.Pt presents for f/u DM2. Pt states continued compliance with DM2 diet and meds. Last A1c has not been checked by our system since . Pt has followed with [facility] in the past but is not doing so now. Pt checking AM fastings, reports most measurements in the 120s-130s. Denies s/sx consistent with hypoglycemia, myah dizziness, N/V, GI upset.Hypothyroidis m-well controlled with current regimen. Pt denies any s/sx consistent with worsening hypothyroid sx myah. temp sensitivity, constipation, skin or hair texture changes and weight gain. Bakari Michele MD [address], [place], [address], [place] - [facility] 01/22/2024 18:23:05 OBGyn Episode No OBEpisode recorded.
--- OUTSIDE RECORDS SUMMARY | 2025-04-12 11:56 | XMS_ITS ---
Laboratory report Created on: March 22, 2025 NICONGUYEN STANLEY : 1945 Sex: Female Author Name SURYADIANNAE Organization Unknown PROBLEMS Problems List Code Description R53.83 RESULTS Laboratory Orders Date Order Code Test 2023-11-10 [id number] CBC WITH DIFFERE NTIAL/PLATELET 2023-11-10 827482 THYROID PANEL WI TH TSH 2023-11-10 [id number] IRON AND TIBC 2023-11-10 713886 VITAMIN B12 AND FOLATE Laboratory Results Date LOINC Test Value Unit Reference Range Interpre tation 2023-11-10 6690-2 WBC 3.8 X10E3/UL 3.4-10.8 2023-11-10 789-8 RBC 3.56 X10E6/UL 3.77-5.28 L 2023-11-10 718-7 HEMOGLOBIN 11.9 G/DL 11.1-15.9 2023-11-10 4544-3 HEMATOCRIT 36.7 % 34.0-46.6 2023-11-10 787-2 MCV 103 FL 79-97 H 2023-11-10 785-6 MCH 33.4 PG 26.6-33.0 H 2023-11-10 786-4 MCHC 32.4 G/DL 31.5-35.7 2023-11-10 788-0 RDW 14.5 % 11.7-15.4 2023-11-10 777-3 PLATELETS 105 X10E3/UL 150-450 L 2023-11-10 770-8 NEUTROPHILS 68 % 2023-11-10 736-9 LYMPHS 22 % 2023-11-10 5905-5 MONOCYTES 8 % 2023-11-10 713-8 EOS 2 % 2023-11-10 706-2 BASOS 0 % 2023-11-10 751-8 NEUTROPHILS (ABSOLUTE) 2.6 X10E3/UL 1.4-7.0 2023-11-10 731-0 LYMPHS (ABSOLUTE) .8 X10E3/UL 0.7-3.1 2023-11-10 742-7 MONOCYTES(ABSOLUTE) .3 X10E3/UL 0.1-0.9 2023-11-10 711-2 EOS (ABSOLUTE) .1 X10E3/UL 0.0-0.4 2023-11-10 704-7 BASO (ABSOLUTE) 0 X10E3/UL 0.0-0.2 2023-11-10 14342-5 IMMATURE GRANULOCYTES 0 % 2023-11-10 23150-0 IMMATURE GRANS (ABS) 0 X10E3/UL 0.0-0.1 2023-11-10 04125-2 TSH 9.83 UIU/ML 0.450-4.500 H 2023-11-10 3026-2 THYROXINE (T4) 8.8 UG/DL 4.5-12.0 2023-11-10 3050-2 T3 UPTAKE 21 % 24-39 L 2023-11-10 11211-2 FREE THYROXINE INDEX 1.8 1.2-4.9 2023-11-10 2500-7 IRON BINDCAP(TIBC) 395 UG/DL 662-832 2525-07-22 2501-5 UIBC 282 UG/DL 936-609 7384-07-22 2498-4 IRON 113 UG/DL 27-139 2023-11-10 2502-3 IRON SATURATION 29 % 15-55 2023-11-10 2132-9 VITAMIN B12 389 PG/ML 232-1245 2023-11-10 2284-8 FOLATE (FOLIC AC ID), SERUM 8.3 NG/ML >3.0
--- OUTSIDE RECORDS SUMMARY | 2025-04-12 11:56 | XMS_ITS ---
Laboratory report Created on: March 22, 2025 NGUYEN WALSH : 1945 Sex: Female Author Organization Unknown PROBLEMS Problems List Code Description RESULTS Laboratory Orders Date Order Code Test 2024-02-20 [id number] URINE CULTURE, R OUTINE Laboratory Results Date LOINC Test Value Unit Reference Range Interpre tation 2024-02-20 630-4 URINE CULTURE, ROUTINE FINAL 2024-02-20 630-4 RESULT 1 XANDER
--- OUTSIDE RECORDS SUMMARY | 2025-04-12 11:56 | XMS_ITS ---
Laboratory report Created on: March 22, 2025 NGUYEN WALSH : 1945 Sex: Female Author Organization Unknown PROBLEMS Problems List Code Description RESULTS Laboratory Orders Date Order Code Test 2024-09-08 [id number] IMMUNOFIXATION, URINE Laboratory Results Date LOINC Test Value Unit Reference Range Interpre tation 2024-09-08 50907-8 KATYA INTERPRETATION:U BJPK A
== END 2025-04-11 23:59 | disposition home or self-care (01) ==
LOC: LAB.DROPOF 04-12 11:53
PROVIDERS: PCP Family Medicine; Visit Provider Family Medicine
DX: E03.9 Hypothyroidism, unspecified (principal); E78.2 Mixed hyperlipidemia; E11.9 Type 2 diabetes mellitus without complications; Z79.4 Long term (current) use of insulin
CPT/HCPCS: 80053; 84443; 85025